=== PATIENT | female | born 1970 | race Caucasian/White ===

== ENCOUNTER 2020-07-26 12:36 | Outpatient (REF) | payer BC, SELFPAY ==
[2020-07-26 15:12] LABS: SARS COV2 IgG Negative (Negative)
== END 2020-07-26 12:37 | disposition home or self-care (01) ==
LOC: HO.LAB 12:36
PROVIDERS: Visit Provider Internal Medicine
DX: Z20.822 Contact with and (suspected) exposure to COVID-19 (principal)
CPT/HCPCS: 36415; 86769

== ENCOUNTER 2020-07-26 13:07 | Outpatient (REF) | payer BC, SELFPAY | END 2020-07-26 13:08 | disposition home or self-care (01) | LOC: HO.LAB 13:07 | PROVIDERS: PCP Internal Medicine; Referring Provider Internal Medicine; Visit Provider Internal Medicine | DX: Z20.822 Contact with and (suspected) exposure to COVID-19 (principal) | CPT/HCPCS: 36415; C9803; U0003; U0005 ==

== ENCOUNTER 2020-08-06 15:50 | Outpatient (REF) | payer BC, SELFPAY ==
--- NOTE | ~2020-08-06 | MR_ITS ---
EXAMINATION: MR BREAST WITHOUT AND WITH CONTRAST, BILATERAL CLINICAL INFORMATION: 50-year-old for high-risk screening. COMPARISON: MRI of 06/27/2019 and 06/03/2018 TECHNIQUE: Imaging was performed with a dedicated breast coil. Prior to the administration of contrast, bilateral axial T1- and bilateral axial T2-weighted sequences were obtained. After the uneventful administration of?5 mL of Gadavist, dynamic contrast-enhanced VIBRANT series through the breasts in the axial plane were performed. Subtracted images were performed and reviewed. A delayed sagittal sequence through both breasts was acquired. Additionally, CAD post-processing, including maximum intensity projections, 3-D reconstructions and kinetic analysis, were performed an independent workstation and reviewed by the interpreting radiologist is a portion of this exam. FINDINGS: The patient's fibroglandular tissue demonstrates minimal background enhancement. LEFT BREAST: There is an intact saline implant. No suspicious mass-like or [id number]-[id number] enhancement. No abnormal skin thickening or nipple retraction. No abnormal architectural distortion. Review of the T2-weighted images demonstrates no fibrocystic changes or dilated ducts. Review of kinetic images reveals no additional findings. RIGHT BREAST: There is an intact saline implant. No suspicious mass-like or cey-[id number]-[id number] enhancement. No abnormal skin thickening or nipple retraction. No abnormal architectural distortion. There is a stable T2 hyperintense mass in the lower inner aspect of the right breast consistent with an intramammary lymph node. There are no new areas of mass or non-mass enhancement. There are no secondary signs of malignancy. Review of the T2-weighted images demonstrates no fibrocystic changes or dilated ducts. Review of kinetic images reveals no additional findings. There is no suspicious internal mammary chain or axillary adenopathy. Limited views of the chest and abdomen are unremarkable. MR/MR breast BI wo/w con IMPRESSION: No MR specific evidence of malignancy. ASSESSMENT: LEFT BREAST: BI-RADS 2 - benign. RIGHT BREAST: BI-RADS 2 - benign. RECOMMENDATIONS: Routine mammographic imaging as per most recent study and MRI as per high-risk protocol.
== END 2020-08-06 15:51 | disposition home or self-care (01) ==
LOC: HO.MRI 15:50
PROVIDERS: Visit Provider Physician Assistant
DX: R92.2 Inconclusive mammogram (principal)
CPT/HCPCS: 77049; A9585

== ENCOUNTER → 2020-09-07 15:22 | Outpatient (BNVA) | payer BC, SELFPAY | PROVIDERS: Visit Provider Urology | DX: N39.0 Urinary tract infection, site not specified (principal) | CPT/HCPCS: 81002 ==

== ENCOUNTER 2020-09-21 07:33 | Outpatient (REF) | payer BC, SELFPAY ==
--- NOTE | ~2020-09-21 | XR_ITS ---
EXAMINATION: XR SHOULDER, RIGHT CLINICAL INFORMATION: Right shoulder pain. COMPARISON: None TECHNIQUE: Three-view of the right shoulder. FINDINGS: There is no evidence of acute fracture or dislocation of the right shoulder. Right shoulder joint space is maintained. No significant degenerative change of the acromioclavicular joint. Small calcification seen at site of insertion of the supraspinatus tendon. There are a few pit erosions seen about the humeral head. XR/XR shoulder RT min 2V IMPRESSION: Calcific tendinitis of the right shoulder.
== END 2020-09-21 07:34 | disposition home or self-care (01) ==
LOC: HO.HOSX 07:33
PROVIDERS: Visit Provider Orthopaedic Surgery
DX: M25.311 Other instability, right shoulder (principal); M25.312 Other instability, left shoulder; M75.41 Impingement syndrome of right shoulder
CPT/HCPCS: 73030

== ENCOUNTER 2020-10-21 08:06 | Outpatient (REF) | payer BC, SELFPAY ==
[2020-10-21 10:18] LABS: MANUAL DIFF FLAG NO
[2020-10-21 10:26] LABS: Basophils Percent Auto 0.6 % (0-2); Eosinophils Absolute Auto 0.1 X10*3/uL (0.0-0.4); Hematocrit 38.4 % (37-47); Hemoglobin 12.9 g/dl (12.0-16.0); Imm Gran Abs Auto 0.01 X10*3/uL (0.00-0.03); Imm Gran Pct Auto 0.3 % (0.0-0.4); Lymphocytes Percent Auto 28.9 % (20-40); Mean Corpuscular HGB Conc 33.6 g/dl (31.0-35.0); Mean Corpuscular Hemoglobin 32.6 pg (27.0-33.0); Monocytes Absolute Auto 0.3 X10*3/uL (0.1-1.2); Monocytes Percent Auto 7.6 % (2-11); Neutrophils Absolute Auto 2.1 X10*3/uL (2.0-8.3); Neutrophils Percent Auto 60.6 % (45-73); Platelet Count 157 X10*3/uL (160-400); Red Blood Count 3.96 X10*6/uL (4.20-5.50); Red Cell Distribution Width 11.7 % (11.0-16.0); White Blood Count 3.4 X10*3/uL (4.8-10.8)
[2020-10-21 10:49] LABS: Alanine Aminotransferase 15 U/L (0-31); Alkaline Phosphatase 44 U/L (39-117); Anion Gap 11 (12-20); Aspartate Amino Transferase 18 U/L (5-31); Bilirubin Total 0.8 mg/dL (0.0-1.0); Blood Urea Nitrogen 17 mg/dL (9-16); Carbon Dioxide 26 mmol/L (22-29); Chloride 106 mmol/L (96-108); Cholesterol 170 mg/dL; Estimated Glomerular Filt Rate > 60; Glucose Fasting 86 mg/dL (60-99); HDL Cholesterol 67 mg/dL; LDL Cholesterol Calculated 93 mg/dl; Potassium 4.5 mmol/L (3.3-5.1); Sodium 138 mmol/L (135-145); Total Protein 6.7 g/dL (6.5-8.0); Triglycerides 51 mg/dL
[2020-10-21 11:11] LABS: Thyroid Stimulating Hormone 1.36 uIU/mL (0.32-4.0)
== END 2020-10-21 08:07 | disposition home or self-care (01) ==
LOC: HO.10HDL 08:06
PROVIDERS: Visit Provider Internal Medicine
DX: Z00.00 Encounter for general adult medical examination without abnormal findings (principal); E03.9 Hypothyroidism, unspecified; E11.9 Type 2 diabetes mellitus without complications
CPT/HCPCS: 36415; 80053; 80061; 84443; 85025

== ENCOUNTER 2021-06-03 09:37 | Outpatient (REF) | payer BC, SELFPAY ==
--- NOTE | ~2021-06-03 | XR_ITS ---
EXAMINATION: CR CHEST CLINICAL INFORMATION: Palpitations. COMPARISON: Chest x-ray dated 02/12/2019. TECHNIQUE: 2 views of the chest were obtained on 3 images. FINDINGS: The cardiomediastinal silhouette is within normal limits in size. Lungs bilaterally are symmetrically expanded and clear. No focal consolidation, effusion or pneumothorax is seen. Minimal S-shaped thoracic scoliosis and mild spurring in the lower thoracic spine noted. Bilateral breast implants are seen in place. XR/XR chest 2V IMPRESSION: No acute cardiopulmonary process.
--- NOTE | 2021-06-03 10:03 | ECG_ITS ---
Test Reason : PALPITATIONS Blood Pressure : / mmHG Vent. Rate : 069 BPM Atrial Rate : 069 BPM P-R Int : 130 ms QRS Dur : 078 ms QT Int : 396 ms P-R-T Axes : 034 073 063 degrees QTc Int : 424 ms Normal sinus rhythm Low voltage QRS Borderline ECG When compared with ECG of 20-NOV-2019 13:23, No significant change was found Referred By: Reinaldo Velez Electronically Signed By:ADEOLA GUERRA MD
[2021-06-03 11:05] LABS: Anion Gap 12 (12-20); Blood Urea Nitrogen 22 mg/dL (9-16); Calcium 9.4 mg/dL (8.4-10.2); Carbon Dioxide 26 mmol/L (22-29); Chloride 105 mmol/L (96-108); Estimated Glomerular Filt Rate > 60; Glucose Random 79 mg/dL (60-115); Potassium 5.1 mmol/L (3.3-5.1); Sodium 138 mmol/L (135-145)
[2021-06-03 11:30] LABS: Thyroid Stimulating Hormone 1.45 uIU/mL (0.32-4.0)
== END 2021-06-03 09:38 | disposition home or self-care (01) ==
LOC: HO.10HDL 09:37
PROVIDERS: PCP Internal Medicine; Visit Provider Internal Medicine
DX: Z00.00 Encounter for general adult medical examination without abnormal findings (principal); R51.9 Headache, unspecified; R00.2 Palpitations
CPT/HCPCS: 36415; 71046; 80048; 84443; 93005

== ENCOUNTER 2021-08-23 08:16 | Outpatient (REF) | payer BC, SELFPAY ==
--- NOTE | ~2021-08-23 | MR_ITS ---
EXAMINATION: MR BREAST WITHOUT AND WITH CONTRAST, BILATERAL CLINICAL INFORMATION: High-risk screening. Family history of breast cancer. History of bilateral breast augmentation, saline. COMPARISON: MRI 08/06/2020, 06/27/2019 TECHNIQUE: Imaging was performed with a dedicated breast coil. Prior to the administration of contrast, bilateral axial T1 and bilateral axial T2 weighted sequences were obtained. After the uneventful administration of?5.5 mL of Gadavist, dynamic contrast-enhanced VIBRANT series through the breasts in the axial plane were performed. Subtracted images were performed and reviewed. A delayed sagittal sequence through both breasts was acquired. Additionally, CAD post-processing, including maximum intensity projections, 3-D reconstructions and kinetic analysis, were performed an independent workstation and reviewed by the interpreting radiologist is a portion of this exam. FINDINGS: The patient's fibroglandular tissue demonstrates moderate background enhancement. Retropectoral saline implants are intact. LEFT BREAST: No suspicious masslike or non-masslike enhancement. No abnormal skin thickening or nipple retraction. No abnormal architectural distortion. Review of the T2 weighted images demonstrates no fibrocystic changes or dilated ducts. Review of kinetic images reveals no additional findings. RIGHT BREAST: Stable tiny enhancing focus, right breast, lower inner quadrant posteriorly. No suspicious masslike or non-masslike enhancement. No abnormal skin thickening or nipple retraction. No abnormal architectural distortion. Review of the T2 weighted images demonstrates no fibrocystic changes or dilated ducts. Review of kinetic images reveals no additional findings. There is no suspicious internal mammary chain or axillary adenopathy. Limited views of the chest and abdomen are unremarkable. MR/MR breast BI wo/w con IMPRESSION: No MR specific evidence of malignancy. ASSESSMENT: LEFT BREAST: BI-RADS 1-Negative RIGHT BREAST: BI-RADS 1-Negative RECOMMENDATIONS: Clinical follow-up. Continued annual mammographic surveillance. Further breast MRI as risk factors dictate.
== END 2021-08-23 08:17 | disposition home or self-care (01) ==
LOC: HO.MRI 08:16
PROVIDERS: Visit Provider Physician Assistant
DX: R92.2 Inconclusive mammogram (principal); Z80.3 Family history of malignant neoplasm of breast
CPT/HCPCS: 77049; A9585

== ENCOUNTER → 2021-09-07 09:16 | Outpatient (BNVA) | payer BC, SELFPAY | PROVIDERS: PCP Internal Medicine; Visit Provider Urology | DX: N32.81 Overactive bladder (principal); N39.0 Urinary tract infection, site not specified | CPT/HCPCS: 99212 ==

== ENCOUNTER 2021-11-25 08:20 | Outpatient (REF) | payer BC, SELFPAY ==
[2021-11-25 08:35] LABS: MANUAL DIFF FLAG NO
[2021-11-25 09:17] LABS: Basophils Percent Auto 0.8 % (0-2); Eosinophils Absolute Auto 0.1 X10*3/uL (0.0-0.4); Eosinophils Percent Auto 1.3 % (0-4); Hematocrit 35.8 % (37.0-47.0); Hemoglobin 12.5 g/dl (12.0-16.0); Imm Gran Abs Auto 0.01 X10*3/uL (0.00-0.03); Imm Gran Pct Auto 0.3 % (0.0-0.4); Lymphocytes Percent Auto 24.4 % (20-40); Mean Corpuscular HGB Conc 34.9 g/dl (31.0-35.0); Mean Corpuscular Hemoglobin 33.1 pg (27.0-33.0); Mean Corpuscular Volume 94.7 fL (80.0-98.0); Mean Platelet Volume 10.9 fL (9.4-12.3); Monocytes Absolute Auto 0.3 X10*3/uL (0.1-1.2); Monocytes Percent Auto 6.9 % (2-11); Neutrophils Absolute Auto 2.6 x10*3/uL (2.0-8.3); Neutrophils Percent Auto 66.3 % (45-73); Platelet Count 165 X10*3/uL (160-400); Red Blood Count 3.78 X10*6/uL (4.20-5.50); Red Cell Distribution Width 11.7 % (11.0-16.0); White Blood Count 3.9 X10*3/uL (4.8-10.8)
[2021-11-25 09:29] LABS: Alanine Aminotransferase 20 U/L (0-31); Albumin Level 3.9 g/dL (3.5-5.0); Alkaline Phosphatase 40 U/L (39-117); Anion Gap 12 (12-20); Aspartate Amino Transferase 22 U/L (5-31); Bilirubin Total 0.8 mg/dL (0.0-1.0); Blood Urea Nitrogen 21 mg/dL (9-16); Calcium 9.1 mg/dL (8.4-10.2); Carbon Dioxide 24 mmol/L (22-29); Chloride 107 mmol/L (96-108); Cholesterol 167 mg/dL; Estimated Glomerular Filt Rate > 60; Glucose Fasting 96 mg/dL (60-99); HDL Cholesterol 74 mg/dL; LDL Cholesterol Calculated 84 mg/dl; Potassium 4.7 mmol/L (3.3-5.1); Sodium 138 mmol/L (135-145); Total Protein 6.7 g/dL (6.5-8.0); Triglycerides 46 mg/dL
[2021-11-25 09:40] LABS: Thyroid Stimulating Hormone 1.58 uIU/mL (0.32-4.0)
== END 2021-11-25 08:21 | disposition home or self-care (01) ==
LOC: HO.LAB 08:20
PROVIDERS: PCP Internal Medicine; Visit Provider Internal Medicine
DX: Z00.00 Encounter for general adult medical examination without abnormal findings (principal); Z13.0 Encounter for screening for diseases of the blood and blood-forming organs and certain disorders involving the immune mechanism
CPT/HCPCS: 36415; 80053; 80061; 84443; 85025

== ENCOUNTER 2022-02-24 12:53 | Outpatient (REF) | payer OTHER, SELFPAY ==
--- NOTE | ~2022-02-24 | CT_ITS ---
EXAMINATION: CT SINUS WITHOUT CONTRAST CLINICAL INFORMATION: Chronic sinusitis. COMPARISON: None. TECHNIQUE: Axial 2 mm thin and reformatted 2 mm thin sagittal and coronal images of sinuses were obtained without contrast. This CT examination was performed using dose optimization techniques as appropriate, variously including the following: *Automated exposure control *Adjustment of mA and/or kV according to patient size (this includes techniques or standardized protocols for targeted exams where dose is matched to indication/reason for exam; i.e. extremities or head) *Use of iterative reconstruction technique DLP: 75 mGy-cm. FINDINGS: There is normal aeration of bilateral paranasal sinuses and mastoid sinuses without air-fluid level. Bilateral ostiomeatal complex and frontoethmoidal recesses are widely patent. The bony sinus watkins are intact. There is mild deviation of nasal septum to the right with a moderate size bony spur. There is a paradoxical left middle turbinate. The nasal cavity and nasopharyngeal airways patent. The optic globe, bony orbits, optic nerve and the orbital and periorbital soft tissues are normal. Visualized intracranial brain parenchyma is normal. The maxillofacial bones and zygoma appear unremarkable. There is normal symmetry of bilateral TM joints. No abnormality related to the visualized mandible seen. The soft tissues are normal. CT/CT sinus wo IV con IMPRESSION: Moderate deviation of nasal septum to the right with a moderate-sized bony spur. No visible fracture or bony abnormality.
== END 2022-02-24 12:54 | disposition home or self-care (01) ==
LOC: HO.CT 12:53
PROVIDERS: PCP Internal Medicine; Visit Provider Internal Medicine
DX: J32.9 Chronic sinusitis, unspecified (principal)
CPT/HCPCS: 70486

== ENCOUNTER 2022-05-04 14:04 | Outpatient (RCR) | payer OTHER, SELFPAY ==
--- NOTE | 2022-05-04 15:16 | MHC.PT.EP ---
[facility] [place] Office [place] Office [place] Office [address] Keily Hanks [address] [phone] F: [phone] F: [phone] F: [phone] F: [phone] Physical Therapy Plan of Care Date of Evaluation: Date of Surgery: NA Diagnosis: Disorder of ligament of R ankle Assessment: Tita is a 52 year old female who is referred to PT for disorder of ligament of R ankle . She reports of having sudden onset of ankle pain about 2 weeks back. She denies any trauma or falls. On PT examination she reports of having 8/10 pain with walking, stairs and standing, no TTP noted, decreased R big toe mobility, decreased strength, altered posture, balance and gait. Due to these impairments she has pain with ADLs and driving. She works in [employer] and is standing and walking all day. She would benefit from skilled PT to address the aforementioned impairment and improve tolerance to functional activities. Frequency and Duration: The patient will be seen 2/week for 5 weeks Short Term Goals: 1. Pt will have 50% decrease in pain which enable her to stand for 30 minutes with a pain no more than 2/10 in 2 weeks. 2. Pt will demonstrate improved mobility of big toe extension (30 degrees) which will enable her to walk without pain in 3 weeks. Service Girl Goals: 1. Pt will be demonstrate an increase in muscle strength by 1 grade which will enable her to negotiate stairs without pain in 4 weeks. 2. Pt will be independent with HEP and return to PLOF in 5 weeks. Treatment Plan: Modalities to reduce pain, spasms and effusion. Manual therapy to restore motion and function. Therapeutic exercise to improve strength and flexibility. Neuromuscular re-education for posture and balance. Therapeutic activities to return to functional activities of daily living. Electronically signed by: Lady Alonzo PT DPT Please sign and return to therapist. Thank you for your referral.
--- NOTE | 2022-05-24 15:21 | MHC.PT.DC ---
[facility] [place] Office [place] Office [place] Office [address] Keily Hanks [address] [facility] [phone] F: [phone] F: [phone] F: [phone] F: [phone] Physical Therapy Discharge Report Diagnosis: Disorder of ligament of R ankle Date of Surgery: NA Date of Evaluation: 05/04/22 Date of Discharge: 05/24/22 Treatments to Date: 1 Cancellations to Date: 0 No Shows to Date: 0 Discharge Status: Patient Elected to Stop Discharge Summary: Tita canceled 3 visits after her evaluation and called and d/c herself today stating she is feeling better. She is therefore being d/c from PT. Electronically signed by: Lady Alonzo PT DPT Please sign and return to therapist. Thank you for your referral.
== END 2022-05-24 15:21 | disposition home or self-care (01) ==
LOC: HO.PT 14:04
PROVIDERS: PCP Internal Medicine; Visit Provider Physician Assistant
DX: M24.271 Disorder of ligament, right ankle (principal)
CPT/HCPCS: 97110; 97161

== ENCOUNTER → 2022-09-08 13:09 | Outpatient (BNVA) | payer OTHER, SELFPAY | PROVIDERS: PCP Internal Medicine; Visit Provider Urology | DX: N39.0 Urinary tract infection, site not specified (principal); R39.15 Urgency of urination | CPT/HCPCS: 51798 ==

== ENCOUNTER 2022-12-08 07:16 | Outpatient (REF) | payer OTHER, SELFPAY ==
[2022-12-08 07:25] LABS: MANUAL DIFF FLAG NO
[2022-12-08 08:41] LABS: Basophils Percent Auto 0.5 % (0-2); Eosinophils Absolute Auto 0.1 X10*3/uL (0.0-0.4); Eosinophils Percent Auto 2.1 % (0-4); Hematocrit 35.2 % (37.0-47.0); Imm Gran Abs Auto 0.01 X10*3/uL (0.00-0.03); Imm Gran Pct Auto 0.2 % (0.0-0.4); Lymphocytes Absolute Auto 1.3 X10*3/uL (1.2-4.9); Lymphocytes Percent Auto 28.8 % (20-40); Mean Corpuscular HGB Conc 34.1 g/dl (31.0-35.0); Mean Corpuscular Hemoglobin 32.4 pg (27.0-33.0); Mean Corpuscular Volume 95.1 fL (80.0-98.0); Mean Platelet Volume 11.7 fL (9.4-12.3); Monocytes Absolute Auto 0.3 X10*3/uL (0.1-1.2); Monocytes Percent Auto 6.9 % (2-11); Neutrophils Absolute Auto 2.7 x10*3/uL (2.0-8.3); Neutrophils Percent Auto 61.5 % (45-73); Platelet Count 134 X10*3/uL (160-400); Red Cell Distribution Width 12.2 % (11.0-16.0); White Blood Count 4.4 X10*3/uL (4.8-10.8)
[2022-12-08 09:18] LABS: Alanine Aminotransferase 17 U/L (0-31); Albumin Level 3.7 g/dL (3.5-5.0); Alkaline Phosphatase 43 U/L (39-117); Anion Gap 9 (12-20); Aspartate Amino Transferase 21 U/L (5-31); Bilirubin Total 0.7 mg/dL (0.0-1.0); Blood Urea Nitrogen 18 mg/dL (9-16); Calcium 9.2 mg/dL (8.4-10.2); Carbon Dioxide 25 mmol/L (22-29); Chloride 108 mmol/L (96-108); Cholesterol 161 mg/dL; Estimated Glomerular Filt Rate > 60; Glucose Fasting 90 mg/dL (60-99); HDL Cholesterol 65 mg/dL; LDL Cholesterol Calculated 84 mg/dl; Sodium 138 mmol/L (135-145); Total Protein 6.7 g/dL (6.5-8.0); Triglycerides 64 mg/dL
[2022-12-08 09:26] LABS: Thyroid Stimulating Hormone 2.14 uIU/mL (0.32-4.0)
== END 2022-12-08 07:17 | disposition home or self-care (01) ==
LOC: HO.LAB 07:16
PROVIDERS: PCP Internal Medicine; Visit Provider Internal Medicine
DX: E03.9 Hypothyroidism, unspecified (principal); N28.9 Disorder of kidney and ureter, unspecified; E78.5 Hyperlipidemia, unspecified; D64.9 Anemia, unspecified
CPT/HCPCS: 36415; 80053; 80061; 84443; 85025

== ENCOUNTER 2022-12-14 16:33 | Outpatient (REF) | payer OTHER, SELFPAY ==
--- NOTE | ~2022-12-14 | MR_ITS ---
EXAMINATION: MR BREAST WITHOUT AND WITH CONTRAST, BILATERAL CLINICAL INFORMATION: High-risk screening. Family history of breast cancer. History of bilateral breast augmentation, saline. COMPARISON: 07/20/2021, 08/06/2020 TECHNIQUE: Imaging was performed with a dedicated breast coil. Prior to the administration of contrast, bilateral axial T1 and bilateral axial T2 weighted sequences were obtained. After the uneventful administration of?5.5 mL of Gadavist, dynamic contrast-enhanced VIBRANT series through the breasts in the axial plane were performed. Subtracted images were performed and reviewed. A delayed sagittal sequence through both breasts was acquired. Additionally, CAD post-processing, including maximum intensity projections, 3-D reconstructions and kinetic analysis, were performed an independent workstation and reviewed by the interpreting radiologist is a portion of this exam. FINDINGS: The patient's fibroglandular tissue demonstrates moderate background enhancement. LEFT BREAST: No suspicious masslike or non-masslike enhancement. No abnormal skin thickening or nipple retraction. No abnormal architectural distortion. Review of the T2 weighted images demonstrates no fibrocystic changes or dilated ducts. Review of kinetic images reveals no additional findings. RIGHT BREAST: No suspicious masslike or non-masslike enhancement. No abnormal skin thickening or nipple retraction. No abnormal architectural distortion. Review of the T2 weighted images demonstrates no fibrocystic changes or dilated ducts. Review of kinetic images reveals no additional findings. There is no suspicious internal mammary chain or axillary adenopathy. Limited views of the chest and abdomen are unremarkable. MR/MR breast BI wo/w con IMPRESSION: No MR specific evidence of malignancy. ASSESSMENT: LEFT BREAST: BI-RADS 1-Negative RIGHT BREAST: BI-RADS 1-Negative RECOMMENDATIONS: Continue mammographic surveillance. Clinical follow-up.
== END 2022-12-14 16:34 | disposition home or self-care (01) ==
LOC: HO.MRI 16:33
PROVIDERS: PCP Internal Medicine; Visit Provider Obstetrics & Gynecology
DX: R92.2 Inconclusive mammogram (principal)
CPT/HCPCS: 77049; A9585

== ENCOUNTER 2023-05-02 11:27 | Outpatient (AMB) | payer OTHER, SELFPAY ==
[2023-05-02 11:31] VITALS: BP 100/70; PULSE 65; O2SAT 100; BMI 22.7
--- NOTE | 2023-05-02 11:31 | A.OFFPC_ITS ---
Vital Signs 05/02/23 11:31 Height 5 ft 3 in Weight 128 lb BMI 22.7 BP 100/70 Blood Pressure Location Lt brachial Position Sitting Pulse 65 Pulse Source Pulse Oximeter Pulse Oximetry (%) 100 Oxygen Delivery Method Room Air Intake Visit Reasons: 6M follow up Director Medical Science: Not Required per policy Accompanied by: Self / Same As Patient Allergies clindamycin [CLINDAMYCIN] Allergy (Severe, Verified 05/02/23 11:32) HIVES AND BODY SWELLING amoxicillin Allergy (Unknown, Verified 05/02/23 11:32) unknown azithromycin [From ZITHROMAX Z-ASHTYN] Allergy (Unknown, Verified 05/02/23 11:32) SWELLING, rash Clindamycin HCl Allergy (Unknown, Verified 05/02/23 11:32) face swollen,hives penicillin V Allergy (Unknown, Verified 05/02/23 11:32) throat swelling Penicillins [PENICILLINS] Allergy (Unknown, Verified 05/02/23 11:32) ANAPHYLAXIS Sulfa (Sulfonamide Antibiotics) Allergy (Unknown, Verified 05/02/23 11:32) rash sulfamethoxazole [From Bactrim] Allergy (Unknown, Verified 05/02/23 11:32) rash trimethoprim [From Bactrim] Allergy (Unknown, Verified 05/02/23 11:32) rash eggs Allergy (Unknown, Uncoded 05/02/23 11:32) Unknown Medication List - Last Reconciled 05/03/23 by Reinaldo Velez MD bupropion HCl 50 mg PO QAM citalopram 5 mg (1/2 x 10 mg) PO DAILY citalopram 0 - 6 mg PO DAILY epinephrine IM DIRECTED estradiol 1 patch transdermal 2XW fluticasone propionate 50 mcg/actuation (Flonase Allergy Relief) 1 spray intranasal DAILY nitrofurantoin macrocrystal 100 mg PO .PRN 90 days progesterone micronized 200 mg PO BEDTIME valacyclovir 500 mg PO DAILY Tobacco use date assessed: 10/17/22 Dental Screening Dental Screen Date: 05/02/23 Did you have a dental visit in the last 12 months?: Yes Did you have a dental problem in the last 6 months where you did not have access to dental care?: No Was dental information given to patient?: Patient has dentist HPI 6M follow up HPI Details continues on rx for mild depression and doing very well; stable and compliant; recent of brother [facility] Medical History Chronic depressive disorder Depression Gluten-sensitive enteropathy Surgical History Status post cervical polyp removal History of augmentation of both breasts Family History Father Hypertension CVD (cardiovascular disease) Mother No problems noted. Brother Lung cancer Social History Housing: House Alcohol intake: current Alcohol intake frequency: holidays/special occasions only Patient Tobacco Use Status: Never used Tobacco e-Cigarette/Vaping Use: Never Used Second Hand Smoke Exposure: No service: No Current occupational status: employed Cognitive needs: No Hearing needs: No Vision needs: Yes Questionnaire PHQ-9 Over the last 2 weeks, how often have you been bothered by any of the following problems? 1. Little interest or pleasure in doing things: not at all 2. Feeling down, depressed, or hopeless: not at all 3. Trouble falling or staying asleep, or sleeping too much: not at all 4. Feeling tired or having little energy: not at all 5. Poor appetite or overeating: not at all 6. Feeling bad about yourself - or that you are a failure or have let yourself or your family down: not at all 7. Trouble concentrating on things, such as reading the newspaper or watching television: not at all 8. Moving or speaking so slowly that other people could have noticed. Or the opposite - being so fidgety or restless that you have been moving around a lot more than usual: not at all 9. Thoughts that you would be better off or of hurting yourself in some way: not at all Total score: 0 Depression Screening Interpretation: Negative Depression Screening Done: Yes 36050 - PHQ-9 Billing: Yes Source: Developed by Drs. Chuck Angelo, Kimber Heredia, Misael Greene and colleagues, with an educational tootie from [employer]. Thrive Questionnaire Date Thrive assessed: 09/01/22 AUDIT C Alcohol Use Questionnaire (AUDIT-C) 1. How often do you have a drink containing alcohol?: Monthly or less 2. How many drinks containing alcohol do you have on a typical day when you are drinking?: 1 or 2 3. How often do you have six or more drinks on one occasion?: Never Total Score: 1 Score Reviewed/Action Taken: No DEMIAN-7 AMB Questionnaire DEMIAN-7 Date DEMIAN - 7 assessed: 09/01/22 Source: Developed by Drs. Chuck Angelo, Kimber Heredia, Misael Greene and colleagues, with an educational tootie from [employer]. Review of Systems Const Denies chills, Denies headache(s) and Denies weight loss ENT Denies headache(s) Card Denies chest pain, Denies syncope, Denies irregular heart rhythm and Denies dyspnea Resp Denies chest congestion, Denies cough and Denies dyspnea GI Denies abdominal pain, Denies change in stool character, Denies nausea and Denies vomiting Musc Denies deformity and Denies joint swelling Neuro Denies syncope and Denies headache(s) Physical exam (Primary Care) Vital Signs: Last Vital Signs Pulse 65 05/02/23 11:31 BP 100/70 05/02/23 11:31 Pulse Ox 100 05/02/23 11:31 Oxygen Delivery Method Room Air 05/02/23 11:31 BMI result Body Mass Index 22.7 Tobacco/Smoking Status: Tobacco use Status Tobacco use date assessed 10/17/22 05/02/23 11:38 Patient Tobacco Use Status Never used Tobacco 05/02/23 11:38 e-Cigarette/Vaping Use Never Used 05/02/23 11:38 PHQ-9: PHQ-9 Score PHQ-9: Total score 0 05/02/23 11:38 Depression Screening Interpretation: Negative Thrive Assessment: Date of Thrive Assessment Date Thrive assessed 09/01/22 05/02/23 11:38 Const General: cooperative, comfortable, no acute distress and alert Neck Neck: Yes no lymphadenopathy Thyroid: Thyroid normal Resp Effort & Inspection: normal respiratory effort Auscultation: clear to auscultation bilaterally Percussion: percussion normal Cardio Jugular venous distension: no JVD Palpation: normal PMI Rate: regular rate Rhythm: regular rhythm Heart sounds: S1 normal heart sound present and S2 normal heart sound present GI Inspection: Yes normal to inspection Palpation (GI): No hepatosplenomegaly present Skin General skin exam: no rashes or lesions noted Extrem General: Yes no clubbing, cyanosis or edema Assessment and Plan Assessment & Plan (1) Depression: Code(s): F32.9 - Major depressive disorder, single episode, unspecified Plan: stable; same rx Medications: Changed From epinephrine IM DIRECTED To epinephrine 0.3 mg (0.3 mL) IM DIRECTED 2 ea 2RF Coding Level of Care Code Est Pt Level 3 (17466) Diagnoses Depression F32.9
== END 2023-05-02 12:13 | disposition home or self-care (01) ==
PROVIDERS: PCP Internal Medicine; Visit Provider Internal Medicine
DX: F32.0 Major depressive disorder, single episode, mild (principal)
CPT/HCPCS: 99213

== ENCOUNTER 2023-06-22 11:51 | Outpatient (REF) | payer OTHER, SELFPAY ==
--- NOTE | ~2023-06-22 | MM_ITS ---
EXAMINATION: MM SCREENING DIGITAL BREAST TOMOSYNTHESIS, BILATERAL WITH BREAST IMPLANTS. CLINICAL INFORMATION: Screening. Asymptomatic. COMPARISON: Mammography: This study is compared with the prior exam dating back to 2018. TECHNIQUE: Digital mammography is performed in craniocaudal and mediolateral oblique views along with computer-aided detection (CAD). Digital breast tomosynthesis is performed in implant-displaced craniocaudal and implant-displaced mediolateral oblique views along with computer-aided detection (CAD). Synthesized 2D images are generated from the tomosynthesis. FINDINGS: The breasts are heterogeneously dense, which may obscure small masses (ACR BI-RADS breast composition Category c). There are bilateral, mammographically intact, retropectoral saline breast implants. There are no significant masses, abnormal calcifications, or other abnormalities. MM/MM tomosynthesis screen imp BI IMPRESSION: There are no significant changes from prior study. ASSESSMENT: BI-RADS BI-RADS 1 - Negative RECOMMENDATION: Routine annual mammography screening. 1 year F/U This patient's information was entered into a reminder system with a target due date for their next mammogram.
== END 2023-06-22 11:52 | disposition home or self-care (01) ==
LOC: HO.MAMMO 11:51
PROVIDERS: PCP Internal Medicine; Visit Provider Internal Medicine
DX: Z12.31 Encounter for screening mammogram for malignant neoplasm of breast (principal)
CPT/HCPCS: 77063; 77067

== ENCOUNTER → 2023-06-22 12:00 | Outpatient (BNV) | payer OTHER, SELFPAY | PROVIDERS: PCP Internal Medicine; Visit Provider Radiology Diagnostic Radiology | DX: Z12.31 Encounter for screening mammogram for malignant neoplasm of breast (principal) | CPT/HCPCS: 77063; 77067 ==

== ENCOUNTER 2023-09-14 10:43 | Outpatient (AMB) | payer OTHER, SELFPAY ==
--- NOTE | 2023-09-14 10:50 | MHC.OFFVIS ---
Intake Intake Visit Reasons: 1Y UA Intake Note: Patient presents today for a follow up on UA Meds- Estradiol Allergies to Antibiotic- Clindamycin, Amoxicillin, Azithromycin, Penicillin, Sulfa, Bactrim Blood Thinner- None Post Void Residual: 0ml Brand Recorder Required: No Accompanied by: Self / Same As Patient Allergies clindamycin [CLINDAMYCIN] Allergy (Severe, Verified 09/14/23 10:59) HIVES AND BODY SWELLING amoxicillin Allergy (Unknown, Verified 09/14/23 10:59) unknown azithromycin [From ZITHROMAX Z-ASHTYN] Allergy (Unknown, Verified 09/14/23 10:59) SWELLING, rash Clindamycin HCl Allergy (Unknown, Verified 09/14/23 10:59) face swollen,hives penicillin V Allergy (Unknown, Verified 09/14/23 10:59) throat swelling Penicillins [PENICILLINS] Allergy (Unknown, Verified 09/14/23 10:59) ANAPHYLAXIS Sulfa (Sulfonamide Antibiotics) Allergy (Unknown, Verified 09/14/23 10:59) rash sulfamethoxazole [From Bactrim] Allergy (Unknown, Verified 09/14/23 10:59) rash trimethoprim [From Bactrim] Allergy (Unknown, Verified 09/14/23 10:59) rash eggs Allergy (Unknown, Uncoded 09/14/23 10:59) Unknown Medication List - Last Reconciled 09/14/23 by Danny Luke MD citalopram 10 mg PO DAILY epinephrine 0.3 mg (0.3 mL) IM DIRECTED estradiol 1 patch transdermal 2XW fluticasone propionate 50 mcg/actuation (Flonase Allergy Relief) 1 spray intranasal DAILY nitrofurantoin macrocrystal 100 mg PO .PRN 90 days progesterone micronized 200 mg PO BEDTIME valacyclovir 500 mg PO DAILY HPI HPI Comments History of Present Illness Details Tita is a very pleasant female. She is a patient Dr. Michaels. She seen for following urologic conditions - overactive bladder - recurrent UTI Leukocytes remain on UA No symptoms Continues to use Macrodantin for suppression associated with sexual intercourse Has been on estradiol and progesterone for postmenopausal symptoms including vasomotor and fatigue Good response Recurrent UTI History of urinary tract infections Associated with sexual intercourse Uses Macrodantin for suppression Overactive bladder Initial presentation with nocturia 2-3 times Prior use of oxybutynin with off target impacts No current medications PFSH Medical History Chronic depressive disorder Depression Gluten-sensitive enteropathy Surgical History Status post cervical polyp removal History of augmentation of both breasts Family History Father Hypertension CVD (cardiovascular disease) Mother No problems noted. Brother Lung cancer Social History Housing: House Alcohol intake: current Alcohol intake frequency: holidays/special occasions only Patient Tobacco Use Status: Never used Tobacco e-Cigarette/Vaping Use: Never Used Second Hand Smoke Exposure: No service: No Current occupational status: employed Cognitive needs: No Hearing needs: No Vision needs: Yes Review of Systems Const Denies chills and Denies fever(s) Card Reports no additional complaints and Denies syncope Resp Denies cough GI Denies abdominal pain and Denies heartburn Reports as per HPI and Denies change in libido Neuro Denies syncope Psych Denies change in libido Endo Denies change in libido Physical Exam Const General: cooperative, healthy appearing, comfortable and no acute distress Orientation/consciousness: patient oriented x3 HEENT Face and sinus: Yes normal facial exam Mouth: moist mucous membranes Neck Neck: Yes normal visual inspection, Yes full ROM and Yes trachea midline Chest Chest palpation & inspection: normal inspection of the chest Resp Effort & Inspection: normal respiratory effort, able to speak in complete sentences and no respiratory distress GI Inspection: Yes normal to inspection Back/Spine/Pelvis Cervical Spine: normal cervical lordosis Thoracic/Lumbar Spine: thoracic and lumbar spine normal to inspection Skin General skin exam: no rashes or lesions noted Neuro General: patient oriented x3, gait normal, tone normal and moves all extremities Extrem General: Yes normal to inspection and Yes capillary refill normal Office Procedures Post Void Residual Post Residual Void Post Void Residual (PVR): 0 [id number] Void Residual by ultrasound Results AMB Urinalysis, Automated UA Leukoctes 125 Zulema/uL Last Edit by Gianna Hughes CMA on 09/14/23 11:14 UA Nitrite Negative Last Edit by Gianna Hughes CMA on 09/14/23 11:14 UA Urobilinogen 0.2 mg/dL Last Edit by Gianna Hughes [facility] on 09/14/23 11:14 UA Protein 0 mg/dL Last Edit by Gianna Hughes [facility] on 09/14/23 11:14 UA pH 7.0 Last Edit by Gianna Hughes [facility] on 09/14/23 11:14 UA Blood 10 Jose/uL Last Edit by Gianna Hughesfelicia Hughes [facility] on 09/14/23 11:14 UA Specific [place] 1.010 Last [facility] on 09/14/23 11:14 UA Ketone Negative Last Edit by Gianna Hughesfelicia Hughes [facility] on 09/14/23 11:14 UA Bilirubin 0 mg/dL Last Edit by Gianna Hughes [facility] on 09/14/23 11:14 UA Glucose 0 mg/dL [facility] on 09/14/23 11:14 Assessment & Plan Assessment & Plan (1) Recurrent UTI (urinary tract infection): Code(s): N39.0 - Urinary tract infection, site not specified Plan Twelve month follow-up nurse-practitioner Orders: Orders AMB Urinalysis Automated Today R33.9 - Retention of urine, unspecified AMB Post Void Residual by ultrasound Today R33.9 - Retention of urine, unspecified Medications: Refilled nitrofurantoin macrocrystal must administer with a meal/food 100 mg PO .PRN 90 caps 1RF 90 days N39.0 - Urinary tract infection, site not specified Patient Instructions: Imaging studies, laboratory and physical exam results were discussed and reviewed in detail. No major barriers to patient understanding were identified. An opportunity to ask questions regarding the treatment plan was provided. All questions were answered. The patient expressed understanding and agreement with the above treatment plan. The patient is aware they should contact our office by phone for worsening of their current condition or the appearance of new urologic symptoms. Compliance is encouraged with any medications and followup testing that is ordered. It is a privilege to participate in the urologic care of your patient. If you have any questions or concerns regarding treatment for the above conditions, or other urologic issues, please do not hesitate to contact me. The office telephone contact is [phone]. This note is constructed using voice recognition software. While every effort has been made to ensure accuracy associate professor of law errors may have been included. Yours sincerely, Dr Danny Luke MD, [facility] - Urology Providers of Expert, Compassionate Care for the Genitourinary System Coding Level of Care Code Est Pt Level 4 (68113) Diagnoses Recurrent UTI (urinary tract infection) N39.0 CPT Codes Post Residual Void - PVR CPT Code: 99730-Akjx Void Residual by ultrasound ([id number])
== END 2023-09-14 11:23 | disposition home or self-care (01) ==
PROVIDERS: Visit Provider Urology
DX: N39.0 Urinary tract infection, site not specified (principal); R33.9 Retention of urine, unspecified
CPT/HCPCS: 99213

== ENCOUNTER → 2023-09-14 10:43 | Outpatient (BNVA) | payer OTHER, SELFPAY | PROVIDERS: Visit Provider Urology | DX: N39.0 Urinary tract infection, site not specified (principal); R33.9 Retention of urine, unspecified | CPT/HCPCS: 51798; 81003 ==

== ENCOUNTER 2023-11-28 08:43 | Outpatient (AMB) | payer OTHER, SELFPAY ==
--- NOTE | 2023-11-28 08:45 | MHC.PC.OV ---
Vital Signs 11/28/23 08:48 Height 5 ft 3 in Weight 128 lb 6 oz BMI 22.7 BP 110/62 Blood Pressure Location Lt brachial Position Sitting Pulse 60 Pulse Source Pulse Oximeter Pulse Oximetry (%) 97 Oxygen Delivery Method Room Air Intake Visit Reasons: 6 Month F/U Intake Note: Patient is here to follow up on Depression. Child Development Associate Teacher Required: No Manager Intel: Not Required per policy Accompanied by: Self / Same As Patient Allergies clindamycin [CLINDAMYCIN] Allergy (Severe, Verified 11/28/23 08:48) HIVES AND BODY SWELLING amoxicillin Allergy (Unknown, Verified 11/28/23 08:48) unknown azithromycin [From ZITHROMAX Z-ASHTYN] Allergy (Unknown, Verified 11/28/23 08:48) SWELLING, rash Clindamycin HCl Allergy (Unknown, Verified 11/28/23 08:48) face swollen,hives penicillin V Allergy (Unknown, Verified 11/28/23 08:48) throat swelling Penicillins [PENICILLINS] Allergy (Unknown, Verified 11/28/23 08:48) ANAPHYLAXIS Sulfa (Sulfonamide Antibiotics) Allergy (Unknown, Verified 11/28/23 08:48) rash sulfamethoxazole [From Bactrim] Allergy (Unknown, Verified 11/28/23 08:48) rash trimethoprim [From Bactrim] Allergy (Unknown, Verified 11/28/23 08:48) rash eggs Allergy (Unknown, Uncoded 11/28/23 08:48) Unknown Medication List - Last Reconciled 11/28/23 by Reinaldo Velez MD citalopram 10 mg PO DAILY epinephrine 0.3 mg (0.3 mL) IM DIRECTED estradiol 1 patch transdermal 2XW fluticasone propionate 50 mcg/actuation (Flonase Allergy Relief) 1 spray intranasal DAILY nitrofurantoin macrocrystal 100 mg PO .PRN 90 days progesterone micronized 200 mg PO BEDTIME valacyclovir 500 mg PO DAILY Tobacco use date assessed: 11/28/23 Dental Screening Dental Screen Date: 11/28/23 Did you have a dental visit in the last 12 months?: Yes Did you have a dental problem in the last 6 months where you did not have access to dental care?: No Was dental information given to patient?: Patient has dentist HPI 6 Month F/U HPI Details chronic anxiety; has had some personal stress with family ; sees a therapist and bugun on Buspar PFSH Medical History Chronic depressive disorder Depression Gluten-sensitive enteropathy Surgical History (Updated 11/28/23 @ 08:52 by RADHA Valiente) History of dental surgery Status post cervical polyp removal History of augmentation of both breasts Family History Father Hypertension CVD (cardiovascular disease) Mother No problems noted. Brother Lung cancer Social History Housing: House Alcohol intake: current Alcohol intake frequency: holidays/special occasions only Patient Tobacco Use Status: Never used Tobacco e-Cigarette/Vaping Use: Never Used Second Hand Smoke Exposure: No service: No Current occupational status: employed Cognitive needs: No Hearing needs: No Vision needs: Yes Questionnaire PHQ-9 Over the last 2 weeks, how often have you been bothered by any of the following problems? 1. Little interest or pleasure in doing things: not at all 2. Feeling down, depressed, or hopeless: not at all 3. Trouble falling or staying asleep, or sleeping too much: not at all 4. Feeling tired or having little energy: not at all 5. Poor appetite or overeating: not at all 6. Feeling bad about yourself - or that you are a failure or have let yourself or your family down: not at all 7. Trouble concentrating on things, such as reading the newspaper or watching television: not at all 8. Moving or speaking so slowly that other people could have noticed. Or the opposite - being so fidgety or restless that you have been moving around a lot more than usual: not at all 9. Thoughts that you would be better off or of hurting yourself in some way: not at all Total score: 0 Depression Screening Interpretation: Negative Depression Screening Done: Yes Source: Developed by Drs. Chuck Angelo, Kimber Heredia, Misael Greene and colleagues, with an educational tootie from [employer]. Thrive Questionnaire Date Thrive assessed: 11/28/23 I am a: Patient What is your living situation today?: I have a steady place to live Within the past 12 months, did the food you bought not last and you didn't have the money to get more?: Never true Within the past 12 months, did you worry whether your food would run out before you got money to buy more?: Never true Do you have trouble paying for medicines?: No Do you have trouble getting transportation to medical appointments?: No Do you have trouble paying your heating and electricity bill?: No Do you have trouble taking care of your child, family member or friend?: No Do you have trouble with day-to-day activities such as bathing, preparing meals, shopping, managing finances, etc.?: No Are you currently unemployed and looking for a job?: No Are you interested in more education?: No Currently or been in a relationship where the following occur: no concerns reported THRIVE Score: 0 AUDIT C Alcohol Use Questionnaire (AUDIT-C) 1. How often do you have a drink containing alcohol?: Monthly or less 2. How many drinks containing alcohol do you have on a typical day when you are drinking?: 1 or 2 Total Score: 1 DMEIAN-7 AMB Questionnaire DEMIAN-7 Date DEMIAN - 7 assessed: 11/28/23 Feeling nervous, anxious, or on edge: 1 = Several days Not being able to stop or control worryin = Not at all Worrying too much about different things: 0 = Not at all Trouble relaxin = Nearly every day Being so restless that it is hard to sit still: 0 = Not at all Becoming easily annoyed or irritable: 0 = Not at all Feeling afraid as if something awful might happen: 1 = Several days Total DEMIAN-7 score (0-4 normal; 5-9 mild; 10-14 moderate; 15-21 severe): 5 Source: Developed by Drs. Chuck Angelo, Kimber Heredia, Misael Greene and colleagues, with an educational tootie from [employer]. Review of Systems Const Denies chills, Denies headache(s) and Denies weight loss ENT Denies headache(s) Card Denies chest pain, Denies syncope, Denies irregular heart rhythm and Denies dyspnea Resp Denies chest congestion, Denies cough and Denies dyspnea GI Denies abdominal pain, Denies change in stool character, Denies nausea and Denies vomiting Musc Denies deformity and Denies joint swelling Neuro Denies syncope and Denies headache(s) Physical exam (Primary Care) Vital Signs: Last Vital Signs Pulse 60 11/28/23 08:48 BP 110/62 11/28/23 08:48 Pulse Ox 97 11/28/23 08:48 Oxygen Delivery Method Room Air 11/28/23 08:48 BMI result Body Mass Index 22.7 Tobacco/Smoking Status: Tobacco use Status Tobacco use date assessed 11/28/23 11/28/23 08:54 Patient Tobacco Use Status Never used Tobacco 11/28/23 08:54 e-Cigarette/Vaping Use Never Used 11/28/23 08:54 PHQ-9: PHQ-9 Score PHQ-9: Total score 0 11/28/23 08:54 Depression Screening Interpretation: Negative Thrive Assessment: Date of Thrive Assessment Date Thrive assessed 11/28/23 11/28/23 08:54 Currently or been in a relationship where the following occur: no concerns reported Const General: cooperative, comfortable, no acute distress and alert Neck Neck: Yes no lymphadenopathy Thyroid: Thyroid normal Resp Effort & Inspection: normal respiratory effort Auscultation: clear to auscultation bilaterally Percussion: percussion normal Cardio Jugular venous distension: no JVD Palpation: normal PMI Rate: regular rate Rhythm: regular rhythm Heart sounds: S1 normal heart sound present and S2 normal heart sound present GI Inspection: Yes normal to inspection Palpation (GI): No hepatosplenomegaly present Skin General skin exam: no rashes or lesions noted Extrem General: Yes no clubbing, cyanosis or edema Assessment and Plan Assessment & Plan (1) Depression: Code(s): F32.9 - Major depressive disorder, single episode, unspecified Plan: stable Coding Level of Care Code Est Pt Level 3 (36723) Diagnoses Depression F32.9
[2023-11-28 08:48] VITALS: BP 110/62; PULSE 60; O2SAT 97; BMI 22.7
== END 2023-11-28 09:11 | disposition home or self-care (01) ==
PROVIDERS: PCP Internal Medicine; Visit Provider Internal Medicine
DX: F33.9 Major depressive disorder, recurrent, unspecified (principal)
CPT/HCPCS: 99213

== ENCOUNTER 2024-01-11 09:27 | Outpatient (AMB) | payer OTHER, SELFPAY ==
[2024-01-11 09:35] VITALS: BP 110/70; PULSE 70; O2SAT 97; BMI 22.5
--- NOTE | 2024-01-11 09:35 | MHC.PC.OV ---
Vital Signs 01/11/24 09:35 Height 5 ft 3 in Weight 127 lb BMI 22.5 BP 110/70 Blood Pressure Location Lt brachial Position Sitting Pulse 70 Pulse Source Pulse Oximeter Pulse Oximetry (%) 97 Oxygen Delivery Method Room Air Intake Visit Reasons: risk pain and vertigo Ornament Stapler: Not Required per policy Accompanied by: Self / Same As Patient Allergies clindamycin [CLINDAMYCIN] Allergy (Severe, Verified 01/11/24 09:35) HIVES AND BODY SWELLING amoxicillin Allergy (Unknown, Verified 01/11/24 09:35) unknown azithromycin [From ZITHROMAX Z-ASHTYN] Allergy (Unknown, Verified 01/11/24 09:35) SWELLING, rash Clindamycin HCl Allergy (Unknown, Verified 01/11/24 09:35) face swollen,hives penicillin V Allergy (Unknown, Verified 01/11/24 09:35) throat swelling Penicillins [PENICILLINS] Allergy (Unknown, Verified 01/11/24 09:35) ANAPHYLAXIS Sulfa (Sulfonamide Antibiotics) Allergy (Unknown, Verified 01/11/24 09:35) rash sulfamethoxazole [From Bactrim] Allergy (Unknown, Verified 01/11/24 09:35) rash trimethoprim [From Bactrim] Allergy (Unknown, Verified 01/11/24 09:35) rash eggs Allergy (Unknown, Uncoded 01/11/24 09:35) Unknown Medication List - Last Reconciled 01/11/24 by Reinaldo Velez MD citalopram 10 mg PO DAILY epinephrine 0.3 mg (0.3 mL) IM DIRECTED estradiol 1 patch transdermal 2XW fluticasone propionate 50 mcg/actuation (Flonase Allergy Relief) 1 spray intranasal DAILY nitrofurantoin macrocrystal 100 mg PO .PRN 90 days progesterone micronized 200 mg PO BEDTIME valacyclovir 500 mg PO DAILY Tobacco use date assessed: 11/28/23 Dental Screening Dental Screen Date: 11/28/23 HPI risk pain and vertigo HPI Details bilateral wrist pain and paresthesias; may have CTS; also has multiple joint pains and concerned about RA PFSH Medical History Chronic depressive disorder Depression Gluten-sensitive enteropathy Surgical History (Updated 11/28/23 @ 08:52 by RADHA Valiente) History of dental surgery Status post cervical polyp removal History of augmentation of both breasts Family History Father Hypertension CVD (cardiovascular disease) Mother No problems noted. Brother Lung cancer Social History Housing: House Alcohol intake: current Alcohol intake frequency: holidays/special occasions only Patient Tobacco Use Status: Never used Tobacco e-Cigarette/Vaping Use: Never Used Second Hand Smoke Exposure: No service: No Current occupational status: employed Cognitive needs: No Hearing needs: No Vision needs: Yes Questionnaire Thrive Questionnaire Date Thrive assessed: 11/28/23 DEMIAN-7 AMB Questionnaire DEMIAN-7 Date DEMIAN - 7 assessed: 11/28/23 Source: Developed by Drs. Chuck Angelo, Kimber Heredia, Misael Greene and colleagues, with an educational tootie from [employer]. Review of Systems Const Denies chills, Denies headache(s) and Denies weight loss ENT Denies headache(s) Card Denies chest pain, Denies syncope, Denies irregular heart rhythm and Denies dyspnea Resp Denies chest congestion, Denies cough and Denies dyspnea GI Denies abdominal pain, Denies change in stool character, Denies nausea and Denies vomiting Musc Denies deformity and Denies joint swelling Neuro Denies syncope and Denies headache(s) Physical exam (Primary Care) Vital Signs: Last Vital Signs Pulse 70 01/11/24 09:35 BP 110/70 01/11/24 09:35 Pulse Ox 97 01/11/24 09:35 Oxygen Delivery Method Room Air 01/11/24 09:35 BMI result Body Mass Index 22.5 Tobacco/Smoking Status: Tobacco use Status Tobacco use date assessed 11/28/23 01/11/24 09:36 Patient Tobacco Use Status Never used Tobacco 01/11/24 09:36 e-Cigarette/Vaping Use Never Used 01/11/24 09:36 Thrive Assessment: Date of Thrive Assessment Date Thrive assessed 11/28/23 01/11/24 09:36 Const General: cooperative, comfortable, no acute distress and alert Neck Neck: Yes no lymphadenopathy Thyroid: Thyroid normal Resp Effort & Inspection: normal respiratory effort Auscultation: clear to auscultation bilaterally Percussion: percussion normal Cardio Jugular venous distension: no JVD Palpation: normal PMI Rate: regular rate Rhythm: regular rhythm Heart sounds: S1 normal heart sound present and S2 normal heart sound present GI Inspection: Yes normal to inspection Palpation (GI): No hepatosplenomegaly present Skin General skin exam: no rashes or lesions noted Extrem General: Yes no clubbing, cyanosis or edema Assessment and Plan Assessment & Plan (1) Paresthesia of both hands: Code(s): R20.2 - Paresthesia of skin Plan: NCS (2) Arthralgia: Code(s): M25.50 - Pain in unspecified joint Plan: ref rheum Orders: Orders NE nerve conduction velocity Today R20.2 - Paresthesia of skin Referrals Rheumatology Referral M25.50 - Pain in unspecified joint Coding Level of Care Code Est Pt Level 3 (94359) Diagnoses Paresthesia of both hands R20.2 Arthralgia M25.50
== END 2024-01-11 10:09 | disposition home or self-care (01) ==
PROVIDERS: PCP Internal Medicine; Visit Provider Internal Medicine
DX: R20.2 Paresthesia of skin (principal); M25.50 Pain in unspecified joint
CPT/HCPCS: 99213

== ENCOUNTER 2024-01-15 08:39 | Outpatient (AMB) | payer OTHER, SELFPAY ==
--- NOTE | 2024-01-15 08:42 | MHC.OFFVIS ---
Vital Signs 01/15/24 08:48 Height 5 ft 3 in Weight 128 lb 11.999 oz BMI 22.8 BP 112/64 Blood Pressure Location Rt brachial Position Sitting Respiration 16 Pulse 73 Pulse Source Pulse Oximeter Pulse Oximetry (%) 97 Oxygen Delivery Method Room Air Intake Visit Reasons: arthralgia Intake Note: Patient presents for Arthralgia. Allergies clindamycin [CLINDAMYCIN] Allergy (Severe, Verified 01/15/24 08:46) HIVES AND BODY SWELLING amoxicillin Allergy (Unknown, Verified 01/15/24 08:46) unknown azithromycin [From ZITHROMAX Z-ASHTYN] Allergy (Unknown, Verified 01/15/24 08:46) SWELLING, rash Clindamycin HCl Allergy (Unknown, Verified 01/15/24 08:46) face swollen,hives penicillin V Allergy (Unknown, Verified 01/15/24 08:46) throat swelling Penicillins [PENICILLINS] Allergy (Unknown, Verified 01/15/24 08:46) ANAPHYLAXIS Sulfa (Sulfonamide Antibiotics) Allergy (Unknown, Verified 01/15/24 08:46) rash sulfamethoxazole [From Bactrim] Allergy (Unknown, Verified 01/15/24 08:46) rash trimethoprim [From Bactrim] Allergy (Unknown, Verified 01/15/24 08:46) rash eggs Allergy (Unknown, Uncoded 01/11/24 09:35) Unknown Medication List - Last Reconciled 01/15/24 by Frederick Lewis MD buspirone 5 mg PO TID citalopram 10 mg PO DAILY epinephrine 0.3 mg (0.3 mL) IM DIRECTED estradiol 1 patch transdermal 2XW fluticasone propionate 50 mcg/actuation (Flonase Allergy Relief) 1 spray intranasal DAILY nitrofurantoin macrocrystal 100 mg PO .PRN 90 days nystatin 1,000,000 units PO BID progesterone micronized 200 mg PO BEDTIME valacyclovir 500 mg PO DAILY HPI Comments Details: This is a 53-year-old female who presents for evaluation of polyarthralgias. She states that around 2020 she reached menopause and she had multiple achy joints. Including her ankles, wrists lower back. Around the same time she also suspected gluten sensitivity, she had the blood test done but she had eliminated gluten at the time and the test was negative. She also took HRT. She states that she did both interventions at the same time and her hand aches improved. Over the last 6 months she has been having bilateral wrist pain. Weakness of her wrists with certain activities. She does not take anything for pain like Tylenol or NSAIDs. She has been taking turmeric with some relief. Also complaining of fatigue. She states that her fingers change color in to white since she was a child. It has never been a significant problem. She denies any fevers, skin rashes, history of DVT/PE. She is unaware of any family history of an autoimmune rheumatic disease [facility] Medical History Chronic depressive disorder Depression Gluten-sensitive enteropathy Surgical History History of dental surgery Status post cervical polyp removal History of augmentation of both breasts Family History Father Hypertension CVD (cardiovascular disease) Mother No problems noted. 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 Cognitive needs: No Hearing needs: No Vision needs: Yes Female Reproductive History Menstrual Total pregnancies: 0 Review of Systems Const Reports fatigue, Denies fever(s) and Denies weight loss Musc Reports arthralgias, Denies joint swelling and Reports stiffness Psych Reports anxiety Endo Reports fatigue Physical Exam Vital Signs: Last Vital Signs Pulse 73 01/15/24 08:48 Resp 16 01/15/24 08:48 BP 112/64 01/15/24 08:48 Pulse Ox 97 01/15/24 08:48 Oxygen Delivery Method Room Air 01/15/24 08:48 BMI result Body Mass Index 22.8 Const General: cooperative, healthy appearing and comfortable Nutritional Appearance: average body habitus Orientation/consciousness: patient oriented x3 Limitations: no limitations HEENT Head: Yes normocephalic and Yes atraumatic Mouth: moist mucous membranes Resp Effort & Inspection: normal respiratory effort and able to speak in complete sentences Auscultation: clear to auscultation bilaterally Cardio Rate: regular rate Rhythm: regular rhythm Skin General skin exam: no rashes or lesions noted Neuro General: patient oriented x3 Extrem Other: Mild osteoarthritic changes of both hands with no active synovitis Normal nailfold capillaroscopy Normal range of motion of hands, elbows, shoulders without pain No knee pain with flexion-extension bilaterally No ankle swelling or tenderness bilaterally Negative MTP squeeze test bilaterally Assessment & Plan Assessment & Plan (1) Polyarthralgia: Code(s): M25.50 - Pain in unspecified joint Category: Medical Plan: This is a 53-year-old female presents for evaluation of polyarthralgia. Upon evaluation I do not see any signs suggestive of autoimmune rheumatic disease. Has minimal osteoarthritis. Discussed symptoms and signs that are suggestive of an autoimmune rheumatic disease. Advised patient to return as needed Plan I spent 30 minutes reviewing patient's chart, evaluating patient, counseling patient and documenting in the chart Coding Level of Care Code New Pt Level 3 (45289) Diagnoses Polyarthralgia M25.50
[2024-01-15 08:48] VITALS: BP 112/64; PULSE 73; RESP 16; O2SAT 97; BMI 22.8
== END 2024-01-15 09:28 | disposition home or self-care (01) ==
PROVIDERS: PCP Internal Medicine; Visit Provider Student in an Organized Health Care Education/Training Program
DX: M25.50 Pain in unspecified joint (principal)
CPT/HCPCS: 99203

== ENCOUNTER → 2024-01-15 08:39 | Outpatient (BNVA) | payer OTHER, SELFPAY | PROVIDERS: PCP Internal Medicine; Visit Provider Student in an Organized Health Care Education/Training Program ==

== ENCOUNTER 2024-01-29 08:06 | Outpatient (REF) | payer OTHER, SELFPAY ==
--- NOTE | 2024-01-29 08:08 | EMG_ITS ---
Bilateral median and ulnar motor and sensory studies were performed. Bilateral radial sensory and median and lateral antecubital brachial sensory studies were performed and paraspinal muscles were tested with a needle. IMPRESSION: This is an unremarkable study with no significant abnormality to suggest entrapment neuropathy of median or ulnar nerve, plexopathy, or radiculopathy. MD TANISHA Hu/CLAUDIO / [id number]
== END 2024-01-29 08:07 | disposition home or self-care (01) ==
LOC: HO.NEURO 08:06
PROVIDERS: PCP Internal Medicine; Visit Provider Internal Medicine
DX: R20.2 Paresthesia of skin (principal)
CPT/HCPCS: 95886; 95913

== ENCOUNTER 2024-06-06 09:53 | Outpatient (AMB) | payer OTHER, SELFPAY ==
--- NOTE | 2024-06-06 09:58 | MHC.PC.OV ---
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 Accompanied by: Self / Same As Patient Allergies clindamycin [CLINDAMYCIN] Allergy (Severe, Verified 06/06/24 10:01) HIVES AND BODY SWELLING amoxicillin Allergy (Unknown, Verified 06/06/24 10:01) unknown azithromycin [From ZITHROMAX Z-ASHTYN] Allergy (Unknown, Verified 06/06/24 10:01) SWELLING, rash Clindamycin HCl Allergy (Unknown, Verified 06/06/24 10:01) face swollen,hives penicillin V Allergy (Unknown, Verified 06/06/24 10:01) throat swelling Penicillins [PENICILLINS] Allergy (Unknown, Verified 06/06/24 10:01) ANAPHYLAXIS Sulfa (Sulfonamide Antibiotics) Allergy (Unknown, Verified 06/06/24 10:01) rash sulfamethoxazole [From Bactrim] Allergy (Unknown, Verified 06/06/24 10:01) rash trimethoprim [From Bactrim] Allergy (Unknown, Verified 06/06/24 10:01) rash eggs Allergy (Unknown, Uncoded 06/06/24 10:01) Unknown Medication List - Last Reconciled 06/09/24 by Reinaldo Velez MD buspirone 5 mg PO TID citalopram 10 mg PO DAILY epinephrine 0.3 mg (0.3 mL) IM DIRECTED estradiol 1 patch transdermal 2XW fluticasone propionate 50 mcg/actuation (Flonase Allergy Relief) 1 spray intranasal DAILY nitrofurantoin macrocrystal 100 mg PO .PRN 90 days nystatin 1,000,000 units PO BID progesterone micronized 200 mg PO BEDTIME valacyclovir 500 mg PO DAILY Tobacco use date assessed: 06/06/24 Dental Screening Dental Screen Date: 06/06/24 Did you have a dental visit in the last 12 months?: Yes Did you have a dental problem in the last 6 months where you did not have access to dental care?: No Was dental information given to patient?: Patient has dentist HPI PHYSICAL HPI Details depression on rx; doing well and controlled [facility] Medical History (Updated 12/23/24 @ 08:57 by Reinaldo Velez MD) Chronic depressive disorder Depression Gluten-sensitive enteropathy Surgical History History of dental surgery Status post cervical polyp removal History of augmentation of both breasts Family History Father Hypertension CVD (cardiovascular disease) Mother No problems noted. 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 1. Little interest or pleasure in doing things: not at all 2. Feeling down, depressed, or hopeless: not at all 3. Trouble falling or staying asleep, or sleeping too much: several days 4. Feeling tired or having little energy: several days 5. Poor appetite or overeating: not at all 6. Feeling bad about yourself - or that you are a failure or have let yourself or your family down: not at all 7. Trouble concentrating on things, such as reading the newspaper or watching television: not at all 8. Moving or speaking so slowly that other people could have noticed. Or the opposite - being so fidgety or restless that you have been moving around a lot more than usual: not at all 9. Thoughts that you would be better off or of hurting yourself in some way: not at all Total score: 2 Depression Screening Interpretation: Negative Depression Screening Done: Yes 55760 - PHQ-9 Billing: Yes Source: Developed by Drs. Chuck Angelo, Kimber Heredia, Misael Greene and colleagues, with an educational tootie from [employer]. Thrive Questionnaire Date Thrive assessed: 06/06/24 I am a: Patient What is your living situation today?: I have a steady place to live Within the past 12 months, did the food you bought not last and you didn't have the money to get more?: Never true Within the past 12 months, did you worry whether your food would run out before you got money to buy more?: Never true Do you have trouble paying for medicines?: No Do you have trouble getting transportation to medical appointments?: No Do you have trouble paying your heating and electricity bill?: No Do you have trouble taking care of your child, family member or friend?: No Do you have trouble with day-to-day activities such as bathing, preparing meals, shopping, managing finances, etc.?: No Are you currently unemployed and looking for a job?: No Are you interested in more education?: No Please select the resources that you would like help with: None Currently or been in a relationship where the following occur: No concerns reported THRIVE Score: 0 AUDIT C Alcohol Use Questionnaire (AUDIT-C) 1. How often do you have a drink containing alcohol?: 2-3 times a week 2. How many drinks containing alcohol do you have on a typical day when you are drinking?: 1 or 2 3. How often do you have six or more drinks on one occasion?: Never Total Score: 3 DEMIAN-7 AMB Questionnaire DEMIAN-7 Date DEMIAN - 7 assessed: 06/06/24 Feeling nervous, anxious, or on edge: 1 = Several days Not being able to stop or control worryin = Several days Worrying too much about different things: 1 = Several days Trouble relaxin = Not at all Being so restless that it is hard to sit still: 0 = Not at all Becoming easily annoyed or irritable: 0 = Not at all Feeling afraid as if something awful might happen: 1 = Several days Total DEMIAN-7 score (0-4 normal; 5-9 mild; 10-14 moderate; 15-21 severe): 4 Source: Developed by Drs. Chuck Angelo, Kimber Heredia, Misael Greene and colleagues, with an educational tootie from [employer]. DEMIAN-7 Assessment Billing DEMIAN-7 Assessment Tool: DEMIAN-7 Assessment 43134 Review of Systems Const Denies chills, Denies fatigue, Denies headache(s) and Denies weight loss Eyes Denies change in vision, Denies diplopia and Denies eye pain ENT Denies vertigo, Denies dizziness, Denies headache(s) and Denies nasal discharge Card Denies chest pain, Denies rapid heart rate and Denies dyspnea on exertion Resp Denies chest congestion, Denies cough, Denies pain with cough and Denies dyspnea on exertion GI Denies abdominal pain, Denies hematochezia and Denies change in bowel habits Musc Denies myalgias, Denies arthralgias and Denies joint swelling Skin/Breast Denies lesions and Denies unusual bruising Neuro Denies vertigo, Denies dizziness, Denies headache(s) and Denies focal weakness Endo Denies fatigue Physical exam (Primary Care) Vital Signs: Last Vital Signs Pulse 82 06/06/24 09:59 BP 100/62 06/06/24 09:59 Pulse Ox 97 06/06/24 09:59 Oxygen Delivery Method Room Air 06/06/24 09:59 BMI result Body Mass Index 22.6 Tobacco/Smoking Status: Tobacco use Status Tobacco use date assessed 06/06/24 06/06/24 10:03 Patient Tobacco Use Status Never used Tobacco 06/06/24 10:03 e-Cigarette/Vaping Use Never Used 06/06/24 10:03 PHQ-9: PHQ-9 Score PHQ-9: Total score 2 06/06/24 10:03 Depression Screening Interpretation: Negative Thrive Assessment: Date of Thrive Assessment Date Thrive assessed 06/06/24 06/06/24 10:03 Currently or been in a relationship where the following occur: No concerns reported Const General: cooperative, healthy appearing and no acute distress Orientation/consciousness: oriented to person, oriented to place and oriented to time [facility] Head: Yes normal to inspection, Yes normocephalic and Yes atraumatic Mouth: Normal oral and palatal mucosa present and tongue normal Throat: Yes posterior oropharynx normal and Yes uvula midline Eyes General: appearance normal, both eyes and all related structures Neck Neck: Yes normal visual inspection, Yes full ROM and Yes no lymphadenopathy Thyroid: Thyroid normal Carotids: normal carotid upstroke Chest Chest palpation & inspection: normal inspection of the chest Resp Effort & Inspection: normal respiratory effort and able to speak in complete sentences Auscultation: clear to auscultation bilaterally Cardio Jugular venous distension: no JVD Palpation: normal PMI Rate: regular rate Rhythm: regular rhythm Heart sounds: S1 normal heart sound present and S2 normal heart sound present GI Inspection: Yes normal to inspection Palpation (GI): Soft to palpation and No hepatosplenomegaly present Auscultation: normal bowel sounds General: Yes no CVA tenderness Back/Spine/Pelvis Back: no CVA tenderness Skin General skin exam: no rashes or lesions noted Neuro General: oriented to person, oriented to place and oriented to time Extrem General: Yes normal to inspection and Yes full ROM Coding Level of Care Code Est Pt Prev Care 40-64y(62251) Diagnoses Physical exam Z00.00 Depression F32.9 Additional Codes DEMIAN-7 Assessment Billing - DEMIAN-7 Assessment Tool: DEMIAN-7 Assessment 36422 ([id number]) PHQ-9 - 11120 - PHQ-9 Billing: Yes ([id number]) Assessment & Plan Assessment & Plan (1) Physical exam: Code(s): Z00.00 - Encounter for general adult medical examination without abnormal findings Category: Medical Plan: stable; do labs (2) Depression: Code(s): F32.9 - Major depressive disorder, single episode, unspecified Category: Medical Plan: stable; same rx Orders: Orders Lipid Panel Today Z13.220 - Encounter for screening for lipoid disorders Complete Blood Count Auto Diff Today Z13.0 - Encounter for screening for diseases of the blood and blood-forming organs and certain disorders involving the immune mechanism Thyroid Stimulating Hormone Today Z13.29 - Encounter for screening for other suspected endocrine disorder Comprehensive [place]. Panel Fast Today Z13.9 - Encounter for screening, unspecified
[2024-06-06 09:59] VITALS: BP 100/62; PULSE 82; O2SAT 97; BMI 22.6
== END 2024-06-06 10:28 | disposition home or self-care (01) ==
PROVIDERS: PCP Internal Medicine; Visit Provider Internal Medicine
DX: Z00.00 Encounter for general adult medical examination without abnormal findings (principal); F32.9 Major depressive disorder, single episode, unspecified

== ENCOUNTER → 2024-06-06 09:53 | Outpatient (BNVA) | payer OTHER, SELFPAY | PROVIDERS: PCP Internal Medicine; Visit Provider Internal Medicine | DX: Z00.00 Encounter for general adult medical examination without abnormal findings (principal); F32.9 Major depressive disorder, single episode, unspecified | CPT/HCPCS: 96127 ==

== ENCOUNTER 2024-06-27 11:54 | Outpatient (REF) | payer OTHER, SELFPAY | END 2024-06-27 11:55 | disposition home or self-care (01) | LOC: HO.MAMMO 11:54 | PROVIDERS: PCP Internal Medicine; Visit Provider Internal Medicine | DX: Z12.31 Encounter for screening mammogram for malignant neoplasm of breast (principal) | CPT/HCPCS: 77063; 77067 ==

== ENCOUNTER → 2024-06-27 12:00 | Outpatient (BNV) | payer OTHER, SELFPAY | PROVIDERS: PCP Internal Medicine; Visit Provider Internal Medicine | DX: Z12.31 Encounter for screening mammogram for malignant neoplasm of breast (principal) | CPT/HCPCS: 77063; 77067 ==

== ENCOUNTER 2024-07-17 07:43 | Outpatient (REF) | payer OTHER, SELFPAY ==
[2024-07-17 07:56] LABS: MANUAL DIFF FLAG NO
[2024-07-17 08:37] LABS: Basophils Percent Auto 0.5 % (0-2); Eosinophils Absolute Auto 0.1 X10*3/uL (0.0-0.4); Eosinophils Percent Auto 1.2 % (0-4); Hematocrit 36.6 % (37.0-47.0); Imm Gran Abs Auto 0.01 X10*3/uL (0.00-0.03); Imm Gran Pct Auto 0.2 % (0.0-0.4); Lymphocytes Percent Auto 24.4 % (20-40); Mean Corpuscular HGB Conc 35.5 g/dl (31.0-35.0); Mean Corpuscular Hemoglobin 32.8 pg (27.0-33.0); Mean Corpuscular Volume 92.4 fL (80.0-98.0); Mean Platelet Volume 10.7 fL (9.4-12.3); Monocytes Absolute Auto 0.2 X10*3/uL (0.1-1.2); Monocytes Percent Auto 5.6 % (2-11); Neutrophils Absolute Auto 2.9 x10*3/uL (2.0-8.3); Neutrophils Percent Auto 68.1 % (45-73); Platelet Count 154 X10*3/uL (160-400); Red Blood Count 3.96 X10*6/uL (4.20-5.50); White Blood Count 4.3 X10*3/uL (4.8-10.8)
[2024-07-17 09:22] LABS: Alanine Aminotransferase 17 U/L (0-31); Albumin Level 3.9 g/dL (3.5-5.0); Alkaline Phosphatase 44 U/L (39-117); Anion Gap 10 (12-20); Aspartate Amino Transferase 22 U/L (5-31); Bilirubin Total 0.4 mg/dL (0.0-1.0); Blood Urea Nitrogen 13 mg/dL (9-16); Calcium 9.2 mg/dL (8.4-10.2); Carbon Dioxide 24 mmol/L (22-29); Chloride 109 mmol/L (96-108); Cholesterol 167 mg/dL (<200); Estimated Glomerular Filt Rate > 60; Glucose Fasting 96 mg/dL (60-99); HDL Cholesterol 72 mg/dL (>40); LDL Cholesterol Calculated 84 mg/dL (<100); Potassium 4.4 mmol/L (3.3-5.1); Sodium 139 mmol/L (135-145); Total Protein 7.2 g/dL (6.5-8.0); Triglycerides 56 mg/dL (<150)
[2024-07-17 09:37] LABS: Thyroid Stimulating Hormone 1.82 uIU/mL (0.32-4.0)
== END 2024-07-17 07:44 | disposition home or self-care (01) ==
LOC: HO.LAB 07:43
PROVIDERS: PCP Internal Medicine; Visit Provider Internal Medicine
DX: Z00.00 Encounter for general adult medical examination without abnormal findings (principal); Z13.0 Encounter for screening for diseases of the blood and blood-forming organs and certain disorders involving the immune mechanism; Z13.29 Encounter for screening for other suspected endocrine disorder; Z13.9 Encounter for screening, unspecified; Z13.220 Encounter for screening for lipoid disorders
CPT/HCPCS: 36415; 80053; 80061; 84443; 85025

== ENCOUNTER 2024-08-06 12:19 | Outpatient (REF) | payer OTHER, SELFPAY ==
--- NOTE | ~2024-08-06 | XR_ITS ---
CLINICAL HISTORY: M54.9 - Dorsalgia, unspecified 3 views lumbar spine Comparison: None Findings: Normal alignment. No acute fractures or dislocation. Multilevel disc space narrowing and endplate osteophyte formation, as well as facet hypertrophy. IMPRESSION: No acute findings. This document has been electronically signed by: Luis Rabago MD on 08/06/2024 16:00:06
--- OUTSIDE RECORDS SUMMARY | 2024-08-06 12:47 | XMS_ITS | Patient Health Record ---
Author Organization [facility] Address [address] [place] [address] Care Team Providers Care Skiing Teacher Name Role Phone Agustin ORTA, Reinaldo Primary Care Provider Chuck Marquis Unavailable [phone] ALLERGIES Allergen (clinical drug ingredient) Drug/Non Drug Allergy documented on EMR Reaction Allergy Type Onset Date Status penicillin G Penicillin G Sodium Unknown Drug Allergy Active clindamycin Clindamycin HCl Unknown Drug Allergy Active sulfamethoxazole / trimethoprim Bactrim Unknown Drug Allergy Active Azithromycin Unknown Drug Allergy Acti ve amoxicillin Amoxicillin Unknown Drug Allergy Act [place] REASON FOR REFERRAL No Information MEDICATIONS Medication SIG (Take, Route, Frequency, Duration) Notes Start Date End Date Status Turmeric 500 MG as directed Orally Active Vitamin B 12 100 MCG as directed Orally Active Betamethasone Dipropionate 0.05 % APPLY TO SCALP TWICE A DAY X 2 WEEKS,THEN DAILY 2 3X PER WEEK External for 30 Active Vitamin C & D3/Corine Hips Active buPROPion HCl ER (SR) 100 MG TAKE 1 TABL ET BY MOUTH EVERY DAY Oral for 30 Active valACYclovir HCl 500 MG TAKE 1 TABLET BY MOUTH DAILY Oral for 90 Active CeleXA 10 MG 1 tablet Orally Once a day for 30 day(s) Active Probiotic - as directed Orally Active Citalopram Hydrobromide 10 MG/5ML 5 mL Orally Once a day for 30 day(s) Active Multi For Her - as directed Orally Active CombiPatch 0.05-0.14 MG/DAY APPLY 1 PATC H TO THE SKIN TWICE A WEEK Transdermal for 84 Active Niacinamide 100 MG 1 tablet Orally ever y 6 hrs for 30 day(s) Active Nitrofurantoin Monohyd Macro 100 MG TAKE 1 CAPSULE BY MOUTH EVERYDAY AT BEDTIME Oral for 30 Active Magnesium 300 MG 1 capsule with a linda l Orally Once a day for 30 day(s) Active Multivitamin Adult - as directed Orally once a day Active Nystatin 953514 UNIT TAKE 2 TABLETS BY M OUTH TWICE A DAY Oral for 60 Active IMMUNIZATIONS Vaccine Route Administration Date Status Comme nts Influenza Unknown 02/16/2018 Administered Influenza Unknown 04/01/2020 Administered Influenza Unknown 05/10/2021 Administered SOCIAL HISTORY Tobacco Use: Social History Observation Description Date Details (start date - stop date) Never Smoker NA - NA Sex Assigned At : Social History Observation Description Sex Assigned At Unknown Tobacco Use/Smoking Question Answer Notes Patient is a nonsmoker Alcohol Screen Question Answer Notes Did you have a drink contain ing alcohol in the past year? Yes How often did you have a dri nk containing alcohol in the past year? 2 to 3 times a week (3 points) How many drinks did you have on a typical day when you were drinking in the past year? 1 or 2 drinks (0 point) How often did you have 6 or more drinks on one occasion in the past year? Never (0 point) Points 3 Interpretation Positive PROBLEMS Problem Type ICD Code Onset Dates Problem Status W/U Status Risk SNOMED Code Notes Problem Encounter for screening for malignant neoplasm of colon (Z12.11) Active confirmed 839286965 Problem Pre-procedural examination (Z01.818) Active confirmed [id number] Problem Gluten intolerance (K90.0) Active confirmed Celiac disease (758953774) Problem Change in bowel habits (R19.4) Active confirmed Change in bow el habit (28590029) PLAN OF TREATMENT Pending Test Test Name Order Date CELIAC PANEL #10 04/08/2020 Future Test Test Name Order Date COLONOSCOPY 06/28/2018 Insurance Providers Payer Name Payer Address Payer Phone Subscriber Number Group Number Insured Name Patient Relationship to Insured Coverage Start Date Coverage End Date [employer] [address] [id number] [place] [address] [id number] ARTURO ESCOBAR Self - patient is the insured MEDICAL (GENERAL) HISTORY Medical History History ICD Code Denies AL,DM,CVA,Lung disease,renal dise ase Anxiety Chronic low WBC and Platelet counts--has been seen by Dr. Aggarwal and Dr. Zabala--- liver profile was normal in December 2017, she had a negative rheumatology workup, and an abdominal ultrasound was negative for any sign of hepatosplenomegaly nor any liver disease--overall the abnormal CBCs are not felt to be clinically significant Neg. screening colonoscopy in 08/2018 UTI's Sinus infections On a gluten-free diet since 2019 which has helped a lot of systemic symptoms and irregular bowel movements--she did have negative laboratories for celiac disease in 2019. Surgical History Surgery Date(Month/Year) Breast augmentation
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
--- OUTSIDE RECORDS SUMMARY | 2024-08-06 12:47 | XMS_ITS ---
Author Organization [place] [facility] Address [address] [address] Care Team Providers Care Director Family Name Role Phone KARLY LOVELACE Primary Care Provider TITA Randhawa Unavailable [phone] Allergies Allergen (clinical drug ingredient) Drug/Non Drug Allergy documented on EMR Reaction Allergy Type Onset Date Status PENICILLIN Throat Swelling Drug Allergy Active amoxicillin AMOXICILLIN SWELLING Drug Allergy Act faviola sulfamethoxazole / trimethoprim BACTRIM Skin Rash Drug Allergy Active clindamycin Clindamycin HCl Throat Closes Drug Allergy Active azithromycin Zithromax Z-Gene Skin Rash Drug Allergy Active Results Component Value Reference Range Notes SURGICAL PATHOLOGY Reviewed date:05/19/2024 11:08:35 AM Interpretation: Performing Lab:Testing performed or reported by [facility], a Service of [facility], [address] [place] [address] Bakari Velasquez MD, Director Of Publications [facility]# [id number] Notes/Report: Patient Name: TITA EDMONDS Lab Patient : 1970 (Age: 54) Collection Date: 05/06/2024 Accession Date: 05/09/2024 Sign Out Date: 05/15/2024 Tissue Source: 1:EMB Final Diagnosis: Endometrium, biopsy: - Scant superficial fragments of inactive/atrophic endometrium, and features of stromal breakdown. - Fragments of endocervical glandular mucosa and mucus. Primary Pathologist:Lainey Rutledge M.D.,Ph.D. electronically signed out by: Lainey Rutledge M.D.,Ph.D. / [facility] [place] Clinical History: Postmenopausal bleeding Gross Description: The requisition indicates endometrial biopsy . Received in formalin is a 1.5 x 1.3 x 0.5 cm aggregate of white-tinged mucus with red, fontaine tissue. The specimen is entirely submitted. 1-multiple pieces, x 2. (EG)* As of August 25, 2023, the specimen processing and staining is performed at [facility], [address] [place] [address] (CLIA#[id number]). Its performance characteristics determined by [facility]. Hollie Stephen M.D. Director Of Publications of Surgical Pathology, Jonatan Schultz M.D. Director Of Publications Cytopathology Phone #: [phone], On-Call Pathologist: [id number] REASON FOR VISIT EB Medications Medication SIG (Take, Route, Frequency, Duration) Notes Start Date End Date Status Multi Complete Activ e Nystatin 162478 UNIT Oral for 60 Active Citalopram Hydrobromide 10 MG/5ML Oral for 90 1/2 tab weening off Active valACYclovir HCl 500 MG 1 tablet Orally Once a day for 90 days Active Nitrofurantoin Activ e Magnesium 500 MG 1 tablet with a meal Orally Once a day Active Vitamin B12 Active Probiotic - as directed Orally Active Turmeric Active Calcium Active miSOPROStol 200 MCG as directed Orally 8-12 hrs prior to appointment for 1 days 05/02/2024 Active Estradiol 0.05 MG/24HR 1 patch to skin Transdermal Two times a Week for 90 days 02/02/2021 Active busPIRone HCl 5 MG 1 tablet Orally Twice a day Active Oregano Oil-Flaxseed Oil 50-25 MG as directed Orally Active Progesterone 200 MG 1 capsule at bedtime Orally Once a day for 90 days Active Social History Tobacco Use: Social History [...] (Standard) Question Answer Notes Tobacco use: Nonsmoker Problems Problem Type SNOMED Code ICD Code Onset Dates Problem Status W/U Status Risk Notes Problem Postmenopausal bleeding (15428442) Postmenopausal bleeding (N95.0) Active confirmed Vital Signs Temperature 98.0 degrees Fahrenheit 05/06/20 24 Blood pressure systolic 106 mm Hg 05/06/20 24 Blood pressure diastolic 78 mm Hg 024 Height 64 in 05/06/2024 Weight 127 lbs 05/06/2024 BMI 21.8 kg/m2 05/06/2024 Encounters Encounter Location Date Provider Diagnosis [facility] [address] [place] [address] 05/06/2024 TITA MEYERS Postmenopausal bleed ing N95.0 Assessments Encounter Date Diagnosis (ICD Code) Assessment Notes Treatment Notes Treatment Clinical Notes Section Notes 05/06/2024 Postmenopausal bleeding (ICD-10 - N95.0) Will call with results unless needs to come in to discuss surgery or alternatives. Plan Of Treatment Treatment Notes Assessment Notes Postmenopausal bleeding Will call with r esults unless needs to come in to discuss surgery or alternatives. Next Appt Details Follow Up: prn, Reason: Provider Name:TITA Mosley, 05/07/2025 08:00:00 AM, [address], [place], [address], Procedure Notes * Category Sub-Category Detail Notes Endometrial biopsy Test: Not indic ated Indication: Post menopausal blee lul Consent: General procedure, i ndications, risks, benefits, alternative treatments, and expected outcomes have been discussed with this patient. She has had an opportunity to ask questions, and all questions have been answered by me. She verbalizes understanding and to the best of my knowledge I feel the patient has been adequately informed and consented. The consent form has been signed. Prep: The patient was plac ed in the dorsal lithotomy position and a pelvic examination performed with the results documented above. A speculum was inserted into the vagina and the cervix cleaned with an antiseptic solution Procedure: A speculum was place d in the vaginal vault. The cervix was visualized and cleansed with an antiseptic solution. The cervix was grasped with a tenaculum. Gentle traction was used to align the cervix and uterine canal. A flexible endometrial biopsy instrument was then passed through the cervical canal into the uterine cavity without difficulty. The uterine cavity was sounded to 7 cm. An adequate specimen was obtained and submitted for pathological evaluation and hemostasis achieved. The instruments were removed from the vagina and the patient advised to report bleeding, fever, dizziness, or other symptoms. She tolerated the procedure well. She was discharged from the office in stable condition with follow-up instructions. Follow-up treatment will be determined when the results of the biopsy are available in approximately one week. 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 * Medical History:? 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 Control:?none.?Colonoscopy?yes, 06/2018.?Bone Density:?never.? * OB History:?Total pregnancies?.? * Surgical History:?breast aug mentation wisdom teeth extraction DxC Hysteroscopy, endometrial polyp removal 07/2022 * Hospitalization/Major Diagno stic Procedure:?see surgical hx * Family History:?Mother: dece ased 56 yrs, lung cancer (didn't smoke, but had 2nd hand exposure).?Father: 67 yrs, [place] at the gym on the treadmill.? Pt is BRCA neg Mother: lung cancer. Father: , leukemia Maternal Half Brother: Rich - passed from brain tumor, lymphatic ca at age 60 Maternal Half Brother - Blair - 1958 - lung cancer; at age 64 Paternal [...] Mika (10/2021). ?Occupation: [employer] work at [employer]. ?Pets: : dogs: 1 helen gray. ?Sexual abuse: no. ?Sexually active: no. ?Verbal [...] MG/5ML Solution Oral , Notes to Pharmacist: /2 tab weening offNystatin 378522 UNIT Tablet Oral valACYclovir HCl 500 MG Tablet 1 tablet Orally Once a day Progesterone 200 MG Capsule 1 capsule at bedtime Orally Once a day Estradiol 0.05 MG/24HR Patch Twice Weekly 1 patch to skin Transdermal Two times a Week miSOPROStol 200 MCG Tablet as directed Orally 8-12 hrs prior to appointment Taking Oregano Oil-Flaxseed Oil 50-25 MG Capsule [...] MG/5ML Solution Oral , Notes to Pharmacist: 06/19 tab weening offTaking Nystatin 140117 UNIT Tablet Oral Taking valACYclovir HCl 500 MG Tablet 1 tablet Orally Once a day Taking Progesterone 200 MG Capsule 1 capsule at bedtime Orally Once a day Taking Estradiol 0.05 MG/24HR Patch Twice Weekly 1 patch to skin Transdermal Two times a Week Taking miSOPROStol 200 MCG Tablet as directed Orally 8-12 hrs prior to appointment DiscontinuedFlax Seed Oil 1000MG 1 ORAL daily Medication List reviewed and reconciled with the patientDiscontinued Flax Seed Oil 1000MG 1 ORAL daily Medication List reviewed and reconciled with the patient * Allergies:?PENICILLIN: Throa t Swelling - AllergyAMOXICILLIN: SWELLING - AllergyBACTRIM: Skin Rash - AllergyClindamycin HCl: Throat Closes - AllergyZithromax Z-Gene: Skin Rash - Allergyno[Allergies Verified] Objective: * Vitals:?Ht: 64 in, Wt:127lbs , BMI:21.8Index, BP:106/78mm Hg, Temp:98.0F. * Examination: ???Genitourinary: ?EXTERNAL GENITALIA:?VAGINA:?BLADDER:?URETHRA:?CERVIX:?UTERUS:?ADNEXA:?ANUS AND PERINEUM:? Assessment: * Assessment: 1.?Postmenopausal bleeding - N95.0 (Primary)??? Plan: * Treatment: ? Value Reference Range ?SURGICAL PATHOLOGY Patient Name: MALIA SCHECHTERLE , TITA - * EMB BIOPSYThis lab was revie wed by TITA MEYERS on 05/19/2024 at 11:08 AM EST Notes: Will call with results unless needs to come in to discuss surgery or alternatives.? * Procedures:?Endometrial biopsy :? Test:?Not indicated.?Indication:?Post menopausal bleeding.?Consent:?General procedure, indications, risks, benefits, alternative treatments, and expected outcomes have been discussed with this patient. She has had an opportunity to ask questions, and all questions have been answered by me. She verbalizes understanding and to the best of my knowledge I feel the patient has been adequately informed and consented. The consent form has been signed..?Prep:?The patient was placed in the dorsal lithotomy position and a pelvic examination performed with the results documented above. A speculum was inserted into the vagina and the cervix cleaned with an antiseptic solution.?Procedure:?A speculum was placed in the vaginal vault. The cervix was visualized and cleansed with an antiseptic solution. The cervix was grasped with a tenaculum. Gentle traction was used to align the cervix and uterine canal. A flexible endometrial biopsy instrument was then passed through the cervical canal into the uterine cavity without difficulty. The uterine cavity was sounded to 7 cm. An adequate specimen was obtained and submitted for pathological evaluation and hemostasis achieved. The instruments were removed from the vagina and the patient advised to report bleeding, fever, dizziness, or other symptoms. She tolerated the procedure well. She was discharged from the office in stable condition with follow-up instructions. Follow-up treatment will be determined when the results of the biopsy are available in approximately one week..? * Procedure Codes:?98533 BIOPS Y OF UTERUS LINING * Preventive Medicine:?Call with increasing pain, heavy bleeding, fever/chills or foul smelling vaginal discharge. * Follow Up:?prn * Images: Billing Information: * Visit Code:? * Procedure Codes:? 45365 BIOPSY OF UTERUS LINING. * Sign off status: Completed true * Provider:?TITA MEYERS MD Date:?2023 Generated for Kyai sajan/Emmanuel/Marbinsmitting on:?08/06/2024 12:47 PM EST History and Physical Notes * Examination Category Sub-Category Detail Notes Category Not es Genitourinary EXTERNAL GENITALIA: External Genitalia:: nor mal VAGINA: Vagina:: no cystocele, no lesion s, no rectocele BLADDER: Bladder:: no mass, nontender URETHRA: Urethra:: no erythema or lesions present CERVIX: Cervix:: no discharge, no lesion s, nontender UTERUS: Uterus:: nontender, normal conto ur, normal mobility, normal size ADNEXA: Adnexa:: no masses, no tendernes s ANUS AND PERINEUM: Anus/Perineum:: visually norm al
--- OUTSIDE RECORDS SUMMARY | 2024-08-06 12:47 | XMS_ITS ---
Author Organization [email or web address] Address [address] [facility] [address] [place] [address] Care Team Providers Care Automotive Service Technician Name Role Phone KARLY LOVELACE Primary Care Provider ARTURO Randhawa Unavailable [phone] REASON FOR VISIT looking for bx results Encounters Encounter Location Date Provider Diagnosis [email or web address] [address] [facility] [address] [place] [address] 05/14/2024 ARTURO MEYERS Plan Of Treatment Next Appt Details Provider Name:ARTURO Mosley, 05/07/2025 08:00:00 AM, [address] [facility], [address], [place], [address], Progress Notes * MALIA CHINMAY GOMEZADOB: (54 yo F)Acc No.[id number]:05/14/2024 Patient:?MALIA BLOCKYehuda PANG :1970???Age:54 Y???Sex:Female Address:[address] [place] [address], [address] * true * Date:? Generated for Tomasz moeller/Emmanuel/eTransmitting on:?08/06/2024 12:47 PM EST
--- OUTSIDE RECORDS SUMMARY | 2024-08-06 12:48 | XMS_ITS | Patient Health Record ---
Author Organization [facility] Address [address] [place] [address] Care Team Providers Care Firer Retort Name Role Phone KARYL LOVELACE Primary Care Provider ARTURO Randhawa Unavailable [phone] Allergies Allergen (clinical drug ingredient) Drug/Non Drug [...] Interpretation: Performing Lab:Testing performed or reported by [facility], a Service of [facility], [address] [place] [address] Bakari Velasquez MD, Research Editor [facility]# [id number] Notes/Report: Patient Name: ARTURO EDMONDS Lab Patient : 1970 (Age: 54) Collection Date: 05/06/2024 Accession Date: 05/09/2024 Sign Out Date: 05/15/2024 Tissue Source: 1:EMB Final Diagnosis: Endometrium, biopsy: - Scant superficial fragments of inactive/atrophic endometrium, and features of stromal breakdown. - Fragments of endocervical glandular mucosa and mucus. Primary Pathologist:Lainey Rutledge M.D.,Ph.D. electronically signed out by: Lainey Rutledge M.D.,Ph.D. / [facility] Clinical History: Postmenopausal bleeding Gross Description: The requisition indicates endometrial biopsy . Received in formalin is a 1.5 x 1.3 x 0.5 cm aggregate of white-tinged mucus with red, fontaine tissue. The specimen is entirely submitted. 1-multiple pieces, x 2. (EG)* As of August 25, 2023, the specimen processing and staining is performed at [facility], [address] [place] [address] (CLIA#[id number]). Its performance characteristics determined by [facility]. Hollie Stephen M.D. Research Editor of Surgical Pathology, Jonatan Schultz M.D. Research Editor Cytopathology Phone #: [phone], On-Call Pathologist: [id number] Reason For Referral No Information Medications Medication SIG (Take, Route, Frequency, Duration) Notes Start Date End Date Status Nystatin 934604 UNIT Oral for 60 Active Citalopram Hydrobromide 10 MG/5ML Oral for 90 1/2 tab weening off Active busPIRone HCl 5 MG 1 tablet Orally Twice a day Active Progesterone 200 MG 1 capsule at bedtime Orally Once a day for 90 days Active Oregano Oil-Flaxseed Oil 50-25 MG as directed Orally Active valACYclovir HCl 500 MG 1 tablet Orally Once a day for 90 days Active Nitrofurantoin Activ e Multi Complete Activ e Magnesium 500 MG 1 tablet with a meal Orally Once a day Active Vitamin B12 Active miSOPROStol 200 MCG as directed Orally 8-12 hrs prior to appointment for 1 days 05/02/2024 Active Probiotic - as directed Orally Active Estradiol 0.05 MG/24HR 1 patch to skin Transdermal Two times a Week for 90 days 02/02/2021 Active Turmeric Active Calcium Active Social History Tobacco Use: Social History [...] (Standard) Question Answer Notes Tobacco use: Nonsmoker Section Notes: Marital status: single 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 Nutrition: average diet Exercise: regular weight lifting / resistance exercise regular cardio Sexual activity: not sexually active Contraception: oral contraceptives Smoking: never a smoker Alcohol: occasional alcohol Text messaging while driving: no Sunscreen: yes Illicit drugs: no Seatbelt: yes Marital status: single 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 Nutrition: average diet Exercise: regular weight lifting / resistance exercise regular cardio Sexual activity: not sexually active Contraception: oral contraceptives Smoking: never a smoker Alcohol: occasional alcohol Text messaging while driving: no Sunscreen: yes Illicit drugs: no Seatbelt: yes Marital status: single 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 Nutrition: average diet Exercise: regular weight lifting / resistance exercise regular cardio Sexual activity: not sexually active Contraception: oral contraceptives Smoking: never a smoker Alcohol: occasional alcohol Text messaging while driving: no Sunscreen: yes Illicit drugs: no Seatbelt: yes Marital status: single 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 Nutrition: average diet Exercise: regular weight lifting / resistance exercise regular cardio Sexual activity: not sexually active Contraception: oral contraceptives Smoking: never a smoker Alcohol: occasional alcohol Text messaging while driving: no Sunscreen: yes Illicit drugs: no Seatbelt: yes Marital status: single 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 Nutrition: average diet Exercise: regular weight lifting / resistance exercise regular cardio Sexual activity: not sexually active Contraception: oral contraceptives Smoking: never a smoker Alcohol: occasional alcohol Text messaging while driving: no Sunscreen: yes Illicit drugs: no Seatbelt: yes Marital status: single 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 Nutrition: average diet Exercise: regular weight lifting / resistance exercise regular cardio Sexual activity: not sexually active Contraception: oral contraceptives Smoking: never a smoker Alcohol: occasional alcohol Text messaging while driving: no Sunscreen: yes Illicit drugs: no Seatbelt: yes Marital status: single 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 Nutrition: average diet Exercise: regular weight lifting / resistance exercise regular cardio Sexual activity: not sexually active Contraception: oral contraceptives Smoking: never a smoker Alcohol: occasional alcohol Text messaging while driving: no Sunscreen: yes Illicit drugs: no Seatbelt: yes Marital status: single 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 Nutrition: average diet Exercise: regular weight lifting / resistance exercise regular cardio Sexual activity: not sexually active Contraception: oral contraceptives Smoking: never a smoker Alcohol: occasional alcohol Text messaging while driving: no Sunscreen: yes Illicit drugs: no Seatbelt: yes Marital status: single 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 Nutrition: average diet Exercise: regular weight lifting / resistance exercise regular cardio Sexual activity: not sexually active Contraception: oral contraceptives Smoking: never a smoker Alcohol: occasional alcohol Text messaging while driving: no Sunscreen: yes Illicit drugs: no Seatbelt: yes Marital status: single 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 Nutrition: average diet Exercise: regular weight lifting / resistance exercise regular cardio Sexual activity: not sexually active Contraception: oral contraceptives Smoking: never a smoker Alcohol: occasional alcohol Text messaging while driving: no Sunscreen: yes Illicit drugs: no Seatbelt: yes Marital status: single 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 Nutrition: average diet Exercise: regular weight lifting / resistance exercise regular cardio Sexual activity: not sexually active Contraception: oral contraceptives Smoking: never a smoker Alcohol: occasional alcohol Text messaging while driving: no Sunscreen: yes Illicit drugs: no Seatbelt: yes Marital status: single 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 Nutrition: average diet Exercise: regular weight lifting / resistance exercise regular cardio Sexual activity: not sexually active Contraception: oral contraceptives Smoking: never a smoker Alcohol: occasional alcohol Text messaging while driving: no Sunscreen: yes Illicit drugs: no Seatbelt: yes Marital status: single 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 Nutrition: average diet Exercise: regular weight lifting / resistance exercise regular cardio Sexual activity: not sexually active Contraception: oral contraceptives Smoking: never a smoker Alcohol: occasional alcohol Text messaging while driving: no Sunscreen: yes Illicit drugs: no Seatbelt: yes Problems Problem Type SNOMED Code ICD Code Onset Dates Problem Status W/U Status Risk Notes Problem Menopause (786263264) Menopausal and female climacteric states (N95.1) Active confirmed Problem Postmenopausal bleeding (50219532) Postmenopausal bleeding (N95.0) Active confirmed Problem Genital herpes simplex (23209951) Herpesviral infection of urogenital system, unspecified (A60.00) Active confirmed Problem Basal cell carcinoma of truncal skin (399882250) Basal cell carcinoma of skin of other part of trunk (C44.519) Active confirmed Problem Cancer of skin of lower limb, basal cell (057124441) Basal cell carcinoma of skin of right lower limb, including hip (C44.712) Active confirmed Problem Mild recurrent major depression (86735077) Major depressive disorder, recurrent, mild (F33.0) Active confirmed Problem Recurrent major depression (60446487) Major depressive disorder, recurrent, unspecified (F33.9) Active confirmed Problem Anxiety disorder (575411562) Anxiety disorder, unspecified (F41.9) Active confirmed Problem Postcoital bleeding (64549907) Postcoital and contact bleeding (N93.0) Active confirmed Problem Abnormal findings on diagnostic imaging of breast (296149013) Other abnormal and inconclusive findings on diagnostic imaging of breast (R92.8) Active confirmed Problem Family history of malignant neoplasm of breast (351677196) Family history of malignant neoplasm of breast (Z80.3) Active confirmed Problem Premenstrual dysphoric disorder (324652) Premenstrual dysphoric disorder (F32.81) Active confirmed Problem COVID-19 (085807193) COVID-19 (U07.1) Active confirmed Problem Genital herpes simplex (73364645) Unspecified genital herpes (054.10) Active confirmed Major Problem Depressive disorder (84725764) Depressive disorder, not elsewhere classified (311) Active confirmed Major Vital Signs Temperature 98.0 degrees Fahrenheit 05/06/2024 Blood pressure diastolic 78 mm Hg 05/06/2024 Height 64 in 05/06/2024 Blood pressure systolic 106 mm Hg 05/06/2024 Weight 127 lbs 05/06/2024 BMI 21.8 kg/m2 05/06/2024 Encounters Encounter Location Date Provider Diagnosis [facility] [address] [place] [address] 04/29/2024 ARTURO MEYERS Encounter for gynecological examination (general) (routine) without abnormal findings Z01.419 ; Encounter for screening mammogram for malignant neoplasm of breast Z12.31 ; Inconclusive mammogram R92.2 ; Herpesviral infection of urogenital system, unspecified A60.00 and Menopausal and female climacteric states N95.1 [facility] [address] [place] [address] 05/02/2024 ARTURO MEYERS Abnormal uterine and vaginal bleeding, unspecified N93.9 [facility] [address] [place] [address] 05/06/2024 ARTURO MEYERS Postmenopausal bleed ing N95.[address] [facility] [place] [address] 05/14/2024 ARTURO MEYERS Assessments Encounter Date Diagnosis (ICD Code) Assessment Notes Treatment Notes Treatment Clinical Notes Section Notes 04/29/2024 Encounter for gynecological examination (general) (routine) without abnormal findings (ICD-10 - Z01.419) During the visit, the following areas of concern were addressed: Discussed cervical cancer screening with either cytology alone every 3 years or high risk HPV co-testing every 5 years as per ASCCP guidelines. Advised continued annual pelvic exams. Patient encouraged to increase her level of exercise. SBE technique encouraged/taug ht. Patient reminded when annual mammogram is due. Patient encouraged to keep colon screening up to date. 04/29/2024 Encounter for screening mammogram for malignant neoplasm of breast (ICD-10 - Z12.31) 05/02/2024 Abnormal uterine and vaginal bleeding, unspecified (ICD-10 - N93.9) Return for endometrial biopsy. Offered today, but she'd prefer to be pre-medicated. She is encouraged to take up to 800mg ibuprofen on a full stomach prior to her appointment. 05/06/2024 Postmenopausal bleeding (ICD-10 - N95.0) Will call with results unless needs to come in to discuss surgery or alternatives. 04/29/2024 Inconclusive mammogram (ICD-10 - R92.2) 04/29/2024 Herpesviral infection of urogenital system, unspecified (ICD-10 - A60.00) 04/29/2024 Menopausal and female climacteric states (ICD-10 - N95.1) Plan Of Treatment Pending Test Test Name Order Date Ultrasound : Breast, right 02/12/2015 Sonohysterogram 02/02/2023 Sonohysterogram 04/20/2022 MAMMOGRAM, SCREENING 01/13/2015 MRI : Breast, Bilateral 03/05/2018 Ultrasound : Biopsy Breast Right 015 ONE SWAB 05/04/2017 ESTRADIOL 05/06/2019 FSH 05/06/2019 LH 05/06/2019 THIN PREP,HPV,GREGORIO IF HPV+ (>29YR)(SCRN) 03/05/2018 MM Digital Mammo Screening 03/22/2022 Screening Bilateral Breast Ultrasound Bilateral Breast MRI 03/05/2018 Bilateral Breast MRI 04/20/2022 MM Digital Screening Mammogram 3D 2021 MM Digital Screening Mammogram 3D 2022 MM Digital Screening Mammogram 3D 2023 Bilateral Breast MRI with/without contra st 06/04/2019 Bilateral Breast MRI with/without contra st 06/22/2020 Bilateral Breast MRI with/without contra st 04/25/2021 Next Appt Details Provider Name:ARTUROChilo Mosley, 05/07/2025 08:00:00 AM, [address], [address], [place], [address], Insurance Providers Payer Name Payer Address Payer Phone Subscriber Number Group Number Insured Name Patient Relationship to Insured Coverage Start Date Coverage End Date [employer] [place] [address] [address] [place] [address] [id number] ARTURO ORONA Self - patient is the insured Medical (General) History Medical History History ICD Code Herpesviral infection of urogenital syst em, unspecified A60.00 Family history of malignant neoplasm of breast Z80.3 Major depressive disorder, recurrent, un specified F33.9 Anxiety disorder, unspecified F41.9 COVID-19 U07.1 Basal cell carcinoma of skin of other pa rt of trunk C44.519 Basal cell carcinoma of skin of right lo wer limb, including hip C44.712 Surgical History Surgery Date(Month/Year) breast augmentation wisdom teeth extraction DxC Hysteroscopy, endometrial polyp shabbir jo ann 07/2022 Hospitalization History Reason Date(Month/Year) see surgical hx
== END 2024-08-06 12:20 | disposition home or self-care (01) ==
LOC: HO.XRAY 12:19
PROVIDERS: PCP Internal Medicine; Visit Provider Internal Medicine
DX: M54.9 Dorsalgia, unspecified (principal)
CPT/HCPCS: 72100

== ENCOUNTER → 2024-08-06 12:29 | Outpatient (BNV) | payer OTHER, SELFPAY | PROVIDERS: PCP Internal Medicine; Visit Provider Radiology Diagnostic Radiology | DX: M54.50 Low back pain, unspecified (principal) | CPT/HCPCS: 72100 ==

== ENCOUNTER 2024-08-12 08:01 | Outpatient (REF) | payer OTHER, SELFPAY ==
--- NOTE | ~2024-08-12 | XR_ITS ---
CLINICAL HISTORY: M25.539 - Pain in unspecified wrist 4 view right wrist Comparison: None Findings: Bones intact. No dislocations. No significant arthritic change or erosions. No radiopaque foreign body. IMPRESSION: 1. No acute findings This document has been electronically signed by: Joey Fofana MD on 08/12/2024 13:54:56
--- NOTE | ~2024-08-12 | XR_ITS ---
CLINICAL HISTORY: M25.539 - Pain in unspecified wrist 4 view left wrist Comparison: None Findings: No fractures or dislocations. No significant arthritic change or erosions. No radiopaque foreign body. IMPRESSION: 1. No acute findings This document has been electronically signed by: Joey Fofana MD on 08/12/2024 13:54:24
--- OUTSIDE RECORDS SUMMARY | 2024-08-12 08:06 | XMS_ITS ---
Author Organization [facility] Address [address] [facility] [address] [place] [address] Care Team Providers Care Self Sealing Fuel Tank Repairer Name Role Phone KARLY LOVELACE Primary Care Provider TITA Randhawa Unavailable [phone] Allergies Allergen (clinical drug ingredient) Drug/Non Drug [...] a day for 90 days Active Nystatin 101729 UNIT Oral for 60 Active Multi Complete [...] Encounters Encounter Location Date Provider Diagnosis [facility] [address] [place] [address] 05/02/2024 TITA MEYERS Abnormal uterine and vaginal [...] Provider Name:TITA Mosley, 05/07/2025 08:00:00 AM, [address], [place], [address], Progress Notes * CHINMAY EDMONDSADOB: (54 yo F)Acc No.[id number]:05/02/2024 PROGRESS NOTES Patient:?Yehuda EDMONDS Provider:?TITA MEYERS MD :1970???Age:54 Y???Sex:Female D ate:05/02/2024 Address:[address] [place], [place] [id number] Pcp:KARLY LOVELACE Subjective: * Chief Complaints: * ???PMB * HPI: ???TRACK WATCHMAN (Problems):? Tita is a 54 yo seen [...] periods.?Genitourinary:?Denies?Blood in urine.? * Medical History:? * Classification Officer History:?/ Para?0/0.?Sexual activity?currently sexually active.?Last Pap Smear:?03/05/18 [...] but had 2nd hand exposure).?Father: 67 yrs, [place] at the gym on the treadmill.? Pt [...] Mika (10/2021). ?Occupation: [employer] work at [employer] [place]. ?Pets: : dogs: 1 helen tzu. ?Sexual [...] Notes to Pharmacist: 1/ tab weening offNystatin 644954 UNIT Tablet Oral valACYclovir HCl 500 MG [...] to Pharmacist: 1/2 tab weening offTaking Nystatin 918784 UNIT Tablet Oral Taking valACYclovir HCl 500 [...] pleasant, well nourished, in no acute distress, photographic laboratory technician present in room.?SKIN:? warm and dry.?Genitourinary - [...] * Images: Billing Information: * Visit Code:? 43460 Office Visit, Est Pt., Level 4. * Procedure Codes:? * Sign off status: Completed true * Provider:?TITA MEYERS MD Date:?2023 Generated for Tomasz moeller/Emmanuel/Canelo on:?08/12/2024 08:06 AM EST History and Physical Notes * HPI (History of Present Illness) Category Sub-Category Detail Notes Category Not es TRACK WATCHMAN (Problems) Abnormal bleeding: Date problem started:: over [...] , well nourished, in no acute distress, photographic laboratory technician present in room SKIN: warm and dry
--- OUTSIDE RECORDS SUMMARY | 2024-08-12 08:06 | XMS_ITS ---
Author Organization [facility] Address [address] [facility] [address] [place] [address] Care Team Providers Care X Ray Equipment Mechanic Name Role Phone KARLY LOVELACE Primary Care Provider ARTURO Randhawa Unavailable [phone] REASON FOR VISIT looking for bx results Encounters Encounter Location Date Provider Diagnosis [facility] [address] [facility] [address] [place] [address] 05/14/2024 ARTURO MEYERS Plan Of Treatment Next Appt Details Provider Name:ARTURO Mosley, 05/07/2025 08:00:00 AM, [address] [facility] [facility], [address], [place], [address], Progress Notes * MALIA CHINMAY GOMEZADOB: (54 yo F)Acc No.[id number]:05/14/2024 Patient:?MALIA BLOCKYehuda PANG :1970???Age:54 Y???Sex:Female Address:[address] [place] [address], [address] * true * Date:? Generated for Tomasz moeller/Emmanuel/eTransmitting on:?08/12/2024 08:05 AM EST
--- OUTSIDE RECORDS SUMMARY | 2024-08-12 08:06 | XMS_ITS | Patient Health Record ---
Author Organization [employer] [facility] Address [address] [place] [address] Care Team Providers Care Diplomatic Interpreter/Translator Name Role Phone KARLY LOVELACE Primary Care Provider ARTURO Randhawa Unavailable [phone] Allergies Allergen (clinical drug ingredient) Drug/Non Drug [...] Interpretation: Performing Lab:Testing performed or reported by [facility], a Service of [facility], [address] [place] [address] Bakari Velasquez MD, Rn Transition [facility]# [id number] Notes/Report: Patient Name: ARTURO EDMONDS Lab Patient : 1970 (Age: 54) Collection Date: 05/06/2024 Accession Date: 05/09/2024 Sign Out Date: 05/15/2024 Tissue Source: 1:EMB Final Diagnosis: Endometrium, biopsy: - Scant superficial fragments of inactive/atrophic endometrium, and features of stromal breakdown. - Fragments of endocervical glandular mucosa and mucus. Primary Pathologist:Lainey Rutledge M.D.,Ph.D. electronically signed out by: Lainey Rutledge M.D.,Ph.D. / [facility] [place] History: Postmenopausal bleeding Gross Description: The requisition indicates endometrial biopsy . Received in formalin is a 1.5 x 1.3 x 0.5 cm aggregate of white-tinged mucus with red, fontaine tissue. The specimen is entirely submitted. 1-multiple pieces, x 2. (EG)* As of August 25, 2023, the specimen processing and staining is performed at [facility], [address] [place] [address] (CLIA#[id number]). Its performance characteristics determined by [facility]. Hollie Stephen M.D. Rn Transition of Surgical Pathology, Jonatan Schultz M.D. 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 Nutrition: average diet Exercise: regular weight lifting / resistance exercise regular cardio Sexual activity: not sexually active Contraception: oral contraceptives Smoking: never a smoker Alcohol: occasional alcohol Text messaging while driving: no Sunscreen: yes Illicit drugs: no Seatbelt: yes Marital status: single 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 Nutrition: average diet Exercise: regular weight lifting / resistance exercise regular cardio Sexual activity: not sexually active Contraception: oral contraceptives Smoking: never a smoker Alcohol: occasional alcohol Text messaging while driving: no Sunscreen: yes Illicit drugs: no Seatbelt: yes Marital status: single 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 Nutrition: average diet Exercise: regular weight lifting / resistance exercise regular cardio Sexual activity: not sexually active Contraception: oral contraceptives Smoking: never a smoker Alcohol: occasional alcohol Text messaging while driving: no Sunscreen: yes Illicit drugs: no Seatbelt: yes Marital status: single 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 Nutrition: average diet Exercise: regular weight lifting / resistance exercise regular cardio Sexual activity: not sexually active Contraception: oral contraceptives Smoking: never a smoker Alcohol: occasional alcohol Text messaging while driving: no Sunscreen: yes Illicit drugs: no Seatbelt: yes Marital status: single 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 Nutrition: average diet Exercise: regular weight lifting / resistance exercise regular cardio Sexual activity: not sexually active Contraception: oral contraceptives Smoking: never a smoker Alcohol: occasional alcohol Text messaging while driving: no Sunscreen: yes Illicit drugs: no Seatbelt: yes Marital status: single 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 Nutrition: average diet Exercise: regular weight lifting / resistance exercise regular cardio Sexual activity: not sexually active Contraception: oral contraceptives Smoking: never a smoker Alcohol: occasional alcohol Text messaging while driving: no Sunscreen: yes Illicit drugs: no Seatbelt: yes Marital status: single 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 Nutrition: average diet Exercise: regular weight lifting / resistance exercise regular cardio Sexual activity: not sexually active Contraception: oral contraceptives Smoking: never a smoker Alcohol: occasional alcohol Text messaging while driving: no Sunscreen: yes Illicit drugs: no Seatbelt: yes Marital status: single 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 Nutrition: average diet Exercise: regular weight lifting / resistance exercise regular cardio Sexual activity: not sexually active Contraception: oral contraceptives Smoking: never a smoker Alcohol: occasional alcohol Text messaging while driving: no Sunscreen: yes Illicit drugs: no Seatbelt: yes Marital status: single 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 Nutrition: average diet Exercise: regular weight lifting / resistance exercise regular cardio Sexual activity: not sexually active Contraception: oral contraceptives Smoking: never a smoker Alcohol: occasional alcohol Text messaging while driving: no Sunscreen: yes Illicit drugs: no Seatbelt: yes Marital status: single 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 Nutrition: average diet Exercise: regular weight lifting / resistance exercise regular cardio Sexual activity: not sexually active Contraception: oral contraceptives Smoking: never a smoker Alcohol: occasional alcohol Text messaging while driving: no Sunscreen: yes Illicit drugs: no Seatbelt: yes Marital status: single 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 Nutrition: average diet Exercise: regular weight lifting / resistance exercise regular cardio Sexual activity: not sexually active Contraception: oral contraceptives Smoking: never a smoker Alcohol: occasional alcohol Text messaging while driving: no Sunscreen: yes Illicit drugs: no Seatbelt: yes Marital status: single 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 Nutrition: average diet Exercise: regular weight lifting / resistance exercise regular cardio Sexual activity: not sexually active Contraception: oral contraceptives Smoking: never a smoker Alcohol: occasional alcohol Text messaging while driving: no Sunscreen: yes Illicit drugs: no Seatbelt: yes Marital status: single 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 Nutrition: average diet Exercise: regular weight lifting / resistance exercise regular cardio Sexual activity: not sexually active Contraception: oral contraceptives Smoking: never a smoker Alcohol: occasional alcohol Text messaging while driving: no Sunscreen: yes Illicit drugs: no Seatbelt: yes Problems Problem Type SNOMED Code ICD Code Onset Dates Problem Status W/U Status Risk Notes Problem Menopause (611982929) Menopausal and female climacteric states (N95.1) Active confirmed Problem Postmenopausal bleeding (86595469) Postmenopausal bleeding (N95.0) Active confirmed Problem Genital herpes simplex (20845720) Herpesviral infection of urogenital system, unspecified (A60.00) Active confirmed Problem Basal cell carcinoma of truncal skin (397145055) Basal cell carcinoma of skin of other part of trunk (C44.519) Active confirmed Problem Cancer of skin of lower limb, basal cell (356362803) Basal cell carcinoma of skin of right lower limb, including hip (C44.712) Active confirmed Problem Mild recurrent major depression (95233234) Major depressive disorder, recurrent, mild (F33.0) Active confirmed Problem Recurrent major depression (36173640) Major depressive disorder, recurrent, unspecified (F33.9) Active confirmed Problem Anxiety disorder (236721203) Anxiety disorder, unspecified (F41.9) Active confirmed Problem Postcoital bleeding (08067301) Postcoital and contact bleeding (N93.0) Active confirmed Problem Abnormal findings on diagnostic imaging of breast (561695665) Other abnormal and inconclusive findings on diagnostic imaging of breast (R92.8) Active confirmed Problem Family history of malignant neoplasm of breast (293627195) Family history of malignant neoplasm of breast (Z80.3) Active confirmed Problem Premenstrual dysphoric disorder (381055) Premenstrual dysphoric disorder (F32.81) Active confirmed Problem COVID-19 (737232780) COVID-19 (U07.1) Active confirmed Problem Genital herpes simplex (87889371) Unspecified genital herpes (054.10) Active confirmed Major Problem Depressive disorder (26678367) Depressive disorder, not elsewhere classified (311) Active confirmed Major Vital Signs Temperature 98.0 degrees Fahrenheit 05/06/2024 Blood pressure diastolic 78 mm Hg 05/06/2024 Height 64 in 05/06/2024 Blood pressure systolic 106 mm Hg 05/06/2024 Weight 127 lbs 05/06/2024 BMI 21.8 kg/m2 05/06/2024 Encounters Encounter Location Date Provider Diagnosis [facility] [address] [place] [address] 04/29/2024 ARTURO MEYERS Encounter for gynecological examination (general) (routine) without abnormal findings Z01.419 ; Encounter for screening mammogram for malignant neoplasm of breast Z12.31 ; Inconclusive mammogram R92.2 ; Herpesviral infection of urogenital system, unspecified A60.00 and Menopausal and female climacteric states N95.1 [facility] [email or web address] [address] [place] [address] 05/02/2024 ARTURO MEYERS Abnormal uterine and vaginal bleeding, unspecified N93.9 [facility] [address] [place] [address] 05/06/2024 ARTURO MEYERS Postmenopausal bleed ing N95.[address] [place] [address] 05/14/2024 ARTURO MEYERS Assessments Encounter Date Diagnosis [...] Provider Name:ARTUROChilo Mosley, 05/07/2025 08:00:00 AM, [address], [address], [place], [address], Insurance Providers Payer Name Payer Address Payer Phone Subscriber Number Group Number Insured Name Patient Relationship to Insured Coverage Start Date Coverage End Date [employer] [place] [address] [address] [place] [address] [id number] ARTURO ORONA Self - patient is the [...]
--- OUTSIDE RECORDS SUMMARY | 2024-08-12 08:06 | XMS_ITS ---
Author Organization [facility] Address [address] [address] Care Team Providers Care Finger Buffs Assembler Name Role Phone KARLY LOVELACE Primary Care Provider TITA Randhawa Unavailable [phone] Allergies Allergen (clinical drug ingredient) Drug/Non Drug [...] Interpretation: Performing Lab:Testing performed or reported by [facility], a Service of [facility] [place] [facility], [address] [place] [address] Bakari Velasquez MD, Fryer Operator [facility]# [id number] Notes/Report: Patient Name: TITA EDMONDS Lab Patient : 1970 (Age: 54) Collection Date: 05/06/2024 Accession Date: 05/09/2024 Sign Out Date: 05/15/2024 Tissue Source: 1:EMB Final Diagnosis: Endometrium, biopsy: - Scant superficial fragments of inactive/atrophic endometrium, and features of stromal breakdown. - Fragments of endocervical glandular mucosa and mucus. Primary Pathologist:Lainey Rutledge M.D.,Ph.D. electronically signed out by: Lainey Rutledge M.D.,Ph.D. / [facility] [place] Clinical History: Postmenopausal bleeding Gross Description: The requisition indicates endometrial biopsy . Received in formalin is a 1.5 x 1.3 x 0.5 cm aggregate of white-tinged mucus with red, fontaine tissue. The specimen is entirely submitted. 1-multiple pieces, x 2. (EG)* As of August 25, 2023, the specimen processing and staining is performed at [facility], [address] [place] [address] (CLIA#[id number]). Its performance characteristics determined by [facility]. Hollie Stephen M.D. Fryer Operator of Surgical Pathology, Jonatan Schultz M.D. Fryer Operator Cytopathology Phone #: [phone], On-Call Pathologist: [id number] REASON FOR VISIT EB Medications Medication SIG (Take, Route, Frequency, Duration) Notes Start Date End Date Status Multi Complete Activ e Nystatin 712612 UNIT Oral for 60 Active Citalopram Hydrobromide [...] W/U Status Risk Notes Problem Postmenopausal bleeding (45072709) Postmenopausal bleeding (N95.0) Active confirmed Vital Signs Temperature 98.0 degrees Fahrenheit 05/06/20 24 Blood pressure systolic 106 mm Hg 05/06/20 24 Blood pressure diastolic 78 mm Hg 024 Height 64 in 05/06/2024 Weight 127 lbs 05/06/2024 BMI 21.8 kg/m2 05/06/2024 Encounters Encounter Location Date Provider Diagnosis [facility] [address] [place] [address] 05/06/2024 TITA MEYERS Postmenopausal bleed ing N95.0 [...] Provider Name:TITA Mosley, 05/07/2025 08:00:00 AM, [address], [address], [place], [address], Procedure Notes * Category Sub-Category Detail Notes [...] Notes * MALIA JASONCHINMAYADOB: (54 yo F)Acc No.[id number]:05/06/2024 PROGRESS NOTES Patient:?Yehuda EDMONDS Provider:?TITA MEYERS MD :1970???Age:54 Y???Sex:Female D ate:05/06/2024 Address:[address] [place], [place] [id number] Pcp:KARLY LOVELACE Subjective: * Chief Complaints: * ???EB * HPI: ???HALL DIRECTOR (Procedures/Surgeries):?Patient presents today for endometrial biopsy Tita [...] 02/2023 - normal. * Medical History:? 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 Pt [...] Mika (10/2021). ?Occupation: [employer] work at [employer]. ?Pets: : dogs: 1 helen gray. ?Sexual [...] Notes to Pharmacist: /2 tab weening offNystatin 218745 UNIT Tablet Oral valACYclovir HCl 500 MG [...] to Pharmacist: 06/19 tab weening offTaking Nystatin 114275 UNIT Tablet Oral Taking valACYclovir HCl 500 [...] available in approximately one week..? * Procedure Codes:?50161 BIOPS Y OF UTERUS LINING * Preventive Medicine:?Call with increasing pain, heavy bleeding, fever/chills or foul smelling vaginal discharge. * Follow Up:?prn * Images: Billing Information: * Visit Code:? * Procedure Codes:? 56182 BIOPSY OF UTERUS LINING. * Sign off status: Completed true * Provider:?TITA MEYERS MD Date:?2023 Generated for Kyai sajan/Emmanuel/Gregorioitting on:?08/12/2024 08:05 AM EST History and Physical Notes * Examination [...]
== END 2024-08-12 08:02 | disposition home or self-care (01) ==
LOC: HO.XRAY 08:01
PROVIDERS: PCP Internal Medicine
DX: M25.531 Pain in right wrist (principal); M25.532 Pain in left wrist
CPT/HCPCS: 73100

== ENCOUNTER → 2024-08-12 08:04 | Outpatient (BNV) | payer OTHER, SELFPAY | PROVIDERS: PCP Internal Medicine; Visit Provider Radiology Diagnostic Radiology | DX: M25.539 Pain in unspecified wrist (principal) | CPT/HCPCS: 73100 ==

== ENCOUNTER 2024-09-15 13:21 | Outpatient (AMB) | payer OTHER, SELFPAY ==
--- NOTE | 2024-09-15 13:44 | A.OFFVIS_ITS ---
Intake Visit Reasons: 1y follow up Intake Note: Patient presents today for follow up on recurrent uti Meds: macrobid Allergies to Antibiotic- Clindamycin, Amoxicillin, Azithromycin, Penicillin, Sulfa, Bactrim Blood Thinner- None Post Void Residual: 0ml Activities Director Required: No Accompanied by: Self / Same As Patient Allergies clindamycin [CLINDAMYCIN] Allergy (Severe, Verified 09/15/24 14:33) HIVES AND BODY SWELLING amoxicillin Allergy (Unknown, Verified 09/15/24 14:33) unknown azithromycin [From ZITHROMAX Z-ASHTYN] Allergy (Unknown, Verified 09/15/24 14:33) SWELLING, rash Clindamycin HCl Allergy (Unknown, Verified 09/15/24 14:33) face swollen,hives penicillin V Allergy (Unknown, Verified 09/15/24 14:33) throat swelling Penicillins [PENICILLINS] Allergy (Unknown, Verified 09/15/24 14:33) ANAPHYLAXIS Sulfa (Sulfonamide Antibiotics) Allergy (Unknown, Verified 09/15/24 14:33) rash sulfamethoxazole [From Bactrim] Allergy (Unknown, Verified 09/15/24 14:33) rash trimethoprim [From Bactrim] Allergy (Unknown, Verified 09/15/24 14:33) rash eggs Allergy (Unknown, Uncoded 09/15/24 14:33) Unknown Medication List - Last Reconciled 09/15/24 by VAL Valiente buspirone 5 mg PO TID citalopram 10 mg PO DAILY epinephrine 0.3 mg (0.3 mL) IM DIRECTED estradiol 1 patch transdermal 2XW fluticasone propionate 50 mcg/actuation (Flonase Allergy Relief) 1 spray intranasal DAILY lutein PO mecobalamin (vitamin B12) PO nitrofurantoin macrocrystal 100 mg PO .PRN 90 days nystatin 1,000,000 units PO BID oregano oil PO progesterone micronized 200 mg PO BEDTIME turmeric PO valacyclovir 500 mg PO DAILY HPI Comments Details: Tita is a very pleasant 54-year-old female patient of Dr. Velez. she has a past medical history of depression and gluten sensitivity. She presents to the office today for follow-up of her overactive bladder as well as recurrent urinary tract infections. In discussion with the patient today she reports having had no UTI like symptoms and or urinary tract infections since her last office visit here over a year ago. She does report to be utilizing postcoital antibiotic therapy as prescribed. In office urinalysis results reviewed with the patient today. We discussed microscopic hematuria. She reports noting abnormal vaginal bleeding over the last 1-2 months. She also reports noting stress incontinence. We discussed at length further treatment options and risks and benefits of these treatment options. She currently denies any bothersome urinary issues. She denies urinary urgency, urinary frequency, incontinence, nocturia, hematuria, dysuria, foul smelling urine, changes to urinary stream, flank pain, fever, and or chills. PVR 0 mL. She otherwise offers no other issues or concerns at this time PREVIOUS OFFICE NOTE: Leukocytes remain on UA No symptoms Continues to use Macrodantin for suppression associated with sexual intercourse Has been on estradiol and progesterone for postmenopausal symptoms including vasomotor and fatigue Good response Recurrent UTI History of urinary tract infections Associated with sexual intercourse Uses Macrodantin for suppression Overactive bladder Initial presentation with nocturia 2-3 times Prior use of oxybutynin with off target impacts No current medications Plan The patient will continue using Macrobid postcoital prophylaxis for recurrent UTIs. Referral to pelvic floor therapy is planned to address stress urinary incontinence. Further evaluation by a corporate strategy intern for post-menopausal vaginal bleeding is recommended. The patient has consented to this management plan, and follow-up will be conducted to monitor progress. Patient was informed and verbally consented to the use of an ambient scribe for clinic note documentation during this visit. Discussion Notes During the discussion, I reviewed the management of recurrent urinary tract infections with Macrobid postcoital prophylaxis, emphasizing monitoring for any breakthrough infections. In addressing stress urinary incontinence, we discussed pelvic floor therapy's benefits and expected outcome with possible at-home exercise as an option to reduce waiting time. Regarding post-menopausal vaginal bleeding, I stressed the importance of follow-up care and potential implications of abnormal bleeding after menopause. The patient is encouraged to seek expedited gynecological evaluation to rule out conditions. All points were carefully discussed, and the patient confirmed understanding and agreement with the plan. Follow-up care strategies were also set in place, allowing the patient to reach out should symptoms worsen or require immediate intervention. [facility] Medical History Chronic depressive disorder Depression Gluten-sensitive enteropathy Surgical History History of dental surgery Status post cervical polyp removal History of augmentation of both breasts Family History Father Hypertension CVD (cardiovascular disease) Mother No problems noted. 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 Cognitive needs: No Hearing needs: No Vision needs: Yes Review of Systems Const All systems reviewed & are unremarkable except as noted in HPI and below Physical Exam Const General: cooperative, healthy appearing, comfortable, no acute distress, well developed, alert and awake Orientation/consciousness: patient oriented x3 Limitations: no limitations HEENT Head: Yes normal to inspection, Yes normocephalic and Yes atraumatic Ears: hearing grossly normal bilaterally Eyes General: appearance normal, both eyes and all related structures Neck Neck: Yes normal visual inspection and Yes trachea midline Chest Chest palpation & inspection: normal inspection of the chest Resp Effort & Inspection: normal respiratory effort and able to speak in complete sentences Cardio Rate: regular rate GI Inspection: Yes normal to inspection General: Yes no CVA tenderness Back/Spine/Pelvis Back: no CVA tenderness Skin General skin exam: no rashes or lesions noted Neuro General: patient oriented x3 Extrem General: Yes normal to inspection Psych Appearance: grossly normal and well kempt Mental Status: mental status grossly normal Speech and movement: Normal speech and movement present and Clear speech present Affect: normal affect Attitude: cooperative Thought process: Normal thought process present Thought content: Normal thought content present Insight: Fair insight present (Psych) Judgement: Fair judgement present (Psych) Office Procedures Post Void Residual Post Residual Void Post Void Residual (PVR): 0 06687-Evfp Void Residual by ultrasound Results AMB Urinalysis, Automated UA Leukoctes 125 Zulema/uL Last Edit by Erica Brito on 09/15/24 14:26 UA Nitrite Last Edit by Erica Brito on 09/15/24 14:26 UA Urobilinogen 0.2 mg/dL Last Edit by Erica Brito on 09/15/24 14:26 UA Protein 0 mg/dL Last Edit by Feastiehuy Brito on 09/15/24 14:26 UA pH 7.0 Last Edit by Feastiehuy Brito on 09/15/24 14:26 UA Blood 25 Jose/uL Last Edit by Feastiehuy Brito on 09/15/24 14:26 UA Specific Marrero 1.010 Last Edit by Erica Brito on 09/15/24 14:26 UA Ketone Last Edit by Erica Brito on 09/15/24 14:26 UA Bilirubin 0 mg/dL Last Edit by Feastiehuy Brito on 09/15/24 14:26 UA Glucose 0 mg/dL Last Edit by Feastiehuy Brito on 09/15/24 14:26 Results Reviewed Results Reviewed: Laboratory Last Values Urine pH (Auto) 7.0 09/15/24 14:25 Specific Marrero (Auto) 1.010 09/15/24 14:25 Urine Protein (Auto) 0 mg/dL 09/15/24 14:25 Glucose (UA)(Auto) 0 mg/dL 09/15/24 14:25 Urine Blood (Auto) 25 Jose/uL 09/15/24 14:25 Urine Bilirubin (Auto) 0 mg/dL 09/15/24 14:25 Urine Urobilinogen (Auto) 0.2 mg/dL 09/15/24 14:25 Leukocyte Esterase (Auto) 125 Zulema/uL 09/15/24 14:25 Assessment & Plan Assessment & Plan (1) Abnormal vaginal bleeding: Code(s): N93.9 - Abnormal uterine and vaginal bleeding, unspecified Category: Medical (2) Stress incontinence: Code(s): N39.3 - Stress incontinence (female) (male) Category: Medical (3) Recurrent UTI (urinary tract infection): Code(s): N39.0 - Urinary tract infection, site not specified Category: Medical Plan In office urinalysis results reviewed with the patient today; as noted above. PVR 0 mL Will refer to packaging associate for further assessment evaluation. Will refer to pelvic floor therapy for further assessment evaluation. We discussed further treatment options of stress incontinence and risks and benefits of these treatment options. Continue postcoital antibiotic therapy as prescribed; refill provided. She denies any UTI like symptoms. Follow-up in 1 year with PVR; or sooner with any issues, concerns, and or que stions. Orders: Orders AMB Urinalysis Automated Today Z13.9 - Encounter for screening, unspecified PT Evaluation and Treatment Today N39.3 - Stress incontinence (female) (male) AMB Post Void Residual by ultrasound Today R39.15 - Urgency of urination Referrals RIDING COACH Referral N93.9 - Abnormal uterine and vaginal bleeding, unspecified Medications: Refilled nitrofurantoin macrocrystal must administer with a meal/food 100 mg PO .PRN 90 caps 1RF 90 days N39.0 - Urinary tract infection, site not specified Patient Instructions: The patient had an opportunity to ask questions regarding the treatment plan. All questions were answered. Physical exam, labs, and imaging were discussed and reviewed in detail. As well as risks, benefits, and discussion of treatment choices. No major barriers to understanding were identified. The patient expressed understanding and agreement with the above treatment plan. The patient was made aware they should contact our office by phone for worsening of their current condition, the appearance of new symptoms, or with any questions or concerns. Compliance is encouraged with any medications and follow up testing that is ordered. It is a privilege to be allowed the opportunity to participate in? your urological care.? Again, if you have any questions or concerns If you have any questions or concerns please do not hesitate to contact me. The office is [phone]. This note is constructed using voice recognition software. While every effort has been made to ensure accuracy campus rep errors may have been included. Yours sincerely, VAL Valiente Coding Level of Care Code Est Pt Level 3 (38696) Diagnoses Abnormal vaginal bleeding N93.9 Stress incontinence N39.3 Recurrent UTI (urinary tract infection) N39.0 CPT Codes Post Residual Void - PVR CPT Code: 18405-Ioyp Void Residual by ultrasound ([id number])
--- OUTSIDE RECORDS SUMMARY | 2024-09-15 15:02 | XMS_ITS ---
Author Organization [employer] Address [address] [facility] [address] [place] [address] Care Team Providers Care Hay Chopper Name Role Phone KARLY LOVELACE Primary Care Provider ARTURO Randhawa Unavailable [phone] REASON FOR VISIT PROGESTERONE REFILL Encounters Encounter Location Date Provider Diagnosis [facility] [address] [place] [address] [address] [place] [address] 08/22/2024 ARTURO MEYERS Plan Of Treatment Next Appt Details Provider Name:ARTURO Mosley, 05/07/2025 08:00:00 AM, [address] [facility], [address], [place], [address], Progress Notes * MALIA CHINMAY GOMEZADOB: (54 yo F)Acc No.[id number]:08/22/2024 Patient:?MALIA BLOCKBIRD Yehuda CALE :1970???Age:54 Y???Sex:Female Address:[address] [place] [address], [address] * true * Date:? Generated for Kyai sajan/Emmanuel/eTransmitting on:?09/15/2024 03:02 PM EDT
--- OUTSIDE RECORDS SUMMARY | 2024-09-15 15:02 | XMS_ITS ---
Author Organization [facility] Address [address] [address] Care Team Providers Care Shipping Receiving Manager Name Role Phone KARLY LOVELAEC Primary Care Provider TITA Randhawa Unavailable [phone] Allergies Allergen (clinical drug ingredient) Drug/Non Drug [...] Interpretation: Performing Lab:Testing performed or reported by [facility], a Service of [facility], [address] [place] [address] Bakari Velasquez MD, Water Taxi Ferry Operator [facility]# [id number] Notes/Report: Patient Name: TITA EDMONDS Lab Patient : 1970 (Age: 54) Collection Date: 05/06/2024 Accession Date: 05/09/2024 Sign Out Date: 05/15/2024 Tissue Source: 1:EMB Final Diagnosis: Endometrium, biopsy: - Scant superficial fragments of inactive/atrophic endometrium, and features of stromal breakdown. - Fragments of endocervical glandular mucosa and mucus. Primary Pathologist:Lainey Rutledge M.D.,Ph.D. electronically signed out by: Lainey Rutledge M.D.,Ph.D. / [facility] Clinical History: Postmenopausal bleeding Gross Description: The requisition indicates endometrial biopsy . Received in formalin is a 1.5 x 1.3 x 0.5 cm aggregate of white-tinged mucus with red, fontaine tissue. The specimen is entirely submitted. 1-multiple pieces, x 2. (EG)* As of August 25, 2023, the specimen processing and staining is performed at [facility], [address] [place] [address] (CLIA#[id number]). Its [facility]. Hollie Stephen M.D. Water Taxi Ferry Operator of Surgical Pathology, Jonatan Schultz M.D. Water Taxi Ferry Operator Cytopathology Phone #: [phone], On-Call Pathologist: [id number] REASON FOR VISIT EB Medications Medication SIG (Take, Route, Frequency, Duration) Notes Start Date End Date Status Multi Complete Activ e Nystatin 943004 UNIT Oral for 60 Active Citalopram Hydrobromide [...] W/U Status Risk Notes Problem Postmenopausal bleeding (59372170) Postmenopausal bleeding (N95.0) Active confirmed Vital Signs Temperature 98.0 degrees Fahrenheit 05/06/20 24 Blood pressure systolic 106 mm Hg 05/06/20 24 Blood pressure diastolic 78 mm Hg 024 Height 64 in 05/06/2024 Weight 127 lbs 05/06/2024 BMI 21.8 kg/m2 05/06/2024 Encounters Encounter Location Date Provider Diagnosis [facility] [address] [place] [address] 05/06/2024 TITA MEYERS Postmenopausal bleed ing N95.0 [...] Provider Name:TITA Mosley, 05/07/2025 08:00:00 AM, [address], [place], [address], Procedure Notes * Category Sub-Category Detail Notes [...] Notes * MALIA JASONCHINMAYADOB: (54 yo F)Acc No.[id number]:05/06/2024 PROGRESS NOTES Patient:?Yehuda EDMONDS Provider:?TITA MEYERS MD :1970???Age:54 Y???Sex:Female D ate:05/06/2024 Address:[address] [place], [place] [id number] Pcp:KARLY LOVELACE Subjective: * Chief Complaints: * ???EB * HPI: ???FACULTY PHYSICIAN (Procedures/Surgeries):?Patient presents today for endometrial biopsy Tita [...] 02/2023 - normal. * Medical History:? * Electronic Wirer History:?/ Para?0/0.?Sexual activity?currently sexually active.?Last Pap Smear:?04/24/23 [...] but had 2nd hand exposure).?Father: 67 yrs, [place] at the gym on the treadmill.? Pt [...] Mika (10/2021). ?Occupation: [employer] work at [employer]. ?Pets: : dogs: 1 helen gray. [...] Notes to Pharmacist: /2 tab weening offNystatin 189724 UNIT Tablet Oral valACYclovir HCl 500 MG [...] to Pharmacist: 06/19 tab weening offTaking Nystatin 057185 UNIT Tablet Oral Taking valACYclovir HCl 500 [...] BP:106/78mm Hg, Temp:98.0F. * Examination: ???Genitourinary: ?EXTERNAL GENITALIA:?External Genitalia:?normal ?VAGINA:?Vagina:?no cystocele, no lesions, no rectocele ?BLADDER:?Bladder:?no mass, nontender ?URETHRA:?Urethra:?no erythema or lesions present ?CERVIX:?Cervix:?no discharge, no lesions, nontender ?UTERUS:?Uterus:?nontender, normal contour, normal mobility, normal size ?ADNEXA:?Adnexa:?no masses, no tenderness ?ANUS AND PERINEUM:?Anus/Perineum:?visually normal??? Assessment: * Assessment: 1.?Postmenopausal bleeding - N95.0 (Primary)??? Plan: * Treatment: ? Value Reference Range ?SURGICAL PATHOLOGY Patient Name: MALIA BLOCKTITA PANG - * EMB BIOPSYThis lab was revie [...] available in approximately one week..? * Procedure Codes:?79487 BIOPS Y OF UTERUS LINING * Preventive Medicine:?Call with increasing pain, heavy bleeding, fever/chills or foul smelling vaginal discharge. * Follow Up:?prn * Images: Billing Information: * Visit Code:? * Procedure Codes:? 62421 BIOPSY OF UTERUS LINING. * Sign off status: Completed true * Provider:?TITA MEYERS MD Date:?2023 Generated for Tomasz moeller/Emmanuel/eTransmitting on:?09/15/2024 03:02 PM EDT History and Physical Notes * Examination Category [...]
--- OUTSIDE RECORDS SUMMARY | 2024-09-15 15:02 | XMS_ITS ---
Author Organization [employer] Address [address] [facility] [address] [place] [address] Care Team Providers Care Cell Attendant Helper Name Role Phone KARLY LOVELACE Primary Care Provider ARTURO Randhawa Unavailable [phone] REASON FOR VISIT looking for bx results Encounters Encounter Location Date Provider Diagnosis [facility] [address] [facility] [address] [place] [address] 05/14/2024 ARTURO MEYERS Plan Of Treatment Next Appt Details Provider Name:ARTURO Mosley, 05/07/2025 08:00:00 AM, [address] [facility], [address], [place], [address], Progress Notes * MALIA CHINMAY GOMEZADOB: (54 yo F)Acc No.[id number]:05/14/2024 Patient:?MALIA BLOCKYehuda PANG :1970???Age:54 Y???Sex:Female Address:[address] [place] [address], [address] * true * Date:? Generated for Kyai sajan/Emmanuel/eTransmitting on:?09/15/2024 03:02 PM EDT
--- OUTSIDE RECORDS SUMMARY | 2024-09-15 15:03 | XMS_ITS | Patient Health Record ---
Author Organization [facility] Address [address] [place] [address] Care Team Providers Care Nurse Technician Name Role Phone Agustin ORTA, Reinaldo Primary Care Provider Chuck Marquis Unavailable [phone] Allergies Allergen (clinical drug ingredient) Drug/Non Drug Allergy documented on EMR Reaction Allergy Type Onset Date Status penicillin G Penicillin G Sodium Unknown Drug Allergy Active clindamycin Clindamycin HCl Unknown Drug Allergy Active sulfamethoxazole / trimethoprim Bactrim Unknown Drug Allergy Active Azithromycin Unknown Drug Allergy Acti ve amoxicillin Amoxicillin Unknown Drug Allergy Act faviola Reason For Referral No Information Medications Medication [...] directed Orally once a day Active Nystatin 086955 UNIT TAKE 2 TABLETS BY M OUTH TWICE A DAY Oral for 60 Active Immunizations Vaccine Route Administration Date Status Comme nts Influenza Unknown 02/16/2018 Administered Influenza Unknown 04/01/2020 Administered Influenza Unknown 05/10/2021 Administered Social History Tobacco Use: Social History Observation Description Date Details (start date - stop date) Never Smoker NA - NA Tobacco Use/Smoking Question Answer Notes Patient is [...] Never (0 point) Points 3 Interpretation Positive Section Notes: Nonsmoker; occ. wine with di nner Nonsmoker; occ. wine with di nner Nonsmoker; occ. wine with di nner Problems Problem Type SNOMED Code ICD Code Onset Dates Problem Status W/U Status Risk Notes Problem 516689660 Encounter for screening for malignant neoplasm of colon (Z12.11) Active confirmed Problem Change in bowel habit (22701373) Change in bowel habits (R19.4) Active confirmed Problem 747071043147394 Pre-procedural examination (Z01.818) Active confirmed Problem Celiac disease (143340032) Gluten intolerance (K90.0) Active confirmed Plan Of Treatment Pending Test Test Name Order Date CELIAC PANEL #10 04/08/2020 Future Test Test Name Order Date COLONOSCOPY 06/28/2018 Insurance Providers Payer Name Payer Address Payer Phone Subscriber Number Group Number Insured Name Patient Relationship to Insured Coverage Start Date Coverage End Date [employer] [address] [address] [place] [address] [id number] ARTURO ESCOBAR Self - patient is the insured Medical (General) History Medical History History ICD Code Denies [place],DM,CVA,Lung disease,renal dise ase Anxiety Chronic low WBC [...]
== END 2024-09-15 14:31 | disposition home or self-care (01) ==
LOC: HO.HUSH 13:22
PROVIDERS: PCP Internal Medicine; Visit Provider Nurse Practitioner Family
DX: N93.9 Abnormal uterine and vaginal bleeding, unspecified (principal); N39.3 Stress incontinence (female) (male); N39.0 Urinary tract infection, site not specified; Z13.9 Encounter for screening, unspecified
CPT/HCPCS: 99213

== ENCOUNTER → 2024-09-15 13:21 | Outpatient (BNVA) | payer OTHER, SELFPAY | PROVIDERS: PCP Internal Medicine; Visit Provider Nurse Practitioner Family | DX: N32.81 Overactive bladder (principal); N93.9 Abnormal uterine and vaginal bleeding, unspecified; N39.3 Stress incontinence (female) (male); N39.0 Urinary tract infection, site not specified | CPT/HCPCS: 51798; 81003 ==

== ENCOUNTER 2024-09-18 10:28 | Outpatient (AMB) | payer OTHER, SELFPAY ==
[2024-09-18 10:30] VITALS: BP 106/74; BMI 22.5
--- NOTE | 2024-09-18 10:30 | A.OFFVIS_ITS ---
Vital Signs 09/18/24 10:30 Height 5 ft 3 in Weight 127 lb BMI 22.5 BP 106/74 Intake Visit Reasons: PMB Intake Note: Patient had hysteroscopy @[facility] for endometrial polyp and bleeding (few years ago). Now spotting for past few months, not sure if related to intercourse Sales Demonstrator: Sales Demonstrator Present (Latosha) Allergies clindamycin [CLINDAMYCIN] Allergy (Severe, Verified 09/18/24 10:32) HIVES AND BODY SWELLING amoxicillin Allergy (Unknown, Verified 09/18/24 10:32) unknown azithromycin [From ZITHROMAX Z-ASHTYN] Allergy (Unknown, Verified 09/18/24 10:32) SWELLING, rash Clindamycin HCl Allergy (Unknown, Verified 09/18/24 10:32) face swollen,hives penicillin V Allergy (Unknown, Verified 09/18/24 10:32) throat swelling Penicillins [PENICILLINS] Allergy (Unknown, Verified 09/18/24 10:32) ANAPHYLAXIS Sulfa (Sulfonamide Antibiotics) Allergy (Unknown, Verified 09/18/24 10:32) rash sulfamethoxazole [From Bactrim] Allergy (Unknown, Verified 09/18/24 10:32) rash trimethoprim [From Bactrim] Allergy (Unknown, Verified 09/18/24 10:32) rash eggs Allergy (Unknown, Uncoded 09/15/24 14:33) Unknown Post menopausal: Yes HPI Comments Details: Patient is here today for a new patient consult with vaginal spotting, onset last fall, seen by Dr. Alejo. She has released records from [facility], they are not available today. [facility] Medical History Chronic depressive disorder Depression Gluten-sensitive enteropathy Surgical History History of hysteroscopy History of dental surgery Status post cervical polyp removal History of augmentation of both breasts Family History Father Hypertension CVD (cardiovascular disease) Mother No problems noted. 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 Cognitive needs: No Hearing needs: No Vision needs: Yes Review of Systems Const All systems reviewed & are unremarkable except as noted in HPI and below Physical Exam Vital Signs: Last Vital Signs BP 106/74 09/18/24 10:30 BMI result Body Mass Index 22.5 Const General: cooperative, healthy appearing and no acute distress Orientation/consciousness: patient oriented x3 GI Inspection: Yes normal to inspection Palpation (GI): Soft to palpation and Other GI palpation findings present (Nontender) Rectal Exam - Female: visual inspection normal General: Yes bladder normal to palpation External Female Exam: normal appearance of the urethra Speculum Exam - Vagina: normal appearance of the vagina, normal palpation and normal vaginal discharge Speculum Exam - Cervix: normal appearance of the cervix and normal palpation Bimanual exam- vagina & uterus: normal bimanual exam, normal palpation, uterine size normal, bladder normal to palpation, normal palpation, uterine shape normal, non-tender and other (Bled readily with speculum brushed against cervix, very friable) Bimanual Exam- Adnexa, other: normal adnexae Neuro General: patient oriented x3 Assessment & Plan Assessment & Plan (1) Postmenopausal bleeding: Code(s): N95.0 - Postmenopausal bleeding Plan Discussed: Workup for postmenopausal bleeding to include ultrasound, endometrial biopsy. Pap smear obtained today. Cervical cultures for GC chlamydia and BV panel obtained. Plan follow up EMB procedure, patient is not prepared today and prefers to reschedule. Advised to have something to eat and drink and take 3 Advil 1 hour before procedure time. The patient expressed understanding and agreement with the plan of care. All of her questions and concerns were addressed to the best of my ability. Patient reports she has signed a release of records from [facility] previously. This note is constructed using voice recognition software. While every effort has been made to ensure accuracy, school vocational educator errors may have been included. Orders: Orders HPV High risk Today N95.0 - Postmenopausal bleeding Pap Smear Today N95.0 - Postmenopausal bleeding US pelvic and transvaginal Today N95.0 - Postmenopausal bleeding Bacterial Vaginosis Panel Today N95.0 - Postmenopausal bleeding CT NG by PCR Today N95.0 - Postmenopausal bleeding Coding Level of Care Code New Pt Level 3 (55824) Diagnoses Postmenopausal bleeding N95.0
--- OUTSIDE RECORDS SUMMARY | 2024-09-18 11:34 | XMS_ITS ---
Author Organization adjust [facility] Address [address] [address] Care Team Providers Care Lavender Farm Worker Name Role Phone KARLY LOVELACE Primary Care Provider TITA Randhawa Unavailable [phone] Allergies Allergen (clinical drug ingredient) Drug/Non Drug [...] Interpretation: Performing Lab:Testing performed or reported by [facility], a Service of [facility], [address] [place] [address] Bakari Velasquez MD, Linux System Administrator [facility]# [id number] Notes/Report: Patient Name: TITA EDMONDS Lab Patient : 1970 (Age: 54) Collection Date: 05/06/2024 Accession Date: 05/09/2024 Sign Out Date: 05/15/2024 Tissue Source: 1:EMB Final Diagnosis: Endometrium, biopsy: - Scant superficial fragments of inactive/atrophic endometrium, and features of stromal breakdown. - Fragments of endocervical glandular mucosa and mucus. Primary Pathologist:Lainey Rutledge M.D.,Ph.D. electronically signed out by: Lainey Rutledge M.D.,Ph.D. / [facility] Clinical History: Postmenopausal bleeding Gross Description: The requisition indicates endometrial biopsy . Received in formalin is a 1.5 x 1.3 x 0.5 cm aggregate of white-tinged mucus with red, fontaine tissue. The specimen is entirely submitted. 1-multiple pieces, x 2. (EG)* As of August 25, 2023, the specimen processing and staining is performed at [facility], [address] [place] [address] (CLIA#[id number]). Its performance characteristics determined by [facility]. Hollie Stephen M.D. Linux System Administrator of Surgical Pathology, Jonatan Schultz M.D. Linux System Administrator Cytopathology Phone #: [phone], On-Call Pathologist: [id number] REASON FOR VISIT EB Medications Medication SIG (Take, Route, Frequency, Duration) Notes Start Date End Date Status Multi Complete Activ e Nystatin 771789 UNIT Oral for 60 Active Citalopram Hydrobromide [...] W/U Status Risk Notes Problem Postmenopausal bleeding (56506493) Postmenopausal bleeding (N95.0) Active confirmed Vital Signs Temperature 98.0 degrees Fahrenheit 05/06/20 24 Blood pressure systolic 106 mm Hg 05/06/20 24 Blood pressure diastolic 78 mm Hg 024 Height 64 in 05/06/2024 Weight 127 lbs 05/06/2024 BMI 21.8 kg/m2 05/06/2024 Encounters Encounter Location Date Provider Diagnosis [address] [place] [address] 05/06/2024 TITA MEYERS Postmenopausal bleed ing N95.0 [...] Next Appt Details Follow Up: prn, Reason: Procedure Notes * Category Sub-Category Detail Notes [...] in approximately one week. 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 * Medical History:? 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 Control:?none.?Colonoscopy?yes, 06/2018.?Bone Density:?never.? * OB History:?Total pregnancies?.? * Surgical History:?breast aug mentation wisdom teeth extraction DxC Hysteroscopy, endometrial polyp removal 07/2022 * Hospitalization/Major Diagno stic Procedure:?see surgical hx * Family History:?Mother: dece ased 56 yrs, lung cancer (didn't smoke, but had 2nd hand exposure).?Father: 67 yrs, MS at the gym on the treadmill.? Pt [...] Mika (10/2021). 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 ?Pets: : dogs: 1 helen gray. ?Sexual [...] , Notes to Pharmacist: 06/19 tab weening offNystatin 755698 UNIT Tablet Oral valACYclovir HCl 500 MG [...] to Pharmacist: 06/19 tab weening offTaking Nystatin 686977 UNIT Tablet Oral Taking valACYclovir HCl 500 [...] Value Reference Range ?SURGICAL PATHOLOGY Patient Name: TITA EDMONDS - * EMB BIOPSYThis lab was revie [...] available in approximately one week..? * Procedure Codes:?19519 BIOPS Y OF UTERUS LINING * Preventive Medicine:?Call with increasing pain, heavy bleeding, fever/chills or foul smelling vaginal discharge. * Follow Up:?prn * Images: Billing Information: * Visit Code:? * Procedure Codes:? 09035 BIOPSY OF UTERUS LINING. * Sign off status: Completed true * Provider:?TITA MEYERS MD Date:?2023 Generated for [employer] sajan/Emmanuel/eTransmitting on:?09/18/2024 11:34 AM EDT History and Physical Notes * Examination [...]
--- OUTSIDE RECORDS SUMMARY | 2024-09-18 11:34 | XMS_ITS ---
Author Organization [facility] Address [address] [address] Care Team Providers Care Dining Services Director Name Role Phone KARLY LOVELACE Primary Care Provider ARTURO Randhawa Unavailable [phone] REASON FOR VISIT PROGESTERONE REFILL Encounters Encounter Location Date Provider Diagnosis [facility] [address] [address] 08/22/2024 ARTURO MEYERS Plan Of Treatment No Information Progress Notes * TOMY EDMONDSB: (54 yo F)Acc No.[id number]:08/22/2024 Patient:?MALIA BLOCKYehuda PANG :1970???Age:54 Y???Sex:Female Address:[address] [place] [address], [address] * true * Date:? Generated for [employer] sajan/Emmanuel/eTransmitting on:?09/18/2024 11:34 AM EDT
--- OUTSIDE RECORDS SUMMARY | 2024-09-18 11:35 | XMS_ITS | Patient Health Record ---
Author Organization [facility] [facility] Address [address] [facility] [address] [place] [address] Care Team Providers Care Station Manager Name Role Phone KARLY LVOELACE Primary Care Provider ARTURO Randhawa Unavailable [phone] Allergies Allergen (clinical drug ingredient) Drug/Non Drug [...] [facility] of [facility], [address] [place] [address] Bakari Velasquez MD, Business Support Associate [facility]# [id number] Notes/Report: Patient Name: ARTURO EDMONDS Lab Patient : 1970 (Age: 54) Collection Date: 05/06/2024 Accession Date: 05/09/2024 Sign Out Date: 05/15/2024 Tissue Source: 1:EMB Final Diagnosis: Endometrium, biopsy: - Scant superficial fragments of inactive/atrophic endometrium, and features of stromal breakdown. - Fragments of endocervical glandular mucosa and mucus. Primary Pathologist:Lainey Rutledge M.D.,Ph.D. electronically signed out by: Lainey Rutledge M.D.,Ph.D. / [facility] Clinical History: Postmenopausal bleeding Gross Description: The requisition indicates endometrial biopsy . Received in formalin is a 1.5 x 1.3 x 0.5 cm aggregate of white-tinged mucus with red, fontaine tissue. The specimen is entirely submitted. 1-multiple pieces, x 2. (EG)* As of August 25, 2023, the specimen processing and staining is performed at [facility], [address] [place] [address] (CLIA#[id number]). Its performance characteristics determined by [facility]. Hollie Stephen M.D. Business Support Associate of Surgical Pathology, Jonatan Schultz M.D. 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 Nutrition: average diet Exercise: regular weight lifting / resistance exercise regular cardio Sexual activity: not sexually active Contraception: oral contraceptives Smoking: never a smoker Alcohol: occasional alcohol Text messaging while driving: no Sunscreen: yes Illicit drugs: no Seatbelt: yes Marital status: single 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 Nutrition: average diet Exercise: regular weight lifting / resistance exercise regular cardio Sexual activity: not sexually active Contraception: oral contraceptives Smoking: never a smoker Alcohol: occasional alcohol Text messaging while driving: no Sunscreen: yes Illicit drugs: no Seatbelt: yes Marital status: single 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 Nutrition: average diet Exercise: regular weight lifting / resistance exercise regular cardio Sexual activity: not sexually active Contraception: oral contraceptives Smoking: never a smoker Alcohol: occasional alcohol Text messaging while driving: no Sunscreen: yes Illicit drugs: no Seatbelt: yes Marital status: single 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 Nutrition: average diet Exercise: regular weight lifting / resistance exercise regular cardio Sexual activity: not sexually active Contraception: oral contraceptives Smoking: never a smoker Alcohol: occasional alcohol Text messaging while driving: no Sunscreen: yes Illicit drugs: no Seatbelt: yes Marital status: single 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 Nutrition: average diet Exercise: regular weight lifting / resistance exercise regular cardio Sexual activity: not sexually active Contraception: oral contraceptives Smoking: never a smoker Alcohol: occasional alcohol Text messaging while driving: no Sunscreen: yes Illicit drugs: no Seatbelt: yes Marital status: single 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 Nutrition: average diet Exercise: regular weight lifting / resistance exercise regular cardio Sexual activity: not sexually active Contraception: oral contraceptives Smoking: never a smoker Alcohol: occasional alcohol Text messaging while driving: no Sunscreen: yes Illicit drugs: no Seatbelt: yes Marital status: single 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 Nutrition: average diet Exercise: regular weight lifting / resistance exercise regular cardio Sexual activity: not sexually active Contraception: oral contraceptives Smoking: never a smoker Alcohol: occasional alcohol Text messaging while driving: no Sunscreen: yes Illicit drugs: no Seatbelt: yes Marital status: single 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 Nutrition: average diet Exercise: regular weight lifting / resistance exercise regular cardio Sexual activity: not sexually active Contraception: oral contraceptives Smoking: never a smoker Alcohol: occasional alcohol Text messaging while driving: no Sunscreen: yes Illicit drugs: no Seatbelt: yes Marital status: single 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 Nutrition: average diet Exercise: regular weight lifting / resistance exercise regular cardio Sexual activity: not sexually active Contraception: oral contraceptives Smoking: never a smoker Alcohol: occasional alcohol Text messaging while driving: no Sunscreen: yes Illicit drugs: no Seatbelt: yes Marital status: single 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 Nutrition: average diet Exercise: regular weight lifting / resistance exercise regular cardio Sexual activity: not sexually active Contraception: oral contraceptives Smoking: never a smoker Alcohol: occasional alcohol Text messaging while driving: no Sunscreen: yes Illicit drugs: no Seatbelt: yes Marital status: single 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 Nutrition: average diet Exercise: regular weight lifting / resistance exercise regular cardio Sexual activity: not sexually active Contraception: oral contraceptives Smoking: never a smoker Alcohol: occasional alcohol Text messaging while driving: no Sunscreen: yes Illicit drugs: no Seatbelt: yes Marital status: single 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 Nutrition: average diet Exercise: regular weight lifting / resistance exercise regular cardio Sexual activity: not sexually active Contraception: oral contraceptives Smoking: never a smoker Alcohol: occasional alcohol Text messaging while driving: no Sunscreen: yes Illicit drugs: no Seatbelt: yes Marital status: single 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 Nutrition: average diet Exercise: regular weight lifting / resistance exercise regular cardio Sexual activity: not sexually active Contraception: oral contraceptives Smoking: never a smoker Alcohol: occasional alcohol Text messaging while driving: no Sunscreen: yes Illicit drugs: no Seatbelt: yes Problems Problem Type SNOMED Code ICD Code Onset Dates Problem Status W/U Status Risk Notes Problem Menopause (357864378) Menopausal and female climacteric states (N95.1) Active confirmed Problem Postmenopausal bleeding (67794921) Postmenopausal bleeding (N95.0) Active confirmed Problem Genital herpes simplex (38298686) Herpesviral infection of urogenital system, unspecified (A60.00) Active confirmed Problem Basal cell carcinoma of truncal skin (877729067) Basal cell carcinoma of skin of other part of trunk (C44.519) Active confirmed Problem Cancer of skin of lower limb, basal cell (422356189) Basal cell carcinoma of skin of right lower limb, including hip (C44.712) Active confirmed Problem Mild recurrent major depression (75274897) Major depressive disorder, recurrent, mild (F33.0) Active confirmed Problem Recurrent major depression (90585153) Major depressive disorder, recurrent, unspecified (F33.9) Active confirmed Problem Anxiety disorder (801856535) Anxiety disorder, unspecified (F41.9) Active confirmed Problem Postcoital bleeding (29379631) Postcoital and contact bleeding (N93.0) Active confirmed Problem Abnormal findings on diagnostic imaging of breast (536796200) Other abnormal and inconclusive findings on diagnostic imaging of breast (R92.8) Active confirmed Problem Family history of malignant neoplasm of breast (427696802) Family history of malignant neoplasm of breast (Z80.3) Active confirmed Problem Premenstrual dysphoric disorder (778974) Premenstrual dysphoric disorder (F32.81) Active confirmed Problem COVID-19 (400276643) COVID-19 (U07.1) Active confirmed Problem Genital herpes simplex (44743131) Unspecified genital herpes (054.10) Active confirmed Major Problem Depressive disorder (65335856) Depressive disorder, not elsewhere classified (311) Active confirmed Major Vital Signs Temperature 98.0 degrees Fahrenheit 05/06/2024 Blood pressure diastolic 78 mm Hg 05/06/2024 Height 64 in 05/06/2024 Blood pressure systolic 106 mm Hg 05/06/2024 Weight 127 lbs 05/06/2024 BMI 21.8 kg/m2 05/06/2024 Encounters Encounter Location Date Provider Diagnosis [facility] [employer] [address] [place] [address] 04/29/2024 ARTURO MEYERS Encounter for gynecological examination (general) (routine) without abnormal findings Z01.419 ; Encounter for screening mammogram for malignant neoplasm of breast Z12.31 ; Inconclusive mammogram R92.2 ; Herpesviral infection of urogenital system, unspecified A60.00 and Menopausal and female climacteric states N95.1 [facility] [employer] [address] [place] [address] 05/02/2024 ARTURO MEYERS Abnormal uterine and vaginal bleeding, unspecified N93.9 [facility] [address] [facility] [address] [place] [address] 05/06/2024 ARTURO MEYERS Postmenopausal bleed ing N95.0 [facility] [address] [facility] [address] [place] [address] 05/14/2024 ARTURO MEYERS Total [address] [place] [address] 08/22/2024 ARTURO MEYERS Assessments Encounter Date Diagnosis (ICD [...] Date Ultrasound : Breast, right 02/12/2015 Sonohysterogram 04/20/2022 Sonohysterogram 02/02/2023 MAMMOGRAM, SCREENING 01/13/2015 MRI : Breast, Bilateral [...] Bilateral Breast MRI with/without contra st 04/25/2021 Insurance Providers Payer Name Payer Address Payer Phone Subscriber Number Group Number Insured Name Patient Relationship to Insured Coverage Start Date Coverage End Date [employer] [facility] [address] [address] [place] [address] [id number] ARTURO ORONA Self - patient is the [...]
--- OUTSIDE RECORDS SUMMARY | 2024-09-18 11:35 | XMS_ITS | Patient Health Record ---
Author Organization [facility] Address [address] [place] [address] Care Team Providers Care Chairman Name Role Phone Agustin ORTA, Reinaldo Primary Care Provider Chuck Marquis Unavailable [phone] Allergies Allergen (clinical drug ingredient) Drug/Non Drug [...] directed Orally once a day Active Nystatin 476028 UNIT TAKE 2 TABLETS BY M OUTH [...] Problem Status W/U Status Risk Notes Problem 977228898 Encounter for screening for malignant neoplasm of colon (Z12.11) Active confirmed Problem Change in bowel habit (62299938) Change in bowel habits (R19.4) Active confirmed Problem 876150904680493 Pre-procedural examination (Z01.818) Active confirmed Problem Celiac disease (004673675) Gluten intolerance (K90.0) Active confirmed Plan Of Treatment Pending Test Test Name Order Date CELIAC PANEL #10 04/08/2020 Future Test Test Name Order Date COLONOSCOPY 06/28/2018 Insurance Providers Payer Name Payer Address Payer Phone Subscriber Number Group Number Insured Name Patient Relationship to Insured Coverage Start Date Coverage End Date [employer] [address] [address] [place] [address] [id number] ARTURO ESCOBAR Self - patient is the insured Medical (General) History Medical History History ICD Code Denies NE,DM,CVA,Lung disease,renal dise ase Anxiety Chronic low WBC [...]
--- OUTSIDE RECORDS SUMMARY | 2024-09-18 11:35 | XMS_ITS ---
Author Organization [employer] Address [address] [address] Care Team Providers Care Marketing Sales Supervisor Name Role Phone KARLY LOVELACE Primary Care Provider ARTURO Randhawa Unavailable [phone] REASON FOR VISIT looking for bx results Encounters Encounter Location Date Provider Diagnosis [facility] [address] [address] 05/14/2024 ARTURO MEYERS Plan Of Treatment No Information Progress Notes * CHINMAY EDMONSDADOB: (54 yo F)Acc No.[id number]:05/14/2024 Patient:?MALIA SHERJUDITH Yehuda CALE :1970???Age:54 Y???Sex:Female Address:[address] [place] [address], [address] * true * Date:? Generated for Kyai sajan/Emmanuel/eTransmitting on:?09/18/2024 11:34 AM EDT
== END 2024-09-18 11:06 | disposition home or self-care (01) ==
LOC: HO.HWS 10:29
PROVIDERS: PCP Internal Medicine; Visit Provider Advanced Practice Midwife
DX: N95.0 Postmenopausal bleeding (principal)
CPT/HCPCS: 99203

== ENCOUNTER 2024-09-18 10:28 | Outpatient (REF) | payer OTHER, SELFPAY ==
[2024-09-25 10:31] LABS: HPV Genotype 16 Negative (Negative); HPV Genotype 18 Negative (Negative); HPV High Risk Negative (Negative)
== END 2024-09-18 10:29 | disposition home or self-care (01) ==
LOC: HO.LNP 10:28
PROVIDERS: PCP Internal Medicine; Visit Provider Advanced Practice Midwife
DX: N95.0 Postmenopausal bleeding (principal)
CPT/HCPCS: 87626; 88175

== ENCOUNTER 2024-09-18 10:59 | Outpatient (REF) | payer OTHER, SELFPAY ==
[2024-09-19 03:12] LABS: CT PCR NOT DETECTED (Not Detect.); NG PCR NOT DETECTED (Not Detect.)
[2024-09-19 11:54] LABS: Bacterial Vaginosis PCR NEGATIVE (Negative); Candida Group PCR NOT DETECTED (Not Detect); Candida glab krusei PCR NOT DETECTED (Not Detect); Trichomonas vaginalis PCR NOT DETECTED (Not Detect)
== END 2024-09-18 11:00 | disposition home or self-care (01) ==
LOC: HO.LAB 10:59
PROVIDERS: Visit Provider Advanced Practice Midwife
DX: N95.0 Postmenopausal bleeding (principal); Z11.3 Encounter for screening for infections with a predominantly sexual mode of transmission
CPT/HCPCS: 81515; 87491; 87591

== ENCOUNTER 2024-10-10 14:47 | Outpatient (REF) | payer OTHER, SELFPAY ==
--- NOTE | ~2024-10-10 | US_ITS ---
EXAMINATION: US PELVIS TRANSABDOMINAL AND TRANSVAGINAL HISTORY: N95.0 - Postmenopausal bleeding COMPARISON: There are no prior studies for comparison. TECHNIQUE: Transabdominal and endovaginal real-time 2D richards-scale ultrasound was performed. FINDINGS: Uterus: The uterus is normal in size, measuring 7.5 x 3.0 x 4.2 cm. Myometrium has a normal echotexture. There is a fundal fibroid measuring 12 x 11 x 12 mm. There is an anterior fibroid measuring 12 x 8 x 9 mm. Endometrium: The endometrial stripe measures 5 mm in thickness. Right ovary: The right ovary measures 1.9 x 1.2 x 1.6 cm. The right ovary is normal in size and echotexture. Left ovary: The left ovary measures 1.7 x 1.3 x 1.1 cm. The left ovary is normal in size and echotexture. Pelvic fluid: none. US/US pelvic and transvaginal IMPRESSION: Uterine fibroids as described. Electronically signed by: Chuck Rodriguez MD 10/10/2024 03:25 PM EDT
--- OUTSIDE RECORDS SUMMARY | 2024-10-10 15:31 | XMS_ITS ---
Author Organization [employer] Address [address] [address] Care Team Providers Care Consolidation Accountant Name Role Phone KARLY LOVELACE Primary Care Provider ARTURO Randhawa Unavailable [phone] REASON FOR VISIT PROGESTERONE REFILL Encounters Encounter Location Date Provider Diagnosis [facility] [employer] [address] [address] 08/22/2024 ARTURO MEYERS Plan Of Treatment No Information Progress Notes * TOMY EDMONDSB: (54 yo F)Acc No.[id number]:08/22/2024 Patient:?MALIA BLOCKYehuda PANG :1970???Age:54 Y???Sex:Female Address:[address] [place] [address], [address] * true * Date:? Generated for [employer] sajan/Emmanuel/eTransmitting on:?10/10/2024 03:31 PM EDT
--- OUTSIDE RECORDS SUMMARY | 2024-10-10 15:31 | XMS_ITS ---
Author Organization [facility] Address [address] [address] Care Team Providers Care Director Of Exhibit Development Name Role Phone KARLY LOVELACE Primary Care Provider TITA Randhawa Unavailable [phone] Allergies Allergen (clinical drug ingredient) Drug/Non Drug [...] Interpretation: Performing Lab:Testing performed or reported by [facility], a Service of [facility], [address] [place] [address] Bakari Velasquez MD, Bear Keeper [facility]# [id number] Notes/Report: Patient Name: TITA EDMONDS Lab Patient : 1970 (Age: 54) Collection Date: 05/06/2024 Accession Date: 05/09/2024 Sign Out Date: 05/15/2024 Tissue Source: 1:EMB Final Diagnosis: Endometrium, biopsy: - Scant superficial fragments of inactive/atrophic endometrium, and features of stromal breakdown. - Fragments of endocervical glandular mucosa and mucus. Primary Pathologist:Lainey Rutledge M.D.,Ph.D. electronically signed out by: Lainey Rutledge M.D.,Ph.D. / [facility] History: Postmenopausal bleeding Gross Description: The requisition indicates endometrial biopsy . Received in formalin is a 1.5 x 1.3 x 0.5 cm aggregate of white-tinged mucus with red, fontaine tissue. The specimen is entirely submitted. 1-multiple pieces, x 2. (EG)* As of August 25, 2023, the specimen processing and staining is performed at [facility], [address] [place] [address] (CLIA#[id number]). Its performance characteristics determined [facility]. Hollie Stephen M.D. Bear Keeper of Surgical Pathology, Jonatan Schultz M.D. Bear Keeper Cytopathology Phone #: [phone], On-Call Pathologist: [id number] REASON FOR VISIT EB Medications Medication SIG (Take, Route, Frequency, Duration) Notes Start Date End Date Status Multi Complete Activ e Nystatin 412129 UNIT Oral for 60 Active Citalopram Hydrobromide [...] W/U Status Risk Notes Problem Postmenopausal bleeding (75048206) Postmenopausal bleeding (N95.0) Active confirmed Vital Signs Temperature 98.0 degrees Fahrenheit 05/06/20 24 Blood pressure systolic 106 mm Hg 05/06/20 24 Blood pressure diastolic 78 mm Hg 024 Height 64 in 05/06/2024 Weight 127 lbs 05/06/2024 BMI 21.8 kg/m2 05/06/2024 Encounters Encounter Location Date Provider Diagnosis [address] [place] [address] 05/06/2024 TITA MEYERS Postmenopausal bleed ing N95.0 [...] approximately one week. 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 * Medical History:? * Costume Seamstress History:?/ Para?0/0.?Sexual activity?currently sexually active.?Last Pap Smear:?04/24/23 [...] but had 2nd hand exposure).?Father: 67 yrs, [place] at the gym on the treadmill.? Pt [...] Mika (10/2021). 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 ?Pets: : dogs: 1 helen gray. ?Sexual [...] Notes to Pharmacist: 06/19 tab weening offNystatin 896602 UNIT Tablet Oral valACYclovir HCl 500 MG [...] to Pharmacist: 06/19 tab weening offTaking Nystatin 556086 UNIT Tablet Oral Taking valACYclovir HCl 500 [...] available in approximately one week..? * Procedure Codes:?75947 BIOPS Y OF UTERUS LINING * Preventive Medicine:?Call with increasing pain, heavy bleeding, fever/chills or foul smelling vaginal discharge. * Follow Up:?prn * Images: Billing Information: * Visit Code:? * Procedure Codes:? 63150 BIOPSY OF UTERUS LINING. * Sign off status: Completed true * Provider:?TITA MEYERS MD Date:?2023 Generated for [employer] sajan/Emmanuel/eTransmitting on:?10/10/2024 03:31 PM EDT History and Physical Notes * [...]
--- OUTSIDE RECORDS SUMMARY | 2024-10-10 15:32 | XMS_ITS ---
Author Organization [employer] Address [address] [address] Care Team Providers Care Cotton Breeder Name Role Phone KARLY LOVELACE Primary Care Provider ARTURO Randhawa Unavailable [phone] REASON FOR VISIT looking for bx results Encounters Encounter Location Date Provider Diagnosis [facility] [employer] [facility] [address] [address] 05/14/2024 ARTURO MEYERS Plan Of Treatment No Information Progress Notes * CHINMAY EDMONDSADOB: (54 yo F)Acc No.[id number]:05/14/2024 Patient:?MALIA SHERJUDITH Yehuda CALE :1970???Age:54 Y???Sex:Female Address:[address] [place] [address], [address] * true * Date:? Generated for [employer] sajan/Emmanuel/eTransmitting on:?10/10/2024 03:31 PM EDT
--- OUTSIDE RECORDS SUMMARY | 2024-10-10 15:32 | XMS_ITS | Patient Health Record ---
Author Organization [facility] Address [address] [facility] [address] [place] [address] Care Team Providers Care Personal Lines Sales Rep Name Role Phone KARLY LOVELACE Primary Care Provider ARTURO Randhawa Unavailable [phone] Allergies Allergen (clinical drug ingredient) Drug/Non Drug [...] Interpretation: Performing Lab:Testing performed or reported by [facility], a Service of [facility], [address] [place] [address] Bakari Velasquez MD, Lion Trainer [facility]# [id number] Notes/Report: Patient Name: ARTURO EDMONDS Lab Patient : 1970 (Age: 54) Collection Date: 05/06/2024 Accession Date: 05/09/2024 Sign Out Date: 05/15/2024 Tissue Source: 1:EMB Final Diagnosis: Endometrium, biopsy: - Scant superficial fragments of inactive/atrophic endometrium, and features of stromal breakdown. - Fragments of endocervical glandular mucosa and mucus. Primary Pathologist:Lainey Rutledge M.D.,Ph.D. electronically signed out by: Lainey Rutledge M.D.,Ph.D. / [facility] [place] Clinical History: Postmenopausal bleeding Gross Description: The requisition indicates endometrial biopsy . Received in formalin is a 1.5 x 1.3 x 0.5 cm aggregate of white-tinged mucus with red, fontaine tissue. The specimen is entirely submitted. 1-multiple pieces, x 2. (EG)* As of August 25, 2023, the specimen processing and staining is performed at [facility], [address] [place] [address] (CLIA#[id number]). Its performance characteristics determined by [facility]. Hollie Stephen M.D. Lion Trainer of Surgical Pathology, Jonatan Schultz M.D. 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[employer] Nutrition: average diet Exercise: regular weight lifting / resistance exercise regular cardio Sexual activity: not sexually active Contraception: oral contraceptives Smoking: never a smoker Alcohol: occasional alcohol Text messaging while driving: no Sunscreen: yes Illicit drugs: no Seatbelt: yes Marital status: single 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[employer] Nutrition: average diet Exercise: regular weight lifting / resistance exercise regular cardio Sexual activity: not sexually active Contraception: oral contraceptives Smoking: never a smoker Alcohol: occasional alcohol Text messaging while driving: no Sunscreen: yes Illicit drugs: no Seatbelt: yes Marital status: single 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[employer] Nutrition: average diet Exercise: regular weight lifting / resistance exercise regular cardio Sexual activity: not sexually active Contraception: oral contraceptives Smoking: never a smoker Alcohol: occasional alcohol Text messaging while driving: no Sunscreen: yes Illicit drugs: no Seatbelt: yes Marital status: single 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[employer] Nutrition: average diet Exercise: regular weight lifting / resistance exercise regular cardio Sexual activity: not sexually active Contraception: oral contraceptives Smoking: never a smoker Alcohol: occasional alcohol Text messaging while driving: no Sunscreen: yes Illicit drugs: no Seatbelt: yes Marital status: single 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[employer] Nutrition: average diet Exercise: regular weight lifting / resistance exercise regular cardio Sexual activity: not sexually active Contraception: oral contraceptives Smoking: never a smoker Alcohol: occasional alcohol Text messaging while driving: no Sunscreen: yes Illicit drugs: no Seatbelt: yes Marital status: single 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[employer] Nutrition: average diet Exercise: regular weight lifting / resistance exercise regular cardio Sexual activity: not sexually active Contraception: oral contraceptives Smoking: never a smoker Alcohol: occasional alcohol Text messaging while driving: no Sunscreen: yes Illicit drugs: no Seatbelt: yes Marital status: single 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[employer] Nutrition: average diet Exercise: regular weight lifting / resistance exercise regular cardio Sexual activity: not sexually active Contraception: oral contraceptives Smoking: never a smoker Alcohol: occasional alcohol Text messaging while driving: no Sunscreen: yes Illicit drugs: no Seatbelt: yes Marital status: single 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[employer] Nutrition: average diet Exercise: regular weight lifting / resistance exercise regular cardio Sexual activity: not sexually active Contraception: oral contraceptives Smoking: never a smoker Alcohol: occasional alcohol Text messaging while driving: no Sunscreen: yes Illicit drugs: no Seatbelt: yes Marital status: single 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[employer] Nutrition: average diet Exercise: regular weight lifting / resistance exercise regular cardio Sexual activity: not sexually active Contraception: oral contraceptives Smoking: never a smoker Alcohol: occasional alcohol Text messaging while driving: no Sunscreen: yes Illicit drugs: no Seatbelt: yes Marital status: single 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[employer] Nutrition: average diet Exercise: regular weight lifting / resistance exercise regular cardio Sexual activity: not sexually active Contraception: oral contraceptives Smoking: never a smoker Alcohol: occasional alcohol Text messaging while driving: no Sunscreen: yes Illicit drugs: no Seatbelt: yes Marital status: single 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[employer] Nutrition: average diet Exercise: regular weight lifting / resistance exercise regular cardio Sexual activity: not sexually active Contraception: oral contraceptives Smoking: never a smoker Alcohol: occasional alcohol Text messaging while driving: no Sunscreen: yes Illicit drugs: no Seatbelt: yes Marital status: single 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[employer] Nutrition: average diet Exercise: regular weight lifting / resistance exercise regular cardio Sexual activity: not sexually active Contraception: oral contraceptives Smoking: never a smoker Alcohol: occasional alcohol Text messaging while driving: no Sunscreen: yes Illicit drugs: no Seatbelt: yes Marital status: single 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[employer] Nutrition: average diet Exercise: regular weight lifting / resistance exercise regular cardio Sexual activity: not sexually active Contraception: oral contraceptives Smoking: never a smoker Alcohol: occasional alcohol Text messaging while driving: no Sunscreen: yes Illicit drugs: no Seatbelt: yes Problems Problem Type SNOMED Code ICD Code Onset Dates Problem Status W/U Status Risk Notes Problem Menopause (212331398) Menopausal and female climacteric states (N95.1) Active confirmed Problem Postmenopausal bleeding (47610717) Postmenopausal bleeding (N95.0) Active confirmed Problem Genital herpes simplex (28753902) Herpesviral infection of urogenital system, unspecified (A60.00) Active confirmed Problem Basal cell carcinoma of truncal skin (490025137) Basal cell carcinoma of skin of other part of trunk (C44.519) Active confirmed Problem Cancer of skin of lower limb, basal cell (971258232) Basal cell carcinoma of skin of right lower limb, including hip (C44.712) Active confirmed Problem Mild recurrent major depression (24156418) Major depressive disorder, recurrent, mild (F33.0) Active confirmed Problem Recurrent major depression (63928044) Major depressive disorder, recurrent, unspecified (F33.9) Active confirmed Problem Anxiety disorder (708058239) Anxiety disorder, unspecified (F41.9) Active confirmed Problem Postcoital bleeding (65876057) Postcoital and contact bleeding (N93.0) Active confirmed Problem Abnormal findings on diagnostic imaging of breast (475781903) Other abnormal and inconclusive findings on diagnostic imaging of breast (R92.8) Active confirmed Problem Family history of malignant neoplasm of breast (516605161) Family history of malignant neoplasm of breast (Z80.3) Active confirmed Problem Premenstrual dysphoric disorder (231097) Premenstrual dysphoric disorder (F32.81) Active confirmed Problem COVID-19 (678335208) COVID-19 (U07.1) Active confirmed Problem Genital herpes simplex (26675282) Unspecified genital herpes (054.10) Active confirmed Major Problem Depressive disorder (32869971) Depressive disorder, not elsewhere classified (311) Active confirmed Major Vital Signs Temperature 98.0 degrees Fahrenheit 05/06/2024 Blood pressure diastolic 78 mm Hg 05/06/2024 Height 64 in 05/06/2024 Blood pressure systolic 106 mm Hg 05/06/2024 Weight 127 lbs 05/06/2024 BMI 21.8 kg/m2 05/06/2024 Encounters Encounter Location Date Provider Diagnosis [facility] [employer] [address] [place] [address] 04/29/2024 ARTURO MEYERS Encounter for gynecological examination (general) (routine) without abnormal findings Z01.419 ; Encounter for screening mammogram for malignant neoplasm of breast Z12.31 ; Inconclusive mammogram R92.2 ; Herpesviral infection of urogenital system, unspecified A60.00 and Menopausal and female climacteric states N95.1 [facility] [address] [place] [address] 05/02/2024 ARTURO MEYERS Abnormal uterine and vaginal bleeding, unspecified N93.9 [facility] [address] [facility] [address] [place] [address] 05/06/2024 ARTURO MEYERS Postmenopausal bleed ing N95.0 [facility] [address] [facility] [address] [place] [address] 05/14/2024 ARTURO MEYERS [facility] [address] [place] [address] 08/22/2024 ARTURO MEYERS Assessments Encounter Date Diagnosis [...] MRI 04/20/2022 MM Digital Screening Mammogram 3D 2022 MM Digital Screening Mammogram 3D 2023 MM Digital Screening Mammogram 3D 2021 Bilateral Breast MRI with/without contra st 06/04/2019 Bilateral Breast MRI with/without contra st 06/22/2020 Bilateral Breast MRI with/without contra st 04/25/2021 Insurance Providers Payer Name Payer Address Payer Phone Subscriber Number Group Number Insured Name Patient Relationship to Insured Coverage Start Date Coverage End Date [employer] [facility] [address] [address] [place] [address] [id number] ARTURO ORONA Self - patient is the [...]
== END 2024-10-10 14:48 | disposition home or self-care (01) ==
LOC: HO.US 14:47
PROVIDERS: PCP Internal Medicine; Visit Provider Advanced Practice Midwife
DX: N95.0 Postmenopausal bleeding (principal)
CPT/HCPCS: 76830; 76856

== ENCOUNTER → 2024-10-10 14:49 | Outpatient (BNV) | payer OTHER, SELFPAY | PROVIDERS: PCP Internal Medicine; Visit Provider Radiology Diagnostic Radiology | DX: N95.0 Postmenopausal bleeding (principal) | CPT/HCPCS: 76830; 76856 ==

== ENCOUNTER 2024-10-23 14:25 | Outpatient (REF) | payer OTHER, SELFPAY ==
[2024-10-29 11:43] LABS: HPV Genotype 16 Negative (Negative); HPV Genotype 18 Negative (Negative); HPV High Risk Negative (Negative)
== END 2024-10-23 14:26 | disposition home or self-care (01) ==
LOC: HO.LNP 14:25
PROVIDERS: Obstetrics & Gynecology; PCP Internal Medicine; Visit Provider Advanced Practice Midwife
DX: R87.615 Unsatisfactory cytologic smear of cervix (principal); N95.0 Postmenopausal bleeding
CPT/HCPCS: 87626; 88175

== ENCOUNTER 2024-10-23 14:25 | Outpatient (AMB) | payer OTHER, SELFPAY ==
--- NOTE | 2024-10-23 14:39 | A.OFFVIS_ITS ---
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: Printing Sign Machine Operator Present (Latosha) Allergies clindamycin [CLINDAMYCIN] Allergy (Severe, Verified 10/23/24 14:39) HIVES AND BODY SWELLING amoxicillin Allergy (Unknown, Verified 10/23/24 14:39) unknown azithromycin [From ZITHROMAX Z-ASHTYN] Allergy (Unknown, Verified 10/23/24 14:39) SWELLING, rash Clindamycin HCl Allergy (Unknown, Verified 10/23/24 14:39) face swollen,hives penicillin V Allergy (Unknown, Verified 10/23/24 14:39) throat swelling Penicillins [PENICILLINS] Allergy (Unknown, Verified 10/23/24 14:39) ANAPHYLAXIS Sulfa (Sulfonamide Antibiotics) Allergy (Unknown, Verified 10/23/24 14:39) rash sulfamethoxazole [From Bactrim] Allergy (Unknown, Verified 10/23/24 14:39) rash trimethoprim [From Bactrim] Allergy (Unknown, Verified 10/23/24 14:39) rash eggs Allergy (Unknown, Uncoded 09/15/24 14:33) Unknown HPI Comments Details: Patient is here today for an endometrial biopsy procedure due to postmenopausal bleeding. History of unsatisfactory Pap smear. She does not believe that she would be able to tolerate an endometrial procedure without anesthesia, exams are difficult for her. History of EMB , neg. results. Records received at the end of this appointment from [facility] reviewed. [facility] Medical History (Updated 10/23/24 @ 15:51 by Sirihsa Samuel CNM) Unsatisfactory cervical Papanicolaou smear Fibroid Abnormal vaginal bleeding Postmenopausal bleeding Chronic depressive disorder Depression Gluten-sensitive enteropathy Surgical History History of hysteroscopy History of dental surgery Status post cervical polyp removal History of augmentation of both breasts Family History Father Hypertension CVD (cardiovascular disease) Mother No problems noted. 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 Cognitive needs: No Hearing needs: No Vision needs: Yes Review of Systems Const All systems reviewed & are unremarkable except as noted in HPI and below Physical Exam Vital Signs: Last Vital Signs BP 110/70 10/23/24 14:40 BMI result Body Mass Index 22.5 Const General: cooperative, healthy appearing and no acute distress Orientation/consciousness: patient oriented x3 GI Inspection: Yes normal to inspection Palpation (GI): Soft to palpation and Other GI palpation findings present (Nontender) Rectal Exam - Female: visual inspection normal External Female Exam: normal appearance of the urethra Speculum Exam - Vagina: normal appearance of the vagina, normal vaginal discharge and vagina atrophic Speculum Exam - Cervix: normal appearance of the cervix and Other cervical findings present (Atrophic, bled with Pap) Neuro General: patient oriented x3 Results Reviewed Results Reviewed: [place] [address] Ultrasound Report Signed Patient: Tita Chandler MR#: [id number] : 1970 Acct:[id number] Age/Sex: 54 / F ADM Date: 10/10/24 Loc: HO. Attending Dr: Sirisha Samuel CNM Ordering Physician: Sirisha Samuel CNM Date of Service: 10/10/24 Procedure(s): US pelvic and transvaginal Accession Number(s): [id number] cc: Reinaldo Velez MD; Sirisha Samuel CNM~ EXAMINATION: US PELVIS TRANSABDOMINAL AND TRANSVAGINAL HISTORY: N95.0 - Postmenopausal bleeding COMPARISON: There are no prior studies for comparison. TECHNIQUE: Transabdominal and endovaginal real-time 2D richards-scale ultrasound was performed. FINDINGS: Uterus: The uterus is normal in size, measuring 7.5 x 3.0 x 4.2 cm. Myometrium has a normal echotexture. There is a fundal fibroid measuring 12 x 11 x 12 mm. There is an anterior fibroid measuring 12 x 8 x 9 mm. Endometrium: The endometrial stripe measures 5 mm in thickness. Right ovary: The right ovary measures 1.9 x 1.2 x 1.6 cm. The right ovary is normal in size and echotexture. Left ovary: The left ovary measures 1.7 x 1.3 x 1.1 cm. The left ovary is normal in size and echotexture. Pelvic fluid: none. US/US pelvic and transvaginal IMPRESSION: Uterine fibroids as described. Electronically signed by: Chuck Rodriguez MD 10/10/2024 03:25 PM EDT RP Dictated By: Chuck Rodriguez MD Signed By: <Electronically signed by Chuck Rodriguez MD in OV> 10/10/24 1525 Interpretation General Category: Non-diagnostic. Adequacy: Unsatisfactory for evaluation. Interpretation: Insufficient squamous component present; second slide prepared with acid wash procedure Abundant blood and acute inflammation present. Recommend repeat. HPV High Risk: Negative HPV Genotyping 16: Negative HPV Genotyping 18: Negative Clinical Information LMP:Menopausal Assessment & Plan Assessment & Plan (1) Postmenopausal bleeding: Code(s): N95.0 - Postmenopausal bleeding Category: Medical Plan: Declined endometrial biopsy procedure due to previous experience and discomfort in office. Prefers to have a hysteroscopy under anesthesia. Anticipatory guidance reviewed. Appointment for consult to be scheduled with Dr. Geiger. The reason for a biopsy explained. Ultrasound reviewed endometrial linings 5 mm with a history of bleeding. (2) Fibroid: Comment: Reviewed ultrasound: fibroids- 1 fundus 1 anterior, endo lining 5mm Code(s): D21.9 - Benign neoplasm of connective and other soft tissue, unspecified Category: Medical Plan: Counseled re: Leiomyoma: common pelvic neoplasm. Differential diagnosis-may include but not limited to- leiomyosarcoma which is a rare uterine sarcoma 3- 7/100,000, difficult to distinguish from fibroids on ultrasound from uterine sarcoma's. Unlikely any single test will have a highly positive predictive value. Hysterectomy is not recommended for sole purpose of excluding malignant neoplasm. Consult for surgical exploration, medical treatment, other treatments, verses expectant management, pros and cons, risks and benefits. Expectant management follow up in 6 months, then yearly for stability. Patient prefers to proceed with expectant management. Report any PMB/AUB, pelvic pressure, bloating, or pain. Referral to MD if indicated for level of care if indicated. Follow up ultrasound results appointment to be scheduled. (3) Unsatisfactory cervical Papanicolaou smear: Comment: Repeat Pap 10/23/2024 Code(s): R87.615 - Unsatisfactory cytologic smear of cervix Category: Medical Plan: Records reviewed together. Plan Repeat Pap obtained, await results for plan of care. The patient expressed understanding and agreement with the plan of care. All of her questions and concerns were addressed to the best of my ability. This note is constructed using voice recognition software. While every effort has been made to ensure accuracy, wheel worker errors may have been included. Orders: Orders US pelvic and transvaginal 03/23/25 D21.9 - Benign neoplasm of connective and other soft tissue, unspecified Pap Smear Today N95.0 - Postmenopausal bleeding, R87.615 - Unsatisfactory cytologic smear of cervix Coding Level of Care Code Est Pt Level 3 (79941) Diagnoses Postmenopausal bleeding N95.0 Fibroid D21.9 Unsatisfactory cervical Papanicolaou smear R87.615
[2024-10-23 14:40] VITALS: BP 110/70; BMI 22.5
--- OUTSIDE RECORDS SUMMARY | 2024-10-23 15:15 | XMS_ITS ---
Author Organization [employer] Address [address] [address] Care Team Providers Care Environmental Protection Geologist Name Role Phone KARLY LOVELACE Primary Care Provider ARTURO Randhawa Unavailable [phone] REASON FOR VISIT PROGESTERONE REFILL Encounters Encounter Location Date Provider Diagnosis [facility] [address] [address] 08/22/2024 ARTURO MEYERS Plan Of Treatment No Information Progress Notes * TOMY EDMONDSB: (54 yo F)Acc No.[id number]:08/22/2024 Patient:?AMLIA BLOCKBIRD Yehuda MADSEN :1970???Age:54 Y???Sex:Female Address:[address] [place] [address], [address] * true * Date:? Generated for [employer] sajan/Emmanuel/eTransmitting on:?10/23/2024 03:14 PM EDT
--- OUTSIDE RECORDS SUMMARY | 2024-10-23 15:15 | XMS_ITS | Patient Health Record ---
Author Organization [facility] Address [address] [facility] [address] [place] [address] Care Team Providers Care Bottom Pounder Cement Shoes Name Role Phone KARLY LOVELACE Primary Care Provider ARTURO Randhawa Unavailable [phone] Allergies Allergen (clinical drug ingredient) Drug/Non Drug [...] Interpretation: Performing Lab:Testing performed or reported by [facility], a Service of [facility], [address] [place] [address] Bakari Velasquez MD, Roping Tender [facility]# [id number] Notes/Report: Patient Name: ARTURO EDMONDS Lab Patient : 1970 (Age: 54) Collection Date: 05/06/2024 Accession Date: 05/09/2024 Sign Out Date: 05/15/2024 Tissue Source: 1:EMB Final Diagnosis: Endometrium, biopsy: - Scant superficial fragments of inactive/atrophic endometrium, and features of stromal breakdown. - Fragments of endocervical glandular mucosa and mucus. Primary Pathologist:Lainey Rutledge M.D.,Ph.D. electronically signed out by: Lainey Rutledge M.D.,Ph.D. / [facility] Clinical History: Postmenopausal bleeding Gross Description: The requisition indicates endometrial biopsy . Received in formalin is a 1.5 x 1.3 x 0.5 cm aggregate of white-tinged mucus with red, fontaine tissue. The specimen is entirely submitted. 1-multiple pieces, x 2. (EG)* As of August 25, 2023, the specimen processing and staining is performed at [facility], [address] [place] [address] (CLIA#[id number]). Its performance characteristics determined by [facility]. Hollie Stephen M.D. Roping Tender of Surgical Pathology, Jonatan Schultz M.D. 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 Nutrition: average diet Exercise: regular weight lifting / resistance exercise regular cardio Sexual activity: not sexually active Contraception: oral contraceptives Smoking: never a smoker Alcohol: occasional alcohol Text messaging while driving: no Sunscreen: yes Illicit drugs: no Seatbelt: yes Marital status: single 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 Nutrition: average diet Exercise: regular weight lifting / resistance exercise regular cardio Sexual activity: not sexually active Contraception: oral contraceptives Smoking: never a smoker Alcohol: occasional alcohol Text messaging while driving: no Sunscreen: yes Illicit drugs: no Seatbelt: yes Marital status: single 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 Nutrition: average diet Exercise: regular weight lifting / resistance exercise regular cardio Sexual activity: not sexually active Contraception: oral contraceptives Smoking: never a smoker Alcohol: occasional alcohol Text messaging while driving: no Sunscreen: yes Illicit drugs: no Seatbelt: yes Marital status: single 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 Nutrition: average diet Exercise: regular weight lifting / resistance exercise regular cardio Sexual activity: not sexually active Contraception: oral contraceptives Smoking: never a smoker Alcohol: occasional alcohol Text messaging while driving: no Sunscreen: yes Illicit drugs: no Seatbelt: yes Marital status: single 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 Nutrition: average diet Exercise: regular weight lifting / resistance exercise regular cardio Sexual activity: not sexually active Contraception: oral contraceptives Smoking: never a smoker Alcohol: occasional alcohol Text messaging while driving: no Sunscreen: yes Illicit drugs: no Seatbelt: yes Marital status: single 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 Nutrition: average diet Exercise: regular weight lifting / resistance exercise regular cardio Sexual activity: not sexually active Contraception: oral contraceptives Smoking: never a smoker Alcohol: occasional alcohol Text messaging while driving: no Sunscreen: yes Illicit drugs: no Seatbelt: yes Marital status: single 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 Nutrition: average diet Exercise: regular weight lifting / resistance exercise regular cardio Sexual activity: not sexually active Contraception: oral contraceptives Smoking: never a smoker Alcohol: occasional alcohol Text messaging while driving: no Sunscreen: yes Illicit drugs: no Seatbelt: yes Marital status: single 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 Nutrition: average diet Exercise: regular weight lifting / resistance exercise regular cardio Sexual activity: not sexually active Contraception: oral contraceptives Smoking: never a smoker Alcohol: occasional alcohol Text messaging while driving: no Sunscreen: yes Illicit drugs: no Seatbelt: yes Marital status: single 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 Nutrition: average diet Exercise: regular weight lifting / resistance exercise regular cardio Sexual activity: not sexually active Contraception: oral contraceptives Smoking: never a smoker Alcohol: occasional alcohol Text messaging while driving: no Sunscreen: yes Illicit drugs: no Seatbelt: yes Marital status: single 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 Nutrition: average diet Exercise: regular weight lifting / resistance exercise regular cardio Sexual activity: not sexually active Contraception: oral contraceptives Smoking: never a smoker Alcohol: occasional alcohol Text messaging while driving: no Sunscreen: yes Illicit drugs: no Seatbelt: yes Marital status: single 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 Nutrition: average diet Exercise: regular weight lifting / resistance exercise regular cardio Sexual activity: not sexually active Contraception: oral contraceptives Smoking: never a smoker Alcohol: occasional alcohol Text messaging while driving: no Sunscreen: yes Illicit drugs: no Seatbelt: yes Marital status: single 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 Nutrition: average diet Exercise: regular weight lifting / resistance exercise regular cardio Sexual activity: not sexually active Contraception: oral contraceptives Smoking: never a smoker Alcohol: occasional alcohol Text messaging while driving: no Sunscreen: yes Illicit drugs: no Seatbelt: yes Marital status: single 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 Nutrition: average diet Exercise: regular weight lifting / resistance exercise regular cardio Sexual activity: not sexually active Contraception: oral contraceptives Smoking: never a smoker Alcohol: occasional alcohol Text messaging while driving: no Sunscreen: yes Illicit drugs: no Seatbelt: yes Problems Problem Type SNOMED Code ICD Code Onset Dates Problem Status W/U Status Risk Notes Problem Menopause (018192499) Menopausal and female climacteric states (N95.1) Active confirmed Problem Postmenopausal bleeding (16704936) Postmenopausal bleeding (N95.0) Active confirmed Problem Genital herpes simplex (32386849) Herpesviral infection of urogenital system, unspecified (A60.00) Active confirmed Problem Basal cell carcinoma of truncal skin (180912390) Basal cell carcinoma of skin of other part of trunk (C44.519) Active confirmed Problem Cancer of skin of lower limb, basal cell (723948556) Basal cell carcinoma of skin of right lower limb, including hip (C44.712) Active confirmed Problem Mild recurrent major depression (63040645) Major depressive disorder, recurrent, mild (F33.0) Active confirmed Problem Recurrent major depression (73285183) Major depressive disorder, recurrent, unspecified (F33.9) Active confirmed Problem Anxiety disorder (347414767) Anxiety disorder, unspecified (F41.9) Active confirmed Problem Postcoital bleeding (02016329) Postcoital and contact bleeding (N93.0) Active confirmed Problem Abnormal findings on diagnostic imaging of breast (168877078) Other abnormal and inconclusive findings on diagnostic imaging of breast (R92.8) Active confirmed Problem Family history of malignant neoplasm of breast (398012954) Family history of malignant neoplasm of breast (Z80.3) Active confirmed Problem Premenstrual dysphoric disorder (067976) Premenstrual dysphoric disorder (F32.81) Active confirmed Problem COVID-19 (903491673) COVID-19 (U07.1) Active confirmed Problem Genital herpes simplex (55528091) Unspecified genital herpes (054.10) Active confirmed Major Problem Depressive disorder (23503854) Depressive disorder, not elsewhere classified (311) Active confirmed Major Vital Signs Temperature 98.0 degrees Fahrenheit 05/06/2024 Blood pressure diastolic 78 mm Hg 05/06/2024 Height 64 in 05/06/2024 Blood pressure systolic 106 mm Hg 05/06/2024 Weight 127 lbs 05/06/2024 BMI 21.8 kg/m2 05/06/2024 Encounters Encounter Location Date Provider Diagnosis [facility] [address] [place] [address] 04/29/2024 ARTURO MEYERS Encounter for gynecological examination (general) (routine) without abnormal findings Z01.419 ; Encounter for screening mammogram for malignant neoplasm of breast Z12.31 ; Inconclusive mammogram R92.2 ; Herpesviral infection of urogenital system, unspecified A60.00 and Menopausal and female climacteric states N95.1 [facility] [facility] [address] [place] [address] 05/02/2024 ARTURO MEYERS Abnormal uterine and vaginal bleeding, unspecified N93.9 [facility] [address] [facility] [address] [place] [address] 05/06/2024 ARTURO MEYERS Postmenopausal bleed ing N95.0 [facility] [address] [facility] [address] [place] [address] 05/14/2024 ARTURO MEYERS Total [address] [place] [address] 08/22/2024 ARTURO MEYERS Assessments Encounter Date Diagnosis [...] Date Coverage End Date [employer] [facility] [address] [address] [place] [address] [id number] ARTURO ORONA Self - patient is the [...]
--- OUTSIDE RECORDS SUMMARY | 2024-10-23 15:15 | XMS_ITS ---
Author Organization [employer] Address [address] [address] Care Team Providers Care Division Operations Specialist Name Role Phone KARLY LOVELACE Primary Care Provider ARTURO Randhawa Unavailable [phone] REASON FOR VISIT looking for bx results Encounters Encounter Location Date Provider Diagnosis [facility] [address] [address] 05/14/2024 ARTURO MEYERS Plan Of Treatment No Information Progress Notes * CHINMAY EDMONDSADOB: (54 yo F)Acc No.[id number]:05/14/2024 Patient:?MALIA SHERJUDITHYehudaA :1970???Age:54 Y???Sex:Female Address:[address] [place] [address], [address] * true * Date:? Generated for Kyai sajan/Emmanuel/eTransmitting on:?10/23/2024 03:15 PM EDT
--- OUTSIDE RECORDS SUMMARY | 2024-10-23 15:15 | XMS_ITS | Patient Health Record ---
Author Organization [facility] Address [address] [place] [address] Care Team Providers Care Director Of Sports Medicine Name Role Phone Agustin ORTA, Reinaldo Primary Care Provider Chuck Marquis Unavailable [phone] Allergies Allergen (clinical drug ingredient) Drug/Non Drug [...] directed Orally once a day Active Nystatin 101721 UNIT TAKE 2 TABLETS BY M OUTH [...] Problem Status W/U Status Risk Notes Problem 280433388 Encounter for screening for malignant neoplasm of colon (Z12.11) Active confirmed Problem Change in bowel habit (81093635) Change in bowel habits (R19.4) Active confirmed Problem 738151670271685 Pre-procedural examination (Z01.818) Active confirmed Problem Celiac disease (458428312) Gluten intolerance (K90.0) Active confirmed Plan Of Treatment Pending Test Test Name Order Date CELIAC PANEL #10 04/08/2020 Future Test Test Name Order Date COLONOSCOPY 06/28/2018 Insurance Providers Payer Name Payer Address Payer Phone Subscriber Number Group Number Insured Name Patient Relationship to Insured Coverage Start Date Coverage End Date [employer] [address] [address] [place] [address] [id number] ARTURO ESCOBAR Self - patient is the insured Medical (General) History Medical History History ICD Code Denies PA,DM,CVA,Lung disease,renal dise ase Anxiety Chronic low WBC [...]
--- OUTSIDE RECORDS SUMMARY | 2024-10-23 15:15 | XMS_ITS ---
Author Organization [employer] [facility] Address [address] [address] Care Team Providers Care Diamond Finishing Supervisor Name Role Phone KARLY LOVELACE Primary Care Provider TITA Randhawa Unavailable [phone] Allergies Allergen (clinical drug ingredient) Drug/Non Drug [...] Interpretation: Performing Lab:Testing performed or reported by [facility], a Service of [facility], [address] [place] [address] Bakari Velasquez MD, Benzene Washer [facility]# [id number] Notes/Report: Patient Name: TITA EDMONDS Lab Patient : 1970 (Age: 54) Collection Date: 05/06/2024 Accession Date: 05/09/2024 Sign Out Date: 05/15/2024 Tissue Source: 1:EMB Final Diagnosis: Endometrium, biopsy: - Scant superficial fragments of inactive/atrophic endometrium, and features of stromal breakdown. - Fragments of endocervical glandular mucosa and mucus. Primary Pathologist:Lainey Rutledge M.D.,Ph.D. electronically signed out by: Lainey Rutledge M.D.,Ph.D. / [facility] Clinical History: Postmenopausal bleeding Gross Description: The requisition indicates endometrial biopsy . Received in formalin is a 1.5 x 1.3 x 0.5 cm aggregate of white-tinged mucus with red, fontaine tissue. The specimen is entirely submitted. 1-multiple pieces, x 2. (EG)* As of August 25, 2023, the specimen processing and staining is performed at [facility], [address] [place] [address] (CLIA#[id number]). [facility]. Hollie Stephen M.D. Benzene Washer of Surgical Pathology, Jonatan Schultz M.D. Benzene Washer Cytopathology Phone #: [phone], On-Call Pathologist: [id number] REASON FOR VISIT EB Medications Medication SIG (Take, Route, Frequency, Duration) Notes Start Date End Date Status Multi Complete Activ e Nystatin 274004 UNIT Oral for 60 Active Citalopram Hydrobromide [...] W/U Status Risk Notes Problem Postmenopausal bleeding (77889846) Postmenopausal bleeding (N95.0) Active confirmed Vital Signs Temperature 98.0 degrees Fahrenheit 05/06/20 24 Blood pressure systolic 106 mm Hg 05/06/20 24 Blood pressure diastolic 78 mm Hg 024 Height 64 in 05/06/2024 Weight 127 lbs 05/06/2024 BMI 21.8 kg/m2 05/06/2024 Encounters Encounter Location Date Provider Diagnosis [address] [place] [address] 05/06/2024 TITA MEYERS Postmenopausal bleed ing N95.0 [...] Notes * CHINMAY EDMONDSADOB: (54 yo F)Acc No.[id number]:05/06/2024 PROGRESS NOTES Patient:?Yehuda EMDONDS Provider:?TITA MEYERS MD :1970???Age:54 Y???Sex:Female D ate:05/06/2024 Address:[address] [place], [place] [id number] Pcp:KARLY LOVELACE Subjective: * Chief Complaints: * ???EB * HPI: ???PAINTER PLATE (Procedures/Surgeries):?Patient presents today for endometrial biopsy Tita [...] 02/2023 - normal. * Medical History:? * Supervisor Type Bar And Segment History:?/ Para?0/0.?Sexual activity?currently sexually active.?Last Pap Smear:?04/24/23 [...] but had 2nd hand exposure).?Father: 67 yrs, [place] at the gym on the treadmill.? Pt [...] Mika (10/2021). 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 ?Pets: : dogs: 1 helen gray. ?Sexual [...] Notes to Pharmacist: 06/19 tab weening offNystatin 238707 UNIT Tablet Oral valACYclovir HCl 500 MG [...] to Pharmacist: 06/19 tab weening offTaking Nystatin 983701 UNIT Tablet Oral Taking valACYclovir HCl 500 [...] available in approximately one week..? * Procedure Codes:?86465 BIOPS Y OF UTERUS LINING * Preventive Medicine:?Call with increasing pain, heavy bleeding, fever/chills or foul smelling vaginal discharge. * Follow Up:?prn * Images: Billing Information: * Visit Code:? * Procedure Codes:? 85307 BIOPSY OF UTERUS LINING. * Sign off status: Completed true * Provider:?TITA MEYERS MD Date:?2023 Generated for [employer] sajan/Emmanuel/eTransmitting on:?10/23/2024 03:14 PM EDT History and Physical Notes * [...]
== END 2024-10-23 15:38 | disposition home or self-care (01) ==
LOC: HO.HWS 14:26
PROVIDERS: PCP Internal Medicine; Visit Provider Advanced Practice Midwife
DX: N95.0 Postmenopausal bleeding (principal); D21.9 Benign neoplasm of connective and other soft tissue, unspecified; R87.615 Unsatisfactory cytologic smear of cervix
CPT/HCPCS: 99213

== ENCOUNTER 2024-11-11 09:24 | Outpatient (AMB) | payer OTHER, SELFPAY ==
[2024-11-11 09:32] VITALS: BMI 22.5
--- NOTE | 2024-11-11 09:32 | A.OFFVIS_ITS ---
Vital Signs 11/11/24 09:32 Height 5 ft 3 in Weight 127 lb BMI 22.5 Intake Visit Reasons: Hysteroscopy consult Income Tax Return Preparer Required: No Information Interpreted: non-clinical & clinical Hydraulic Chair Assembler: Hydraulic Chair Assembler Present Accompanied by: Self / Same As Patient Allergies clindamycin [CLINDAMYCIN] Allergy (Severe, Verified 11/11/24 09:33) HIVES AND BODY SWELLING amoxicillin Allergy (Unknown, Verified 11/11/24 09:33) unknown azithromycin [From ZITHROMAX Z-ASHTYN] Allergy (Unknown, Verified 11/11/24 09:33) SWELLING, rash Clindamycin HCl Allergy (Unknown, Verified 11/11/24 09:33) face swollen,hives penicillin V Allergy (Unknown, Verified 11/11/24 09:33) throat swelling Penicillins [PENICILLINS] Allergy (Unknown, Verified 11/11/24 09:33) ANAPHYLAXIS Sulfa (Sulfonamide Antibiotics) Allergy (Unknown, Verified 11/11/24 09:33) rash sulfamethoxazole [From Bactrim] Allergy (Unknown, Verified 11/11/24 09:33) rash trimethoprim [From Bactrim] Allergy (Unknown, Verified 11/11/24 09:33) rash eggs Allergy (Unknown, Uncoded 11/11/24 09:33) Unknown Is last menstrual period known: Yes Last menstrual period: 04/15/20 Post menopausal: No Patient : No Do you need a note to return to daycare/school/sports/work: Yes (for surgery on sunday) HPI Comments Details: Presenting referred from Sirisha Samuel CNM regarding recurrent postmenopausal bleeding. Co testing done in 11/09 was negative Pelvic ultrasound showed the following: Uterus: The uterus is normal in size, measuring 7.5 x 3.0 x 4.2 cm. Myometrium has a normal echotexture. There is a fundal fibroid measuring 12 x 11 x 12 mm. There is an anterior fibroid measuring 12 x 8 x 9 mm. Endometrium: The endometrial stripe measures 5 mm in thickness. Right ovary: The right ovary measures 1.9 x 1.2 x 1.6 cm. The right ovary is normal in size and echotexture. Left ovary: The left ovary measures 1.7 x 1.3 x 1.1 cm. The left ovary is normal in size and echotexture. Pelvic fluid: none. The patient had postmenopausal bleeding in 2022 underwent hysteroscopy D&C polypectomy , pathology was showed inactive endometrium with benign endometrial polyp, the patient kept on having recurrent vaginal bleeding repeat office endometrial biopsy showed inactive endometrium in 05/11. Since then the patient has been having recurrent vaginal bleeding on a weekly basis [facility] Medical History Unsatisfactory cervical Papanicolaou smear Fibroid Abnormal vaginal bleeding Postmenopausal bleeding Chronic depressive disorder Depression Gluten-sensitive enteropathy Surgical History History of hysteroscopy History of dental surgery Status post cervical polyp removal History of augmentation of both breasts Family History Father Hypertension CVD (cardiovascular disease) Mother No problems noted. 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 Cognitive needs: No Hearing needs: No Vision needs: Yes Female Reproductive History Menstrual Date of last menstrual period: 04/15/20 Total pregnancies: 2 Full term: 2 Review of Systems Const All systems reviewed & are unremarkable except as noted in HPI and below Card Reports as per HPI and Reports no additional complaints Resp Reports as per HPI and Reports no additional complaints GI Reports as per HPI and Reports no additional complaints Reports as per HPI Physical Exam Vital Signs: BMI result Body Mass Index 22.5 Const General: cooperative, healthy appearing and comfortable Resp Effort & Inspection: normal respiratory effort Auscultation: clear to auscultation bilaterally Percussion: percussion normal Cardio Palpation: normal PMI Rate: regular rate Rhythm: regular rhythm Heart sounds: no murmurs and no rubs Peripheral pulses: Peripheral pulses 2+ throughout GI Inspection: Yes normal to inspection Palpation (GI): Soft to palpation, nontender, no guarding, not rigid and No he patosplenomegaly present Percussion: Yes normal to percussion Auscultation: normal bowel sounds Rectal Exam - Female: deferred Assessment & Plan Assessment & Plan (1) Postmenopausal bleeding: Code(s): N95.0 - Postmenopausal bleeding Category: Medical Plan: Discussed with the patient the pelvic ultrasound findings, the endometrial strip e thickenss measured by ultrasound was more than 4mm. The negative predictive value, positive predictive value, Sensitivity, specificity of using ultrasound measurement of endometrial stripe to detecting endometrial pathology including hyperplasia , polyp or cancer were discussed with the patient. Recommended to the patient that the next step is an endometrial sampling via hysteroscopy D&C possible polypectomy versus endometrial biopsy to r/o endometrial pathology including hyperplasia or cancer. All the pros and cons risks and benefits of each approach were discussed with the patient, endometrial biopsy being less invasive, office procedure with less sensitivity and inability diagnose a polyp and removal versus hysteroscopy done under anesthesia more invasive more sensitive to endometrial cancer and possibility of diagnosing and endometrial polyp with the possibility of polypectomy. All questions were answered pt verbalized understanding and decided to proceed with hysteroscopy D&C possible polypectomy/myomectomy Discussed with the patient the procedure , all benefits and risks including but not limited to inability to complete the procedure , insufficient endometrial tissue for a complete evaluation of the endometrial cavity , bleeding, infection, possible need for blood transfusion with all its risk ( HIV,syphilis, Hepatitis, anaphylaxis shock, others..), injury to bladder, rectum, possible need for laparoscopy/laparotomy or hysterectomy. The patient verbalized understanding and signed the consent. Instructions given the patient to stay NPO after midnight the day prior to the procedure and to take only the specific medication (s) discussed the morning of the surgical procedure and to schedule a 2 week postoperative appointment (2) Uterine myoma: Code(s): D25.9 - Leiomyoma of uterus, unspecified Category: Medical Plan: Discussed with the patient the findings on pelvic ultrasound & the risk of myosarcoma; in addition reviewed with the patient that malignancy and pre malignancy cannot be ruled out without hysterectomy for pathological evaluation ; furthermore, explained to the patient the limitation of pelvic ultrasound and endometrial biopsy in the setting. Discussed with the patient the options of treatment including expectant management versus hysterectomy; the pros and cons, risks benefits of each approach were discussed with the patient including the fact that in cases of myosarcoma, surgical treatment can lead to early diagnosis and positively affects the prognosis; will proceed with hysteroscopy D&C possible polypectomy/myomectomy and treat accordingly. Coding Level of Care Code Est Pt Level 3 (80973) Diagnoses Postmenopausal bleeding N95.0 Uterine myoma D25.9
--- OUTSIDE RECORDS SUMMARY | 2024-11-11 09:58 | XMS_ITS | Patient Health Record ---
Author Organization [facility] Address [address] [place] [address] Care Team Providers Care Evp Strategy Name Role Phone Agustin ORTA, Reinaldo Primary Care Provider Chuck Marquis Unavailable [phone] Allergies Allergen (clinical drug ingredient) Drug/Non Drug [...] directed Orally once a day Active Nystatin 582891 UNIT TAKE 2 TABLETS BY M OUTH [...] Problem Status W/U Status Risk Notes Problem 988639755 Encounter for screening for malignant neoplasm of colon (Z12.11) Active confirmed Problem Change in bowel habit (54782384) Change in bowel habits (R19.4) Active confirmed Problem [id number] Pre-procedural examination (Z01.818) Active confirmed Problem Celiac disease (417296931) Gluten intolerance (K90.0) Active confirmed Plan Of Treatment Pending Test Test Name Order Date CELIAC PANEL #10 04/08/2020 Future Test Test Name Order Date COLONOSCOPY 06/28/2018 Insurance Providers Payer Name Payer Address Payer Phone Subscriber Number Group Number Insured Name Patient Relationship to Insured Coverage Start Date Coverage End Date [employer] [address] [address] [place] [address] [id number] ARTURO ESCOBAR Self - patient is the insured Medical (General) History Medical History History ICD Code Denies [place],DM,CVA,Lung disease,renal dise ase Anxiety Chronic low WBC [...]
== END 2024-11-11 10:13 | disposition home or self-care (01) ==
LOC: HO.HWS 09:25
PROVIDERS: PCP Internal Medicine; Visit Provider Obstetrics & Gynecology
DX: N95.0 Postmenopausal bleeding (principal); D25.9 Leiomyoma of uterus, unspecified
CPT/HCPCS: 99213

== ENCOUNTER 2024-11-25 07:58 | Outpatient (AMB) | payer OTHER, SELFPAY ==
--- OUTSIDE RECORDS SUMMARY | 2024-11-25 08:01 | XMS_ITS | Patient Health Record ---
Author Organization [facility] Address [address] [place] [address] Care Team Providers Care Travel Journalist Name Role Phone Agustin ORTA, Reinaldo Primary Care Provider Chuck Marquis Unavailable [phone] Allergies Allergen (clinical drug ingredient) Drug/Non Drug [...] directed Orally once a day Active Nystatin 242505 UNIT TAKE 2 TABLETS BY M OUTH [...] Problem Status W/U Status Risk Notes Problem 744710853 Encounter for screening for malignant neoplasm of colon (Z12.11) Active confirmed Problem Change in bowel habit (21671260) Change in bowel habits (R19.4) Active confirmed Problem 905782546554626 Pre-procedural examination (Z01.818) Active confirmed Problem Celiac disease (406124797) Gluten intolerance (K90.0) Active confirmed Plan Of Treatment Pending Test Test Name Order Date CELIAC PANEL #10 04/08/2020 Future Test Test Name Order Date COLONOSCOPY 06/28/2018 Insurance Providers Payer Name Payer Address Payer Phone Subscriber Number Group Number Insured Name Patient Relationship to Insured Coverage Start Date Coverage End Date [employer] [address] [address] [place] [address] [id number] ARTURO ESCOBAR Self - patient is [...]
--- NOTE | 2024-11-25 08:04 | A.OFFPC_ITS ---
Vital Signs 11/25/24 08:11 Height 5 ft 3 in Weight 127 lb 4 oz BMI 22.5 BP 118/68 Blood Pressure Location Lt brachial Position Sitting Respiration 12 Pulse 72 Pulse Source Pulse Oximeter Temp 97.5 F Temp Source Oral Pulse Oximetry (%) 97 Oxygen Delivery Method Room Air Intake Visit Reasons: ANA from [facility] Depression Intake Note: ANA to establish care. Patient has concern abut anxiety and ocd. Patient is also getting a hysterocsopy on sunday. Valve Inspector Required: No Allergies clindamycin [CLINDAMYCIN] Allergy (Severe, Verified 11/25/24 08:16) HIVES AND BODY SWELLING amoxicillin Allergy (Unknown, Verified 11/25/24 08:16) unknown azithromycin [From ZITHROMAX Z-ASHTYN] Allergy (Unknown, Verified 11/25/24 08:16) SWELLING, rash Clindamycin HCl Allergy (Unknown, Verified 11/25/24 08:16) face swollen,hives penicillin V Allergy (Unknown, Verified 11/25/24 08:16) throat swelling Penicillins [PENICILLINS] Allergy (Unknown, Verified 11/25/24 08:16) ANAPHYLAXIS Sulfa (Sulfonamide Antibiotics) Allergy (Unknown, Verified 11/25/24 08:16) rash sulfamethoxazole [From Bactrim] Allergy (Unknown, Verified 11/25/24 08:16) rash trimethoprim [From Bactrim] Allergy (Unknown, Verified 11/25/24 08:16) rash eggs Allergy (Unknown, Uncoded 11/25/24 08:04) Unknown Medication List - Last Reconciled 11/25/24 by Rianna Rebolledo, SACK LIFTER- buspirone 5 mg PO TID buspirone 7.5 mg PO TID citalopram 5 mg PO DAILY epinephrine 0.3 mg (0.3 mL) IM DIRECTED estradiol 1 patch transdermal 2XW lutein PO mecobalamin (vitamin B12) PO medium chain triglycerides (MCT Oil) 15 mL PO DAILY multivitamin (Daily Multi-Vitamin tablet) 1 tab PO DAILY nitrofurantoin macrocrystal 100 mg PO .PRN 90 days nystatin 1,000,000 units PO BID oregano oil PO progesterone micronized 200 mg PO BEDTIME turmeric PO valacyclovir 500 mg PO DAILY Tobacco use date assessed: 11/25/24 Dental Screening Dental Screen Date: 11/25/24 Did you have a dental visit in the last 12 months?: Yes Did you have a dental problem in the last 6 months where you did not have access to dental care?: No Was dental information given to patient?: Patient has dentist HPI HPI Comments History of Present Illness Details 54 y/o F with MDD, DEMIAN, OCD, Fibroids, Gluten sensitivity, polyarthralgia, Recurrent UTI and Sinusitis, stress incont, anemia, Menopause s/p breast surgery, dental surgery, hysteroscopy, cervical polyp removal Social: works at [employer] [place], Fhx: Brother w/ CA and Etoh; Mom Health Maintenance Tdap 2014, updated today Pap 10/2024 WNL at [facility] Mammo 06/2024 Colon 08/2018 Dr Kaleb HEATON has never had one, ordered today Specialist GI TRAFFIC CLERK @ [facility] [place]. 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 - Past PMDD: Treatment involved Paxil; l ater transitioned to citalopram. - Likely OCD: History during stressful l pablo events, including mother's . - Intrusive thoughts: Notably concerning daily activities. - Transition of psychiatric care: Initia l reduction of citalopram, current management with Skyla Cordova. - New prescription consideration: Fluvox amine for OCD symptoms. - Menopausal changes: Experiencing postm enopausal symptoms managed with HRT due to joint pain and fatigue. - Postmenopausal bleeding: History of ne gative biopsy following hysteroscopy. Repeat Hyst. on Sunday @ [facility] - Discussion of surgery, AJAY, upon vanessa nued bleeding if malignancy ruled out. - Reports spotting associated with red t ea consumption, phytoestrogen intake considered. - Expresses concerns about surgical effe cts on identity and health. Review of Systems - Psychiatric: Reports anxiety when driv ing, intrusive thoughts, and OCD-like behaviors. - Endocrine: Reports menopausal symptoms , hot flashes, on hormone replacement therapy, and postmenopausal bleeding. - Musculoskeletal: Reports joint pain re lief after starting hormone replacement therapy. - TRAFFIC CLERK: Reports past negative biopsy for postmenopausal bleeding and upcoming hysteroscopy. - Neurological: Denies headaches, seizur es, or loss of consciousness. - Gastrointestinal: Denies changes in ap petite or weight. - General: Reports fatigue, improved aft er HRT began. Physical Exam General: Well developed, well nourished, in no acute distress. Appears stated age. Head: Normocephalic, atraumatic. Eyes: Pupils are equal, round and reactive to light and accommodation. Conjunctivae are clear. Vision grossly normal. Lungs: Clear to auscultation bilaterally. No rales, rhonchi or wheeze noted. Good air flow in all chavez. Heart: Regular rate and rhythm. No murmurs, click, rubs or gallops are noted. Musculoskeletal: Joints are nontender, without swelling, redness, or effusions. Pulses: Peripheral pulses are equal and palpable bilaterally. Extremities: No clubbing, cyanosis nor edema is noted. Psych: Mood and affect appropriate, Discussion Notes I discussed with the patient the proposed changes in her psychiatric medication regimen due to her ongoing anxiety and OCD-like symptoms. We reviewed the new prescription of fluvoxamine to potentially citalopram and stressed the pharmacological benefits for managing OCD, alongside the safety profile and alternative management should side effects occur. We also discussed the potential outcomes of the upcoming hysteroscopy and the implications of staying on or discontinuing estrogen therapy dependent on biopsy results. Educational discussions surrounding possible interventions, including considering Liat Lantigua as a menopause-specific healthcare provider, were offered. The patient was informed of ongoing management and was advised to connect through the portal for continued communication and care management. Recommendations for bone density examination as part of her routine menopausal management were made, to be scheduled at the patient's convenience. Assessment and Plan 1. Anxiety Disorder - Continue psychiatric management. - Transition medication to fluvoxamine a s planned. 2. Obsessive-Compulsive Disorder (OCD) - Start fluvoxamine for OCD symptoms. - Monitor treatment efficacy. 3. Menopausal Symptoms - Bone density test scheduled. - Monitor HRT decision on post-hysterosc opy results. 4. Postmenopausal Bleeding - Perform hysteroscopy to evaluate cause s. - Discuss surgical options if bleeding p ersists. 5. Hormone Replacement Therapy - Re-evaluate based on hysteroscopy outc omes. - Consider alternative menopausal care p roviders. Patient Instructions - Continue taking prescribed medications . - Follow up with Skyla Cordova for psychia tric consults. - Prepare for upcoming hysteroscopy. - Avoid Red Lundberg tea to monitor bleedi ng correlation. - Consider bone density scan scheduling. - Use patient portal for any concerns or prescription refills. - Follow up in May for an annual vi sit or sooner if needed. - Maintain communication on menopause sy mptoms adjustments. Consent Patient was informed and verbally consented to the use of an ambient scribe for clinic note documentation during this visit. Total time spent caring for the patient today was 44 minutes. This includes time spent before the visit reviewing the chart, time spent during the visit, and time spent after the visit on documentation, reviewing laboratory results, diagnostic imaging, medications, performing a medically necessary evaluation, counseling on diagnoses, care coordination, ordering appropriate tests, ordering appropriate medications, review of tests performed by other providers, reporting test results with the patient, communication with other healthcare providers. [facility] Medical History (Updated 11/25/24 @ 08:50 by Rianna Rebolledo, [facility]) Abnormal vaginal bleeding Anxiety Arthritis Chronic depressive disorder Depression Fibroid Gluten-sensitive enteropathy Herpes Hx of mammogram (~06/2024) Postmenopausal bleeding Sinusitis Unsatisfactory cervical Papanicolaou smear Surgical History History of colonoscopy (~08/2018) History of hysteroscopy History of dental surgery Status post cervical polyp removal History of augmentation of both breasts Family History (Updated 11/25/24 @ 08:18 by Aaron Beal MA) Father Hypertension CVD (cardiovascular disease) Mother Lung cancer Brother Lung cancer Maternal Grandmother Mental health disorder Social History (Updated 11/25/24 @ 08:18 by Aaron Beal MA) Household Members: Spouse Both parents involved: No Caregiver staying overnight: No Housing: House Are you a primary child care centre manager to a significant other at home: No Do you presently have visiting nurse or other home services: No 75 years or older and lives alone: No Alcohol intake: current Alcohol intake frequency: holidays/special occasions only Patient Tobacco Use Status: Never used Tobacco e-Cigarette/Vaping Use: Never Used Second Hand Smoke Exposure: No service: No Current occupational status: employed 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 1. Little interest or pleasure in doing things: not at all 2. Feeling down, depressed, or hopeless: not at all 3. Trouble falling or staying asleep, or sleeping too much: several days 4. Feeling tired or having little energy: not at all 5. Poor appetite or overeating: not at all 6. Feeling bad about yourself - or that you are a failure or have let yourself or your family down: not at all 7. Trouble concentrating on things, such as reading the newspaper or watching television: not at all 8. Moving or speaking so slowly that other people could have noticed. Or the opposite - being so fidgety or restless that you have been moving around a lot more than usual: several days 9. Thoughts that you would be better off or of hurting yourself in some way: not at all Total score: 2 Depression Screening Interpretation: Negative Depression Screening Done: Yes 56863 - PHQ-9 Billing: Yes Source: Developed by Drs. Chuck Angelo, Kimber Heredia, Misael Greene and colleagues, with an educational tootie from [employer]. Thrive Questionnaire Date Thrive assessed: 11/25/24 I am a: Patient What is your living situation today?: I have a steady place to live Within the past 12 months, did the food you bought not last and you didn't have the money to get more?: Never true Within the past 12 months, did you worry whether your food would run out before you got money to buy more?: Never true Do you have trouble paying for medicines?: No Do you have trouble getting transportation to medical appointments?: No Do you have trouble paying your heating and electricity bill?: No Do you have trouble taking care of your child, family member or friend?: No Do you have trouble with day-to-day activities such as bathing, preparing meals, shopping, managing finances, etc.?: No Are you currently unemployed and looking for a job?: No Are you interested in more education?: No Please select the resources that you would like help with: None Currently or been in a relationship where the following occur: No concerns reported THRIVE Score: 0 AUDIT C Alcohol Use Questionnaire (AUDIT-C) 1. How often do you have a drink containing alcohol?: 2-3 times a week 2. How many drinks containing alcohol do you have on a typical day when you are drinking?: 1 or 2 3. How often do you have six or more drinks on one occasion?: Never Total Score: 3 Score Reviewed/Action Taken: Yes DEMIAN-7 AMB Questionnaire DEMIAN-7 Date DEMIAN - 7 assessed: 11/25/24 Feeling nervous, anxious, or on edge: 1 = Several days Not being able to stop or control worryin = Nearly every day Worrying too much about different things: 3 = Nearly every day Trouble relaxin = Nearly every day Being so restless that it is hard to sit still: 0 = Not at all Becoming easily annoyed or irritable: 1 = Several days Feeling afraid as if something awful might happen: 2 = More than half the days Total DEMIAN-7 score (0-4 normal; 5-9 mild; 10-14 moderate; 15-21 severe): 13 Source: Developed by Drs. Chuck Angelo, Kimber Heredia, Misael Greene and colleagues, with an educational tootie from [employer]. DEMIAN-7 Assessment Billing DEMIAN-7 Assessment Tool: DEMIAN-7 Assessment 34425 Physical exam (Primary Care) Vital Signs: Last Vital Signs Temp 97.5 F 11/25/24 08:11 Pulse 72 11/25/24 08:11 Resp 12 11/25/24 08:11 BP 118/68 11/25/24 08:11 Pulse Ox 97 11/25/24 08:11 Oxygen Delivery Method Room Air 11/25/24 08:11 BMI result Body Mass Index 22.5 Tobacco/Smoking Status: Tobacco use Status Tobacco use date assessed 11/25/24 11/25/24 08:06 Patient Tobacco Use Status Never used Tobacco 11/25/24 08:18 e-Cigarette/Vaping Use Never Used 11/25/24 08:18 PHQ-9: PHQ-9 Score PHQ-9: Total score 2 11/25/24 08:49 Depression Screening Interpretation: Negative Thrive Assessment: Date of Thrive Assessment Date Thrive assessed 11/25/24 11/25/24 08:06 Currently or been in a relationship where the following occur: No concerns reported Immunizations Boostrix Tdap 2.5 Lf unit-8 mcg-5 Lf/0.5 mL intramuscular syringe Performing Provider: VAL Mansfield Performing Location: [facility] Family Medicine Administered by: Aaron Beal MA on 11/25/24 08:49 Dose Route Admin Location Dispensed Lot Number Expiration Date NDC Stock Clipper 0.5 mL IM Right Deltoid 0.5 mL [id number] 02/13/27 [id number] [employer]KALINE [employer]ATER VIS Given Date VIS Provided VIS Publication Date 11/25/24 Single Vaccine 21 Eligibility Eligibility Date Funding Source Not [facility] Eligible 11/25/24 Private Coding Level of Care Code Est Pt Level 5 (27293) Complex EM visit Add On G2211 Diagnoses Encounter to establish care Z76.89 Chronic depressive disorder F32.9 DEMIAN (generalized anxiety disorder) F41.1 Menopause Z78.0 On hormone replacement therapy Z79.890 Mixed obsessional thoughts and acts F42.2 Obsessive-compulsive disorder type: mixed obsessional thoughts and acts Need for Tdap vaccination Z23 Additional Codes DEMIAN-7 Assessment Billing - DEMIAN-7 Assessment Tool: DEMIAN-7 Assessment 77079 ([id number]) PHQ-9 - 31375 - PHQ-9 Billing: Yes ([id number]) Assessment & Plan Assessment & Plan (1) Encounter to establish care: Code(s): Z76.89 - Persons encountering health services in other specified circumstances (2) Chronic depressive disorder: Code(s): F32.9 - Major depressive disorder, single episode, unspecified Category: Medical (3) DEMIAN (generalized anxiety disorder): Code(s): F41.1 - Generalized anxiety disorder Category: Medical (4) Menopause: Code(s): Z78.0 - Asymptomatic menopausal state Category: Medical (5) On hormone replacement therapy: Code(s): Z79.890 - Hormone replacement therapy Category: Medical (6) OCD (obsessive compulsive disorder): Code(s): F42.9 - Obsessive-compulsive disorder, unspecified Category: Medical Qualifiers: Obsessive-compulsive disorder type: mixed obsessional thoughts and acts Qualified Code(s): F42.2 - Mixed obsessional thoughts and acts (7) Need for Tdap vaccination: Code(s): Z23 - Encounter for immunization Category: Medical Plan . Orders: Orders XR DEXA axial skeleton Today Z13.820 - Encounter for screening for osteoporosis, Z78.0 - Asymptomatic menopausal state Complete Blood Count no Diff 04/27/25 F32.9 - Major depressive disorder, single episode, unspecified, F41.1 - Generalized anxiety disorder, Z79.890 - Hormone replacement therapy Comprehensive Met. Panel 04/27/25 F32.9 - Major depressive disorder, single episode, unspecified, F41.1 - Generalized anxiety disorder, Z79.890 - Hormone replacement therapy Hemoglobin A1c 04/27/25 F32.9 - Major depressive disorder, single episode, unspecified, F41.1 - Generalized anxiety disorder, Z79.890 - Hormone replacement therapy Ferritin 04/27/25 F32.9 - Major depressive disorder, single episode, unspecified, F41.1 - Generalized anxiety disorder, Z79.890 - Hormone replacement therapy Lipid Panel 04/27/25 F3.9 - Major depressive disorder, single episode, unspecified, F41.1 - Generalized anxiety disorder, Z79.890 - Hormone replacement therapy TSH reflex Free T4 04/27/25 F3.9 - Major depressive disorder, single episode, unspecified, F41.1 - Generalized anxiety disorder, Z79.890 - Hormone replacement therapy IRON PROFILE 04/27/25 F3.9 - Major depressive disorder, single episode, unspecified, F41.1 - Generalized anxiety disorder, Z79.890 - Hormone replacement therapy Microalbumin, Random (w Creat) 04/27/252.9 - Major depressive disorder, single episode, unspecified, F41.1 - Generalized anxiety disorder, Z79.890 - Hormone replacement therapy Vitamin B12 and Folate 04/27/25.9 - Major depressive disorder, single episode, unspecified, F41.1 - Generalized anxiety disorder, Z79.890 - Hormone replacement therapy Vitamin D 25-OH Total 04/27/25.9 - Major depressive disorder, single episode, unspecified, F41.1 - Generalized anxiety disorder, Z79.890 - Hormone replacement therapy TDaP Immunization Today Z23 - Encounter for immunization Medications: New fluvoxamine 25 mg PO BEDTIME Patient Instructions: Patient Instructions - Continue taking prescribed medications. - Follow up with Skyla Cordova for psychiatric consults. - Prepare for upcoming hysteroscopy. - Avoid Red Zinger tea to monitor bleeding correlation. - Schedule bone density scan . - Use patient portal for any concerns or prescription refills. - Follow up in May for an annual visit or sooner if needed. - Maintain communication on menopause symptoms adjustments. - Tdap admin today Walk-In Care (Urgent Care): We Make it Easy Walk-in for urgent medical issues such as: ? Seasonal Allergies ? Insect Bites ? Cough ? Diarrhea ? Acute Asthma Attacks ? Back, Knee or Joint Pain ? Ear Infection ? Fever without a Rash ? Headaches ? Nausea ? [place] Eye, Rash or Skin Irritation ? Sore Throat ? Sports Physicals ? Vomiting Most insurances are accepted. Patients do not need to be part of the [facility] to seek care at the walk-in clinic. Locations [facility] , [place] [address] ? [phone] [facility] in [place] provides services to ages 18 and over. Open Sunday-Sunday: 8 a.m. to 5 p.m. and Sunday: 9 a.m. to 3 p.m.* *Hours may vary due to staffing availability. To confirm Walk-In Care hours in [place], please call [phone]. [address] [place] [address] ? [phone] [facility] in [place] provides services to ages 12 and over. Open Sunday-Sunday: 8 a.m. to 5 p.m. Hours may vary due to staffing availability. To confirm Walk-In Care hours in [place], please call [phone]. LABORATORY SERVICES: [facility] Lab ? Primary Location [address] [place] [address] Sunday through Sunday 6:00 AM ? 5:00 PM Sunday 7:00 AM ? 11:00 AM* [phone] The [facility] Lab is centrally located near the front entrance of the [facility] for easy outpatient access. Convenient parking is provided for outpatients. *Hours may vary due to staffing availability. To confirm Laboratory hours for any location, please call [phone]. Offsite Location For your convenience, we offer offsite laboratory draw stations at the following locations: [address] [place] [address] ? [facility] [address], [address], [place] Sunday through Sunday 7:30 AM ? 1:00 PM* [phone] *Hours may vary due to staffing availability. To confirm Laboratory hours for any location, please call [phone]. [place] ? [facility] [address] [facility] [place] Sunday through Sunday 6:00 AM ? 3:30 PM* Sunday 6:30 AM ? 3 PM* [phone] *Hours may vary due to staffing availability. To confirm Laboratory hours for any location, please call [phone]. [address] [facility] Sunday through Sunday 7:30 AM ? 4:00 PM* [phone] *Hours may vary due to staffing availability. To confirm Laboratory hours for any location, please call [phone] [place] [address] Sunday through 9:00 AM ? 4:00 PM* *Hours may vary due to staffing availability. To confirm Laboratory hours for any location, please call [phone]. Appointments are not necessary. Walk-ins are welcome. Like all the departments throughout the [facility], our Lab undergoes frequent reviews to ensure the quality and accuracy of test results, and our staff takes special pride in its status as a nationally accredited facility. Patient Portal: ONE PATIENT. ONE RECORD. BETTER CARE. [facility] has a fully integrated, cutting- edge mobile electronic health information system that has revolutionized the way we care for our patients and manage our organization. This system improves communication and coordination enabling us to provide safe, higher-quality care, and an overall positive experience for staff and patients. Our first priority, as always, is to deliver the highest quality care possible. The system is running in the background supporting that priority. This portal is for all [facility] services and practices. If you are experiencing any technical difficulties with enrolling or logging into the Patient Portal please complete the [facility] Patient Portal Technical Support Form. [facility] now offers a new secure on-line interactive tool for patients to review their health information ? ?Patient Portal. This interactive web portal will enable patients and their families to take an active role in their care by providing easy, secure access to their health information via the internet. The Patient Portal provides patients with instant access to their health information, including laboratory results, medications, allergies, demographic information, visit history, and more. In addition to managing their own care, parents and health care proxies with authorized consent will appreciate the ability to access the records of those individuals for whom they provide care. Please note: if you wish to gain access (Proxy) to another patient?s portal, you will be required to come to the Medical Records Department in person at [facility]. Both the patient giving proxy access and the proxy will need to provide photo identification and complete the appropriate authorization. The Patient Portal also allows track their appointments online. The [facility] Patient Portal also saves patients time by allowing them to submit updates to their demographic and contact information prior to their visits. Portal email notifications will also alert patients to any new activity on their portal, such as test results and new appointments. In order to initially enroll in the [facility] Patient Portal, you will need to enter some required information including the following: * your [facility] Medical Record number * your personal home email address * name * date of Please note: In order to enroll in the [facility] Patient Portal, we need to have your email address on file in your electronic medical record. ?The email address needs to be specific for one person (yourself) in order for your Portal enrollment to be successful. ?You can update your email address in person with our Registration staff when you are registering for a hospital visit. ?Otherwise, you will need to come to the Health Information Management (Medical Records) Department at [facility]. ?We are open from Sunday ? Sunday from 7:30 a.m. ? 4:30 p.m. ?You will be required to present a photo id. Once you have successfully enrolled in the Patient Portal, you will receive a one-time user id and password for the Portal, sent to your email address. ?This will allow you to log into the Patient Portal within 99 hrs and reset your own logon id and password, and define personal security questions. ?Once your permanent login and password have been set, you can log into the [facility] Patient Portal at any time via the blue button above or from the Portal Logon button on any page of the [facility] website. [facility] and [facility] encourage all of our patients to enroll in Patient Portal as it presents a valuable opportunity for patients and their families to actively participate in their care and stay healthy Welcome to [facility]. ?We look forward to working with you.
[2024-11-25 08:11] VITALS: BP 118/68; PULSE 72; RESP 12; TEMP 36.4; O2SAT 97; BMI 22.5
== END 2024-11-25 08:51 | disposition home or self-care (01) ==
LOC: HO.HMCFM 07:59
PROVIDERS: PCP Nurse Practitioner Family; Visit Provider Nurse Practitioner Family
DX: F41.1 Generalized anxiety disorder (principal); F32.9 Major depressive disorder, single episode, unspecified; Z76.89 Persons encountering health services in other specified circumstances; F42.2 Mixed obsessional thoughts and acts; Z78.0 Asymptomatic menopausal state; Z79.890 Hormone replacement therapy; Z23 Encounter for immunization

== ENCOUNTER → 2024-11-25 07:58 | Outpatient (BNVA) | payer OTHER, SELFPAY | PROVIDERS: PCP Nurse Practitioner Family; Visit Provider Nurse Practitioner Family | DX: K21.9 Gastro-esophageal reflux disease without esophagitis (principal); F32.A Depression, unspecified; F42.9 Obsessive-compulsive disorder, unspecified; M25.50 Pain in unspecified joint; N39.3 Stress incontinence (female) (male); N95.0 Postmenopausal bleeding; F32.9 Major depressive disorder, single episode, unspecified; F41.1 Generalized anxiety disorder; F42.2 Mixed obsessional thoughts and acts; Z23 Encounter for immunization; Z78.0 Asymptomatic menopausal state; Z87.440 Personal history of urinary (tract) infections; Z76.89 Persons encountering health services in other specified circumstances; Z79.890 Hormone replacement therapy | CPT/HCPCS: 90471; 90715; 96127 ==

== ENCOUNTER 2024-11-28 05:57 | Day surgery (SDC) | payer OTHER, SELFPAY ==
--- OUTSIDE RECORDS SUMMARY | 2024-11-18 16:16 | XMS_ITS | Patient Health Record ---
Author Organization [facility] Address [address] [place] [address] Care Team Providers Care Hot Worker Name Role Phone Agustin ORTA, Reinaldo Primary Care Provider Chuck Marquis Unavailable [phone] Allergies Allergen (clinical drug ingredient) Drug/Non Drug [...] directed Orally once a day Active Nystatin 746111 UNIT TAKE 2 TABLETS BY M OUTH [...] Problem Status W/U Status Risk Notes Problem 348466613 Encounter for screening for malignant neoplasm of colon (Z12.11) Active confirmed Problem Change in bowel habit (03370503) Change in bowel habits (R19.4) Active confirmed Problem 322404390476096 Pre-procedural examination (Z01.818) Active confirmed Problem Celiac disease (380915490) Gluten intolerance (K90.0) Active confirmed Plan Of Treatment Pending Test Test Name Order Date CELIAC PANEL #10 04/08/2020 Future Test Test Name Order Date COLONOSCOPY 06/28/2018 Insurance Providers Payer Name Payer Address Payer Phone Subscriber Number Group Number Insured Name Patient Relationship to Insured Coverage Start Date Coverage End Date [employer] [address] [address] [place] [address] [id number] ARTURO ESCOBAR Self - patient is [...]
[2024-11-26 10:36] VITALS: BMI 22.5
--- NOTE | 2024-11-27 08:51 | HO.ANESPROP2 ---
Documented by User: Paradise Fuller NP 11/27/24 08:51 HPI - Anesthesia Eval Consult details Narrative: 54yo F for D&C Hysteroscopy,possible myomectomy,possible polypectomy, PMFSH Active Problems Active Problems: All Active Problems Need for Tdap vaccination (Acute) OCD (obsessive compulsive disorder) (Acute) On hormone replacement therapy (Acute) Menopause (Acute) DEMIAN (generalized anxiety disorder) (Acute) Uterine myoma (Acute) Stress incontinence (Acute) Physical exam (Acute ~05/2024) Wrist pain (Acute) Polyarthralgia (Acute) Disorder of ligament, right ankle (Acute) Recurrent sinusitis (Acute) Intermittent palpitations (Acute) Rotator cuff impingement syndrome of right shoulder (Acute) Instability of both shoulder joints (Acute) Recurrent UTI (urinary tract infection) (Acute) Urinary urgency (Acute) Shoulder pain (Acute) Unsatisfactory cervical Papanicolaou smear (Acute) Fibroid (Acute) Postmenopausal bleeding (Acute) Chronic depressive disorder (Acute) Gluten-sensitive enteropathy (Acute) Past Medical History Medical History Anxiety Herpes Arthritis Sinusitis Unsatisfactory cervical Papanicolaou smear Fibroid Postmenopausal bleeding Abnormal vaginal bleeding Chronic depressive disorder Gluten-sensitive enteropathy Family History Family History (Updated 11/25/24 @ 08:18 by Aaron Beal MA) Father Hypertension CVD (cardiovascular disease) Mother Lung cancer Brother Lung cancer Maternal Grandmother Mental health disorder Surgical History Surgical History History of colonoscopy (~08/2018) History of hysteroscopy History of dental surgery Status post cervical polyp removal History of augmentation of both breasts Social History Social History (Updated 11/25/24 @ 08:18 by Aaron Beal MA) Household Members: Spouse Housing: House Are you a primary campground caretaker to a significant other at home: No Do you presently have visiting nurse or other home services: No Alcohol intake: current Alcohol intake frequency: holidays/special occasions only Patient Tobacco Use Status: Never used Tobacco e-Cigarette/Vaping Use: Never Used Second Hand Smoke Exposure: No Have you been hit, kicked, punched, or otherwise hurt by someone within the past year? 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 Cognitive needs: No Hearing needs: No Vision needs: Yes Meds Allergies Allergy/AdvReac Type Severity Reaction Status Date / Time amoxicillin Allergy Severe Anaphylaxis Verified 11/28/24 06:13 clindamycin [CLINDAMYCIN] Allergy Severe HIVES AND Verified 11/28/24 06:13 BODY SWELLING Penicillins [PENICILLINS] Allergy Severe ANAPHYLAXIS Verified 11/28/24 06:13 azithromycin Allergy Intermediate SWELLING, Verified 11/28/24 06:13 [From ZITHROMAX Z-ASHTYN] rash sulfamethoxazole Allergy Intermediate rash Verified 11/28/24 06:13 [From Bactrim] trimethoprim [From Bactrim] Allergy Intermediate rash Verified 11/28/24 06:13 egg Allergy Unknown Unknown Verified 11/28/24 06:13 Home Medications ?Medication ?Instructions ?Recorded ?Confirmed ?Last Taken ?Type valacyclovir 500 mg tablet 500 mg PO DAILY 04/13/20 11/26/24 Unknown History estradiol 0.05 mg/24 hr semiweekly 1 patch transdermal 2XW 04/15/21 11/26/24 Unknown History transdermal patch progesterone micronized 200 mg 200 mg PO BEDTIME 04/15/21 11/26/24 Unknown History capsule buspirone 5 mg tablet 5 mg PO TID 01/15/24 11/26/24 Unknown History nystatin 500,000 unit tablet 1,000,000 unit PO BID 01/15/24 11/26/24 Unknown History lutein PO 09/15/24 11/25/24 Unknown History mecobalamin (vitamin B12) PO 09/15/24 11/25/24 Unknown History oregano oil PO 09/15/24 11/25/24 Unknown History turmeric PO 09/15/24 11/25/24 11/27/24 History fluvoxamine 25 mg tablet 25 mg PO BEDTIME 11/25/24 11/26/24 Unknown History medium chain triglycerides 7.7 15 ml PO DAILY 11/25/24 11/26/24 Unknown History kcal/mL oral oil (MCT Oil) multivitamin (Daily Multi-Vitamin 1 tab PO DAILY 11/25/24 11/26/24 Unknown History tablet) epinephrine 0.3 mg/0.3 mL 0.3 mg IM DIRECTED anaphylaxis 11/26/24 11/26/24 Unknown History injection, auto-injector Exam Height,Weight and Vital Signs: Height 5 ft 3 in Weight 57.606 kg Assessment and Plan Assessment Anesthesia Assessment: Chart Reviewed Documented by User: Rachel Camacho MD 11/28/24 07:06 [facility] Past Medical History Medical History Anxiety Herpes Arthritis Sinusitis Unsatisfactory cervical Papanicolaou smear Fibroid Postmenopausal bleeding Abnormal vaginal bleeding Chronic depressive disorder Gluten-sensitive enteropathy Family History Family History (Updated 11/25/24 @ 08:18 by Aaron Beal MA) Father Hypertension CVD (cardiovascular disease) Mother Lung cancer Brother Lung cancer Maternal Grandmother Mental health disorder Family history of problems with anesthesia: No Surgical History Surgical History History of colonoscopy (~08/2018) History of hysteroscopy History of dental surgery Status post cervical polyp removal History of augmentation of both breasts History of Problems with Anesthesia: No Social History Social History (Updated 11/25/24 @ 08:18 by Aaron Beal MA) Household Members: Spouse Housing: House Are you a primary campground caretaker to a significant other at home: No Do you presently have visiting nurse or other home services: No Alcohol intake: current Alcohol intake frequency: holidays/special occasions only Patient Tobacco Use Status: Never used Tobacco e-Cigarette/Vaping Use: Never Used Second Hand Smoke Exposure: No Have you been hit, kicked, punched, or otherwise hurt by someone within the past year? If so, by whom?: No Are you DNR?: No Advance Directives: No Advance Directives Information Provided: Yes Poor oral hygiene: No service: No Current occupational status: employed Current occupation: works in [employer] benefits at the hospital Cognitive needs: No Hearing needs: No Vision needs: Yes Meds Allergies Allergy/AdvReac Type Severity Reaction Status Date / Time amoxicillin Allergy Severe Anaphylaxis Verified 11/28/24 06:13 clindamycin [CLINDAMYCIN] Allergy Severe HIVES AND Verified 11/28/24 06:13 BODY SWELLING Penicillins [PENICILLINS] Allergy Severe ANAPHYLAXIS Verified 11/28/24 06:13 azithromycin Allergy Intermediate SWELLING, Verified 11/28/24 06:13 [From ZITHROMAX Z-ASHTYN] rash sulfamethoxazole Allergy Intermediate rash Verified 11/28/24 06:13 [From Bactrim] trimethoprim [From Bactrim] Allergy Intermediate rash Verified 11/28/24 06:13 egg Allergy Unknown Unknown Verified 11/28/24 06:13 Home Medications ?Medication ?Instructions ?Recorded ?Confirmed ?Last Taken ?Type valacyclovir 500 mg tablet 500 mg PO DAILY 04/13/20 11/26/24 Unknown History estradiol 0.05 mg/24 hr semiweekly 1 patch transdermal 2XW 04/15/21 11/26/24 Unknown History transdermal patch progesterone micronized 200 mg 200 mg PO BEDTIME 04/15/21 11/26/24 Unknown History capsule buspirone 5 mg tablet 5 mg PO TID 01/15/24 11/26/24 Unknown History nystatin 500,000 unit tablet 1,000,000 unit PO BID 01/15/24 11/26/24 Unknown History lutein PO 09/15/24 11/25/24 Unknown History mecobalamin (vitamin B12) PO 09/15/24 11/25/24 Unknown History oregano oil PO 09/15/24 11/25/24 Unknown History turmeric PO 09/15/24 11/25/24 11/27/24 History fluvoxamine 25 mg tablet 25 mg PO BEDTIME 11/25/24 11/26/24 Unknown History medium chain triglycerides 7.7 15 ml PO DAILY 11/25/24 11/26/24 Unknown History kcal/mL oral oil (MCT Oil) multivitamin (Daily Multi-Vitamin 1 tab PO DAILY 11/25/24 11/26/24 Unknown History tablet) epinephrine 0.3 mg/0.3 mL 0.3 mg IM DIRECTED anaphylaxis 11/26/24 11/26/24 Unknown History injection, auto-injector Exam Airway Mallampati Class: II (one cap top lateral) TM Dist: >3cm Neck ROM: Full Heart: rrr Lungs: cta Assessment and Plan Assessment Anesthesia Assessment: Anesthesia Plan Discussed Final Anesthetic Review Family History of Problems with Anesthesia: No History of Problems with Anesthesia: No NPO: Yes ASA Class: II Final Preanesthetic Review: No Changes in Pt Med Stat, Meds/Allgs Chart Reviewed and Consent Obtained/Reviewed Patient Risk: Low Procedure Risk: Low Anesthetic Plan Anesthetic Plan: GA Disposition: Standard PACU
[2024-11-28 06:11] VITALS: BMI 22.3
[2024-11-28] MEDS: Lactated Ringers 1,000 ML 100 ML IVCONT (06:18)
[2024-11-28 06:26] VITALS: BP 103/66; PULSE 70; RESP 18; TEMP 36.8; O2SAT 100
--- NOTE | 2024-11-28 07:34 | MHC.SHP ---
Pre-Procedural Eval Section A - 24 Hr Update-Section A only Date of Service: 11/28/24 The patient is an INPATIENT: No Changes since office visit: No Cold of Flu in the past 2 weeks, No New Medical Problems, No Changes in Medication and No Patient answered all questions The patient has been examined within 24 hours of the surgical procedure. The History & Physical has been completed within 30 days and I have reviewed it.: Yes Section B - Complete if H&P > 30 days Chief Complaint: Postmenopausal bleeding Allergies: Allergies Allergy/AdvReac Type Severity Reaction Status Date / Time amoxicillin Allergy Severe Anaphylaxis Verified 11/28/24 06:13 clindamycin [CLINDAMYCIN] Allergy Severe HIVES AND Verified 11/28/24 06:13 BODY SWELLING Penicillins [PENICILLINS] Allergy Severe ANAPHYLAXIS Verified 11/28/24 06:13 azithromycin Allergy Intermediate SWELLING, Verified 11/28/24 06:13 [From ZITHROMAX Z-ASHTYN] rash sulfamethoxazole Allergy Intermediate rash Verified 11/28/24 06:13 [From Bactrim] trimethoprim [From Bactrim] Allergy Intermediate rash Verified 11/28/24 06:13 egg Allergy Unknown Unknown Verified 11/28/24 06:13 Plan Diagnosis/Plan: Unchanged I have reviewed the history and physical and performed a pertinent physical examination on my patient. No changes have occurred unless specified. Time Spent With Patient Time: Total time managing care of this patient today ____ minutes.
[2024-11-28 08:00] VITALS: BP 100/59; PULSE 80; RESP 12; TEMP 36.1; O2SAT 97
--- NOTE | 2024-11-28 08:00 | P.BOP_ITS ---
Brief Operative Note Date of Service: 11/28/24 Pre-op diagnosis: Postmenopausal bleeding Post-op diagnosis: same (2 endometrial polyps) Procedure: Hysteroscopy D&C, Polypectomy Surgeon: Papo Geiger MD Anesthesia: GLMA Was an Bromination Equipment Operator used for this Procedure?: No Estimated blood loss (mL): 0 Pathology: other (Endometrial Scrapping. Polyps) Condition: stable Disposition: PACU
--- NOTE | 2024-11-28 08:01 | W.PM.OPN ---
Operative Note Operative Note Date of Service: 11/28/24 Narrative: Preop Diagnosis: Postmenopausal bleeding Operation: Diagnostic Hysteroscopy, Dilataion & Curettage and polypectomy Post Op Diagnosis: 2 Endometrial Polyps QBL: Minimal Anesthesia: GLMA Surgeon: Papo Geiger MD Biofuels Production Manager: None Complication: None Pathology: Endometrial Scrapings, Endometrial polyp Procedure: The patient was put in the dorsal lithotomy position, scrubbed, and draped in the usual manner. A sterile speculum was inserted in the patient's vagina. The anterior lip of the cervix was grasped with a single tooth tenaculum. The cervix was dilated up to 5 mm, then the scope was inserted in the patient's uterus. Inspection revealed 2 endometrial polyps. The Myosure Reach device was used; it was introduced through the operative channel and polypectomy done with no complications. The scope was then taken out from the uterine cavity, sharp curettings was carried on with minimal to moderate amount of tissues retrieved. At the end of the procedure, all instruments were taken out of the patient uterine and vaginal cavity. The single tooth tenaculum was removed and homeostasis was assured using pressure,. The patient tolerated the procedure well and was transferred to the PACU in a stable condition.
[2024-11-28 08:05] VITALS: BP 116/79; PULSE 78; RESP 17; O2SAT 96
[2024-11-28] MEDS: oxyCODONE HCl Immed Release 5 MG TABLET PO (08:06)
[2024-11-28 08:10] VITALS: BP 122/71; PULSE 74; RESP 18; O2SAT 99
[2024-11-28 08:15] VITALS: BP 119/68; PULSE 64; RESP 17; O2SAT 99
[2024-11-28 08:27] VITALS: BP 109/67; PULSE 69; RESP 18; TEMP 36.3; O2SAT 99
== END 2024-11-28 09:24 | disposition home or self-care (01) ==
PROVIDERS: Visit Provider Obstetrics & Gynecology
PROC: 0UDB8ZZ Extraction of Endometrium, Via Natural or Artificial Opening Endoscopic (ICD-10-PCS; CPT 58558; principal; 2024-11-28 07:30)
DX: N95.0 Postmenopausal bleeding (principal); N84.0 Polyp of corpus uteri; D25.9 Leiomyoma of uterus, unspecified; K90.0 Celiac disease; K86.81 Exocrine pancreatic insufficiency; F33.9 Major depressive disorder, recurrent, unspecified; Z79.899 Other long term (current) drug therapy; Z88.0 Allergy status to penicillin; Z88.1 Allergy status to other antibiotic agents; Z88.2 Allergy status to sulfonamides; Z91.012 Allergy to eggs; Z98.890 Other specified postprocedural states
CPT/HCPCS: 58558; 88305; J1100; J1885; J2003; J2250; J2405; J2704; J3010

== ENCOUNTER 2024-12-03 13:32 | Outpatient (AMB) | payer OTHER, SELFPAY ==
--- NOTE | 2024-12-03 14:00 | A.OFFPC_ITS ---
Intake Visit Reasons: Telehealth appt. to come up with a plan Intake Note: Telehealth to discuss a plan Retread Supervisor Required: No Allergies amoxicillin Allergy (Severe, Verified 12/03/24 14:03) Anaphylaxis clindamycin (CLINDAMYCIN) Allergy (Severe, Verified 12/03/24 14:03) HIVES AND BODY SWELLING Penicillins (PENICILLINS) Allergy (Severe, Verified 12/03/24 14:03) ANAPHYLAXIS azithromycin (From ZITHROMAX Z-ASHTYN) Allergy (Intermediate, Verified 12/03/24 14:03) SWELLING, rash sulfamethoxazole (From Bactrim) Allergy (Intermediate, Verified 12/03/24 14:03) rash trimethoprim (From Bactrim) Allergy (Intermediate, Verified 12/03/24 14:03) rash egg Allergy (Unknown, Verified 12/03/24 14:03) Unknown Tobacco use date assessed: 12/03/24 Dental Screening Dental Screen Date: 12/03/24 Did you have a dental visit in the last 12 months?: Yes Did you have a dental problem in the last 6 months where you did not have access to dental care?: No Was dental information given to patient?: Patient has dentist HPI HPI Comments History of Present Illness Details 54 y/o F with MDD, DEMIAN, OCD, Fibroids, Gluten sensitivity, polyarthralgia, Recurrent UTI and Sinusitis, stress incont, anemia, Menopause s/p breast surgery, dental surgery, hysteroscopy, cervical polyp removal benign pathology Social: works at [employer], Fhx: Brother w/ [place] and Etoh; Mom Health Maintenance Tdap 2014, updated today Pap 10/2024 WNL at [employer] Mammo 06/2024 Colon 08/2018 SUDARSHAN Khan has never had one, ordered today Specialist GI MANAGER DAIRY @ [employer] [facility] [employer]. Rheum Ortho [facility] - [facility], LIGHT ADJUSTER Counselor Telehealth today to review portal message below: At the risk of sounding like a hypochondriac, is it possible to have hormone testing or bloodwork done? While I don?t have skin darkening or weight loss, I do seem to have many of the symptoms that align with secondary addissons. I realize many of these symptoms such as irritability and low labido also align w ith menopause. I?m also on nystatin, an antifungal that can lead to it. Dr. Malladi had prescribed it for frequent sinus infections. The joint pain, fatigue, muscle weakness / extreme fatigue after working out. I?ve complained about dizziness when standing to Dr. Velez in the past, which he attributed to having blood pressure on the lower side. Today she explains: she has concerns regarding muscle fatigue and nystatin use. Severe post-exertional fatigue during specific weight-bearing exercises. unable to get off couch. any time exert self cannot move. Concern about the safety and side effects of prescribed nystatin. this is to prevent recurrent sinusits and has worked quite well. has read online about adrenals, cortisol and hormones causing these sx along w/ others such as low libido. wonders about hormone testing has estrogen seeds Cervical polyps benign. Review of Systems - Musculoskeletal: Reports fatigue after certain weight-bearing exercises. Denies any persistent muscle weakness. - Endocrine: Reports concerns regarding hormone levels affecting fatigue and menopausal symptoms. - Cardiovascular: Reports dizziness upon standing. Denies any reported cardiac symptoms. - Neurological: Denies weakness in arms or visual disturbances. Reports previous tingling sensations in arms. - Gastrointestinal: Denies nausea, vomit ing, or abdominal pain related to nystatin. - Otorhinolaryngological: Historical sin us infections significantly reduced with nystatin use. Results - Labs: Prior ESR done in 2020, suggeste d repeated, current plus new labs ordered including CK levels and inflammatory markers. Plan Advised no need to check adrenals or cortisol. No need to look at hormones. I do not think she has secondary addisons. Nystatin use and risk edu provided. Taking QD not BID managed by ENT Rather need to check other labs to eval her muscle weakness Obtain labs below. If + will need to refer; if CRP or Sed rate elevated but normal otherwise, no need to refer. FU once labs resulted. Made aware this can take a few weeks. The visit was conducted via a telehealth platform. All documented information accurately reflects the patient?s account and my medical judgment based upon that interaction. The patient has been explained that this is an interactive (audio/video) telehealth encounter and what that consists of. The patient understands and wishes to proceed. MessageCast platform was used. Total time spent caring for the patient today was 31 minutes. This includes time spent before the visit reviewing the chart, time spent during the visit, and time spent after the visit on documentation, reviewing laboratory results, diagnostic imaging, medications, performing a medically necessary evaluation, counseling on diagnoses, care coordination, ordering appropriate tests, ordering appropriate medications, review of tests performed by other providers, reporting test results with the patient, communication with other healthcare providers. [facility] Medical History (Updated 12/03/24 @ 16:32 by Rianna Rebolledo, [facility]) Abnormal vaginal bleeding Anxiety Arthritis Chronic depressive disorder Dense breast Family history of breast cancer Fibroid Gluten-sensitive enteropathy Herpes Postmenopausal bleeding Sinusitis Unsatisfactory cervical Papanicolaou smear Surgical History History of augmentation of both breasts History of colonoscopy (~08/2018) History of dental surgery History of hysteroscopy Status post cervical polyp removal Family History (Updated 11/25/24 @ 08:18 by Aaron Beal MA) Father Hypertension CVD (cardiovascular disease) Mother Lung cancer Brother Lung cancer Maternal Grandmother Mental health disorder Social History (Updated 11/25/24 @ 08:18 by Aaron Beal MA) Household Members: Spouse Both parents involved: No Caregiver staying overnight: No Housing: House Are you a primary career guidance technician to a significant other at home: No Do you presently have visiting nurse or other home services: No 75 years or older and lives alone: No Alcohol intake: current Alcohol intake frequency: holidays/special occasions only Patient Tobacco Use Status: Never used Tobacco e-Cigarette/Vaping Use: Never Used Second Hand Smoke Exposure: No service: No Current occupational status: employed 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 Cognitive needs: No Hearing needs: No Vision needs: Yes Questionnaire Thrive Questionnaire Date Thrive assessed: 11/22/24 I am a: Patient What is your living situation today?: I have a steady place to live Within the past 12 months, did the food you bought not last and you didn't have the money to get more?: Never true Within the past 12 months, did you worry whether your food would run out before you got money to buy more?: Never true Do you have trouble paying for medicines?: No Do you have trouble getting transportation to medical appointments?: No Do you have trouble paying your heating and electricity bill?: No Do you have trouble taking care of your child, family member or friend?: No Do you have trouble with day-to-day activities such as bathing, preparing meals, shopping, managing finances, etc.?: No Are you currently unemployed and looking for a job?: No Are you interested in more education?: No Please select the resources that you would like help with: None Currently or been in a relationship where the following occur: No concerns reported THRIVE Score: 0 DEMIAN-7 AMB Questionnaire DEMIAN-7 Date DEMIAN - 7 assessed: 11/25/24 Source: Developed by Drs. Chuck Angelo, Kimber Heredia, Misael Greene and colleagues, with an educational tootie from [employer]. Physical exam (Primary Care) Tobacco/Smoking Status: Tobacco use Status Tobacco use date assessed 12/03/24 12/03/24 14:03 Patient Tobacco Use Status Never used Tobacco 12/03/24 14:03 e-Cigarette/Vaping Use Never Used 12/03/24 14:03 Thrive Assessment: Date of Thrive Assessment Date Thrive assessed 11/22/24 12/03/24 14:03 Currently or been in a relationship where the following occur: No concerns rep orted Telehealth Telehealth [facility]health [facility] Location of provider rendering services: practice address Location of patient: address on file Patient Identification confirmed using: Name, : Yes Telehealth method: voice only Patient verbally consented to treatment: Yes Patient verbally consented to billing insurance company: Yes Patient informed of any privacy concerns related to visit: Yes Minutes spent on Phone/Video with Pt.: 16 Coding Level of Care Code Tele Est Pt Level 4 (64701) Complex EM visit Add On G2211 Diagnoses Muscle weakness .81 On hormone replacement therapy Z79.890 Assessment & Plan Assessment & Plan (1) Muscle weakness: Code(s): M62.81 - Muscle weakness (generalized) Category: Medical (2) On hormone replacement therapy: Code(s): Z79.890 - Hormone replacement therapy Category: Medical Plan . Orders: Orders Acetylcholine Recept. Blocking Today .81 - Muscle weakness (generalized) Acetylcholine Receptor Binding Today M6.81 - Muscle weakness (generalized) CK, Total+Isoenzymes, Serum Today M62.81 - Muscle weakness (generalized) Erythrocyte Sedimentation Rate Today M62.81 - Muscle weakness (generalized) CRP High Sensitivity Today M6.81 - Muscle weakness (generalized) JIGNESH Reflex Titer and Pattern Today M681 - Muscle weakness (generalized) Lactate Dehydrogenase Today - Muscle weakness (generalized) Acetylcholine Copier Repair Technician Modulating Today - Muscle weakness (generalized) MuSK Antibody Today - Muscle weakness (generalized) Aldolase Today - Muscle weakness (generalized)
== END 2024-12-03 16:34 | disposition home or self-care (01) ==
LOC: HO.HMCFM 13:32
PROVIDERS: PCP Nurse Practitioner Family; Visit Provider Nurse Practitioner Family
DX: M62.81 Muscle weakness (generalized) (principal); Z79.890 Hormone replacement therapy

== ENCOUNTER → 2024-12-03 13:32 | Outpatient (BNVA) | payer OTHER, SELFPAY | PROVIDERS: PCP Nurse Practitioner Family; Visit Provider Nurse Practitioner Family | DX: N39.3 Stress incontinence (female) (male) (principal); K21.9 Gastro-esophageal reflux disease without esophagitis; F32.9 Major depressive disorder, single episode, unspecified; F42.9 Obsessive-compulsive disorder, unspecified; M25.50 Pain in unspecified joint; M62.81 Muscle weakness (generalized); Z79.890 Hormone replacement therapy; Z78.0 Asymptomatic menopausal state; Z87.440 Personal history of urinary (tract) infections | CPT/HCPCS: 98968 ==

== ENCOUNTER 2024-12-11 12:54 | Outpatient (AMB) | payer OTHER, SELFPAY ==
--- NOTE | 2024-12-11 12:55 | A.OFFVIS_ITS ---
Intake Visit Reasons: post op Allergies amoxicillin Allergy (Severe, Verified 12/03/24 14:03) Anaphylaxis clindamycin (CLINDAMYCIN) Allergy (Severe, Verified 12/03/24 14:03) HIVES AND BODY SWELLING Penicillins (PENICILLINS) Allergy (Severe, Verified 12/03/24 14:03) ANAPHYLAXIS azithromycin (From ZITHROMAX Z-ASHTYN) Allergy (Intermediate, Verified 12/03/24 14:03) SWELLING, rash sulfamethoxazole (From Bactrim) Allergy (Intermediate, Verified 12/03/24 14:03) rash trimethoprim (From Bactrim) Allergy (Intermediate, Verified 12/03/24 14:03) rash egg Allergy (Unknown, Verified 12/03/24 14:03) Unknown HPI Comments Details: The patient scheduled a TV post hysteroscopy D&C no complaints minimal vaginal bleeding no feverishness chills or abdominal pain. Intraoperative findings: 2 endometrial polyps The pathology showed the following: A. Endometrial polyps, resection: Fragments of benign endometrial polyps, and fragments of benign smooth muscle (submucosal leiomyoma/adenomyoma versus myometrium); no atypia or carcinoma. B. Endometrium, curettage: Benign inactive endometrium, small fragments of benign smooth muscle, and benign endocervical glandular epithelium; no atypia or carcinoma [facility] Medical History (Updated 12/11/24 @ 13:27 by Papo Geiger MD) Dense breast Family history of breast cancer Anxiety Herpes Arthritis Sinusitis Unsatisfactory cervical Papanicolaou smear Fibroid Postmenopausal bleeding Abnormal vaginal bleeding Chronic depressive disorder Gluten-sensitive enteropathy Surgical History History of colonoscopy (~08/2018) History of hysteroscopy History of dental surgery Status post cervical polyp removal History of augmentation of both breasts Family History Father Hypertension CVD (cardiovascular disease) Mother Lung cancer Brother Lung cancer Maternal Grandmother Mental health disorder Social History Household Members: Spouse Both parents involved: No Caregiver staying overnight: No Housing: House Are you a primary rn critical care to a significant other at home: No Do you presently have visiting nurse or other home services: No 75 years or older and lives alone: No Alcohol intake: current Alcohol intake frequency: holidays/special occasions only Patient Tobacco Use Status: Never used Tobacco e-Cigarette/Vaping Use: Never Used Second Hand Smoke Exposure: No service: No Current occupational status: employed 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 Cognitive needs: No Hearing needs: No Vision needs: Yes Review of Systems Const All systems reviewed & are unremarkable except as noted in HPI and below Reports as per HPI and Reports no additional complaints GI Reports no additional complaints Reports no additional complaints Telehealth Telehealth Telehealth Platform: [facility] Location of provider rendering services: practice address Location of patient: address on file Patient Identification confirmed using: Name, : Yes Telehealth method: video Patient verbally consented to treatment: Yes Patient verbally consented to billing insurance company: Yes Patient informed of any privacy concerns related to visit: Yes Minutes spent on Phone/Video with Pt.: 6 Assessment & Plan Assessment & Plan (1) Postmenopausal bleeding: Comment: endometrial polyp s/p hysteroscopic polypectomy Code(s): N95.0 - Postmenopausal bleeding Category: Medical Plan: Discussed with the patient the results of the pathology results. Discussed with the patient the sensitivity, specificity, positive and negative predictive value, of endometrial biopsy in detecting endometrial pathology including but not limited to endometrial hyperplasia, cancer and other pathology; instructed the patient to call in case vaginal bleeding recurs, the next step will be to proceed with further endometrial sampling evaluation to rule out endometrial pathology. All questions answered and the patient verbalized understanding and agreed with the plan. I spent a total of 20 minutes reviewing the chart, talking to the patient via [employer] ideo and documenting in the medical record. Coding Level of Care Code Tele Est Pt Level 3 (35947) Diagnoses Postmenopausal bleeding N95.0
--- OUTSIDE RECORDS SUMMARY | 2024-12-11 15:21 | XMS_ITS | Patient Health Record ---
Author Organization [facility] Address [address] [place] [address] Care Team Providers Care Dipper Fish Name Role Phone Agustin ORTA, Reinaldo Primary Care Provider Chuck Marquis Unavailable [phone] Allergies Allergen (clinical drug ingredient) Drug/Non Drug Allergy documented on EMR Reaction Allergy Type Onset Date Status clindamycin Clindamycin HCl Unknown Drug Allergy Active sulfamethoxazole / trimethoprim Bactrim Unknown Drug Allergy Active Azithromycin Unknown Drug Allergy Acti ve amoxicillin Amoxicillin Unknown Drug Allergy Act faviola penicillin G Penicillin G Sodium Unknown Drug Allergy Active Reason For Referral No Information Medications Medication [...] directed Orally once a day Active Nystatin 485605 UNIT TAKE 2 TABLETS BY M OUTH [...] Problem Status W/U Status Risk Notes Problem [id number] Encounter for screening for malignant neoplasm of colon (Z12.11) Active confirmed Problem Change in bowel habit (57137891) Change in bowel habits (R19.4) Active confirmed Problem [id number] Pre-procedural examination (Z01.818) Active confirmed Problem Celiac disease (839379518) Gluten intolerance (K90.0) Active confirmed Plan Of Treatment Pending Test Test Name Order Date CELIAC PANEL #10 04/08/2020 Future Test Test Name Order Date COLONOSCOPY 06/28/2018 Insurance Providers Payer Name Payer Address Payer Phone Subscriber Number Group Number Insured Name Patient Relationship to Insured Coverage Start Date Coverage End Date [employer] [address] [address] [place] [address] [id number] ARTURO ESCOBAR Self - patient is the insured Medical (General) History Medical History History ICD Code Denies SC,DM,CVA,Lung disease,renal dise ase Anxiety Chronic low WBC [...]
== END 2024-12-11 14:43 | disposition home or self-care (01) ==
LOC: HO.HWS 12:54
PROVIDERS: PCP Nurse Practitioner Family; Visit Provider Obstetrics & Gynecology
DX: N95.0 Postmenopausal bleeding (principal)
CPT/HCPCS: 99213

== ENCOUNTER 2025-01-08 14:51 | Outpatient (AMB) | payer OTHER, SELFPAY ==
--- OUTSIDE RECORDS SUMMARY | 2025-01-08 15:00 | XMS_ITS | Patient Health Record ---
Author Organization [employer] [facility] Address [address] [place] [address] Care Team Providers Care Learning Support Assistant Name Role Phone KARLY LOVELACE Primary Care Provider ARTURO Randhawa Unavailable [phone] Allergies Allergen (clinical drug ingredient) Drug/Non Drug [...] Interpretation: Performing Lab:Testing performed or reported by [facility], a Service of [facility], [address] [place] [address] Bakari Velasquez MD, [facility]# [id number] Notes/Report: Patient Name: ARTURO EDMONDS Lab Patient : [id number] (Age: 54) Collection Date: 05/06/2024 Accession Date: 05/09/2024 Sign Out Date: 05/15/2024 Tissue Source: 1:EMB Final Diagnosis: Endometrium, biopsy: - Scant superficial fragments of inactive/atrophic endometrium, and features of stromal breakdown. - Fragments of endocervical glandular mucosa and mucus. Primary Pathologist:Lainey Rutledge M.D.,Ph.D. electronically signed out by: Lainey Rutledge M.D.,Ph.D. / [facility] Clinical History: Postmenopausal bleeding Gross Description: The requisition indicates endometrial biopsy . Received in formalin is a 1.5 x 1.3 x 0.5 cm aggregate of white-tinged mucus with red, fontaine tissue. The specimen is entirely submitted. 1-multiple pieces, x 2. (EG)* As of August 25, 2023, the specimen processing and staining is performed at [facility], [address] [place] [address] (CLIA#[id number]). Its performance characteristics determined by [facility]. Hollie Stephen M.D. [facility], Jonatan Schultz M.D. [facility] Phone #: [phone], On-Call Pathologist: [id number] Reason For Referral No Information Medications Medication SIG (Take, Route, Frequency, Duration) Notes Start Date End Date Status Nystatin 924088 UNIT Oral; Duration: 60 Active Citalopram Hydrobromide 10 MG/5ML Oral; Duration: 90 06/19 tab weening off Active busPIRone HCl 5 MG 1 tablet Orally Twice a day Active Progesterone 200 MG 1 capsule at bedtime Orally Once a day; Duration: 90 days Active Oregano Oil-Flaxseed Oil 50-25 MG as directed Orally Active valACYclovir HCl 500 MG 1 tablet Orally Once a day; Duration: 90 days Active Nitrofurantoin Activ e Multi Complete Activ e Magnesium 500 MG 1 tablet with a meal Orally Once a day Active Vitamin B12 Active miSOPROStol 200 MCG as directed Orally 8-12 hrs prior to appointment; Duration: 1 days 05/02/2024 Active Probiotic - as directed Orally Active Estradiol 0.05 MG/24HR 1 patch to skin Transdermal Two times a Week; Duration: 90 days 02/02/2021 Active Turmeric Active Calcium [...] Notes: Marital status: single 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 Nutrition: average diet Exercise: regular weight lifting / resistance exercise regular cardio Sexual activity: not sexually active Contraception: oral contraceptives Smoking: never a smoker Alcohol: occasional alcohol Text messaging while driving: no Sunscreen: yes Illicit drugs: no Seatbelt: yes Marital status: single 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 Nutrition: average diet Exercise: regular weight lifting / resistance exercise regular cardio Sexual activity: not sexually active Contraception: oral contraceptives Smoking: never a smoker Alcohol: occasional alcohol Text messaging while driving: no Sunscreen: yes Illicit drugs: no Seatbelt: yes Marital status: single 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 Nutrition: average diet Exercise: regular weight lifting / resistance exercise regular cardio Sexual activity: not sexually active Contraception: oral contraceptives Smoking: never a smoker Alcohol: occasional alcohol Text messaging while driving: no Sunscreen: yes Illicit drugs: no Seatbelt: yes Marital status: single 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 Nutrition: average diet Exercise: regular weight lifting / resistance exercise regular cardio Sexual activity: not sexually active Contraception: oral contraceptives Smoking: never a smoker Alcohol: occasional alcohol Text messaging while driving: no Sunscreen: yes Illicit drugs: no Seatbelt: yes Marital status: single 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 Nutrition: average diet Exercise: regular weight lifting / resistance exercise regular cardio Sexual activity: not sexually active Contraception: oral contraceptives Smoking: never a smoker Alcohol: occasional alcohol Text messaging while driving: no Sunscreen: yes Illicit drugs: no Seatbelt: yes Marital status: single 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 Nutrition: average diet Exercise: regular weight lifting / resistance exercise regular cardio Sexual activity: not sexually active Contraception: oral contraceptives Smoking: never a smoker Alcohol: occasional alcohol Text messaging while driving: no Sunscreen: yes Illicit drugs: no Seatbelt: yes Marital status: single 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 Nutrition: average diet Exercise: regular weight lifting / resistance exercise regular cardio Sexual activity: not sexually active Contraception: oral contraceptives Smoking: never a smoker Alcohol: occasional alcohol Text messaging while driving: no Sunscreen: yes Illicit drugs: no Seatbelt: yes Marital status: single 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 Nutrition: average diet Exercise: regular weight lifting / resistance exercise regular cardio Sexual activity: not sexually active Contraception: oral contraceptives Smoking: never a smoker Alcohol: occasional alcohol Text messaging while driving: no Sunscreen: yes Illicit drugs: no Seatbelt: yes Marital status: single 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 Nutrition: average diet Exercise: regular weight lifting / resistance exercise regular cardio Sexual activity: not sexually active Contraception: oral contraceptives Smoking: never a smoker Alcohol: occasional alcohol Text messaging while driving: no Sunscreen: yes Illicit drugs: no Seatbelt: yes Marital status: single 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 Nutrition: average diet Exercise: regular weight lifting / resistance exercise regular cardio Sexual activity: not sexually active Contraception: oral contraceptives Smoking: never a smoker Alcohol: occasional alcohol Text messaging while driving: no Sunscreen: yes Illicit drugs: no Seatbelt: yes Marital status: single 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 Nutrition: average diet Exercise: regular weight lifting / resistance exercise regular cardio Sexual activity: not sexually active Contraception: oral contraceptives Smoking: never a smoker Alcohol: occasional alcohol Text messaging while driving: no Sunscreen: yes Illicit drugs: no Seatbelt: yes Marital status: single 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 Nutrition: average diet Exercise: regular weight lifting / resistance exercise regular cardio Sexual activity: not sexually active Contraception: oral contraceptives Smoking: never a smoker Alcohol: occasional alcohol Text messaging while driving: no Sunscreen: yes Illicit drugs: no Seatbelt: yes Marital status: single 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 Nutrition: average diet Exercise: regular weight lifting / resistance exercise regular cardio Sexual activity: not sexually active Contraception: oral contraceptives Smoking: never a smoker Alcohol: occasional alcohol Text messaging while driving: no Sunscreen: yes Illicit drugs: no Seatbelt: yes Problems Problem Type SNOMED Code ICD Code Onset Dates Problem Status W/U Status Risk Notes Problem Menopause (613334233) Menopausal and female climacteric states (N95.1) Active confirmed Problem Postmenopausal bleeding (08841953) Postmenopausal bleeding (N95.0) Active confirmed Problem Genital herpes simplex (95630020) Herpesviral infection of urogenital system, unspecified (A60.00) Active confirmed Problem Basal cell carcinoma of truncal skin (383901013) Basal cell carcinoma of skin of other part of trunk (C44.519) Active confirmed Problem Cancer of skin of lower limb, basal cell (105994841) Basal cell carcinoma of skin of right lower limb, including hip (C44.712) Active confirmed Problem Mild recurrent major depression (10870087) Major depressive disorder, recurrent, mild (F33.0) Active confirmed Problem Recurrent major depression (16539692) Major depressive disorder, recurrent, unspecified (F33.9) Active confirmed Problem Anxiety disorder (651334650) Anxiety disorder, unspecified (F41.9) Active confirmed Problem Postcoital bleeding (50440479) Postcoital and contact bleeding (N93.0) Active confirmed Problem Abnormal findings on diagnostic imaging of breast (893252780) Other abnormal and inconclusive findings on diagnostic imaging of breast (R92.8) Active confirmed Problem Family history of malignant neoplasm of breast (628256348) Family history of malignant neoplasm of breast (Z80.3) Active confirmed Problem Premenstrual dysphoric disorder (876408) Premenstrual dysphoric disorder (F32.81) Active confirmed Problem COVID-19 (269105417) COVID-19 (U07.1) Active confirmed Problem Genital herpes simplex (57881310) Unspecified genital herpes (054.10) Active confirmed Major Problem Depressive disorder (69803672) Depressive disorder, not elsewhere classified (311) Active confirmed Major Vital Signs Temperature 98.0 degrees Fahrenheit 05/06/2024 Blood pressure diastolic 78 mm Hg 05/06/2024 Height 64 in 05/06/2024 Blood pressure systolic 106 mm Hg 05/06/2024 Weight 127 lbs 05/06/2024 BMI 21.8 kg/m2 05/06/2024 Encounters Encounter Location Date Provider Diagnosis [employer] [facility] [address] [place] [address] 04/29/2024 ARTURO MEYERS Encounter for gynecological examination (general) (routine) without abnormal findings Z01.419 ; Encounter for screening mammogram for malignant neoplasm of breast Z12.31 ; Inconclusive mammogram R92.2 ; Herpesviral infection of urogenital system, unspecified A60.00 and Menopausal and female climacteric states N95.1 [facility] [employer] [address] [place] [address] 05/02/2024 ARTURO MEYERS Abnormal uterine and vaginal bleeding, unspecified N93.[address] [place] [address] 05/06/2024 ARTURO MEYERS Postmenopausal bleed ing N95.[address] [place] [address] 05/14/2024 ARTURO MEYERS Total [address] [address] 08/22/2024 ARTURO MEYERS Assessments Encounter Date Diagnosis [...] Date Coverage End Date [employer] [facility] [address] [address] [place] [address] [id number] ARTURO ORONA Self - patient is the [...]
--- OUTSIDE RECORDS SUMMARY | 2025-01-08 15:00 | XMS_ITS | Patient Health Record ---
Author Organization [facility] Address [address] [place] [address] Care Team Providers Care Linen Clerk Name Role Phone Agustin ORTA, Reinaldo Primary Care Provider Chuck Marquis Unavailable [phone] Allergies Allergen (clinical drug ingredient) Drug/Non Drug [...] directed Orally once a day Active Nystatin 681027 UNIT TAKE 2 TABLETS BY M OUTH [...] Problem Status W/U Status Risk Notes Problem 770877256 Encounter for screening for malignant neoplasm of colon (Z12.11) Active confirmed Problem Change in bowel habit (49748355) Change in bowel habits (R19.4) Active confirmed Problem 707391756480650 Pre-procedural examination (Z01.818) Active confirmed Problem Celiac disease (818272933) Gluten intolerance (K90.0) Active confirmed Plan Of Treatment Pending Test Test Name Order Date CELIAC PANEL #10 04/08/2020 Future Test Test Name Order Date COLONOSCOPY 06/28/2018 Insurance Providers Payer Name Payer Address Payer Phone Subscriber Number Group Number Insured Name Patient Relationship to Insured Coverage Start Date Coverage End Date [employer] [address] [address] [place] [address] [id number] ARTURO ESCOBAR Self - patient is the insured Medical (General) History Medical History History ICD Code Denies SD,DM,CVA,Lung disease,renal dise ase Anxiety Chronic low WBC [...]
--- NOTE | 2025-01-08 15:10 | A.OFFVIS_ITS ---
Vital Signs 01/08/25 15:22 Height 5 ft 3 in Weight 128 lb BMI 22.7 BP 104/72 Blood Pressure Location Lt brachial Position Sitting Pulse 68 Intake Visit Reasons: dense breast Intake Note: Patient is seen in office for evaluation of dense breast. Pt c/o: denies any concerns regarding the breast, had breast augmentation in the past with no complications, has fm hx of breast cancer, is transferring care from from [facility] in [place] and requesting yearly MRI last one was 2022, had genetic testing done by [facility] MRI:12/14/22 mm: 06/27/24 Call Center Consultant Required: No Investigator Fraud: Investigator Fraud Present Accompanied by: Self / Same As Patient Allergies amoxicillin Allergy (Severe, Verified 01/08/25 15:26) Anaphylaxis clindamycin (CLINDAMYCIN) Allergy (Severe, Verified 01/08/25 15:26) HIVES AND BODY SWELLING Penicillins (PENICILLINS) Allergy (Severe, Verified 01/08/25 15:26) ANAPHYLAXIS azithromycin (From ZITHROMAX Z-ASHTYN) Allergy (Intermediate, Verified 01/08/25 15:26) SWELLING, rash sulfamethoxazole (From Bactrim) Allergy (Intermediate, Verified 01/08/25 15:26) rash trimethoprim (From Bactrim) Allergy (Intermediate, Verified 01/08/25 15:26) rash egg Allergy (Unknown, Verified 01/08/25 15:26) Unknown HPI Comments Details: 54-year-old female patient presenting for high-risk breast evaluation. She was previously followed at an outside institution and has transferred her care to [facility]. She reports a strong family history of breast cancer including her paternal grandmother, 2 paternal aunts, and a paternal cousin who was diagnosed with DCIS. Her cousin and 2 aunts underwent genetic testing as did the patient all of which were negative for BRCA mutation. The patient reports a prior history of bilateral breast augmentation with saline implants and denies any problems following the surgery. She denies any previous history of breast biopsies or lumpectomies. She is in her last menstrual period was at the age of 49. Her 1st menstrual period was at the age of 9. She was previously undergoing annual breast MRI and mammograms due to her high-risk status. She currently denies any breast symptoms but is noted to have dense breast tissue (category C) on her most recent mammogram. Screening mammogram performed on 06/27/2024 revealed no significant changes from her prior study (BI-RADS 2). Breast MRI performed on 12/14/2022 revealed no MR specific evidence of malignancy (BI-RADS 1 bilateral). [facility] Medical History Dense breast Family history of breast cancer Anxiety Herpes Arthritis Sinusitis Unsatisfactory cervical Papanicolaou smear Fibroid Postmenopausal bleeding Abnormal vaginal bleeding Chronic depressive disorder Gluten-sensitive enteropathy Surgical History History of colonoscopy (~08/2018) History of hysteroscopy History of dental surgery Status post cervical polyp removal History of augmentation of both breasts Family History Father Hypertension CVD (cardiovascular disease) Mother Lung cancer Brother Lung cancer Maternal Grandmother Mental health disorder Paternal Grandmother Breast cancer Family/Other Breast cancer Family/Other Breast cancer Paternal Aunt Breast cancer Paternal Aunt Breast cancer Social History Household Members: Spouse Both parents involved: No Caregiver staying overnight: No Housing: House Are you a primary health care recruiter to a significant other at home: No Do you presently have visiting nurse or other home services: No 75 years or older and lives alone: No Alcohol intake: current Alcohol intake frequency: holidays/special occasions only Patient Tobacco Use Status: Never used Tobacco e-Cigarette/Vaping Use: Never Used Second Hand Smoke Exposure: No service: No Current occupational status: employed 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 Cognitive needs: No Hearing needs: No Vision needs: Yes Female Reproductive History Menstrual Age of Menarche: 9 Age of menopause: 49 Total pregnancies: 0 Review of Systems Const All systems reviewed & are unremarkable except as noted in HPI and below Physical Exam Vital Signs: Last Vital Signs Pulse 68 01/08/25 15:22 BP 104/72 01/08/25 15:22 BMI result Body Mass Index 22.7 Const General: cooperative and no acute distress Nutritional Appearance: well nourished Orientation/consciousness: patient oriented x3 Limitations: no limitations HEENT Head: Yes normocephalic and Yes atraumatic Ears: hearing grossly normal bilaterally Chest Other: Bilateral breast augmentation with well-healed incision and no evidence of capsular calcification Left breast: No skin change, no nipple retraction, no nipple discharge, no palpable mass, no enlarged lymph nodes. Right breast: No skin change, no nipple retraction, no nipple discharge, no palpable mass, no enlarged lymph nodes Resp Effort & Inspection: normal respiratory effort, no audible wheezes, no cough and no respiratory distress Cardio Jugular venous distension: no JVD GI Inspection: Yes normal to inspection Skin Other: Warm, dry, no rash Neuro General: patient oriented x3 Extrem General: Yes no clubbing, cyanosis or edema Assessment & Plan Assessment & Plan (1) Family history of breast cancer: Code(s): Z80.3 - Family history of malignant neoplasm of breast Category: Medical (2) Dense breast: Code(s): R92.30 - Dense breasts, unspecified Category: Medical (3) At high risk for breast cancer: Code(s): Z91.89 - Other specified personal risk factors, not elsewhere classified Category: Medical Plan 54-year-old female patient presenting for evaluation of dense breast tissue by mammogram and strong family history of breast cancer in multiple relatives. Her calculated Tyrer-Cuzick remaining lifetime risk of breast cancer is approximately 20% placing her at high risk for breast cancer. We discussed the options of adding MRI versus screening ultrasound as well as the relative risks and benefits. She reports having a difficult time with breast MRI in his requesting screening ultrasounds which would alternate with the mammogram. I will inform her of the results once they are available. She should follow up in 6 months for routine breast examination, sooner PRN. Orders: Orders US breast LT complete Today R92.30 - Dense breasts, unspecified, Z80.3 - Family history of malignant neoplasm of breast, Z91.89 - Other specified personal risk factors, not elsewhere classified US breast RT complete Today R92.30 - Dense breasts, unspecified, Z80.3 - Family history of malignant neoplasm of breast, Z91.89 - Other specified personal risk factors, not elsewhere classified Coding Level of Care Code New Pt Level 4 (75816) Diagnoses Family history of breast cancer Z80.3 Dense breast R92.30 At high risk for breast cancer Z91.89
[2025-01-08 15:22] VITALS: BP 104/72; PULSE 68; BMI 22.7
== END 2025-01-08 15:48 | disposition home or self-care (01) ==
LOC: HO.HGS 14:52
PROVIDERS: PCP Nurse Practitioner Family; Visit Provider Surgery
DX: Z80.3 Family history of malignant neoplasm of breast (principal); R92.30 Dense breasts, unspecified; Z91.89 Other specified personal risk factors, not elsewhere classified
CPT/HCPCS: 99204

== ENCOUNTER 2025-01-09 07:35 | Outpatient (REF) | payer OTHER, SELFPAY ==
--- NOTE | ~2025-01-09 | MM_ITS ---
EXAMINATION: DXA BONE DENSITY AXIAL HISTORY: Z13.820 - Encounter for screening for osteoporosis TECHNIQUE: Sossee Dual energy absorptiometry (DEXA) of the lumbar spine, total left hip, and femoral neck was performed. COMPARISON: There are no prior studies for comparison. FINDINGS: The bone mineral density of the lumbar spine is 1.307 g/cm2, corresponding to a T-score of 1.1, and a Z-score of 2.3. This is indicative of normal bone mineral density. The bone mineral density of the left total hip is 0.935 g/cm2, corresponding to a T-score of -0.6, and a Z-score of 0.4. This is indicative of normal bone mineral density. The bone mineral density of the left femoral neck is 0.980 g/cm2, corresponding to a T-score of -0.4, and a Z-score of 0.9. This is indicative of normal bone mineral density. MM/XR DEXA axial skeleton IMPRESSION: Based on bone mineral density, and according to World Health Organization (WHO) criteria, the diagnosis is consistent with normal bone mineral density. Statistically, 68% of repeat scans fall within 1 SD (+/- 0.010 g/cm2 for AP spine L1-L4) and 1 SD (+/- 0.012 g/cm2 for femur total) FRAX is a trademark of the [employer] Met[employer], a World Health Organization (WHO) Collaborating Center. Electronically signed by: Chuck Rodriguez MD 01/09/2025 09:32 AM EDT
[2025-01-09 08:05] LABS: MANUAL DIFF FLAG NO
[2025-01-09 08:37] LABS: Hematocrit 35.8 % (37.0-47.0); Hemoglobin 12.7 g/dl (12.0-16.0); Imm Gran Abs Auto 0.01 X10*3/uL (0.00-0.03); Imm Gran Pct Auto 0.2 % (0.0-0.4); Lymphocytes Absolute Auto 1.1 X10*3/uL (1.2-4.9); Mean Corpuscular HGB Conc 35.5 g/dl (31.0-35.0); Mean Corpuscular Hemoglobin 32.6 pg (27.0-33.0); Mean Corpuscular Volume 91.8 fL (80.0-98.0); NRBC Abs Auto 0.000 X10*3/uL (0.0-0.012); NRBC Pct Auto 0.0 /100WBC (0.0-0.2); Platelet Count 134 X10*3/uL (160-400); Red Blood Count 3.90 X10*6/uL (4.20-5.50); White Blood Count 4.2 X10*3/uL (4.8-10.8)
[2025-01-09 09:11] LABS: Alanine Aminotransferase 20 U/L (0-31); Albumin Level 4.0 g/dL (3.5-5.0); Alkaline Phosphatase 55 U/L (39-117); Anion Gap 11 (12-20); Aspartate Amino Transferase 24 U/L (5-31); Blood Urea Nitrogen 21 mg/dL (9-16); Calcium 8.8 mg/dL (8.4-10.2); Carbon Dioxide 23 mmol/L (22-29); Chloride 110 mmol/L (96-108); Estimated Glomerular Filt Rate > 60; Potassium 4.2 mmol/L (3.3-5.1); Sodium 140 mmol/L (135-145); Total Protein 6.8 g/dL (6.5-8.0)
[2025-01-09 09:30] LABS: Free T4 (Free Thyroxine) 0.93 ng/dL (0.71-1.85); Thyroid Stimulating Hormone 1.60 uIU/mL (0.32-4.0)
[2025-01-09 09:33] LABS: Vitamin B12 641 pg/mL (200-900)
[2025-01-10 06:27] LABS: Follicle Stimulating Hormone 45.1 mIU/mL
[2025-01-13 20:29] LABS: CK-BB None Detected (None Detected); CK-MB 0 % (<5); CK-MM 100 % (95-100); Creatine Kinase,Total,Serum 57 U/L (21-240)
[2025-01-14 19:03] LABS: Acetylcholine Recept. Blocking <15 (<15)
[2025-01-17 15:08] LABS: Anti Nuclear Antibody Pattern Nuclear, Speckled; Anti Nuclear Antibody Screen POSITIVE (NEGATIVE); Anti Nuclear Antibody Titer 1:40 titer
[2025-01-19 05:13] LABS: Estradiol Ultra Sensitive 63 pg/mL
== END 2025-01-09 07:36 | disposition home or self-care (01) ==
LOC: HO.MAMMO 07:35
PROVIDERS: PCP Nurse Practitioner Family; Visit Provider Nurse Practitioner Family
DX: Z01.84 Encounter for antibody response examination (principal); Z13.820 Encounter for screening for osteoporosis; M62.81 Muscle weakness (generalized); N95.9 Unspecified menopausal and perimenopausal disorder; E55.9 Vitamin D deficiency, unspecified; E07.9 Disorder of thyroid, unspecified; Z78.0 Asymptomatic menopausal state
CPT/HCPCS: 36415; 77080; 80053; 82085; 82306; 82552; 82607; 82670; 83001; 83615; 84403; 84439; 84443; 84481; 85025; 85652; 86038; 86039; 86041; 86042; 86043; 86141; 86366; 86376

== ENCOUNTER → 2025-01-09 08:45 | Outpatient (BNV) | payer OTHER, SELFPAY | PROVIDERS: PCP Nurse Practitioner Family; Visit Provider Radiology Diagnostic Radiology | DX: E28.39 Other primary ovarian failure (principal) | CPT/HCPCS: 77080 ==

== ENCOUNTER 2025-01-20 07:58 | Outpatient (RCR) | payer OTHER, SELFPAY ==
--- NOTE | 2024-12-02 15:14 | MHC.PT.EP ---
[facility] [place] Office [place] [facility] [place] [facility] [address] Keily Hanks [address] [phone] F: [phone] F: [phone] F: [phone] F: [phone] Physical Therapy Plan of Care Date of Evaluation: 12/02/24 Date of Surgery: NA Diagnosis: Stress urinary incontinence Assessment: Tita is a 54 year old female who is referred to PT for stress incontinence . She reports of having symptoms of UI for about 2 years. Per pt her symptoms have gradually gotten worse since menopause. She denies having any urgency, frequency, UUI or pain. She also reports of having difficulty holding back gas occasionally. She has been sexually active but currently she is not due to vaginal bleeding which has been attributed to vaginal polyps. She had a polyp removal surgery on 11/28/24. She also reports of having pain during penetration. On PT examination she presented with good lumbar and B LE ROM and strength. Pelvic floor exam deferred due to lack of time. She would benefit from skilled PT to address the aforementioned impairments and improve tolerance to functional activities. Frequency and Duration: The patient will be seen 1/week for 8 weeks Short Term Goals: 1. Transvaginal exam will be done in 2 weeks 2. Pt will report of having 50% decrease in DIDIER in 3 weeks Multiple Drum Sander Helper Goals: 1. Pt will deny having any pain with intercourse in 5 weeks 2. Pt will deny having any gas incontinence in 6 weeks 3. Pt will deny having any DIDIER in 7 weeks 4. Pt will be independent with all HEP for symptom management and maintenance following d/c in 8 weeks. Treatment Plan: Modalities to reduce pain, spasms and effusion. Manual therapy to restore motion and function. Therapeutic exercise to improve strength and flexibility. Neuromuscular re-education for posture and balance. Therapeutic activities to return to functional activities of daily living. Electronically signed by: Please sign and return to therapist. Thank you for your referral.
--- NOTE | 2025-03-02 13:40 | MHC.PT.DC ---
[facility] [place] [facility] [place] Office [place] [facility] [address] Keily Hanks [address] [phone] F: [phone] F: [phone] F: [phone] F: [phone] Physical Therapy Discharge Report Diagnosis: Stress urinary incontinence Date of Surgery: NA Date of Evaluation: 12/02/24 Date of Discharge: 03/02/25 Treatments to Date: 5 Cancellations to Date: 0 No Shows to Date: 0 Discharge Status: Improved Function Independent with HEP Discharge Summary: Tita attended 5 PT visits and made significant improvements with PT. She is independent with all HEPs. She is therefore being d/c from PT. Electronically signed by: Lady Alonzo, PT DPT Please sign and return to therapist. Thank you for your referral.
== END 2025-03-02 13:40 | disposition home or self-care (01) ==
LOC: HO.PT 07:58
PROVIDERS: PCP Nurse Practitioner Family; Visit Provider Nurse Practitioner Family
DX: N39.3 Stress incontinence (female) (male) (principal)
CPT/HCPCS: 97110; 97112; 97140; 97161; 97530

== ENCOUNTER 2025-01-23 08:12 | Outpatient (AMB) | payer OTHER, SELFPAY ==
--- NOTE | 2025-01-23 07:56 | A.OFFPC_ITS ---
Intake Visit Reasons: blood test results Intake Note: Telehealth to review labs Blue Line Operator Required: No Allergies amoxicillin Allergy (Severe, Verified 01/23/25 12:01) Anaphylaxis clindamycin (CLINDAMYCIN) Allergy (Severe, Verified 01/23/25 12:01) HIVES AND BODY SWELLING Penicillins (PENICILLINS) Allergy (Severe, Verified 01/23/25 12:01) ANAPHYLAXIS azithromycin (From ZITHROMAX Z-ASHTYN) Allergy (Intermediate, Verified 01/23/25 12:01) SWELLING, rash sulfamethoxazole (From Bactrim) Allergy (Intermediate, Verified 01/23/25 12:01) rash trimethoprim (From Bactrim) Allergy (Intermediate, Verified 01/23/25 12:01) rash egg Allergy (Unknown, Verified 01/23/25 12:01) Unknown Medication List - Last Reconciled 01/23/25 by Rianna Rebolledo, AIRPORT SCREENER- buspirone 5 mg PO TID epinephrine 0.3 mg IM DIRECTED estradiol 1 patch transdermal 2XW fluvoxamine 25 mg PO BEDTIME lutein PO mecobalamin (vitamin B12) PO medium chain triglycerides (MCT Oil) 15 mL PO DAILY multivitamin (Daily Multi-Vitamin tablet) 1 tab PO DAILY nitrofurantoin macrocrystal 100 mg PO .PRN 90 days nystatin 1,000,000 units PO BID oregano oil PO progesterone micronized 200 mg PO BEDTIME turmeric PO valacyclovir 500 mg PO DAILY Tobacco use date assessed: 01/23/25 Dental Screening Dental Screen Date: 01/23/25 Did you have a dental visit in the last 12 months?: Yes Did you have a dental problem in the last 6 months where you did not have access to dental care?: No Was dental information given to patient?: Patient has dentist HPI HPI Comments History of Present Illness Details 54 y/o F with MDD, DEMIAN, OCD, Fibroids, Gluten sensitivity, polyarthralgia, Recurrent UTI and Sinusitis, stress incont, anemia, Menopause, high risk breast ca , shama positive s/p breast surgery, dental surgery, hysteroscopy, cervical polyp removal benign pathology Social: works at [employer], Fhx: Brother w/ [place] and Etoh; Mom , strong family hx breast ca Health Maintenance Tdap 2014, updated today Pap 10/2024 WNL at [employer] Mammo 06/2024 Colon 08/2018 SUDARSHAN Khan has never had one, ordered today Specialist 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 Rheum Ortho Uro Psych - [facility] Skyla, GLASS WASHER AND CARRIER Counselor Telehealth Fu on labs done to eval the below all labs reviewed with her today in detail WNL exceot Positive shama and abnormal cbc in other notes would like referral to menopause specialist plan positive shama is not clinically significant or concerning it is positive in a majority of the population without any significance cbc is stable and has been reviewed by 2 heme told this is her normal baseline given this, reassured and advised no further workup required refer to [facility] for menopause treatment return to office as scheduled sooner prn The visit was conducted via a telehealth platform. All documented information accurately reflects the patient?s account and my medical judgment based upon that interaction. The patient has been explained that this is an interactive (audio/video) te health encounter and what that consists of. The patient understands and wishes to proceed. Player X platform was used. Total time spent caring for the patient today was 21 minutes. This includes time spent before the visit reviewing the chart, time spent during the visit, and time spent after the visit on documentation, reviewing laboratory results, diagnostic imaging, medications, performing a medically necessary evaluation, counseling on diagnoses, care coordination, ordering appropriate tests, ordering appropriate medications, review of tests performed by other providers, reporting test results with the patient, communication with other healthcare providers. Previously: At the risk of sounding like a hypochondriac, is it possible to have hormone testing or bloodwork done? While I don?t have skin darkening or weight loss, I do seem to have many of the symptoms that align with secondary addissons. I realize many of these symptoms such as irritability and low labido also align with menopause. I?m also on nystatin, an antifungal that can lead to it. Dr. Perry had prescribed it for frequent sinus infections. The joint pain, fatigue, muscle weakness / extreme fatigue after working out. I?ve complained about dizziness when standing to Dr. Velez in the past, which he attributed to having blood pressure on the lower side. Today she explains: she has concerns regarding muscle fatigue and nystatin use. Severe post-exertional fatigue during specific weight-bearing exercises. unable to get off couch. any time exert self cannot move. Concern about the safety and side effects of prescribed nystatin. this is to prevent recurrent sinusits and has worked quite well. has read online about adrenals, cortisol and hormones causing these sx along w/ others such as low libido. wonders about hormone testing has estrogen seeds Cervical polyps benign. Review of Systems - Musculoskeletal: Reports fatigue after certain weight-bearing exercises. Denies any persistent muscle weakness. - Endocrine: Reports concerns regarding hormone levels affecting fatigue and menopausal symptoms. - Cardiovascular: Reports dizziness upon standing. Denies any reported cardiac symptoms. - Neurological: Denies weakness in arms or visual disturbances. Reports previous tingling sensations in arms. - Gastrointestinal: Denies nausea, vomit ing, or abdominal pain related to nystatin. - Otorhinolaryngological: Historical sin us infections significantly reduced with nystatin use. Results - Labs: Prior ESR done in 2019, suggeste d repeated, current plus new labs ordered including CK levels and inflammatory markers. Plan Advised no need to check adrenals or cortisol. No need to look at hormones. I do not think she has secondary addisons. Nystatin use and risk edu provided. Taking QD not BID managed by ENT Rather need to check other labs to eval her muscle weakness Obtain labs below. If + will need to refer; if CRP or Sed rate elevated but normal otherwise, no need to refer. FU once labs resulted. Made aware this can take a few weeks. [facility] Medical History Dense breast Family history of breast cancer Anxiety Herpes Arthritis Sinusitis Unsatisfactory cervical Papanicolaou smear Fibroid Postmenopausal bleeding Abnormal vaginal bleeding Chronic depressive disorder Gluten-sensitive enteropathy Surgical History History of colonoscopy (~08/2018) History of hysteroscopy History of dental surgery Status post cervical polyp removal History of augmentation of both breasts Family History Father Hypertension CVD (cardiovascular disease) Mother Lung cancer Brother Lung cancer Maternal Grandmother Mental health disorder Paternal Grandmother Breast cancer Family/Other Breast cancer Family/Other Breast cancer Paternal Aunt Breast cancer Paternal Aunt Breast cancer Social History Household Members: Spouse Both parents involved: No Caregiver staying overnight: No Housing: House Are you a primary weekend caregiver to a significant other at home: No Do you presently have visiting nurse or other home services: No 75 years or older and lives alone: No Alcohol intake: current Alcohol intake frequency: holidays/special occasions only Patient Tobacco Use Status: Never used Tobacco e-Cigarette/Vaping Use: Never Used Second Hand Smoke Exposure: No service: No Current occupational status: employed 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 Chuck Angelo, Kimber Heredia, Misael Greene and colleagues, with an educational tootie from [employer]. Physical exam (Primary Care) Tobacco/Smoking Status: Tobacco use Status Tobacco use date assessed 01/23/25 01/23/25 11:45 Patient Tobacco Use Status Never used Tobacco 01/23/25 07:56 e-Cigarette/Vaping Use Never Used 01/23/25 07:56 Thrive Assessment: Date of Thrive Assessment Date Thrive assessed 11/22/24 01/23/25 07:56 Telehealth Telehealth Telehealth Platform: [facility] Location of provider rendering services: practice address Location of patient: address on file Patient Identification confirmed using: Name, : Yes Telehealth method: voice only Patient verbally consented to treatment: Yes Patient verbally consented to billing insurance company: Yes Patient informed of any privacy concerns related to visit: Yes Minutes spent on Phone/Video with Pt.: 11 Coding Level of Care Code Tele Est Pt Level 3 (98799) Complex EM visit Add On G2211 Diagnoses Encounter to discuss test results Z71.2 Muscle weakness M62.81 Polyarthralgia M25.50 Uterine leiomyoma, unspecified location D25.9 Uterine leiomyoma location: unspecified location Menopause Z78.0 On hormone replacement therapy Z79.890 Positive SHAMA (antinuclear antibody) R76.8 Assessment & Plan Assessment & Plan (1) Encounter to discuss test results: Code(s): Z71.2 - Person consulting for explanation of examination or test findings (2) Muscle weakness: Code(s): M62.81 - Muscle weakness (generalized) Category: Medical (3) Polyarthralgia: Code(s): M25.50 - Pain in unspecified joint Category: Medical (4) Uterine myoma: Code(s): D25.9 - Leiomyoma of uterus, unspecified Category: Medical Qualifiers: Uterine leiomyoma location: unspecified location Qualified Code(s): D25.9 - Leiomyoma of uterus, unspecified (5) Menopause: Code(s): Z78.0 - Asymptomatic menopausal state Category: Medical (6) On hormone replacement therapy: Code(s): Z79.890 - Hormone replacement therapy Category: Medical (7) Positive SHAMA (antinuclear antibody): Onset Date: ~12/2024 Comment: 1:40 nuclear speckled Code(s): R76.8 - Other specified abnormal immunological findings in serum Category: Medical Plan . Orders: Referrals SOAKING PITS SUPERVISOR Referral D25.9 - Leiomyoma of uterus, unspecified, Z78.0 - Asymptomatic menopausal state, Z79.890 - Hormone replacement therapy
--- OUTSIDE RECORDS SUMMARY | 2025-01-23 08:22 | XMS_ITS | Patient Health Record ---
Author Organization [facility] Address [address] [place] [address] Care Team Providers Care Souvenir Street Vendor Name Role Phone Agustin ORTA, Reinaldo Primary Care Provider Chuck Marquis Unavailable [phone] Allergies Allergen (clinical drug ingredient) Drug/Non Drug [...] directed Orally once a day Active Nystatin 682977 UNIT TAKE 2 TABLETS BY M OUTH [...] Problem Status W/U Status Risk Notes Problem 231308637 Encounter for screening for malignant neoplasm of colon (Z12.11) Active confirmed Problem Change in bowel habit (43725773) Change in bowel habits (R19.4) Active confirmed Problem 854710096272298 Pre-procedural examination (Z01.818) Active confirmed Problem Celiac disease (458499183) Gluten intolerance (K90.0) Active confirmed Plan Of Treatment Pending Test Test Name Order Date CELIAC PANEL #10 04/08/2020 Future Test Test Name Order Date COLONOSCOPY 06/28/2018 Insurance Providers Payer Name Payer Address Payer Phone Subscriber Number Group Number Insured Name Patient Relationship to Insured Coverage Start Date Coverage End Date [employer] [address] [address] [place] [address] [id number] ARTURO ESCOBAR Self - patient is the insured Medical (General) History Medical History History ICD Code Denies [place],DM,CVA,Lung disease,renal dise ase Anxiety Chronic low WBC [...]
--- OUTSIDE RECORDS SUMMARY | 2025-01-23 08:23 | XMS_ITS | Patient Health Record ---
Author Organization [employer] [facility] Address [address] [place] [address] Care Team Providers Care Tow Bar Driver Name Role Phone KARLY LOVELACE Primary Care Provider ARTURO Randhawa Unavailable [phone] Allergies Allergen (clinical drug ingredient) Drug/Non Drug [...] Interpretation: Performing Lab:Testing performed or reported by [facility], a Service of [facility], [address] [place] [address] Bakari Velasquez MD, Food Sales Clerk [facility]# [id number] Notes/Report: Patient Name: ARTURO EDMONDS Lab Patient : [id number] (Age: 54) Collection Date: 05/06/2024 Accession Date: 05/09/2024 Sign Out Date: 05/15/2024 Tissue Source: 1:EMB Final Diagnosis: Endometrium, biopsy: - Scant superficial fragments of inactive/atrophic endometrium, and features of stromal breakdown. - Fragments of endocervical glandular mucosa and mucus. Primary Pathologist:Lainey Rutledge M.D.,Ph.D. electronically signed out by: Lainey Rutledge M.D.,Ph.D. / [facility] Clinical History: Postmenopausal bleeding Gross Description: The requisition indicates endometrial biopsy . Received in formalin is a 1.5 x 1.3 x 0.5 cm aggregate of white-tinged mucus with red, fontaine tissue. The specimen is entirely submitted. 1-multiple pieces, x 2. (EG)* As of August 25, 2023, the specimen processing and staining is performed at [facility], [address] [place] [address] (CLIA#[id number]). Its performance characteristics determined by [facility]. Hollie Stephen M.D. Food Sales Clerk of Surgical Pathology, Jonatan Schultz M.D. 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 Nutrition: average diet Exercise: regular weight lifting / resistance exercise regular cardio Sexual activity: not sexually active Contraception: oral contraceptives Smoking: never a smoker Alcohol: occasional alcohol Text messaging while driving: no Sunscreen: yes Illicit drugs: no Seatbelt: yes Marital status: single 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 Nutrition: average diet Exercise: regular weight lifting / resistance exercise regular cardio Sexual activity: not sexually active Contraception: oral contraceptives Smoking: never a smoker Alcohol: occasional alcohol Text messaging while driving: no Sunscreen: yes Illicit drugs: no Seatbelt: yes Marital status: single 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 Nutrition: average diet Exercise: regular weight lifting / resistance exercise regular cardio Sexual activity: not sexually active Contraception: oral contraceptives Smoking: never a smoker Alcohol: occasional alcohol Text messaging while driving: no Sunscreen: yes Illicit drugs: no Seatbelt: yes Marital status: single 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 Nutrition: average diet Exercise: regular weight lifting / resistance exercise regular cardio Sexual activity: not sexually active Contraception: oral contraceptives Smoking: never a smoker Alcohol: occasional alcohol Text messaging while driving: no Sunscreen: yes Illicit drugs: no Seatbelt: yes Marital status: single 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 Nutrition: average diet Exercise: regular weight lifting / resistance exercise regular cardio Sexual activity: not sexually active Contraception: oral contraceptives Smoking: never a smoker Alcohol: occasional alcohol Text messaging while driving: no Sunscreen: yes Illicit drugs: no Seatbelt: yes Marital status: single 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 Nutrition: average diet Exercise: regular weight lifting / resistance exercise regular cardio Sexual activity: not sexually active Contraception: oral contraceptives Smoking: never a smoker Alcohol: occasional alcohol Text messaging while driving: no Sunscreen: yes Illicit drugs: no Seatbelt: yes Marital status: single 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 Nutrition: average diet Exercise: regular weight lifting / resistance exercise regular cardio Sexual activity: not sexually active Contraception: oral contraceptives Smoking: never a smoker Alcohol: occasional alcohol Text messaging while driving: no Sunscreen: yes Illicit drugs: no Seatbelt: yes Marital status: single 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 Nutrition: average diet Exercise: regular weight lifting / resistance exercise regular cardio Sexual activity: not sexually active Contraception: oral contraceptives Smoking: never a smoker Alcohol: occasional alcohol Text messaging while driving: no Sunscreen: yes Illicit drugs: no Seatbelt: yes Marital status: single 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 Nutrition: average diet Exercise: regular weight lifting / resistance exercise regular cardio Sexual activity: not sexually active Contraception: oral contraceptives Smoking: never a smoker Alcohol: occasional alcohol Text messaging while driving: no Sunscreen: yes Illicit drugs: no Seatbelt: yes Marital status: single 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 Nutrition: average diet Exercise: regular weight lifting / resistance exercise regular cardio Sexual activity: not sexually active Contraception: oral contraceptives Smoking: never a smoker Alcohol: occasional alcohol Text messaging while driving: no Sunscreen: yes Illicit drugs: no Seatbelt: yes Marital status: single 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 Nutrition: average diet Exercise: regular weight lifting / resistance exercise regular cardio Sexual activity: not sexually active Contraception: oral contraceptives Smoking: never a smoker Alcohol: occasional alcohol Text messaging while driving: no Sunscreen: yes Illicit drugs: no Seatbelt: yes Marital status: single 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 Nutrition: average diet Exercise: regular weight lifting / resistance exercise regular cardio Sexual activity: not sexually active Contraception: oral contraceptives Smoking: never a smoker Alcohol: occasional alcohol Text messaging while driving: no Sunscreen: yes Illicit drugs: no Seatbelt: yes Marital status: single 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 Nutrition: average diet Exercise: regular weight lifting / resistance exercise regular cardio Sexual activity: not sexually active Contraception: oral contraceptives Smoking: never a smoker Alcohol: occasional alcohol Text messaging while driving: no Sunscreen: yes Illicit drugs: no Seatbelt: yes Problems Problem Type SNOMED Code ICD Code Onset Dates Problem Status W/U Status Risk Notes Problem Menopause (857886502) Menopausal and female climacteric states (N95.1) Active confirmed Problem Postmenopausal bleeding (27949628) Postmenopausal bleeding (N95.0) Active confirmed Problem Genital herpes simplex (66140582) Herpesviral infection of urogenital system, unspecified (A60.00) Active confirmed Problem Basal cell carcinoma of truncal skin (788997468) Basal cell carcinoma of skin of other part of trunk (C44.519) Active confirmed Problem Cancer of skin of lower limb, basal cell (992799171) Basal cell carcinoma of skin of right lower limb, including hip (C44.712) Active confirmed Problem Mild recurrent major depression (90942066) Major depressive disorder, recurrent, mild (F33.0) Active confirmed Problem Recurrent major depression (33208684) Major depressive disorder, recurrent, unspecified (F33.9) Active confirmed Problem Anxiety disorder (603451819) Anxiety disorder, unspecified (F41.9) Active confirmed Problem Postcoital bleeding (57433141) Postcoital and contact bleeding (N93.0) Active confirmed Problem Abnormal findings on diagnostic imaging of breast (043844360) Other abnormal and inconclusive findings on diagnostic imaging of breast (R92.8) Active confirmed Problem Family history of malignant neoplasm of breast (843261060) Family history of malignant neoplasm of breast (Z80.3) Active confirmed Problem Premenstrual dysphoric disorder (005494) Premenstrual dysphoric disorder (F32.81) Active confirmed Problem COVID-19 (860188216) COVID-19 (U07.1) Active confirmed Problem Genital herpes simplex (10206202) Unspecified genital herpes (054.10) Active confirmed Major Problem Depressive disorder (13077909) Depressive disorder, not elsewhere classified (311) Active confirmed Major Vital Signs Temperature 98.0 degrees Fahrenheit 05/06/2024 Blood pressure diastolic 78 mm Hg 05/06/2024 Height 64 in 05/06/2024 Blood pressure systolic 106 mm Hg 05/06/2024 Weight 127 lbs 05/06/2024 BMI 21.8 kg/m2 05/06/2024 Encounters Encounter Location Date Provider Diagnosis Total [facility] [address] [place] [address] 04/29/2024 ARTURO MEYERS Encounter for gynecological examination (general) (routine) without abnormal findings Z01.419 ; Encounter for screening mammogram for malignant neoplasm of breast Z12.31 ; Inconclusive mammogram R92.2 ; Herpesviral infection of urogenital system, unspecified A60.00 and Menopausal and female climacteric states N95.1 Total [facility] [address] [place] [address] 05/02/2024 ARTURO MEYERS Abnormal uterine and vaginal bleeding, unspecified N93.[address] [place] [id number] 05/06/2024 ARTURO MEYERS Postmenopausal bleed ing N95.[address] [place] [address] 05/14/2024 ARTURO MEYERS Total [address] [address] 08/22/2024 ARTURO MEYERS Assessments Encounter Date Diagnosis [...] Date Coverage End Date [employer] [facility] [address] [address] [place] [address] [id number] ARTURO ORONA Self - patient is the [...]
== END 2025-01-23 12:22 | disposition home or self-care (01) ==
LOC: HO.HMCFM 08:12
PROVIDERS: PCP Nurse Practitioner Family; Visit Provider Nurse Practitioner Family
DX: M62.81 Muscle weakness (generalized) (principal); M25.50 Pain in unspecified joint; D25.9 Leiomyoma of uterus, unspecified; Z78.0 Asymptomatic menopausal state; Z79.890 Hormone replacement therapy; R76.8 Other specified abnormal immunological findings in serum; Z71.2 Person consulting for explanation of examination or test findings

== ENCOUNTER → 2025-01-23 08:12 | Outpatient (BNVA) | payer OTHER, SELFPAY | PROVIDERS: PCP Nurse Practitioner Family; Visit Provider Nurse Practitioner Family | DX: K21.9 Gastro-esophageal reflux disease without esophagitis (principal); F32.9 Major depressive disorder, single episode, unspecified; F42.9 Obsessive-compulsive disorder, unspecified; M62.81 Muscle weakness (generalized); M25.50 Pain in unspecified joint; D25.9 Leiomyoma of uterus, unspecified; R76.8 Other specified abnormal immunological findings in serum; Z78.0 Asymptomatic menopausal state; Z71.2 Person consulting for explanation of examination or test findings; Z79.890 Hormone replacement therapy | CPT/HCPCS: 98968 ==

== ENCOUNTER 2025-02-13 15:06 | Outpatient (REF) | payer OTHER, SELFPAY ==
--- OUTSIDE RECORDS SUMMARY | 2025-02-13 15:18 | XMS_ITS | Patient Health Record ---
Author Organization [facility] Address [address] [place] [address] Care Team Providers Care Catcher Helper Name Role Phone Agustin ORTA, Reinaldo Primary Care Provider Chuck Marquis Unavailable [phone] Allergies Allergen (clinical drug ingredient) Drug/Non Drug Allergy documented on EMR Reaction Allergy Type Onset Date Status penicillin G Penicillin G Sodium Unknown Drug Allergy Active clindamycin Clindamycin HCl Unknown Drug Allergy Active sulfamethoxazole / trimethoprim Bactrim Unknown Drug Allergy Active azithromycin Azithromycin Unknown Drug Allergy A ctive amoxicillin Amoxicillin Unknown Drug Allergy Act faviola [...] directed Orally once a day Active Nystatin 010478 UNIT TAKE 2 TABLETS BY M OUTH [...] Problem Status W/U Status Risk Notes Problem 230402740 Encounter for screening for malignant neoplasm of colon (Z12.11) Active confirmed Problem Change in bowel habit (50725845) Change in bowel habits (R19.4) Active confirmed Problem 222960713815483 Pre-procedural examination (Z01.818) Active confirmed Problem Celiac disease (781217550) Gluten intolerance (K90.0) Active confirmed Plan Of Treatment Pending Test Test Name Order Date CELIAC PANEL #10 04/08/2020 Future Test Test Name Order Date COLONOSCOPY 06/28/2018 Insurance Providers Payer Name Payer Address Payer Phone Subscriber Number Group Number Insured Name Patient Relationship to Insured Coverage Start Date Coverage End Date [employer] [address] [address] [place] [address] [id number] ARTURO ESCOBAR Self - patient is the insured Medical (General) History Medical History History ICD Code Denies [place],DM,CVA,Lung disease,renal dise ase Anxiety Chronic low WBC [...]
--- OUTSIDE RECORDS SUMMARY | 2025-02-13 15:18 | XMS_ITS | Patient Health Record ---
Author Organization [facility] Address [address] [address] [place] [address] Care Team Providers Care Child Psychologist Name Role Phone KARLY LOVELACE Primary Care Provider ARTURO Randhawa Unavailable [phone] Allergies Allergen (clinical drug ingredient) Drug/Non Drug [...] Interpretation: Performing Lab:Testing performed or reported by [facility], a Service of [facility], [address] [place] [address] Bakari Velasquez MD, Cabinet Installer [facility]# [id number] Notes/Report: Patient Name: ARTURO EDMONDS Lab Patient : 1970 (Age: 54) Collection Date: 05/06/2024 Accession Date: 05/09/2024 Sign Out Date: 05/15/2024 Tissue Source: 1:EMB Final Diagnosis: Endometrium, biopsy: - Scant superficial fragments of inactive/atrophic endometrium, and features of stromal breakdown. - Fragments of endocervical glandular mucosa and mucus. Primary Pathologist:Lainey Rutledge M.D.,Ph.D. electronically signed out by: Lainey Rutledge M.D.,Ph.D. / [facility] [place] Clinical History: Postmenopausal bleeding Gross Description: The requisition indicates endometrial biopsy . Received in formalin is a 1.5 x 1.3 x 0.5 cm aggregate of white-tinged mucus with red, fontaine tissue. The specimen is entirely submitted. 1-multiple pieces, x 2. (EG)* As of August 25, 2023, the specimen processing and staining is performed at [facility], [address] [place] [address] (CLIA#[id number]). Its performance characteristics determined by [facility]. Hollie Stephen M.D. Cabinet Installer of Surgical Pathology, Jonatan Schultz M.D. 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 Nutrition: average diet Exercise: regular weight lifting / resistance exercise regular cardio Sexual activity: not sexually active Contraception: oral contraceptives Smoking: never a smoker Alcohol: occasional alcohol Text messaging while driving: no Sunscreen: yes Illicit drugs: no Seatbelt: yes Marital status: single 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 Nutrition: average diet Exercise: regular weight lifting / resistance exercise regular cardio Sexual activity: not sexually active Contraception: oral contraceptives Smoking: never a smoker Alcohol: occasional alcohol Text messaging while driving: no Sunscreen: yes Illicit drugs: no Seatbelt: yes Marital status: single 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 Nutrition: average diet Exercise: regular weight lifting / resistance exercise regular cardio Sexual activity: not sexually active Contraception: oral contraceptives Smoking: never a smoker Alcohol: occasional alcohol Text messaging while driving: no Sunscreen: yes Illicit drugs: no Seatbelt: yes Marital status: single 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 Nutrition: average diet Exercise: regular weight lifting / resistance exercise regular cardio Sexual activity: not sexually active Contraception: oral contraceptives Smoking: never a smoker Alcohol: occasional alcohol Text messaging while driving: no Sunscreen: yes Illicit drugs: no Seatbelt: yes Marital status: single 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 Nutrition: average diet Exercise: regular weight lifting / resistance exercise regular cardio Sexual activity: not sexually active Contraception: oral contraceptives Smoking: never a smoker Alcohol: occasional alcohol Text messaging while driving: no Sunscreen: yes Illicit drugs: no Seatbelt: yes Marital status: single 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 Nutrition: average diet Exercise: regular weight lifting / resistance exercise regular cardio Sexual activity: not sexually active Contraception: oral contraceptives Smoking: never a smoker Alcohol: occasional alcohol Text messaging while driving: no Sunscreen: yes Illicit drugs: no Seatbelt: yes Marital status: single 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 Nutrition: average diet Exercise: regular weight lifting / resistance exercise regular cardio Sexual activity: not sexually active Contraception: oral contraceptives Smoking: never a smoker Alcohol: occasional alcohol Text messaging while driving: no Sunscreen: yes Illicit drugs: no Seatbelt: yes Marital status: single 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 Nutrition: average diet Exercise: regular weight lifting / resistance exercise regular cardio Sexual activity: not sexually active Contraception: oral contraceptives Smoking: never a smoker Alcohol: occasional alcohol Text messaging while driving: no Sunscreen: yes Illicit drugs: no Seatbelt: yes Marital status: single 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 Nutrition: average diet Exercise: regular weight lifting / resistance exercise regular cardio Sexual activity: not sexually active Contraception: oral contraceptives Smoking: never a smoker Alcohol: occasional alcohol Text messaging while driving: no Sunscreen: yes Illicit drugs: no Seatbelt: yes Marital status: single 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 Nutrition: average diet Exercise: regular weight lifting / resistance exercise regular cardio Sexual activity: not sexually active Contraception: oral contraceptives Smoking: never a smoker Alcohol: occasional alcohol Text messaging while driving: no Sunscreen: yes Illicit drugs: no Seatbelt: yes Marital status: single 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 Nutrition: average diet Exercise: regular weight lifting / resistance exercise regular cardio Sexual activity: not sexually active Contraception: oral contraceptives Smoking: never a smoker Alcohol: occasional alcohol Text messaging while driving: no Sunscreen: yes Illicit drugs: no Seatbelt: yes Marital status: single 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 Nutrition: average diet Exercise: regular weight lifting / resistance exercise regular cardio Sexual activity: not sexually active Contraception: oral contraceptives Smoking: never a smoker Alcohol: occasional alcohol Text messaging while driving: no Sunscreen: yes Illicit drugs: no Seatbelt: yes Marital status: single 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 Nutrition: average diet Exercise: regular weight lifting / resistance exercise regular cardio Sexual activity: not sexually active Contraception: oral contraceptives Smoking: never a smoker Alcohol: occasional alcohol Text messaging while driving: no Sunscreen: yes Illicit drugs: no Seatbelt: yes Problems Problem Type SNOMED Code ICD Code Onset Dates Problem Status W/U Status Risk Notes Problem Postcoital bleeding (06254491) Postcoital and contact bleeding (N93.0) Active confirmed Problem Abnormal findings on diagnostic imaging of breast (445623818) Other abnormal and inconclusive findings on diagnostic imaging of breast (R92.8) Active confirmed Problem Family history of malignant neoplasm of breast (816575253) Family history of malignant neoplasm of breast (Z80.3) Active confirmed Problem Depressive disorder (44388434) Depressive disorder, not elsewhere classified (311) Active confirmed Major Problem Genital herpes simplex (04622225) Unspecified genital herpes (054.10) Active confirmed Major Problem COVID-19 (957238135) COVID-19 (U07.1) Active confirmed Problem Premenstrual dysphoric disorder (480232) Premenstrual dysphoric disorder (F32.81) Active confirmed Problem Anxiety disorder (829310719) Anxiety disorder, unspecified (F41.9) Active confirmed Problem Recurrent major depression (34202941) Major depressive disorder, recurrent, unspecified (F33.9) Active confirmed Problem Mild recurrent major depression (78242055) Major depressive disorder, recurrent, mild (F33.0) Active confirmed Problem Cancer of skin of lower limb, basal cell (258631738) Basal cell carcinoma of skin of right lower limb, including hip (C44.712) Active confirmed Problem Basal cell carcinoma of truncal skin (834691281) Basal cell carcinoma of skin of other part of trunk (C44.519) Active confirmed Problem Genital herpes simplex (49309294) Herpesviral infection of urogenital system, unspecified (A60.00) Active confirmed Problem Postmenopausal bleeding (51246547) Postmenopausal bleeding (N95.0) Active confirmed Problem Menopause (239867767) Menopausal and female climacteric states (N95.1) Active confirmed Vital Signs Temperature 98.0 degrees Fahrenheit 05/06/2024 Blood pressure diastolic 78 mm Hg 05/06/2024 Height 64 in 05/06/2024 Blood pressure systolic 106 mm Hg 05/06/2024 Weight 127 lbs 05/06/2024 BMI 21.8 kg/m2 05/06/2024 Encounters Encounter Location Date Provider Diagnosis Total [facility] [employer] [address] [place] [address] 05/14/2024 ARTURO MEYERS Total [facility] [employer] [address] [place] [address] 08/22/2024 ARTURO MEYERS Total [facility] [employer] [place] [address] [employer] [address] [place] [address] 05/02/2024 ARTURO MEYERS Abnormal uterine and vaginal bleeding, unspecified N93.9 Total [facility] [employer] [address] [place] [address] 05/06/2024 ARTURO MEYERS Postmenopausal bleed ing N95.[address] [place] [address] [place] [address] 04/29/2024 ARTURO MEYERS Encounter for gynecological examination (general) (routine) without abnormal findings Z01.419 ; Encounter for screening mammogram for malignant neoplasm of breast Z12.31 ; Inconclusive mammogram R92.2 ; Herpesviral infection of urogenital system, unspecified A60.00 and Menopausal and female climacteric states N95.1 Assessments Encounter Date Diagnosis (ICD Code) Assessment [...] in to discuss surgery or alternatives. 04/29/2024 Encounter for gynecological examination (general) (routine) [...] malignant neoplasm of breast (ICD-10 - Z12.31) 04/29/2024 Inconclusive mammogram (ICD-10 - R92.2) 04/29/2024 [...] 3D 2021 MM Digital Screening Mammogram 3D 2023 MM Digital Screening Mammogram 3D 2022 Bilateral Breast MRI with/without contra st 06/22/2020 Bilateral Breast MRI with/without contra st 04/25/2021 Bilateral Breast MRI with/without contra st 06/04/2019 Insurance Providers Payer Name Payer Address Payer Phone Subscriber Number Group Number Insured Name Patient Relationship to Insured Coverage Start Date Coverage End Date [employer] [facility] [address] [address] [place] [address] [id number] ARTURO ORONA Self - patient is the [...]
[2025-02-13 17:11] LABS: Hematocrit 35.1 % (37.0-47.0); Hemoglobin 12.4 g/dl (12.0-16.0); Mean Corpuscular HGB Conc 35.3 g/dl (31.0-35.0); Mean Corpuscular Hemoglobin 32.8 pg (27.0-33.0); Mean Corpuscular Volume 92.9 fL (80.0-98.0); NRBC Abs Auto 0.000 X10*3/uL (0.0-0.012); NRBC Pct Auto 0.0 /100WBC (0.0-0.2); Platelet Count 145 X10*3/uL (160-400); Red Blood Count 3.78 X10*6/uL (4.20-5.50); White Blood Count 4.8 X10*3/uL (4.8-10.8)
[2025-02-13 17:25] LABS: Microalbum/Creatinine Ratio Ur 22.7 ug/mg cr (<30)
[2025-02-13 18:38] LABS: Alanine Aminotransferase 21 U/L (0-31); Albumin Level 4.0 g/dL (3.5-5.0); Alkaline Phosphatase 57 U/L (39-117); Anion Gap 13 (12-20); Aspartate Amino Transferase 39 U/L (5-31); Blood Urea Nitrogen 22 mg/dL (9-16); Calcium 9.0 mg/dL (8.4-10.2); Carbon Dioxide 24 mmol/L (22-29); Chloride 105 mmol/L (96-108); Cholesterol 181 mg/dL (<200); Estimated Glomerular Filt Rate > 60; HDL Cholesterol 63 mg/dL (>40); Iron 37 mcg/dL (30-160); Percent Iron Saturation 28 % (15-50); Potassium 4.0 mmol/L (3.3-5.1); Sodium 138 mmol/L (135-145); Total Iron Binding Capacity 132 mcg/dL (228-428); Total Protein 6.8 g/dL (6.5-8.0); Triglycerides 122 mg/dL (<150); Unsaturated Iron Binding 95 ug/dL
[2025-02-13 18:43] LABS: Free T4 (Free Thyroxine) 1.00 ng/dL (0.71-1.85)
[2025-02-13 18:54] LABS: Ferritin 100 ng/mL (10-250)
[2025-02-13 18:57] LABS: Folate 12.2 ng/mL (> or = 4.0); Vitamin B12 598 pg/mL (200-900)
[2025-02-14 03:49] LABS: Hemoglobin A1C 96.6029 umol/L; Total Hemoglobin (HGBA1C) 3265.6865 umol/L
[2025-02-16 11:38] LABS: Follicle Stimulating Hormone 55.8 mIU/mL
[2025-02-26 04:44] LABS: Estradiol Free 0.28 pg/mL; Estradiol, Ultrasensitive 17 pg/mL
== END 2025-02-13 15:07 | disposition home or self-care (01) ==
LOC: HO.LAB 15:06
PROVIDERS: PCP Nurse Practitioner Family; Visit Provider Nurse Practitioner Family
DX: Z13.6 Encounter for screening for cardiovascular disorders (principal); Z13.1 Encounter for screening for diabetes mellitus; F41.1 Generalized anxiety disorder; F32.9 Major depressive disorder, single episode, unspecified; N95.9 Unspecified menopausal and perimenopausal disorder; E07.9 Disorder of thyroid, unspecified; Z79.890 Hormone replacement therapy
CPT/HCPCS: 36415; 80053; 80061; 82043; 82306; 82570; 82607; 82670; 82681; 82728; 82746; 83001; 83036; 83540; 84403; 84439; 84443; 84481; 85027

== ENCOUNTER → 2025-02-27 07:30 | Outpatient (BNV) | payer OTHER, SELFPAY | PROVIDERS: PCP Nurse Practitioner Family; Visit Provider Internal Medicine | DX: Z80.3 Family history of malignant neoplasm of breast (principal) | CPT/HCPCS: 76641 ==

== ENCOUNTER 2025-02-27 07:32 | Outpatient (REF) | payer OTHER, SELFPAY ==
--- NOTE | ~2025-02-27 | US_ITS ---
EXAMINATION: US SCREENING ULTRASOUND BREAST, BILATERAL CLINICAL INFORMATION: Dense breasts on mammography. Screening ultrasound. COMPARISON: Priors available on PACS. TECHNIQUE: Ultrasound is performed using grayscale imaging and color Doppler. Imaging is performed to include the four quadrants and retroareolar region. Both breasts are imaged. FINDINGS: Right breast: There is no suspicious finding by ultrasound. There is no solid mass or focal architectural abnormality. Left breast: There is no suspicious finding by ultrasound. There is no solid mass or focal architectural abnormality. US/US breast BI complete IMPRESSION: No suspicious findings on screening breast ultrasound. ASSESSMENT: BI-RADS 1 - Negative RECOMMENDATION: 1 year F/U This patient's information was entered into a reminder system with a target due date for their next mammogram. Electronically signed by: Arminda Heck DO 02/27/2025 08:51 AM EDT
--- OUTSIDE RECORDS SUMMARY | 2025-02-27 07:35 | XMS_ITS | Patient Health Record ---
Author Organization [facility] Address [address] [facility] [address] [place] [address] Care Team Providers Care Sinter Press Operator Name Role Phone KARLY LOVELACE Primary Care Provider ARTURO Randhawa Unavailable [phone] Allergies Allergen (clinical drug ingredient) Drug/Non Drug [...] Interpretation: Performing Lab:Testing performed or reported by [facility], a Service of [facility], [address] [place] [address] Bakari Velasquez MD, Water Inspector [facility]# [id number] Notes/Report: Patient Name: ARTURO EDMONDS Lab Patient : 1970 (Age: 54) Collection Date: 05/06/2024 Accession Date: 05/09/2024 Sign Out Date: 05/15/2024 Tissue Source: 1:EMB Final Diagnosis: Endometrium, biopsy: - Scant superficial fragments of inactive/atrophic endometrium, and features of stromal breakdown. - Fragments of endocervical glandular mucosa and mucus. Primary Pathologist:Lainey Rutledge M.D.,Ph.D. electronically signed out by: Lainey Rutledge M.D.,Ph.D. [place] [facility] [place] History: Postmenopausal bleeding Gross Description: The requisition indicates endometrial biopsy . Received in formalin is a 1.5 x 1.3 x 0.5 cm aggregate of white-tinged mucus with red, fontaine tissue. The specimen is entirely submitted. 1-multiple pieces, x 2. (EG)* As of August 25, 2023, the specimen processing and staining is performed at [facility], [address] [place] [address] (CLIA#[id number]). Its performance characteristics determined by [facility]. Hollie Stephen M.D. Water Inspector of Surgical Pathology, Jonatan Schultz M.D. 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 Nutrition: average diet Exercise: regular weight lifting / resistance exercise regular cardio Sexual activity: not sexually active Contraception: oral contraceptives Smoking: never a smoker Alcohol: occasional alcohol Text messaging while driving: no Sunscreen: yes Illicit drugs: no Seatbelt: yes Marital status: single 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 Nutrition: average diet Exercise: regular weight lifting / resistance exercise regular cardio Sexual activity: not sexually active Contraception: oral contraceptives Smoking: never a smoker Alcohol: occasional alcohol Text messaging while driving: no Sunscreen: yes Illicit drugs: no Seatbelt: yes Marital status: single 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 Nutrition: average diet Exercise: regular weight lifting / resistance exercise regular cardio Sexual activity: not sexually active Contraception: oral contraceptives Smoking: never a smoker Alcohol: occasional alcohol Text messaging while driving: no Sunscreen: yes Illicit drugs: no Seatbelt: yes Marital status: single 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 Nutrition: average diet Exercise: regular weight lifting / resistance exercise regular cardio Sexual activity: not sexually active Contraception: oral contraceptives Smoking: never a smoker Alcohol: occasional alcohol Text messaging while driving: no Sunscreen: yes Illicit drugs: no Seatbelt: yes Marital status: single 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 Nutrition: average diet Exercise: regular weight lifting / resistance exercise regular cardio Sexual activity: not sexually active Contraception: oral contraceptives Smoking: never a smoker Alcohol: occasional alcohol Text messaging while driving: no Sunscreen: yes Illicit drugs: no Seatbelt: yes Marital status: single 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 Nutrition: average diet Exercise: regular weight lifting / resistance exercise regular cardio Sexual activity: not sexually active Contraception: oral contraceptives Smoking: never a smoker Alcohol: occasional alcohol Text messaging while driving: no Sunscreen: yes Illicit drugs: no Seatbelt: yes Marital status: single 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 Nutrition: average diet Exercise: regular weight lifting / resistance exercise regular cardio Sexual activity: not sexually active Contraception: oral contraceptives Smoking: never a smoker Alcohol: occasional alcohol Text messaging while driving: no Sunscreen: yes Illicit drugs: no Seatbelt: yes Marital status: single 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 Nutrition: average diet Exercise: regular weight lifting / resistance exercise regular cardio Sexual activity: not sexually active Contraception: oral contraceptives Smoking: never a smoker Alcohol: occasional alcohol Text messaging while driving: no Sunscreen: yes Illicit drugs: no Seatbelt: yes Marital status: single 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 Nutrition: average diet Exercise: regular weight lifting / resistance exercise regular cardio Sexual activity: not sexually active Contraception: oral contraceptives Smoking: never a smoker Alcohol: occasional alcohol Text messaging while driving: no Sunscreen: yes Illicit drugs: no Seatbelt: yes Marital status: single 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 Nutrition: average diet Exercise: regular weight lifting / resistance exercise regular cardio Sexual activity: not sexually active Contraception: oral contraceptives Smoking: never a smoker Alcohol: occasional alcohol Text messaging while driving: no Sunscreen: yes Illicit drugs: no Seatbelt: yes Marital status: single 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 Nutrition: average diet Exercise: regular weight lifting / resistance exercise regular cardio Sexual activity: not sexually active Contraception: oral contraceptives Smoking: never a smoker Alcohol: occasional alcohol Text messaging while driving: no Sunscreen: yes Illicit drugs: no Seatbelt: yes Marital status: single 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 Nutrition: average diet Exercise: regular weight lifting / resistance exercise regular cardio Sexual activity: not sexually active Contraception: oral contraceptives Smoking: never a smoker Alcohol: occasional alcohol Text messaging while driving: no Sunscreen: yes Illicit drugs: no Seatbelt: yes Marital status: single 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 Nutrition: average diet Exercise: regular weight lifting / resistance exercise regular cardio Sexual activity: not sexually active Contraception: oral contraceptives Smoking: never a smoker Alcohol: occasional alcohol Text messaging while driving: no Sunscreen: yes Illicit drugs: no Seatbelt: yes Problems Problem Type SNOMED Code ICD Code Onset Dates Problem Status W/U Status Risk Notes Problem Menopause (362250879) Menopausal and female climacteric states (N95.1) Active confirmed Problem Postmenopausal bleeding (54692293) Postmenopausal bleeding (N95.0) Active confirmed Problem Genital herpes simplex (86608362) Herpesviral infection of urogenital system, unspecified (A60.00) Active confirmed Problem Basal cell carcinoma of truncal skin (903199783) Basal cell carcinoma of skin of other part of trunk (C44.519) Active confirmed Problem Cancer of skin of lower limb, basal cell (718444404) Basal cell carcinoma of skin of right lower limb, including hip (C44.712) Active confirmed Problem Mild recurrent major depression (93879121) Major depressive disorder, recurrent, mild (F33.0) Active confirmed Problem Recurrent major depression (77878606) Major depressive disorder, recurrent, unspecified (F33.9) Active confirmed Problem Anxiety disorder (440036748) Anxiety disorder, unspecified (F41.9) Active confirmed Problem Postcoital bleeding (88728173) Postcoital and contact bleeding (N93.0) Active confirmed Problem Abnormal findings on diagnostic imaging of breast (650958456) Other abnormal and inconclusive findings on diagnostic imaging of breast (R92.8) Active confirmed Problem Family history of malignant neoplasm of breast (665206592) Family history of malignant neoplasm of breast (Z80.3) Active confirmed Problem Premenstrual dysphoric disorder (878038) Premenstrual dysphoric disorder (F32.81) Active confirmed Problem COVID-19 (446009816) COVID-19 (U07.1) Active confirmed Problem Genital herpes simplex (82597161) Unspecified genital herpes (054.10) Active confirmed Major Problem Depressive disorder (83933254) Depressive disorder, not elsewhere classified (311) Active confirmed Major Vital Signs Temperature 98.0 degrees Fahrenheit 05/06/2024 Blood pressure diastolic 78 mm Hg 05/06/2024 Height 64 in 05/06/2024 Blood pressure systolic 106 mm Hg 05/06/2024 Weight 127 lbs 05/06/2024 BMI 21.8 kg/m2 05/06/2024 Encounters Encounter Location Date Provider Diagnosis Total [facility] [employer] [address] [place] [address] 04/29/2024 ARTURO MEYERS Encounter for gynecological examination (general) (routine) without abnormal findings Z01.419 ; Encounter for screening mammogram for malignant neoplasm of breast Z12.31 ; Inconclusive mammogram R92.2 ; Herpesviral infection of urogenital system, unspecified A60.00 and Menopausal and female climacteric states N95.1 Total [facility] [employer] [address] [place] [address] 05/02/2024 ARTURO MEYERS Abnormal uterine and vaginal bleeding, unspecified N93.[address] [place] [address] 05/06/2024 ARTURO MEYERS Postmenopausal bleed ing N95.[address] [place] [address] 05/14/2024 ARTURO MEYERS Total [address] [address] 08/22/2024 ARTURO MEYERS Assessments Encounter Date Diagnosis [...] Date Coverage End Date [employer] [facility] [address] [address] [place] [address] [id number] ARTURO ORONA Self - patient is the [...]
--- OUTSIDE RECORDS SUMMARY | 2025-02-27 07:35 | XMS_ITS | Patient Health Record ---
Author Organization [facility] Address [address] [place] [address] Care Team Providers Care Rn Managed Care Name Role Phone Agustin ORTA, Reinaldo Primary Care Provider Chuck Marquis Unavailable [phone] Allergies Allergen (clinical drug ingredient) Drug/Non Drug [...] directed Orally once a day Active Nystatin 899840 UNIT TAKE 2 TABLETS BY M OUTH [...] Problem Status W/U Status Risk Notes Problem 413811163 Encounter for screening for malignant neoplasm of colon (Z12.11) Active confirmed Problem Change in bowel habit (08821890) Change in bowel habits (R19.4) Active confirmed Problem 625299281375528 Pre-procedural examination (Z01.818) Active confirmed Problem Celiac disease (453357858) Gluten intolerance (K90.0) Active confirmed Plan Of Treatment Pending Test Test Name Order Date CELIAC PANEL #10 04/08/2020 Future Test Test Name Order Date COLONOSCOPY 06/28/2018 Insurance Providers Payer Name Payer Address Payer Phone Subscriber Number Group Number Insured Name Patient Relationship to Insured Coverage Start Date Coverage End Date [employer] [address] [address] [place] [address] [id number] ARTURO ESCOBAR Self - patient is the insured Medical (General) History Medical History History ICD Code Denies UT,DM,CVA,Lung disease,renal dise ase Anxiety Chronic low WBC [...]
== END 2025-02-27 07:33 | disposition home or self-care (01) ==
LOC: HO.MAMMO 07:32
PROVIDERS: PCP Nurse Practitioner Family; Visit Provider Surgery
DX: R92.30 Dense breasts, unspecified (principal); Z80.3 Family history of malignant neoplasm of breast; Z91.89 Other specified personal risk factors, not elsewhere classified
CPT/HCPCS: 76641

== ENCOUNTER 2025-03-23 10:57 | Outpatient (REF) | payer OTHER, SELFPAY ==
--- NOTE | ~2025-03-23 | US_ITS ---
CLINICAL HISTORY: D21.9 - Benign neoplasm of connective and other soft tissue, unspecified --- Additional Notes or Special Instructions: Six-month follow up for stability US pelvis transvaginal Comparison: US/SR - US PELVIS TRANSABDOMINAL AND TRANSVAGINAL - 10/10/24 14:50 EDT Findings: Transvaginal scanning performed. The uterus is 7.8 cm length. The uterus is mildly heterogeneous with multiple small fibroids, minimally changed from prior. The largest measures approximately 2 cm in the region of the fundus. No endometrial lesion, 3 mm thickness. Right ovary 2.0 x 1.5 x 1.1 cm. Left ovary 1.5 x 1.9 x 0.9 cm. Normal color Doppler of both ovaries. No free fluid. IMPRESSION: Small uterine fibroids, not significantly changed from prior. This document has been electronically signed by: Wilmer Malin MD on 03/24/2025 10:04:01
--- OUTSIDE RECORDS SUMMARY | 2025-03-23 13:17 | XMS_ITS | Patient Health Record ---
Author Organization [email or web address] [facility] Address [address] [place] [address] Care Team Providers Care Electro Optical Engineer Name Role Phone KARLY LOVELACE Primary Care Provider ARTURO Randhawa Unavailable [phone] Allergies Allergen (clinical drug ingredient) Drug/Non Drug [...] Interpretation: Performing Lab:Testing performed or reported by [facility], a Service of [facility], [address] [place] [address] Bakari Velasquez MD, Health Program Specialist [facility]# [id number] Notes/Report: Patient Name: ARTURO EDMONDS Lab Patient : [id number] (Age: 54) Collection Date: 05/06/2024 Accession Date: 05/09/2024 Sign Out Date: 05/15/2024 Tissue Source: 1:EMB Final Diagnosis: Endometrium, biopsy: - Scant superficial fragments of inactive/atrophic endometrium, and features of stromal breakdown. - Fragments of endocervical glandular mucosa and mucus. Primary Pathologist:Lainey Rutledge M.D.,Ph.D. electronically signed out by: Lainey Rutledge M.D.,Ph.D. / [facility] Clinical History: Postmenopausal bleeding Gross Description: The requisition indicates endometrial biopsy . Received in formalin is a 1.5 x 1.3 x 0.5 cm aggregate of white-tinged mucus with red, fontaine tissue. The specimen is entirely submitted. 1-multiple pieces, x 2. (EG)* As of August 25, 2023, the specimen processing and staining is performed at [facility], [address] [place] [address] (CLIA#[id number]). Its performance characteristics determined by [facility]. Hollie Stephen M.D. Health Program Specialist of Surgical Pathology, Jonatan Schultz M.D. 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 Nutrition: average diet Exercise: regular weight lifting / resistance exercise regular cardio Sexual activity: not sexually active Contraception: oral contraceptives Smoking: never a smoker Alcohol: occasional alcohol Text messaging while driving: no Sunscreen: yes Illicit drugs: no Seatbelt: yes Marital status: single 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 Nutrition: average diet Exercise: regular weight lifting / resistance exercise regular cardio Sexual activity: not sexually active Contraception: oral contraceptives Smoking: never a smoker Alcohol: occasional alcohol Text messaging while driving: no Sunscreen: yes Illicit drugs: no Seatbelt: yes Marital status: single 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 Nutrition: average diet Exercise: regular weight lifting / resistance exercise regular cardio Sexual activity: not sexually active Contraception: oral contraceptives Smoking: never a smoker Alcohol: occasional alcohol Text messaging while driving: no Sunscreen: yes Illicit drugs: no Seatbelt: yes Marital status: single 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 Nutrition: average diet Exercise: regular weight lifting / resistance exercise regular cardio Sexual activity: not sexually active Contraception: oral contraceptives Smoking: never a smoker Alcohol: occasional alcohol Text messaging while driving: no Sunscreen: yes Illicit drugs: no Seatbelt: yes Marital status: single 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 Nutrition: average diet Exercise: regular weight lifting / resistance exercise regular cardio Sexual activity: not sexually active Contraception: oral contraceptives Smoking: never a smoker Alcohol: occasional alcohol Text messaging while driving: no Sunscreen: yes Illicit drugs: no Seatbelt: yes Marital status: single 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 Nutrition: average diet Exercise: regular weight lifting / resistance exercise regular cardio Sexual activity: not sexually active Contraception: oral contraceptives Smoking: never a smoker Alcohol: occasional alcohol Text messaging while driving: no Sunscreen: yes Illicit drugs: no Seatbelt: yes Marital status: single 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 Nutrition: average diet Exercise: regular weight lifting / resistance exercise regular cardio Sexual activity: not sexually active Contraception: oral contraceptives Smoking: never a smoker Alcohol: occasional alcohol Text messaging while driving: no Sunscreen: yes Illicit drugs: no Seatbelt: yes Marital status: single 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 Nutrition: average diet Exercise: regular weight lifting / resistance exercise regular cardio Sexual activity: not sexually active Contraception: oral contraceptives Smoking: never a smoker Alcohol: occasional alcohol Text messaging while driving: no Sunscreen: yes Illicit drugs: no Seatbelt: yes Marital status: single 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 Nutrition: average diet Exercise: regular weight lifting / resistance exercise regular cardio Sexual activity: not sexually active Contraception: oral contraceptives Smoking: never a smoker Alcohol: occasional alcohol Text messaging while driving: no Sunscreen: yes Illicit drugs: no Seatbelt: yes Marital status: single 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 Nutrition: average diet Exercise: regular weight lifting / resistance exercise regular cardio Sexual activity: not sexually active Contraception: oral contraceptives Smoking: never a smoker Alcohol: occasional alcohol Text messaging while driving: no Sunscreen: yes Illicit drugs: no Seatbelt: yes Marital status: single 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 Nutrition: average diet Exercise: regular weight lifting / resistance exercise regular cardio Sexual activity: not sexually active Contraception: oral contraceptives Smoking: never a smoker Alcohol: occasional alcohol Text messaging while driving: no Sunscreen: yes Illicit drugs: no Seatbelt: yes Marital status: single 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 Nutrition: average diet Exercise: regular weight lifting / resistance exercise regular cardio Sexual activity: not sexually active Contraception: oral contraceptives Smoking: never a smoker Alcohol: occasional alcohol Text messaging while driving: no Sunscreen: yes Illicit drugs: no Seatbelt: yes Marital status: single 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 Nutrition: average diet Exercise: regular weight lifting / resistance exercise regular cardio Sexual activity: not sexually active Contraception: oral contraceptives Smoking: never a smoker Alcohol: occasional alcohol Text messaging while driving: no Sunscreen: yes Illicit drugs: no Seatbelt: yes Problems Problem Type SNOMED Code ICD Code Onset Dates Problem Status W/U Status Risk Notes Problem Menopause (874710791) Menopausal and female climacteric states (N95.1) Active confirmed Problem Postmenopausal bleeding (83813887) Postmenopausal bleeding (N95.0) Active confirmed Problem Genital herpes simplex (11186423) Herpesviral infection of urogenital system, unspecified (A60.00) Active confirmed Problem Basal cell carcinoma of truncal skin (976500687) Basal cell carcinoma of skin of other part of trunk (C44.519) Active confirmed Problem Cancer of skin of lower limb, basal cell (328898769) Basal cell carcinoma of skin of right lower limb, including hip (C44.712) Active confirmed Problem Mild recurrent major depression (75215573) Major depressive disorder, recurrent, mild (F33.0) Active confirmed Problem Recurrent major depression (52208982) Major depressive disorder, recurrent, unspecified (F33.9) Active confirmed Problem Anxiety disorder (411047929) Anxiety disorder, unspecified (F41.9) Active confirmed Problem Postcoital bleeding (87757582) Postcoital and contact bleeding (N93.0) Active confirmed Problem Abnormal findings on diagnostic imaging of breast (382614282) Other abnormal and inconclusive findings on diagnostic imaging of breast (R92.8) Active confirmed Problem Family history of malignant neoplasm of breast (595725559) Family history of malignant neoplasm of breast (Z80.3) Active confirmed Problem Premenstrual dysphoric disorder (789311) Premenstrual dysphoric disorder (F32.81) Active confirmed Problem COVID-19 (671007227) COVID-19 (U07.1) Active confirmed Problem Genital herpes simplex (49535031) Unspecified genital herpes (054.10) Active confirmed Major Problem Depressive disorder (67824374) Depressive disorder, not elsewhere classified (311) Active confirmed Major Vital Signs Temperature 98.0 degrees Fahrenheit 05/06/2024 Blood pressure diastolic 78 mm Hg 05/06/2024 Height 64 in 05/06/2024 Blood pressure systolic 106 mm Hg 05/06/2024 Weight 127 lbs 05/06/2024 BMI 21.8 kg/m2 05/06/2024 Encounters Encounter Location Date Provider Diagnosis [facility] [address] [place] [address] 04/29/2024 ARTURO MEYERS Encounter for gynecological examination (general) (routine) without abnormal findings Z01.419 ; Encounter for screening mammogram for malignant neoplasm of breast Z12.31 ; Inconclusive mammogram R92.2 ; Herpesviral infection of urogenital system, unspecified A60.00 and Menopausal and female climacteric states N95.1 [facility] [employer] [address] [place] [address] 05/02/2024 ARTURO MEYERS Abnormal uterine and vaginal bleeding, unspecified N93.[address] [place] [id number] 05/06/2024 ARTURO MEYERS Postmenopausal bleed ing N95.[address] [place] [address] 05/14/2024 ARTURO MEYERS Total [address] [address] 08/22/2024 ARTURO MEYERS Assessments Encounter Date Diagnosis [...] Date Coverage End Date [employer] [facility] [address] [address] [place] [address] [id number] ARTURO ORONA Self - patient is the [...]
--- OUTSIDE RECORDS SUMMARY | 2025-03-23 13:17 | XMS_ITS | Patient Health Record ---
Author Organization [facility] Address [address] [place] [address] Care Team Providers Care Emergency Service Restorer Name Role Phone Agustin ORTA, Reinaldo Primary Care Provider Chuck Marquis Unavailable [phone] Allergies Allergen (clinical drug ingredient) Drug/Non Drug [...] directed Orally once a day Active Nystatin 645665 UNIT TAKE 2 TABLETS BY M OUTH [...] Problem Status W/U Status Risk Notes Problem 689053743 Encounter for screening for malignant neoplasm of colon (Z12.11) Active confirmed Problem Change in bowel habit (30996615) Change in bowel habits (R19.4) Active confirmed Problem 321014549086706 Pre-procedural examination (Z01.818) Active confirmed Problem Celiac disease (830847874) Gluten intolerance (K90.0) Active confirmed Plan Of Treatment Pending Test Test Name Order Date CELIAC PANEL #10 04/08/2020 Future Test Test Name Order Date COLONOSCOPY 06/28/2018 Insurance Providers Payer Name Payer Address Payer Phone Subscriber Number Group Number Insured Name Patient Relationship to Insured Coverage Start Date Coverage End Date [employer] [address] [address] [place] [address] [id number] ARTURO ESCOBAR Self - patient is the insured Medical (General) History Medical History History ICD Code Denies [place],DM,CVA,Lung disease,renal dise ase Anxiety Chronic low WBC [...]
== END 2025-03-23 10:58 | disposition home or self-care (01) ==
LOC: HO.US 10:57
PROVIDERS: PCP Nurse Practitioner Family; Visit Provider Advanced Practice Midwife
DX: D21.9 Benign neoplasm of connective and other soft tissue, unspecified (principal)
CPT/HCPCS: 76830; 76856

== ENCOUNTER → 2025-03-23 10:58 | Outpatient (BNV) | payer OTHER, SELFPAY | PROVIDERS: PCP Nurse Practitioner Family; Visit Provider Radiology Vascular & Interventional Radiology | DX: D25.9 Leiomyoma of uterus, unspecified (principal) | CPT/HCPCS: 76830; 76856 ==

== ENCOUNTER 2025-04-21 12:53 | Outpatient (AMB) | payer OTHER, SELFPAY ==
--- NOTE | 2025-04-21 12:57 | A.OFFPC_ITS ---
Vital Signs 04/21/25 13:00 Height 5 ft 3 in Weight 130 lb BMI 23.0 BP 99/68 Blood Pressure Location Lt brachial Position Sitting Respiration 12 Pulse 68 Pulse Source Pulse Oximeter Temp 97.2 F Temp Source Oral Pulse Oximetry (%) 98 Oxygen Delivery Method Room Air Intake Visit Reasons: Vertigo Intake Note: Patient c/o vertigo and getting worse Business Travel Consultant Required: No Allergies amoxicillin Allergy (Severe, Verified 04/21/25 13:12) Anaphylaxis clindamycin (CLINDAMYCIN) Allergy (Severe, Verified 04/21/25 13:12) HIVES AND BODY SWELLING Penicillins (PENICILLINS) Allergy (Severe, Verified 04/21/25 13:12) ANAPHYLAXIS azithromycin (From ZITHROMAX Z-ASHTYN) Allergy (Intermediate, Verified 04/21/25 13:12) SWELLING, rash sulfamethoxazole (From Bactrim) Allergy (Intermediate, Verified 04/21/25 13:12) rash trimethoprim (From Bactrim) Allergy (Intermediate, Verified 04/21/25 13:12) rash egg Allergy (Unknown, Verified 04/21/25 13:12) Unknown Medication List - Last Reconciled 04/21/25 by Rianna Rebolledo, SITE IDENTIFICATION SPECIALIST- buspirone 5 mg PO TID epinephrine 0.3 mg IM DIRECTED estradiol 1 patch transdermal 2XW fluvoxamine 25 mg PO BEDTIME lutein PO mecobalamin (vitamin B12) PO medium chain triglycerides (MCT Oil) 15 mL PO DAILY multivitamin (Daily Multi-Vitamin tablet) 1 tab PO DAILY nitrofurantoin macrocrystal 100 mg PO .PRN 90 days nystatin 1,000,000 units PO BID oregano oil PO progesterone micronized 200 mg PO BEDTIME turmeric PO valacyclovir 500 mg PO DAILY Tobacco use date assessed: 04/21/25 Dental Screening Dental Screen Date: 04/21/25 Did you have a dental visit in the last 12 months?: Yes Did you have a dental problem in the last 6 months where you did not have access to dental care?: No Was dental information given to patient?: Patient has dentist HPI HPI Comments History of Present Illness Details 55 y/o F with MDD, DEMIAN, OCD, Fibroids, Gluten sensitivity, polyarthralgia, Recurrent UTI and Sinusitis, stress incont, anemia, Menopause, high risk breast ca , shama positive s/p breast surgery, dental surgery, hysteroscopy, cervical polyp removal benign pathology Social: works at [employer], Fhx: Brother w/ [place] and Etoh; Mom , strong family hx breast ca Health Maintenance Tdap 2014, updated today Pap 10/2024 WNL at [employer] [facility] Mammo 06/2024 Colon 08/2018 SUDARSHAN Khan has never had one, ordered today 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 Rheum Ortho U[facility] Psych - [facility] Skyla, [employer] MECHANIC Counselor History of Present Illness The patient is a 55 year old female presenting with vertigo. Benign Paroxysmal Positional Vertigo: - The patient reports a history of verti go - Symptoms are positional and occur afte r lying down, during yoga, or when rolling over in bed, and feel worse on the right side. - She experienced an episode this mornin g when turning her head to the right while lying in bed. - The patient underwent vestibular physi caroline therapy about two years ago, which was effective. - She is not currently taking any medica tion, such as meclizine, for her symptoms. Past Medical History - History of vertigo, treated with vesti bular therapy approximately two years ago. - History of low blood pressure. Review of Systems - Neurological: Reports vertigo with pos itional changes, described as a spinning or free falling sensation. - HEENT: Reports feeling that the vertig o is worse on the right side. - Cardiovascular: Reports occasional lig htheadedness upon standing. - Musculoskeletal: Reports pain with upw lluvia gaze during examination. Physical Exam General: Well developed, well nourished, in no acute distress. Appears stated age. Head: Normocephalic, atraumatic. Eyes: Pupils are equal, round and reactive to light and accommodation. Conjunctivae are clear. Vision grossly normal. Noted difficulty focusing and slight dizziness when looking up. TM intact bilat mild injection on R likely from Q tip trauma. + Jean hallpike on the L. Test was not done on the R given the quick + finding on the R. After a few minutes, she returned to baseline. Results - Tests and Diagnostics: A positive [place]- Hallpike maneuver confirmed the diagnosis of Benign Paroxysmal Positional Vertigo (BPPV). Medical Decision Making The patient is a 55-year-old female presenting with vertigo. Her symptoms are classic for benign paroxysmal positional vertigo (BPPV), characteristically triggered by positional changes such as lying down, rolling over, and specific head turns, with a reported right-sided predominance. The diagnosis was confirmed with a positive Jean-Hallpike maneuver, which elicited significant vertigo and observable nystagmus. The patient has a history of BPPV, which responded well to vestibular therapy approximately two years ago. Although the patient has a history of low blood pressure and reports some orthostatic lightheadedness, these symptoms are considered distinct from the acute vertiginous episodes. The management plan is focused on treating the BPPV recurrence. An urgent referral for vestibular therapy will be placed, as it is the most effective treatment. For interim symptomatic relief, meclizine will be prescribed to be used as needed, which will allow her to continue activities such as yoga. The patient was counseled on avoiding triggering positions and on safety measures. Plan 1. Benign Paroxysmal Positional Vertigo - The diagnosis is confirmed by a charac teristic history and a positive Jean- Hallpike maneuver. - An urgent referral will be placed for vestibular therapy, which is the definitive treatment for this condition. - Meclizine will be prescribed, 1 tablet up to three times daily as needed, for symptomatic relief. - The patient was advised she can take m eclizine before activities known to trigger her symptoms, such as yoga. - The prescription will be sent to the [facility] as preferred. - Patient counseled to avoid known cyndie ering positions, especially lying down and turning her head to the right, and to consider propping her head up while sleeping. - The patient was reassured that she is safe to drive but should exercise caution. 2. Hypotension - The patient's history of low blood pre ssure and associated lightheadedness was noted, but it is considered separate from her primary complaint of vertigo and was not the focus of today's visit. Patient Instructions - Your dizziness is caused by a conditio n called Benign Paroxysmal Positional Vertigo (BPPV). - We are sending a referral for you to shelby clay a physical therapist for a special treatment called vestibular therapy, which is the best way to fix this problem. - I am prescribing a medication called m eclizine. You can take one pill up to three times a day if you feel dizzy. - You may also take the meclizine before activities you know might cause dizziness, like yoga. - Try to avoid positions that you know w ill trigger your dizziness, such as turning your head to the right when you are lying down. - It may help to sleep with your head pr opped up on extra pillows. - You are okay to drive, but please be c areful and avoid quick head movements. - If you feel an episode starting, focus your eyes on a single stationary object to help your body feel steady again. Consent The nature of the [place]-Hallpike maneuver, a diagnostic test to provoke the symptoms of vertigo, was explained. The patient was instructed on her role during the procedure, which was to keep her eyes open, and was informed that the provider would stabilize her head and neck throughout. The patient verbally agreed to proceed with the examination. Patient was informed and verbally consented to the use of an ambient scribe for clinic note documentation during this visit. [facility] Medical History Dense breast Family history of breast cancer Anxiety Herpes Arthritis Sinusitis Unsatisfactory cervical Papanicolaou smear Fibroid Postmenopausal bleeding Abnormal vaginal bleeding Chronic depressive disorder Gluten-sensitive enteropathy Surgical History History of colonoscopy (~08/2018) History of hysteroscopy History of dental surgery Status post cervical polyp removal History of augmentation of both breasts Family History Father Hypertension CVD (cardiovascular disease) Mother Lung cancer Brother Lung cancer Maternal Grandmother Mental health disorder Paternal Grandmother Breast cancer Family/Other Breast cancer Family/Other Breast cancer Paternal Aunt Breast cancer Paternal Aunt Breast cancer Social History Household Members: Spouse Both parents involved: No Caregiver staying overnight: No Housing: House Are you a primary direct care professional to a significant other at home: No Do you presently have visiting nurse or other home services: No 75 years or older and lives alone: No Alcohol intake: current Alcohol intake frequency: holidays/special occasions only Patient Tobacco Use Status: Never used Tobacco e-Cigarette/Vaping Use: Never Used Second Hand Smoke Exposure: No service: No Current occupational status: employed 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 Cognitive needs: No Hearing needs: No Vision needs: Yes Female Reproductive History Menstrual Age of Menarche: 9 Questionnaire Thrive Questionnaire Date Thrive assessed: 11/22/24 I am a: Patient What is your living situation today?: I have a steady place to live Within the past 12 months, did the food you bought not last and you didn't have the money to get more?: Never true Within the past 12 months, did you worry whether your food would run out before you got money to buy more?: Never true Do you have trouble paying for medicines?: No Do you have trouble getting transportation to medical appointments?: No Do you have trouble paying your heating and electricity bill?: No Do you have trouble taking care of your child, family member or friend?: No Do you have trouble with day-to-day activities such as bathing, preparing meals, shopping, managing finances, etc.?: No Are you currently unemployed and looking for a job?: No Are you interested in more education?: No Please select the resources that you would like help with: None Currently or been in a relationship where the following occur: No concerns reported THRIVE Score: 0 DEMIAN-7 AMB Questionnaire DEMIAN-7 Date DEMIAN - 7 assessed: 11/25/24 Source: Developed by Drs. Chuck Angelo, Kimber Heredia, Misael Greene and colleagues, with an educational tootie from [employer]. Physical exam (Primary Care) Vital Signs: Last Vital Signs Temp 97.2 F 04/21/25 13:00 Pulse 68 04/21/25 13:00 Resp 12 04/21/25 13:00 BP 99/68 04/21/25 13:00 Pulse Ox 98 04/21/25 13:00 Oxygen Delivery Method Room Air 04/21/25 13:00 BMI result Body Mass Index 23.0 Tobacco/Smoking Status: Tobacco use Status Tobacco use date assessed 04/21/25 04/21/25 13:01 Patient Tobacco Use Status Never used Tobacco 04/21/25 13:01 e-Cigarette/Vaping Use Never Used 04/21/25 13:01 Thrive Assessment: Date of Thrive Assessment Date Thrive assessed 11/22/24 04/21/25 13:01 Currently or been in a relationship where the following occur: No concerns reported Coding Level of Care Code Est Pt Level 3 (95618) Complex EM visit Add On G2211 Diagnoses Benign paroxysmal positional vertigo due to bilateral vestibular disorder H81.13 Laterality: bilateral Assessment & Plan Assessment & Plan (1) BPPV (benign paroxysmal positional vertigo): Code(s): H81.10 - Benign paroxysmal vertigo, unspecified ear Category: Medical Qualifiers: Laterality: bilateral Qualified Code(s): H81.13 - Benign paroxysmal vertigo, bilateral Plan . Orders: Orders PT Evaluation and Treatment Today H81.10 - Benign paroxysmal vertigo, unspecified ear Medications: New meclizine 12.5 mg PO TID PRN 30 tabs 0RF dizziness
[2025-04-21 13:00] VITALS: BP 99/68; PULSE 68; RESP 12; TEMP 36.2; O2SAT 98; BMI 23.0
--- OUTSIDE RECORDS SUMMARY | 2025-04-21 15:29 | XMS_ITS | Patient Health Record ---
Author Organization [facility] Address [address] [place] [address] Care Team Providers Care Management Accounts Manager Name Role Phone KARLY LOVELACE Primary Care Provider ARTURO Randhawa Unavailable [phone] Allergies Allergen (clinical drug ingredient) Drug/Non Drug [...] Interpretation: Performing Lab:Testing performed or reported by [facility], a Service of [facility], [address] [place] [address] Bakari Velasquez MD, [employer] [facility]# [id number] Notes/Report: Patient Name: ARTURO EDMONDS Lab Patient : [id number] (Age: 54) Collection Date: 05/06/2024 Accession Date: 05/09/2024 Sign Out Date: 05/15/2024 Tissue Source: 1:EMB Final Diagnosis: Endometrium, biopsy: - Scant superficial fragments of inactive/atrophic endometrium, and features of stromal breakdown. - Fragments of endocervical glandular mucosa and mucus. Primary Pathologist:Lainey Rutledge M.D.,Ph.D. electronically signed out by: Lainey Rutledge M.D.,Ph.D. / [facility] Clinical History: Postmenopausal bleeding Gross Description: The requisition indicates endometrial biopsy . Received in formalin is a 1.5 x 1.3 x 0.5 cm aggregate of white-tinged mucus with red, fontaine tissue. The specimen is entirely submitted. 1-multiple pieces, x 2. (EG)* As of August 25, 2023, the specimen processing and staining is performed at [facility], [address] [place] [address] (CLIA#[id number]). Its performance characteristics determined by [facility]. Hollie Stephen M.D. [employer] of Surgical Pathology, Jonatan Schultz M.D. 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 Nutrition: average diet Exercise: regular weight lifting / resistance exercise regular cardio Sexual activity: not sexually active Contraception: oral contraceptives Smoking: never a smoker Alcohol: occasional alcohol Text messaging while driving: no Sunscreen: yes Illicit drugs: no Seatbelt: yes Marital status: single 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 Nutrition: average diet Exercise: regular weight lifting / resistance exercise regular cardio Sexual activity: not sexually active Contraception: oral contraceptives Smoking: never a smoker Alcohol: occasional alcohol Text messaging while driving: no Sunscreen: yes Illicit drugs: no Seatbelt: yes Marital status: single 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 Nutrition: average diet Exercise: regular weight lifting / resistance exercise regular cardio Sexual activity: not sexually active Contraception: oral contraceptives Smoking: never a smoker Alcohol: occasional alcohol Text messaging while driving: no Sunscreen: yes Illicit drugs: no Seatbelt: yes Marital status: single 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 Nutrition: average diet Exercise: regular weight lifting / resistance exercise regular cardio Sexual activity: not sexually active Contraception: oral contraceptives Smoking: never a smoker Alcohol: occasional alcohol Text messaging while driving: no Sunscreen: yes Illicit drugs: no Seatbelt: yes Marital status: single 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 Nutrition: average diet Exercise: regular weight lifting / resistance exercise regular cardio Sexual activity: not sexually active Contraception: oral contraceptives Smoking: never a smoker Alcohol: occasional alcohol Text messaging while driving: no Sunscreen: yes Illicit drugs: no Seatbelt: yes Marital status: single 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 Nutrition: average diet Exercise: regular weight lifting / resistance exercise regular cardio Sexual activity: not sexually active Contraception: oral contraceptives Smoking: never a smoker Alcohol: occasional alcohol Text messaging while driving: no Sunscreen: yes Illicit drugs: no Seatbelt: yes Marital status: single 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 Nutrition: average diet Exercise: regular weight lifting / resistance exercise regular cardio Sexual activity: not sexually active Contraception: oral contraceptives Smoking: never a smoker Alcohol: occasional alcohol Text messaging while driving: no Sunscreen: yes Illicit drugs: no Seatbelt: yes Marital status: single 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 Nutrition: average diet Exercise: regular weight lifting / resistance exercise regular cardio Sexual activity: not sexually active Contraception: oral contraceptives Smoking: never a smoker Alcohol: occasional alcohol Text messaging while driving: no Sunscreen: yes Illicit drugs: no Seatbelt: yes Marital status: single 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 Nutrition: average diet Exercise: regular weight lifting / resistance exercise regular cardio Sexual activity: not sexually active Contraception: oral contraceptives Smoking: never a smoker Alcohol: occasional alcohol Text messaging while driving: no Sunscreen: yes Illicit drugs: no Seatbelt: yes Marital status: single 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 Nutrition: average diet Exercise: regular weight lifting / resistance exercise regular cardio Sexual activity: not sexually active Contraception: oral contraceptives Smoking: never a smoker Alcohol: occasional alcohol Text messaging while driving: no Sunscreen: yes Illicit drugs: no Seatbelt: yes Marital status: single 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 Nutrition: average diet Exercise: regular weight lifting / resistance exercise regular cardio Sexual activity: not sexually active Contraception: oral contraceptives Smoking: never a smoker Alcohol: occasional alcohol Text messaging while driving: no Sunscreen: yes Illicit drugs: no Seatbelt: yes Marital status: single 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 Nutrition: average diet Exercise: regular weight lifting / resistance exercise regular cardio Sexual activity: not sexually active Contraception: oral contraceptives Smoking: never a smoker Alcohol: occasional alcohol Text messaging while driving: no Sunscreen: yes Illicit drugs: no Seatbelt: yes Marital status: single 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 Nutrition: average diet Exercise: regular weight lifting / resistance exercise regular cardio Sexual activity: not sexually active Contraception: oral contraceptives Smoking: never a smoker Alcohol: occasional alcohol Text messaging while driving: no Sunscreen: yes Illicit drugs: no Seatbelt: yes Problems Problem Type SNOMED Code ICD Code Onset Dates Problem Status W/U Status Risk Notes Problem Menopause (612091428) Menopausal and female climacteric states (N95.1) Active confirmed Problem Postmenopausal bleeding (68055869) Postmenopausal bleeding (N95.0) Active confirmed Problem Genital herpes simplex (01630104) Herpesviral infection of urogenital system, unspecified (A60.00) Active confirmed Problem Basal cell carcinoma of truncal skin (181609755) Basal cell carcinoma of skin of other part of trunk (C44.519) Active confirmed Problem Cancer of skin of lower limb, basal cell (325007915) Basal cell carcinoma of skin of right lower limb, including hip (C44.712) Active confirmed Problem Mild recurrent major depression (91908225) Major depressive disorder, recurrent, mild (F33.0) Active confirmed Problem Recurrent major depression (81653878) Major depressive disorder, recurrent, unspecified (F33.9) Active confirmed Problem Anxiety disorder (155997492) Anxiety disorder, unspecified (F41.9) Active confirmed Problem Postcoital bleeding (55549512) Postcoital and contact bleeding (N93.0) Active confirmed Problem Abnormal findings on diagnostic imaging of breast (614456064) Other abnormal and inconclusive findings on diagnostic imaging of breast (R92.8) Active confirmed Problem Family history of malignant neoplasm of breast (517258824) Family history of malignant neoplasm of breast (Z80.3) Active confirmed Problem Premenstrual dysphoric disorder (223749) Premenstrual dysphoric disorder (F32.81) Active confirmed Problem COVID-19 (668326965) COVID-19 (U07.1) Active confirmed Problem Genital herpes simplex (47202803) Unspecified genital herpes (054.10) Active confirmed Major Problem Depressive disorder (80124181) Depressive disorder, not elsewhere classified (311) Active confirmed Major Vital Signs Temperature 98.0 degrees Fahrenheit 05/06/2024 Blood pressure diastolic 78 mm Hg 05/06/2024 Height 64 in 05/06/2024 Blood pressure systolic 106 mm Hg 05/06/2024 Weight 127 lbs 05/06/2024 BMI 21.8 kg/m2 05/06/2024 Encounters Encounter Location Date Provider Diagnosis Total [facility]iac [facility] [address] [place] [address] 04/29/2024 ARTURO MEYERS Encounter for gynecological examination (general) (routine) without abnormal findings Z01.419 ; Encounter for screening mammogram for malignant neoplasm of breast Z12.31 ; Inconclusive mammogram R92.2 ; Herpesviral infection of urogenital system, unspecified A60.00 and Menopausal and female climacteric states N95.1 Total [facility] [address] [place] [address] 05/02/2024 ARTURO MEYERS Abnormal uterine and vaginal bleeding, unspecified N93.[address] [place] [id number] 05/06/2024 ARTURO MEYERS Postmenopausal bleed ing N95.[address] [place] [address] 05/14/2024 ARTURO MEYERS Total [address] [address] 08/22/2024 ARTURO MEYERS Assessments Encounter Date Diagnosis [...] Date Coverage End Date [facility] [address] [address] [place] [address] [id number] ARTURO ORONA Self - patient is the [...]
--- OUTSIDE RECORDS SUMMARY | 2025-04-21 15:29 | XMS_ITS | Patient Health Record ---
Author Organization [facility] Address [address] [place] [address] Care Team Providers Care Stone Belt Sander Name Role Phone Reinaldo Velez MD Primary Care Provider Chuck Marquis Unavailable [phone] Allergies Allergen (clinical drug ingredient) Drug/Non Drug [...] 2 WEEKS,THEN DAILY 2 3X PER WEEK External; Duration: 30 Active Vitamin C & D3/Corine Hips Active buPROPion HCl ER (SR) 100 MG TAKE 1 TABL ET BY MOUTH EVERY DAY Oral; Duration: 30 Active valACYclovir HCl 500 MG TAKE 1 TABLET BY MOUTH DAILY Oral; Duration: 90 Active CeleXA 10 MG 1 tablet Orally Once a day; Duration: 30 day(s) Active Probiotic - as directed Orally Active Citalopram Hydrobromide 10 MG/5ML 5 mL Orally Once a day; Duration: 30 day(s) Active Multi For Her - as directed Orally Active CombiPatch 0.05-0.14 MG/DAY APPLY 1 PATC H TO THE SKIN TWICE A WEEK Transdermal; Duration: 84 Active Niacinamide 100 MG 1 tablet Orally ever y 6 hrs; Duration: 30 day(s) Active Nitrofurantoin Monohyd Macro 100 MG TAKE 1 CAPSULE BY MOUTH EVERYDAY AT BEDTIME Oral; Duration: 30 Active Magnesium 300 MG 1 capsule with a linda l Orally Once a day; Duration: 30 day(s) Active Multivitamin Adult - as directed Orally once a day Active Nystatin 883158 UNIT TAKE 2 TABLETS BY M OUTH TWICE A DAY Oral; Duration: 60 Active Immunizations Vaccine Route Administration Date [...] Problem Status W/U Status Risk Notes Problem Screening for malignant neoplasm of colon (410087279) Encounter for screening for malignant neoplasm of colon (Z12.11) Active confirmed Problem Change in bowel habit (72877976) Change in bowel habits (R19.4) Active confirmed Problem Pre-procedure evaluation check (470316418) Pre-procedural examination (Z01.818) Active confirmed Problem Gluten intolerance (2805129609) Gluten intolerance (K90.0) Active confirmed Plan Of Treatment Pending Test Test Name Order Date CELIAC PANEL #10 04/08/2020 Future Test Test Name Order Date COLONOSCOPY 06/28/2018 Insurance Providers Payer Name Payer Address Payer Phone Subscriber Number Group Number Insured Name Patient Relationship to Insured Coverage Start Date Coverage End Date [employer] [address] [address] [place] [address] [id number] ARTURO ESCOBAR Self - patient is the insured Medical (General) History Medical History History ICD Code Denies ND,DM,CVA,Lung disease,renal dise ase Anxiety Chronic low WBC [...]
== END 2025-04-21 13:31 | disposition home or self-care (01) ==
LOC: HO.HMCFM 12:54
PROVIDERS: PCP Nurse Practitioner Family; Visit Provider Nurse Practitioner Family
DX: H81.13 Benign paroxysmal vertigo, bilateral (principal)

== ENCOUNTER 2025-04-23 08:19 | Outpatient (AMB) | payer OTHER, SELFPAY ==
[2025-04-23 08:35] VITALS: BMI 23.0
--- NOTE | 2025-04-23 08:35 | MHC.OFFVIS ---
Vital Signs 04/23/25 08:35 Height 5 ft 3 in Weight 130 lb BMI 23.0 Intake Visit Reasons: Ultrasound Follow up Intake Note: review u/s done on 03/24/25 Reduction Plant Supervisor Required: No Information Interpreted: non-clinical & clinical Sort Operations Supervisor: Sort Operations Supervisor Present Accompanied by: Self / Same As Patient Allergies amoxicillin Allergy (Severe, Verified 04/21/25 13:12) Anaphylaxis clindamycin (CLINDAMYCIN) Allergy (Severe, Verified 04/21/25 13:12) HIVES AND BODY SWELLING Penicillins (PENICILLINS) Allergy (Severe, Verified 04/21/25 13:12) ANAPHYLAXIS azithromycin (From ZITHROMAX Z-ASHTYN) Allergy (Intermediate, Verified 04/21/25 13:12) SWELLING, rash sulfamethoxazole (From Bactrim) Allergy (Intermediate, Verified 04/21/25 13:12) rash trimethoprim (From Bactrim) Allergy (Intermediate, Verified 04/21/25 13:12) rash egg Allergy (Unknown, Verified 04/21/25 13:12) Unknown Medication List - Last Reconciled 04/23/25 by Rachel Wright LPN buspirone 5 mg PO TID epinephrine 0.3 mg IM DIRECTED estradiol 1 patch transdermal 2XW fluvoxamine 25 mg PO BEDTIME lutein PO meclizine 12.5 mg PO TID PRN mecobalamin (vitamin B12) PO multivitamin (Daily Multi-Vitamin tablet) 1 tab PO DAILY nitrofurantoin macrocrystal 100 mg PO .PRN 90 days nystatin 1,000,000 units PO BID oregano oil PO progesterone micronized 200 mg PO BEDTIME turmeric PO valacyclovir 500 mg PO DAILY Is last menstrual period known: Yes Do you need a note to return to daycare/school/sports/work: No HPI Comments Details: Patient is here today for a follow up pelvic ultrasound, history of uterine fibroids. Using hormone replacement patches for menopausal symptoms and feels an improvement with her joints, other health benefits. Was treated at aesthetics in [facility]. with implantable pellets for testosterone and estrogen and discontinued as she felt there was no significant improvement. [facility] Medical History Vertigo Dense breast Family history of breast cancer Anxiety Herpes Arthritis Sinusitis Unsatisfactory cervical Papanicolaou smear Fibroid Postmenopausal bleeding Abnormal vaginal bleeding Chronic depressive disorder Gluten-sensitive enteropathy Surgical History History of colonoscopy (~08/2018) History of hysteroscopy History of dental surgery Status post cervical polyp removal History of augmentation of both breasts Family History Father Hypertension CVD (cardiovascular disease) Mother Lung cancer Brother Lung cancer Maternal Grandmother Mental health disorder Paternal Grandmother Breast cancer Family/Other Breast cancer Family/Other Breast cancer Paternal Aunt Breast cancer Paternal Aunt Breast cancer Unknown Breast cancer Social History Household Members: Spouse Both parents involved: No Caregiver staying overnight: No Housing: House Are you a primary career education teacher to a significant other at home: No Do you presently have visiting nurse or other home services: No 75 years or older and lives alone: No Alcohol intake: current Alcohol intake frequency: holidays/special occasions only Patient Tobacco Use Status: Never used Tobacco e-Cigarette/Vaping Use: Never Used Second Hand Smoke Exposure: No service: No Current occupational status: employed 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 Cognitive needs: No Hearing needs: No Vision needs: Yes Female Reproductive History Menstrual Age of Menarche: 9 Menopause type: natural Review of Systems Const All systems reviewed & are unremarkable except as noted in HPI and below Endo Reports no additional complaints Physical Exam Vital Signs: BMI result Body Mass Index 23.0 Const General: cooperative, healthy appearing and no acute distress Psych Appearance: well kempt Attitude: cooperative Thought process: Normal thought process present Results Reviewed Results Reviewed: [address] [address] Ultrasound Report Signed Patient: Tita Chandler MR#: [id number] : 1970 Acct:[id number] Age/Sex: 55 / F ADM Date: 03/23/25 Loc: HO.US Attending Dr: Sirisha Samuel CNM Ordering Physician: Sirisha Samuel CNM Date of Service: 03/23/25 Procedure(s): US pelvic and transvaginal Accession Number(s): [id number] cc: Sirisha Samuel CNM; Rianna Rebolledo [facility]~ Reason for Exam: D21.9 - Benign neoplasm of connective and other soft tissue, unspecified CLINICAL HISTORY: D21.9 - Benign neoplasm of connective and other soft tissue, unspecified --- Additional Notes or Special Instructions: Six-month follow up for stability US pelvis transvaginal Comparison: US/SR - US PELVIS TRANSABDOMINAL AND TRANSVAGINAL - 10/10/24 14:50 EDT Findings: Transvaginal scanning performed. The uterus is 7.8 cm length. The uterus is mildly heterogeneous with multiple small fibroids, minimally changed from prior. The largest measures approximately 2 cm in the region of the fundus. No endometrial lesion, 3 mm thickness. Right ovary 2.0 x 1.5 x 1.1 cm. Left ovary 1.5 x 1.9 x 0.9 cm. Normal color Doppler of both ovaries. No free fluid. IMPRESSION: Small uterine fibroids, not significantly changed from prior. This document has been electronically signed by: Wilmer Malin MD on 03/24/2025 10:04:01 Dictated By: Wilmer Malin MD Signed By: <Electronically signed by Wilmer Malin MD in OV> 03/24/25 1005 DD/ 1004 TD/TT: 03/24/25 1004 Conservation Assistant: Assessment & Plan Assessment & Plan (1) Fibroid: Comment: Reviewed ultrasound: fibroids- 1 fundus 1 anterior, endo lining 5mm Code(s): D21.9 - Benign neoplasm of connective and other soft tissue, unspecified Category: Medical Plan Counseled re: Leiomyoma: common pelvic neoplasm. Differential diagnosis-may include but not limited to- leiomyosarcoma which is a rare uterine sarcoma 3-7/100,000, difficult to distinguish from fibroids on ultrasound from uterine sarcoma's. Unlikely any single test will have a highly positive predictive value. Hysterectomy is not recommended for sole purpose of excluding malignant neoplasm. Consult for surgical exploration, medical treatment, other treatments, verses expectant management, pros and cons, risks and benefits. Expectant management follow up in 6 months, then yearly for stability. Patient prefers to proceed with expectant management. Referral to MD if indicated for level of care if indicated Report any pelvic pressure, bloating, or pain. The patient expressed understanding and agreement with the plan of care. All of her questions and concerns were addressed to the best of my ability. Discussed hormone use and benefits. Reviewed other website literature and resources in the community. This note is constructed using voice recognition software. While every effort has been made to ensure accuracy, cabinetmaker maintenance errors may have been included. Orders: Orders US pelvic and transvaginal 6 Months D21.9 - Benign neoplasm of connective and other soft tissue, unspecified Coding Level of Care Code Est Pt Level 3 (92992) Diagnoses Fibroid D21.9
--- OUTSIDE RECORDS SUMMARY | 2025-04-23 08:40 | XMS_ITS | Patient Health Record ---
Author Organization [facility] Address [address] [place] [address] Care Team Providers Care Dish Person Name Role Phone KARLY LOVELACE Primary Care Provider ARTURO Randhawa Unavailable [phone] Allergies Allergen (clinical drug ingredient) Drug/Non Drug [...] Interpretation: Performing Lab:Testing performed or reported by [facility], a Service of [facility], [address] [place] [address] Bakari Velasquez MD, Zipper Measurer [facility]# [id number] Notes/Report: Patient Name: ARTURO EDMONDS Lab Patient : 1970 (Age: 54) Collection Date: 05/06/2024 Accession Date: 05/09/2024 Sign Out Date: 05/15/2024 Tissue Source: 1:EMB Final Diagnosis: Endometrium, biopsy: - Scant superficial fragments of inactive/atrophic endometrium, and features of stromal breakdown. - Fragments of endocervical glandular mucosa and mucus. Primary Pathologist:Lainey Rutledge M.D.,Ph.D. electronically signed out by: Lainey Rutledge M.D.,Ph.D. / [facility] Clinical History: Postmenopausal bleeding Gross Description: The requisition indicates endometrial biopsy . Received in formalin is a 1.5 x 1.3 x 0.5 cm aggregate of white-tinged mucus with red, fontaine tissue. The specimen is entirely submitted. 1-multiple pieces, x 2. (EG)* As of August 25, 2023, the specimen processing and staining is performed at [facility], [address] [place] [address] (CLIA#[id number]). Its performance characteristics determined by [facility]. Hollie Stephen M.D. Zipper Measurer of Surgical Pathology, Jonatan Schultz M.D. 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 Nutrition: average diet Exercise: regular weight lifting / resistance exercise regular cardio Sexual activity: not sexually active Contraception: oral contraceptives Smoking: never a smoker Alcohol: occasional alcohol Text messaging while driving: no Sunscreen: yes Illicit drugs: no Seatbelt: yes Marital status: single 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 Nutrition: average diet Exercise: regular weight lifting / resistance exercise regular cardio Sexual activity: not sexually active Contraception: oral contraceptives Smoking: never a smoker Alcohol: occasional alcohol Text messaging while driving: no Sunscreen: yes Illicit drugs: no Seatbelt: yes Marital status: single 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 Nutrition: average diet Exercise: regular weight lifting / resistance exercise regular cardio Sexual activity: not sexually active Contraception: oral contraceptives Smoking: never a smoker Alcohol: occasional alcohol Text messaging while driving: no Sunscreen: yes Illicit drugs: no Seatbelt: yes Marital status: single 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 Nutrition: average diet Exercise: regular weight lifting / resistance exercise regular cardio Sexual activity: not sexually active Contraception: oral contraceptives Smoking: never a smoker Alcohol: occasional alcohol Text messaging while driving: no Sunscreen: yes Illicit drugs: no Seatbelt: yes Marital status: single 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 Nutrition: average diet Exercise: regular weight lifting / resistance exercise regular cardio Sexual activity: not sexually active Contraception: oral contraceptives Smoking: never a smoker Alcohol: occasional alcohol Text messaging while driving: no Sunscreen: yes Illicit drugs: no Seatbelt: yes Marital status: single 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 Nutrition: average diet Exercise: regular weight lifting / resistance exercise regular cardio Sexual activity: not sexually active Contraception: oral contraceptives Smoking: never a smoker Alcohol: occasional alcohol Text messaging while driving: no Sunscreen: yes Illicit drugs: no Seatbelt: yes Marital status: single 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 Nutrition: average diet Exercise: regular weight lifting / resistance exercise regular cardio Sexual activity: not sexually active Contraception: oral contraceptives Smoking: never a smoker Alcohol: occasional alcohol Text messaging while driving: no Sunscreen: yes Illicit drugs: no Seatbelt: yes Marital status: single 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 Nutrition: average diet Exercise: regular weight lifting / resistance exercise regular cardio Sexual activity: not sexually active Contraception: oral contraceptives Smoking: never a smoker Alcohol: occasional alcohol Text messaging while driving: no Sunscreen: yes Illicit drugs: no Seatbelt: yes Marital status: single 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 Nutrition: average diet Exercise: regular weight lifting / resistance exercise regular cardio Sexual activity: not sexually active Contraception: oral contraceptives Smoking: never a smoker Alcohol: occasional alcohol Text messaging while driving: no Sunscreen: yes Illicit drugs: no Seatbelt: yes Marital status: single 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 Nutrition: average diet Exercise: regular weight lifting / resistance exercise regular cardio Sexual activity: not sexually active Contraception: oral contraceptives Smoking: never a smoker Alcohol: occasional alcohol Text messaging while driving: no Sunscreen: yes Illicit drugs: no Seatbelt: yes Marital status: single 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 Nutrition: average diet Exercise: regular weight lifting / resistance exercise regular cardio Sexual activity: not sexually active Contraception: oral contraceptives Smoking: never a smoker Alcohol: occasional alcohol Text messaging while driving: no Sunscreen: yes Illicit drugs: no Seatbelt: yes Marital status: single 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 Nutrition: average diet Exercise: regular weight lifting / resistance exercise regular cardio Sexual activity: not sexually active Contraception: oral contraceptives Smoking: never a smoker Alcohol: occasional alcohol Text messaging while driving: no Sunscreen: yes Illicit drugs: no Seatbelt: yes Marital status: single 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 Nutrition: average diet Exercise: regular weight lifting / resistance exercise regular cardio Sexual activity: not sexually active Contraception: oral contraceptives Smoking: never a smoker Alcohol: occasional alcohol Text messaging while driving: no Sunscreen: yes Illicit drugs: no Seatbelt: yes Problems Problem Type SNOMED Code ICD Code Onset Dates Problem Status W/U Status Risk Notes Problem Menopause (575107077) Menopausal and female climacteric states (N95.1) Active confirmed Problem Postmenopausal bleeding (59119811) Postmenopausal bleeding (N95.0) Active confirmed Problem Genital herpes simplex (68217992) Herpesviral infection of urogenital system, unspecified (A60.00) Active confirmed Problem Basal cell carcinoma of truncal skin (334740968) Basal cell carcinoma of skin of other part of trunk (C44.519) Active confirmed Problem Cancer of skin of lower limb, basal cell (856006644) Basal cell carcinoma of skin of right lower limb, including hip (C44.712) Active confirmed Problem Mild recurrent major depression (86381264) Major depressive disorder, recurrent, mild (F33.0) Active confirmed Problem Recurrent major depression (83280673) Major depressive disorder, recurrent, unspecified (F33.9) Active confirmed Problem Anxiety disorder (800061424) Anxiety disorder, unspecified (F41.9) Active confirmed Problem Postcoital bleeding (91826500) Postcoital and contact bleeding (N93.0) Active confirmed Problem Abnormal findings on diagnostic imaging of breast (983105515) Other abnormal and inconclusive findings on diagnostic imaging of breast (R92.8) Active confirmed Problem Family history of malignant neoplasm of breast (326917390) Family history of malignant neoplasm of breast (Z80.3) Active confirmed Problem Premenstrual dysphoric disorder (648753) Premenstrual dysphoric disorder (F32.81) Active confirmed Problem COVID-19 (963071821) COVID-19 (U07.1) Active confirmed Problem Genital herpes simplex (53397791) Unspecified genital herpes (054.10) Active confirmed Major Problem Depressive disorder (71974424) Depressive disorder, not elsewhere classified (311) Active confirmed Major Vital Signs Temperature 98.0 degrees Fahrenheit 05/06/2024 Blood pressure diastolic 78 mm Hg 05/06/2024 Height 64 in 05/06/2024 Blood pressure systolic 106 mm Hg 05/06/2024 Weight 127 lbs 05/06/2024 BMI 21.8 kg/m2 05/06/2024 Encounters Encounter Location Date Provider Diagnosis [facility] [address] [place] [address] 04/29/2024 ARTURO MEYERS Encounter for gynecological examination (general) (routine) without abnormal findings Z01.419 ; Encounter for screening mammogram for malignant neoplasm of breast Z12.31 ; Inconclusive mammogram R92.2 ; Herpesviral infection of urogenital system, unspecified A60.00 and Menopausal and female climacteric states N95.1 Total [facility] [address] [place] [address] 05/02/2024 ARTURO MEYERS Abnormal uterine and vaginal bleeding, unspecified N93.[address] [place] [address] 05/06/2024 ARTURO MEYERS Postmenopausal bleed ing N95.[address] [place] [address] 05/14/2024 ARTURO MEYERS Total [address] [address] 08/22/2024 ARTURO MEYERS Assessments Encounter Date Diagnosis [...] Date Coverage End Date [employer] [facility] [address] [address] [place] [address] [id number] ARTURO ORONA Self - patient is the [...]
--- OUTSIDE RECORDS SUMMARY | 2025-04-23 08:40 | XMS_ITS | Patient Health Record ---
Author Organization [facility] Address [address] [place] [address] Care Team Providers Care Precision Aircraft Systems Assembler Name Role Phone Reinaldo Velez MD Primary Care Provider Chuck Marquis Unavailable [phone] Allergies Allergen (clinical drug ingredient) Drug/Non Drug [...] directed Orally once a day Active Nystatin 516066 UNIT TAKE 2 TABLETS BY M OUTH [...] Problem Screening for malignant neoplasm of colon (911740340) Encounter for screening for malignant neoplasm of colon (Z12.11) Active confirmed Problem Change in bowel habit (83462602) Change in bowel habits (R19.4) Active confirmed Problem Pre-procedure evaluation check (416550120) Pre-procedural examination (Z01.818) Active confirmed Problem Gluten intolerance (9265750841) Gluten intolerance (K90.0) Active confirmed Plan Of Treatment Pending Test Test Name Order Date CELIAC PANEL #10 04/08/2020 Future Test Test Name Order Date COLONOSCOPY 06/28/2018 Insurance Providers Payer Name Payer Address Payer Phone Subscriber Number Group Number Insured Name Patient Relationship to Insured Coverage Start Date Coverage End Date [employer] [address] [address] [place] [address] [id number] ARTURO ESCOBAR Self - patient is [...]
== END 2025-04-23 09:18 | disposition home or self-care (01) ==
PROVIDERS: PCP Nurse Practitioner Family; Visit Provider Advanced Practice Midwife
DX: D21.9 Benign neoplasm of connective and other soft tissue, unspecified (principal)
CPT/HCPCS: 99213

== ENCOUNTER 2025-06-10 08:02 | Outpatient (AMB) | payer OTHER, SELFPAY ==
--- OUTSIDE RECORDS SUMMARY | 2025-05-07 03:00 | XMS_ITS ---
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 * Medical History: Objective: * Vitals: Assessment: Plan: * Treatment: * Images: Billing Information: * Visit Code: * Procedure Codes: * Electronic signature of ARTURO MEYERS MD on 06/10/2025 at 08:07 AM EST Sign off status: Pending * Provider: Yehuda MEYERS MD Date: 07/07/2024 Generated for Printi ng/Faxing/eTransmitting on: 08/11/2024 08:07 AM EST
--- NOTE | 2025-06-10 08:05 | A.OFFPC_ITS ---
Vital Signs 06/10/25 08:12 Height 5 ft 3 in Weight 132 lb BMI 23.4 BP 110/69 Blood Pressure Location Lt brachial Position Sitting Respiration 16 Pulse 63 Pulse Source Pulse Oximeter Temp 98.0 F Temp Source Oral Pulse Oximetry (%) 99 Oxygen Delivery Method Room Air Intake Visit Reasons: Physical Intake Note: patient here for CPE Mcat Tutor Required: No Is last menstrual period known: No Post menopausal: No Patient : No Allergies amoxicillin Allergy (Severe, Verified 06/10/25 08:20) Anaphylaxis clindamycin (CLINDAMYCIN) Allergy (Severe, Verified 06/10/25 08:20) HIVES AND BODY SWELLING Penicillins (PENICILLINS) Allergy (Severe, Verified 06/10/25 08:20) ANAPHYLAXIS azithromycin (From ZITHROMAX Z-ASHTYN) Allergy (Intermediate, Verified 06/10/25 08:20) SWELLING, rash sulfamethoxazole (From Bactrim) Allergy (Intermediate, Verified 06/10/25 08:20) rash trimethoprim (From Bactrim) Allergy (Intermediate, Verified 06/10/25 08:20) rash egg Allergy (Unknown, Verified 06/10/25 08:20) Unknown Medication List - Last Reconciled 06/10/25 by Rianna Rebolledo, [employer]- buspirone 5 mg PO TID epinephrine 0.3 mg IM DIRECTED estradiol 1 patch transdermal 2XW fluvoxamine 25 mg PO BEDTIME lutein PO meclizine 12.5 mg PO TID PRN mecobalamin (vitamin B12) PO multivitamin (Daily Multi-Vitamin tablet) 1 tab PO DAILY nitrofurantoin macrocrystal 100 mg PO .PRN 90 days nystatin 1,000,000 units PO BID oregano oil PO progesterone micronized 200 mg PO BEDTIME turmeric PO valacyclovir 500 mg PO DAILY Tobacco use date assessed: 06/10/25 Dental Screening Dental Screen Date: 06/10/25 Did you have a dental visit in the last 12 months?: Yes Did you have a dental problem in the last 6 months where you did not have access to dental care?: No Was dental information given to patient?: Patient has dentist HPI HPI Comments History of Present Illness Details 55 y/o F with MDD, DEMIAN, OCD, Fibroids, Gluten sensitivity, polyarthralgia, Recurrent UTI and Sinusitis, stress incont, anemia, Menopause, high risk breast ca , shama positive s/p breast surgery, dental surgery, hysteroscopy, cervical polyp removal benign pathology Social: works at [employer] [place], Fhx: Brother w/ lung CA and Etoh; Mom , strong family hx breast ca (cousin mastectomy) Health Maintenance Flu declined 06/10/25 Tdap 2024 Pap 10/2024 WNL at [employer] [facility] [place] Mammo 06/2024 Colon 08/2018 Dr Manuel, DEXA 12/2024 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 Mental health conditions: - The patient has a history of major dep ressive disorder, generalized anxiety di sorder, and obsessive-compulsive disorder (OCD). - She is managed by an outside prescribe r, whom she sees every two months, and takes fluvoxamine for OCD. - She reports that while the medication helps, she still has intrusive, worst- case scenario thoughts, but she is better able to identify them as OCD-related with the help of an audiobook. Dizziness: - She has BPPV dizziness, for which she has a prescription for meclizine & has not taken - She has undergone vestibular therapy s essions, which improved the sensation of falling backward, but she continues to experience a feeling of woosiness or movement, particularly when putting her head down during yoga. - The onset of worsening dizziness is as sociated with starting fluvoxamine. Menopause and Arthralgia: - The patient is in menopause and is man aged by an SOCIAL SECURITY SPECIALIST with progesterone and estradiol. - She has experienced significant joint pain and low libido since the onset of menopause. - She was seen by a hydraulic barker operator who s uggested a diagnosis of fibromyalgia. - The patient previously tried a testost erone pellet which improved her joint pain. - Her current SOCIAL SECURITY SPECIALIST will not prescribe testosterone and suggested she see a functional medicine doctor. Labs and medication concerns: - The patient expressed concern about he r liver function due to the number of medications she takes. - Lab work from January showed a slightly elevated AST of 39, but a normal ALT. - The CBC at that time also indicated mi ld anemia. Past Medical History - Major depressive disorder - Generalized anxiety disorder - Obsessive-compulsive disorder - Herpes - Menopause - Chronic dizziness - Mild anemia - History of perioral dermatitis - History of recurrent sinus infections - Fibromyalgia, per rheumatology Past Surgical History - Colon polyp removal (last summer) Family History - Brother (age 68) has lung cancer and a history of alcoholism. - Cousin had a double mastectomy. Social History - The patient lives with her . - She does yoga for exercise. Health Maintenance - The patient is up to date on her Pap s mear. - Her mammogram is due next month, and s he has an appointment scheduled. - She is due for a colonoscopy and bone density scan. - She declines the flu shot. - Her EpiPen was refilled as the previou s one . Review of Systems - Neurological: Reports chronic dizzines s, a feeling of woosiness, and being off balance. - Musculoskeletal: Reports joint pain. - Psychiatric: Reports ongoing intrusive thoughts and being jumpy. - Endocrine: Reports menopausal symptoms including low libido. - Skin: Reports very dry and itchy skin. - All other systems reviewed and are neg ative. Physical Exam General: Well developed, well nourished, in no acute distress. Appears stated a ge. Head: Normocephalic, atraumatic. Eyes: Pupils are equal, round and reactive to light and accommodation. Conjunctivae are clear. Scleras nonicteric bilat. Vision grossly normal. Ears: TMs clear AU, EACS WNL Nose: Patent, without discharge. Neck: No carotid bruit bilat. Supple, no adenopathy or thyromegaly. Breast: Edu on SBE Lungs: Clear to auscultation bilaterally. No rales, rhonchi or wheeze noted. Good air flow in all chavez. Heart: Regular rate and rhythm. No murmurs, click, rubs or gallops are noted. Abdomen: Bowel sounds present in all quadrants. The abdomen is soft, nontender, with no masses or organomegaly noted. No hernias are noted. : Deferred. Reviewed recommendations for routine SCIENCE EDUCATION PROFESSOR Pulses: Peripheral pulses are equal and palpable bilaterally. Extremities: No clubbing, cyanosis nor edema is noted. Neurologic: Gait and station normal. Cranial Nerves 2-12 intact. Motor strength grossly symmetrical and intact. No sensory loss. Balance normal. Patient reports chronic dizziness, possibly related to fluvoxamine. Skin: No rashes, ulcers, or lesions noted. Turgor is good. Skin color is good. Hair and nails are without abnormalities. Anterior posterior trunk faint pink rash with secondary excoriations noted, pt reports very dry and itchy skin with superficial openings. Psych: Normal eye contact, affect and mood appropriate, and normal interactions. Patient is alert and appropriate to context. History of major depressive disorder and generalized anxiety disorder. Managed with fluvoxamine for OCD. Results - Labs (from 02/13): AST 39, ALT normal. - Labs (from 02/13): CBC showed mild ane glenna. Medical Decision Making The patient is a 55-year-old female here for her annual physical exam. Her primary concerns today include ongoing chronic dizziness, significant menopausal symptoms including joint pain, and management of her psychiatric conditions. The patient's dizziness has persisted despite vestibular therapy, and its worsening correlates with the initiation of fluvoxamine. Given that dizziness is a known side effect and it impacts her quality of life, I have advised her to discuss this with her prescribing provider. Her joint pain appears strongly correlated with menopause, and notably improved with a prior trial of a testosterone pellet. Since her SOCIAL SECURITY SPECIALIST is unwilling to prescribe testosterone, I have recommended a consultation with a functional medicine specialist, Dr. Junior, for further evaluation and management of hormone therapy, which may also address her low libido. This seems more appropriate than a diagnosis of fibromyalgia at this time. Regarding her lab results from last January, she had mild anemia and a slightly elevated AST. To address this and her own concerns about her medications' effect on her liver, I have ordered a repeat CBC and CMP today. For health maintenance, we reviewed her screening schedule and I refilled her epinephrine pen. Her dry skin was noted on exam, and I recommended aggressive moisturization. Plan 1. Annual Physical Examination - Labs ordered today include a CBC and C MP to re-evaluate mild anemia and check liver function. - Epinephrine auto-injector prescription was refilled. - Discussed importance of outstanding he alth maintenance, including colonoscopy and bone density scan. - Follow up scheduled in one year for an nual physical, or sooner as needed. 2. Dizziness - Recommended the patient discuss the di zziness with her mental health prescriber, as it is a potential side effect of fluvoxamine and is affecting her quality of life. - The patient has meclizine available fo r as-needed use. 3. Menopausal Symptoms And Arthralgia - Recommended consultation with a [facility] onal medicine specialist (Dr. Junior) to explore hormone optimization, including testosterone therapy, for management of joint pain and low libido, as this has been effective for her in the past. - The patient will continue her current hormone therapy (estradiol and proges terone) prescribed by her SOCIAL SECURITY SPECIALIST. 4. Xerosis Cutis - Advised the patient to use a strong, o intment-based moisturizer to manage her very dry and itchy skin and to increase hydration. Patient Instructions - Please go for your blood tests (CBC an d CMP) today to check your blood counts and liver. - We have sent a refill for your EpiPen to your pharmacy. Please pick it up and keep it with you. - Schedule an appointment with the [facility] ional medicine doctor, Dr. Junior, to talk about your joint pain, low libido, and other hormone therapy options. - Talk to the provider who prescribes yo ur medications for OCD and anxiety about the dizziness you are feeling. It could be a side effect of the fluvoxamine. - Do not stop any of your medications wi thout talking to your prescriber first. - Use a thick, greasy moisturizer (like an ointment) on your dry skin and try to drink plenty of water. - Remember to go to your scheduled mammo gram appointment. - You are also due for a colonoscopy and a bone density scan. - Please schedule a follow-up visit here in one year for your next physical, or call us sooner if you have any new concerns. Consent Patient was informed and verbally consented to the use of an ambient scribe for clinic note documentation during this visit. [facility] Medical History Vertigo Dense breast Family history of breast cancer Anxiety Herpes Arthritis Sinusitis Unsatisfactory cervical Papanicolaou smear Fibroid Postmenopausal bleeding Abnormal vaginal bleeding Chronic depressive disorder Gluten-sensitive enteropathy Surgical History History of colonoscopy (~08/2018) History of hysteroscopy History of dental surgery Status post cervical polyp removal History of augmentation of both breasts Family History Father Hypertension CVD (cardiovascular disease) Mother Lung cancer Brother Lung cancer Maternal Grandmother Mental health disorder Paternal Grandmother Breast cancer Family/Other Breast cancer Family/Other Breast cancer Paternal Aunt Breast cancer Paternal Aunt Breast cancer Unknown Breast cancer Social History (Updated 06/10/25 @ 08:11 by RADHA Bill) Household Members: Spouse Both parents involved: No Caregiver staying overnight: No Housing: House Are you a primary intensive care unit registered nurse to a significant other at home: No Do you presently have visiting nurse or other home services: No 75 years or older and lives alone: No Alcohol intake: current Alcohol intake frequency: holidays/special occasions only Patient Tobacco Use Status: Never used Tobacco e-Cigarette/Vaping Use: Never Used Second Hand Smoke Exposure: No service: No Current occupational status: employed 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 1. Little interest or pleasure in doing things: not at all 2. Feeling down, depressed, or hopeless: several days 3. Trouble falling or staying asleep, or sleeping too much: nearly every day 4. Feeling tired or having little energy: several days 5. Poor appetite or overeating: not at all 6. Feeling bad about yourself - or that you are a failure or have let yourself or your family down: several days 7. Trouble concentrating on things, such as reading the newspaper or watching television: not at all 8. Moving or speaking so slowly that other people could have noticed. Or the opposite - being so fidgety or restless that you have been moving around a lot more than usual: not at all 9. Thoughts that you would be better off or of hurting yourself in some way: not at all Total score: 6 Depression Screening Interpretation: Positive Depression Screening Done: Yes 23177 - PHQ-9 Billing: Yes Source: Developed by Drs. Chuck Angelo, Kimber Heredia, Misael Greene and colleagues, with an educational tootie from [employer]. Thrive Questionnaire Date Thrive assessed: 06/10/25 I am a: Patient What is your living situation today?: I have a steady place to live Within the past 12 months, did the food you bought not last and you didn't have the money to get more?: Never true Within the past 12 months, did you worry whether your food would run out before you got money to buy more?: Never true Do you have trouble paying for medicines?: No Do you have trouble getting transportation to medical appointments?: No Do you have trouble paying your heating and electricity bill?: No Do you have trouble taking care of your child, family member or friend?: No Do you have trouble with day-to-day activities such as bathing, preparing meals, shopping, managing finances, etc.?: No Are you currently unemployed and looking for a job?: No Are you interested in more education?: No Currently or been in a relationship where the following occur: No concerns reported THRIVE Score: 0 AUDIT C Alcohol Use Questionnaire (AUDIT-C) 1. How often do you have a drink containing alcohol?: 2-3 times a week 2. How many drinks containing alcohol do you have on a typical day when you are drinking?: 1 or 2 3. How often do you have six or more drinks on one occasion?: Never Total Score: 3 Score Reviewed/Action Taken: Yes DEMIAN-7 AMB Questionnaire DEMIAN-7 Date DEMIAN - 7 assessed: 11/25/24 Feeling nervous, anxious, or on edge: 1 = Several days Not being able to stop or control worryin = More than half the days Worrying too much about different things: 2 = More than half the days Trouble relaxin = Nearly every day Being so restless that it is hard to sit still: 0 = Not at all Becoming easily annoyed or irritable: 1 = Several days Feeling afraid as if something awful might happen: 2 = More than half the days Total DEMIAN-7 score (0-4 normal; 5-9 mild; 10-14 moderate; 15-21 severe): 11 Source: Developed by Drs. Chuck Angelo, Kimber Heredia, Misael Greene and colleagues, with an educational tootie from [employer]. DEMIAN-7 Assessment Billing DEMIAN-7 Assessment Tool: DEMIAN-7 Assessment 89606 Physical exam (Primary Care) Vital Signs: Last Vital Signs Temp 98.0 F 06/10/25 08:12 Pulse 63 06/10/25 08:12 Resp 16 06/10/25 08:12 BP 110/69 06/10/25 08:12 Pulse Ox 99 06/10/25 08:12 Oxygen Delivery Method Room Air 06/10/25 08:12 BMI result Body Mass Index 23.4 Tobacco/Smoking Status: Tobacco use Status Tobacco use date assessed 06/10/25 06/10/25 08:15 Patient Tobacco Use Status Never used Tobacco 06/10/25 08:11 e-Cigarette/Vaping Use Never Used 06/10/25 08:11 PHQ-9: PHQ-9 Score PHQ-9: Total score 6 06/10/25 08:19 Depression Screening Interpretation: Positive Thrive Assessment: Date of Thrive Assessment Date Thrive assessed 06/10/25 06/10/25 08:19 Currently or been in a relationship where the following occur: No concerns reported Coding Level of Care Code Est Pt Prev Care 40-64y(18461) Add On Preventative Visit Only Diagnoses Physical exam Z00.00 History of bone density study Z92.89 History of mammogram Z92.89 History of Papanicolaou smear of cervix Z92.89 On hormone replacement therapy Z79.890 Laboratory exam ordered as part of routine general medical examination Z00.00 Menopause Z78.0 Xerosis cutis L85.3 Benign paroxysmal vertigo, bilateral H81.13 Chronic depressive disorder F32.9 DEMIAN (generalized anxiety disorder) F41.1 Mixed obsessional thoughts and acts F42.2 Obsessive-compulsive disorder type: mixed obsessional thoughts and acts Influenza vaccination declined Z28.21 Additional Codes DEMIAN-7 Assessment Billing - DEMIAN-7 Assessment Tool: DEMIAN-7 Assessment 21301 ([id number]) PHQ-9 - 01135 - PHQ-9 Billing: Yes ([id number]) Assessment & Plan Assessment & Plan (1) Physical exam: Onset Date: ~06/10/25 Code(s): Z00.00 - Encounter for general adult medical examination without abnormal findings Category: Medical (2) History of bone density study: Onset Date: ~12/2024 Code(s): Z92.89 - Personal history of other medical treatment Category: Medical (3) History of mammogram: Onset Date: ~06/2024 Code(s): Z92.89 - Personal history of other medical treatment Category: Medical (4) History of Papanicolaou smear of cervix: Onset Date: ~10/2024 Code(s): Z92.89 - Personal history of other medical treatment Category: Medical (5) On hormone replacement therapy: Code(s): Z79.890 - Hormone replacement therapy Category: Medical (6) Laboratory exam ordered as part of routine general medical examination: Code(s): Z00.00 - Encounter for general adult medical examination without abnormal findings Category: Medical (7) Menopause: Code(s): Z78.0 - Asymptomatic menopausal state Category: Medical (8) Xerosis cutis: Code(s): L85.3 - Xerosis cutis Category: Medical (9) Benign paroxysmal vertigo, bilateral: Code(s): H81.13 - Benign paroxysmal vertigo, bilateral Category: Medical (10) Chronic depressive disorder: Code(s): F32.9 - Major depressive disorder, single episode, unspecified Category: Medical (11) DEMIAN (generalized anxiety disorder): Code(s): F41.1 - Generalized anxiety disorder Category: Medical (12) OCD (obsessive compulsive disorder): Code(s): F42.9 - Obsessive-compulsive disorder, unspecified Category: Medical Qualifiers: Obsessive-compulsive disorder type: mixed obsessional thoughts and acts Qualified Code(s): F42.2 - Mixed obsessional thoughts and acts (13) Influenza vaccination declined: Onset Date: ~06/10/25 Code(s): Z28.21 - Immunization not carried out because of patient refusal Category: Medical Plan . Orders: Orders Comprehensive Met. Panel Today Z00.00 - Encounter for general adult medical examination without abnormal findings, Z79.890 - Hormone replacement therapy Complete Blood Count no Diff Today Z00.00 - Encounter for general adult medical examination without abnormal findings, Z79.890 - Hormone replacement therapy Medications: New epinephrine 0.3 mg (0.3 mL) IM DIRECTED 2 ea 1RF anaphylaxis Patient Instructions: Health screenings for women You should visit your health care provider from time to time, even if you are healthy. The purpose of these visits is to: Screen for medical issues Assess your risk for future medical problems Encourage a healthy lifestyle Update vaccinations and other preventive care services Help you get to know your provider in case of an illness Information Even if you feel fine, you should still see your provider for regular checkups. These visits can help you avoid problems in the future. For example, the only way to find out if you have high blood pressure is to have it checked regularly. High blood sugar and high cholesterol levels also may not have any symptoms in the early stages. A simple blood test can check for these conditions. There are specific times when you should see your provider or receive specific health screenings. The [place] Preventive Services Task Force publishes a list of recommended screenings. Below are screening guidelines for women ages 18 to 39. BLOOD PRESSURE SCREENING Your blood pressure should be checked at least once every 3 to 5 years if: Your blood pressure is in the normal range (top number less than 120 mm Hg and bottom number less than 80 mm Hg) You don't have risk factors for high blood pressure Ask your provider if you need your blood pressure checked more often if: The top number is 120 to 129 mm Hg or the bottom number is 70 to 79 mm Hg You have diabetes, heart disease, kidney problems, are overweight, or have certain other health conditions You have a first-degree relative with high blood pressure You are Black You had high blood pressure during a If the top number is 130 mm Hg or greater or the bottom number is 80 mm Hg or greater, this is considered stage 1 hypertension. Schedule an appointment with your provider to learn how you can reduce your blood pressure. Watch for blood pressure screenings in your area. Ask your provider if you can stop in to have your blood pressure checked. BREAST CANCER SCREENING Experts do not agree about the benefits of breast self-exams in finding breast cancer or saving lives. Talk to your provider about what is best for you. A screening mammogram is not recommended for most women under age 40. Your provider may discuss and recommend mammograms, MRI scans, or ultrasounds if you have an increased risk for breast cancer, such as: A mother or sister who had breast cancer at a young age (most often starting screening earlier than the age the close relative was diagnosed) You carry a high-risk genetic marker CERVICAL CANCER SCREENING Cervical cancer screening should start at age 21 years unless your provider advises otherwise. After the first test: Women ages 21 through 29 should have a Pap test every 3 years. Exoprts do not agree on whether HPV testing is recommended for this age group. Women ages 30 through 65 should be screened with either a Pap test every 3 years or the HPV test every 5 years or both tests every 5 years (called cotesting ). Women who have been treated for precancer (cervical dysplasia) should continue to have Pap tests for 20 years after treatment or until age 65, whichever is longer. If you have had your uterus and cervix removed (total hysterectomy), and you have not been diagnosed with cervical cancer or precancer (high grade cervical neoplasia), you do not need cervical cancer screening. CHOLESTEROL SCREENING Cholesterol screening should begin at: Age 45 for women with no known risk factors for coronary heart disease Age 20 for women with known risk factors for coronary heart disease Repeat cholesterol screening should take place: Every 5 years for women with normal cholesterol levels More often if changes occur in lifestyle (including weight gain and diet) More often if you have diabetes, heart disease, kidney problems, or certain other conditions DIABETES SCREENING You should be screened for diabetes starting at age 35 and then repeated every 3 years if you have no risk factors for diabetes. Screening may need to start earlier and be repeated more often if you have other risk factors for diabetes, such as: You have a first degree relative with diabetes. You are overweight or have obesity. You have high blood pressure, prediabetes, or a history of heart disease. Screening for diabetes should be done if you are planning to become and you are overweight and have other risk factors such as high blood pressure. DENTAL EXAM Go to the dentist once or twice every year for an exam and cleaning. Your dentist will evaluate if you need more frequent visits. EYE EXAM Have an eye exam every 5 to 10 years before age 40. If you have vision problems, have an eye exam every 2 years or more often if recommended by your provider. You should have an eye exam that includes an examination of your retina (back of your eye) at least every year if you have diabetes. IMMUNIZATIONS Commonly needed vaccines include: Flu shot: get one every year. COVID-19 vaccine: ask your provider what is best for you. Tetanus-diphtheria and acellular pertussis (Tdap) vaccine: have one at or after age 19 as one of your tetanus-diphtheria vaccines if you did not receive it as an adolescent. Tetanus-diphtheria: have a booster (or Tdap) every 10 years. Varicella vaccine: receive 2 doses if you never had chickenpox or the varicella vaccine. Hepatitis B vaccine: receive 2, 3, or 4 doses, depending on your exact circumstances. Measles, mumps, and rubella (MMR) vaccine: receive 1 to 2 doses if you are not already immune to MMR. Your provider can tell you if you are immune. Ask your provider about the human papillomavirus (HPV) vaccine if: You have not received the HPV vaccine in the past You have not completed the full vaccine series (you should catch up on this shot) Ask your provider if you should receive other immunizations if you have certain health problems that increase your risk for some diseases such as pneumonia. INFECTIOUS DISEASE SCREENING Women who are sexually active should be screened for chlamydia and gonorrhea up until age 25. Women 25 years and older should be screened for chlamydia and gonorrhea if at high risk. Screening for hepatitis C: All adults ages 18 to 79 should get a one-time test for hepatitis C. people should be screened at every . Screening for human immunodeficiency virus (HIV): All people ages 15 to 65 should get a one-time test for HIV. Depending on your lifestyle and medical history, you may also need to be screened for infections such as syphilis and HIV, as well as other infections. PHYSICAL EXAM All adults should visit their provider from time to time, even if they are healthy. The purpose of these visits is to: Screen for disease Assess your risk of future medical problems Encourage a healthy lifestyle Update your vaccinations and other preventive care services Maintain a relationship with a provider in case of an illness Your height, weight, and BMI should be checked at every exam. During your exam, your provider may ask you about: Depression and anxiety Diet and exercise Alcohol and tobacco use Safety issues, such as using seat belts, smoke detectors, and intimate partner violence Your medicines and risk for interactions SKIN SELF-EXAM Your provider may check your skin for signs of skin cancer, especially if you're at high risk, such as if you: Have had skin cancer before Have close relatives with skin cancer Have a weakened immune system OTHER SCREENING Talk with your provider about colon cancer screening if you have a strong family history of colon cancer or polyps, or if you have had inflammatory bowel disease or polyps yourself. Routine bone density screening of women under 40 is not recommended.
--- OUTSIDE RECORDS SUMMARY | 2025-06-10 08:07 | XMS_ITS | Patient Health Record ---
Author Organization [facility] Address [address] [place] [address] Care Team Providers Care Order Builder Name Role Phone Reinaldo Velez MD Primary Care Provider Chuck Marquis Unavailable [phone] Allergies Allergen (clinical drug ingredient) Drug/Non Drug Allergy documented on EMR Reaction Allergy Type Onset Date Status amoxicillin Amoxicillin Unknown Drug Allergy Act faviola azithromycin Azithromycin Unknown Drug Allergy A ctive sulfamethoxazole / trimethoprim Bactrim Unknown Drug Allergy Active clindamycin Clindamycin HCl Unknown Drug Allergy Active penicillin G Penicillin G Sodium Unknown Drug Allergy Active Reason For Referral No Information Medications Medication SIG (Take, Route, Frequency, Duration) Notes Start Date End Date Status Turmeric 500 MG Capsule as directed Orally Active Vitamin B 12 100 MCG Lozenge as directed Orally Active Betamethasone Dipropionate 0.05 % Lotion APPLY TO SCALP TWICE A DAY X 2 WEEKS,THEN DAILY 2 3X PER WEEK External; Duration: 30 Active Vitamin C & D3/Corine Hips Active buPROPion HCl ER (SR) 100 MG Tablet Extended Release 12 Hour TAKE 1 TABLET BY MOUTH EVERY DAY Oral; Duration: 30 Active valACYclovir HCl 500 MG Tablet TAKE 1 TABLET BY MOUTH DAILY Oral; Duration: 90 Active CeleXA 10 MG Tablet 1 tablet Orally Once a day; Duration: 30 day(s) Active Probiotic - Tablet Chewable as directed Orally Active Citalopram Hydrobromide 10 MG/5ML Solution 5 mL Orally Once a day; Duration: 30 day(s) Active Multi For Her - Tablet as directed Orally Active CombiPatch 0.05-0.14 MG/DAY Patch Twice Weekly APPLY 1 PATCH TO THE SKIN TWICE A WEEK Transdermal; Duration: 84 Active Niacinamide 100 MG Tablet 1 tablet Orall y every 6 hrs; Duration: 30 day(s) Active Nitrofurantoin Monohyd Macro 100 MG Capsule TAKE 1 CAPSULE BY MOUTH EVERYDAY AT BEDTIME Oral; Duration: 30 Active Magnesium 300 MG Capsule 1 capsule with a meal Orally Once a day; Duration: 30 day(s) Active Multivitamin Adult - Tablet as directed Orally once a day Active Nystatin 485692 UNIT Tablet TAKE 2 TABLE TS BY MOUTH TWICE A DAY Oral; Duration: 60 Active Immunizations Vaccine Route Administration Date Status Comme nts Influenza Unknown 02/16/2018 Administered Influenza Unknown 04/01/2020 Administered Influenza Unknown 05/10/2021 Administered Social History Tobacco Use: Social History Observation Description Date Details (start date - stop date) Never Smoker NA - NA Social History Drugs/Alcohol: Social Info Question Answer Notes Alcohol Screen Did you have a drink containing alcohol in the past year? Yes How often did you have a drink containing alcohol in the past year? 2 to 3 times a week (3 points) How many drinks did you have on a typical day when you were drinking in the past year? 1 or 2 drinks (0 point) How often did you have 6 or more drinks on one occasion in the past year? 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 This program helps to define any specific needs in the community that the hospital can establish programs for. Section Notes: Nonsmoker; occ. wine with di nner Nonsmoker; occ. wine with di nner Nonsmoker; occ. wine with di nner Problems Problem Type SNOMED Code ICD Code Onset Dates Problem Status W/U Status Risk Notes Problem Screening for malignant neoplasm of colon (155533230) Encounter for screening for malignant neoplasm of colon (Z12.11) Active confirmed Problem Change in bowel habit (05471767) Change in bowel habits (R19.4) Active confirmed Problem Pre-procedure evaluation check (699191018) Pre-procedural examination (Z01.818) Active confirmed Problem Gluten intolerance (4413702583) Gluten intolerance (K90.0) Active confirmed Plan Of Treatment Pending Test Test Name Order Date CELIAC PANEL #10 04/08/2020 Future Test Test Name Order Date COLONOSCOPY 06/28/2018 Insurance Providers Payer Name Payer Address Payer Phone Subscriber Number Group Number Insured Name Patient Relationship to Insured Coverage Start Date Coverage End Date [employer] [address] [address] [place] [address] [id number] ARTURO ESCOBAR Self - patient is the insured Medical (General) History Medical History History ICD Code Denies CA,DM,CVA,Lung disease,renal dise ase Anxiety Chronic low WBC [...]
--- OUTSIDE RECORDS SUMMARY | 2025-06-10 08:07 | XMS_ITS | Patient Health Record ---
Author Organization [facility] ([facility] Address [address] [place] [address] Care Team Providers Care Photo Technician Name Role Phone KARLY LOVELACE Primary Care Provider ARTURO Randhawa Unavailable [phone] Allergies Allergen (clinical drug ingredient) Drug/Non Drug Allergy documented on EMR Reaction Allergy Type Onset Date Status PENICILLIN Throat Swelling Drug Allergy Active amoxicillin AMOXICILLIN SWELLING Drug Allergy Act [place] sulfamethoxazole / trimethoprim BACTRIM Skin Rash Drug Allergy Active clindamycin Clindamycin HCl Throat Closes Drug Allergy Active azithromycin Zithromax Z-Gene Skin Rash Drug Allergy Active Reason For Referral No Information Medications Medication SIG (Take, Route, Frequency, Duration) Notes Start Date End Date Status Nystatin 424212 UNIT Oral; Duration: 60 Active Citalopram Hydrobromide 10 MG/5ML Oral; Duration: 90 1/2 tab weening off Active busPIRone [...] Notes: Marital status: single 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 Nutrition: average diet Exercise: regular weight lifting / resistance exercise regular cardio Sexual activity: not sexually active Contraception: oral contraceptives Smoking: never a smoker Alcohol: occasional alcohol Text messaging while driving: no Sunscreen: yes Illicit drugs: no Seatbelt: yes Marital status: single 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 Nutrition: average diet Exercise: regular weight lifting / resistance exercise regular cardio Sexual activity: not sexually active Contraception: oral contraceptives Smoking: never a smoker Alcohol: occasional alcohol Text messaging while driving: no Sunscreen: yes Illicit drugs: no Seatbelt: yes Marital status: single 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 Nutrition: average diet Exercise: regular weight lifting / resistance exercise regular cardio Sexual activity: not sexually active Contraception: oral contraceptives Smoking: never a smoker Alcohol: occasional alcohol Text messaging while driving: no Sunscreen: yes Illicit drugs: no Seatbelt: yes Marital status: single 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 Nutrition: average diet Exercise: regular weight lifting / resistance exercise regular cardio Sexual activity: not sexually active Contraception: oral contraceptives Smoking: never a smoker Alcohol: occasional alcohol Text messaging while driving: no Sunscreen: yes Illicit drugs: no Seatbelt: yes Marital status: single 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 Nutrition: average diet Exercise: regular weight lifting / resistance exercise regular cardio Sexual activity: not sexually active Contraception: oral contraceptives Smoking: never a smoker Alcohol: occasional alcohol Text messaging while driving: no Sunscreen: yes Illicit drugs: no Seatbelt: yes Marital status: single 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 Nutrition: average diet Exercise: regular weight lifting / resistance exercise regular cardio Sexual activity: not sexually active Contraception: oral contraceptives Smoking: never a smoker Alcohol: occasional alcohol Text messaging while driving: no Sunscreen: yes Illicit drugs: no Seatbelt: yes Marital status: single 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 Nutrition: average diet Exercise: regular weight lifting / resistance exercise regular cardio Sexual activity: not sexually active Contraception: oral contraceptives Smoking: never a smoker Alcohol: occasional alcohol Text messaging while driving: no Sunscreen: yes Illicit drugs: no Seatbelt: yes Marital status: single 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 Nutrition: average diet Exercise: regular weight lifting / resistance exercise regular cardio Sexual activity: not sexually active Contraception: oral contraceptives Smoking: never a smoker Alcohol: occasional alcohol Text messaging while driving: no Sunscreen: yes Illicit drugs: no Seatbelt: yes Marital status: single 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 Nutrition: average diet Exercise: regular weight lifting / resistance exercise regular cardio Sexual activity: not sexually active Contraception: oral contraceptives Smoking: never a smoker Alcohol: occasional alcohol Text messaging while driving: no Sunscreen: yes Illicit drugs: no Seatbelt: yes Marital status: single 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 Nutrition: average diet Exercise: regular weight lifting / resistance exercise regular cardio Sexual activity: not sexually active Contraception: oral contraceptives Smoking: never a smoker Alcohol: occasional alcohol Text messaging while driving: no Sunscreen: yes Illicit drugs: no Seatbelt: yes Marital status: single 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 Nutrition: average diet Exercise: regular weight lifting / resistance exercise regular cardio Sexual activity: not sexually active Contraception: oral contraceptives Smoking: never a smoker Alcohol: occasional alcohol Text messaging while driving: no Sunscreen: yes Illicit drugs: no Seatbelt: yes Marital status: single 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 Nutrition: average diet Exercise: regular weight lifting / resistance exercise regular cardio Sexual activity: not sexually active Contraception: oral contraceptives Smoking: never a smoker Alcohol: occasional alcohol Text messaging while driving: no Sunscreen: yes Illicit drugs: no Seatbelt: yes Marital status: single 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 Nutrition: average diet Exercise: regular weight lifting / resistance exercise regular cardio Sexual activity: not sexually active Contraception: oral contraceptives Smoking: never a smoker Alcohol: occasional alcohol Text messaging while driving: no Sunscreen: yes Illicit drugs: no Seatbelt: yes Problems Problem Type SNOMED Code ICD Code Onset Dates Problem Status W/U Status Risk Notes Problem Menopause (003282026) Menopausal and female climacteric states (N95.1) Active confirmed Problem Postmenopausal bleeding (42547054) Postmenopausal bleeding (N95.0) Active confirmed Problem Genital herpes simplex (94012524) Herpesviral infection of urogenital system, unspecified (A60.00) Active confirmed Problem Basal cell carcinoma of truncal skin (613966411) Basal cell carcinoma of skin of other part of trunk (C44.519) Active confirmed Problem Cancer of skin of lower limb, basal cell (670978560) Basal cell carcinoma of skin of right lower limb, including hip (C44.712) Active confirmed Problem Mild recurrent major depression (80700881) Major depressive disorder, recurrent, mild (F33.0) Active confirmed Problem Recurrent major depression (37300885) Major depressive disorder, recurrent, unspecified (F33.9) Active confirmed Problem Anxiety disorder (012706599) Anxiety disorder, unspecified (F41.9) Active confirmed Problem Postcoital bleeding (25194847) Postcoital and contact bleeding (N93.0) Active confirmed Problem Abnormal findings on diagnostic imaging of breast (044113717) Other abnormal and inconclusive findings on diagnostic imaging of breast (R92.8) Active confirmed Problem Family history of malignant neoplasm of breast (078707748) Family history of malignant neoplasm of breast (Z80.3) Active confirmed Problem Premenstrual dysphoric disorder (124468) Premenstrual dysphoric disorder (F32.81) Active confirmed Problem COVID-19 (117997509) COVID-19 (U07.1) Active confirmed Problem Genital herpes simplex (32416516) Unspecified genital herpes (054.10) Active confirmed Major Problem Depressive disorder (12415483) Depressive disorder, not elsewhere classified (311) Active confirmed Major Encounters Encounter Location Date Provider Diagnosis [address] [place] [address] 08/22/2024 ARTURO MEYERS Plan Of Treatment Pending Test Test Name [...] Date Coverage End Date [employer] [facility] [address] [address] [place] [address] [id number] ARTURO ORONA Self - patient is the [...]
[2025-06-10 08:12] VITALS: BP 110/69; PULSE 63; RESP 16; TEMP 36.7; O2SAT 99; BMI 23.4
== END 2025-06-10 08:44 | disposition home or self-care (01) ==
LOC: HO.HMCFM 08:03
PROVIDERS: PCP Nurse Practitioner Family; Visit Provider Nurse Practitioner Family
DX: Z00.00 Encounter for general adult medical examination without abnormal findings (principal); Z92.89 Personal history of other medical treatment; Z79.890 Hormone replacement therapy; Z78.0 Asymptomatic menopausal state; L85.3 Xerosis cutis; H81.13 Benign paroxysmal vertigo, bilateral; F32.9 Major depressive disorder, single episode, unspecified; F41.1 Generalized anxiety disorder; F42.2 Mixed obsessional thoughts and acts; Z28.21 Immunization not carried out because of patient refusal

== ENCOUNTER → 2025-06-10 08:02 | Outpatient (BNVA) | payer OTHER, SELFPAY | PROVIDERS: PCP Nurse Practitioner Family; Visit Provider Nurse Practitioner Family | DX: Z00.00 Encounter for general adult medical examination without abnormal findings (principal); Z28.21 Immunization not carried out because of patient refusal; L85.3 Xerosis cutis; H81.13 Benign paroxysmal vertigo, bilateral; F32.9 Major depressive disorder, single episode, unspecified; F41.1 Generalized anxiety disorder; F42.2 Mixed obsessional thoughts and acts; Z79.890 Hormone replacement therapy; Z78.0 Asymptomatic menopausal state; Z92.89 Personal history of other medical treatment | CPT/HCPCS: 96127 ==